=== PATIENT | male | born 1950 | race Caucasian/White ===

== ENCOUNTER → 2019-04-16 | Outpatient (CLI) | payer MEDICARE, SELFPAY ==
[2019-04-16 09:09] VITALS: BMI 26.4
[2019-04-16 12:24] LABS: Absolute Lymphocyte Count 2.69 X10^3/uL (0.83-4.51); Absolute Neutrophil Count 5.7 X10^3/uL (2.0-7.7); Basophil# 0.14 X10^3/uL; Basophil% 1.4 % (0-1); Eosinophil# 0.36 X10^3/uL; Eosinophils% 3.5 % (0-5); Hemoglobin 17.9 g/dL (13.0-16.5); Lymphocyte # 2.69 X10^3/ul (4.0); Lymphocyte % 26.3 % (19-41); Mean Corp Hgb Conc 34.4 g/dL (32-36); Mean Corpuscular Hgb 33.3 pg (27.0-32.0); Mean Corpuscular Volume 96.8 fL (80-94); Mean Platelet Vol. 11.1 fl (6.2-12.0); Monocyte# 1.25 X10^3/uL; Monocyte% 12.2 % (0-10); NRBC Flagged by Analyzer 0 % (0-5); Neutrophil # 5.73 X10^3/uL (2.7-7.7); Neutrophil % 56.1 % (47-70); Platelet Count 309 K/mm3 (150-450); RBC Distribution Width CV 14.2 % (11.6-14.6); RBC Distribution Width SD 50.7 fl (35.1-43.9); Red Blood Count 5.37 M/mm3 (4.6-6.2); White Blood Count 10.2 K/mm3 (4.4-11.0)
[2019-04-16 12:53] LABS: ALB/GLOB Ratio 0.8 RATIO (0.9-2.4); AST(SGOT) 36 U/L (15-37); Alanine Aminotransfer ALT/SGPT 51 U/L (16-61); Albumin, Serum 3.6 g/dL (3.2-5.0); Alkaline Phosphatase 71 U/L (45-117); Anion Gap 6 (5-15); BUN 7 mg/dL (7-18); BUN/Creat Ratio 7.2 RATIO (10-20); Calcium,Total 8.9 mg/dL (8.5-10.1); Chloride 103 mmol/L (98-107); Cholesterol 259 mg/dL (200); Creatinine, Serum 0.97 mg/dL (0.70-1.30); EST Glomerular Filtration Rate 81 mL/min (>60); Est Glom Filt Rate - Afr Amer 98 mL/min (>60); Globulin 4.5 g/dL (2.2-4.2); Glucose 141 mg/dL (74-106); High Density Lipoprotein 59 mg/dL; Potassium 4.2 mmol/L (3.5-5.1); Protein, Total 8.1 g/dL (6.4-8.2); Sodium Level 137 mmol/L (136-145); Triglycerides 77 mg/dL; Very Low Density Lipoprotein 15 mg/dL (5-40)
== END | disposition home or self-care (01) ==
PROVIDERS: PCP Internal Medicine; Visit Provider Internal Medicine
DX: I10 Essential (primary) hypertension (principal)
CPT/HCPCS: 36415; 80053; 80061; 85025

== ENCOUNTER → 2019-04-17 | Outpatient (CLI) | payer MEDICARE, SELFPAY ==
[2019-04-16 09:09] VITALS: BMI 26.4
--- NOTE | 2019-04-17 09:18 | EKG12_ITS ---
Test Reason : ROUTINE Blood Pressure : / mmHG Vent. Rate : 099 BPM Atrial Rate : 099 BPM P-R Int : 150 ms QRS Dur : 090 ms QT Int : 364 ms P-R-T Axes : 072 080 059 degrees QTc Int : 467 ms Normal sinus rhythm Possible Left atrial enlargement Borderline ECG Confirmed by DIANE DUNLAP, ELVIRA ([id number]), newspaper copy editor ZENOBIA ZENDEJAS ([id number]) on 04/18/2019 12:03:02 PM Referred By: Zully Montoya Confirmed By:ELVIRA CONTRERAS MD
== END | disposition home or self-care (01) ==
LOC: PSN 09:16
PROVIDERS: Family Provider Internal Medicine; PCP Internal Medicine; Referring Provider Internal Medicine; Visit Provider Internal Medicine
DX: I10 Essential (primary) hypertension (principal)
CPT/HCPCS: 93005

== ENCOUNTER → 2019-08-06 09:34 | Outpatient (CLI) | payer MEDICARE, SELFPAY ==
[2019-08-06 09:14] VITALS: BMI 27.6
--- NOTE | 2019-08-06 10:20 | RAD_ITS ---
HISTORY: INCREASING PAIN AND JOINT SWELLING, NKI.PT UNAWARE OF ANY INJURY INVOLVING METAL TO EXPLAIN WHY THERE IS A METALIC FB ADDITIONAL HISTORY: None provided. TECHNIQUE: Left hand 2 views Number of images including paperwork: 2 COMPARISON: None FINDINGS: BONES: No acute fracture. JOINTS: No subluxation. Moderate to severe degenerative changes of the radiocarpal, triscaphe he is in first carpometacarpal joints. Mild to moderate degenerative changes of the small joints of the hand. No definite erosive changes. SOFT TISSUES: Small rounded metallic foreign body with slightly irregular margins noted in the soft tissues lateral to the distal radial diaphysis. Small linear density projects over the soft tissues adjacent to the thumb metacarpal bone, possibly small foreign body or object outside the patient. Soft tissue swelling about the wrist. RAD/Hand 2 Views IMPRESSION: 1. Degenerative changes without acute osseous abnormality. 2. Small metallic foreign body in the soft tissues along the radial aspect of the distal forearm/proximal wrist. Question of additional small foreign body in the soft tissues adjacent to the left thumb metacarpal bone. 3. Soft tissue swelling. at 2230 Reported and signed by: Mercy Thomas MD Electronically Signed: Mercy Thomas MD at 22:30 EST Tel , Service support ,
[2019-08-06 13:03] LABS: ALB/GLOB Ratio 0.8 RATIO (0.9-2.4); AST(SGOT) 20 U/L (15-37); Alanine Aminotransfer ALT/SGPT 31 U/L (16-61); Albumin, Serum 3.6 g/dL (3.2-5.0); Alkaline Phosphatase 81 U/L (45-117); Anion Gap 4 (5-15); BUN 11 mg/dL (7-18); BUN/Creat Ratio 10.8 RATIO (10-20); Calcium,Total 9.2 mg/dL (8.5-10.1); Chloride 102 mmol/L (98-107); Creatinine, Serum 1.02 mg/dL (0.70-1.30); EST Glomerular Filtration Rate 77 mL/min (>60); Est Glom Filt Rate - Afr Amer 93 mL/min (>60); Globulin 4.3 g/dL (2.2-4.2); Glucose 141 mg/dL (74-106); Potassium 4.2 mmol/L (3.5-5.1); Protein, Total 7.9 g/dL (6.4-8.2); Sodium Level 135 mmol/L (136-145)
== END ==
PROVIDERS: PCP Internal Medicine; Referring Provider Internal Medicine; Visit Provider Internal Medicine
DX: E78.5 Hyperlipidemia, unspecified (principal); I10 Essential (primary) hypertension; M19.90 Unspecified osteoarthritis, unspecified site; R22.32 Localized swelling, mass and lump, left upper limb
CPT/HCPCS: 36415; 73120; 80053; 86140; 86431

== ENCOUNTER → 2019-08-28 | Outpatient (CLI) | payer MEDICARE, SELFPAY ==
[2019-08-06 09:41] VITALS: BMI 26.4
[2019-08-28 10:33] VITALS: BMI 26.7
--- NOTE | 2019-08-28 11:01 | CT_ITS ---
STUDY: LOW DOSE CT LUNG CANCER SCREENING REASON FOR EXAM: Male, 68 years old. Care smoking history. RADIATION DOSAGE (If Supplied By Facility): CTDIvol = ( 3.02 ) mGy, DLP = ( 114.38 ) mGycm TECHNIQUE: No contrast was administered. Low dose technique was utilized (average mAS-38 and kVp 120). 1.25 mm axial source images with a slice interval of 1.25-mm were reconstructed in lung windows. 2.5 mm axial source images with a slice interval of 2.5-mm were reconstructed in lung windows. 5.0 mm axial source images with a slice interval of 5.0-mm were reconstructed in soft tissue windows. Nodule measured using lung windows on PACS and/or independent workstation with automated measurement of minimum and maximum diameter. Nodule measurement reported as average diameter rounded to the nearest whole number. Growth is defined as an increase ins size of greater than 1.5 mm. COMPARISON: None. NODULES: Total lung nodules (excluding granulomas): 0 Emphysema: There are emphysematous changes of the lungs without mass or infiltrate. Endobronchial lesion: None Aorta: Atherosclerotic changes without aneurysm. Coronary arteries: Coronary artery calcifications. Heart: Normal in size Pulmonary artery: Normal Mediastinal nodes: There is nonspecific mediastinal lymphadenopathy. Other chest and abdominal findings: There are degenerative changes of the thoracic spine. CT/Low Dose CT Lung Screening IMPRESSION: Lung-RADS category 1 - Continue annual screening with LDCT in 12 months. IMPORTANT NOTES FOR USE: ACR Lung-RADS Version 1.0 Assessment Categories Release Date: November 12, 2013 Category: Coded 0-4 bases on nodule(s) with highest degree of suspicion. Negative screen is defined as categories 1 and 2; a positive screen is defined as categories 3 and 4. Category 3 and 4A nodules that are unchanged on interval CT should be coded as category 2, and individuals returned to screening in 12 months. Category 4X: Category 3 or 4 nodules with additional imaging findings that increase the suspicion of lung cancer, such as spiculation, GGN that doubles in size in 1 year, enlarged lymph notes, etc. Category Modifiers: S (significant finding unrelated to lung cancer) and C (prior history of treated lung cancer) may be added to the 0-4 Lung-RADS Electronically Signed: Yomi Valencia DO at 21:54 EST Tel [phone], Service support ,
== END | disposition home or self-care (01) ==
PROVIDERS: PCP Internal Medicine; Referring Provider Nurse Practitioner Family; Visit Provider Nurse Practitioner Family
DX: F17.209 Nicotine dependence, unspecified, with unspecified nicotine-induced disorders (principal); Z12.2 Encounter for screening for malignant neoplasm of respiratory organs
CPT/HCPCS: G0297

== ENCOUNTER 2019-09-29 09:08 | Inpatient (IN) | payer MEDICARE, SELFPAY ==
[2019-08-28 10:33] VITALS: BMI 26.7
[2019-09-29] VITALS (8 sets, daily range): BP systolic 144–173; BP diastolic 76–91; PULSE 97–104; RESP 18–20; TEMP 36.6–37.7; O2SAT 90–94; BMI 26.8; BMI 26.2; BMI 26.9
--- NOTE | 2019-09-29 09:24 | EKG12_ITS ---
Test Reason : Blood Pressure : / mmHG Vent. Rate : 097 BPM Atrial Rate : 097 BPM P-R Int : 176 ms QRS Dur : 092 ms QT Int : 392 ms P-R-T Axes : 061 061 056 degrees QTc Int : 497 ms Normal sinus rhythm Nonspecific ST abnormality Prolonged QT Abnormal ECG Confirmed by VALENTE MARTIN ([id number]), industrial editor RUDI HEARD ([id number]) on 10/04/2019 9:19:13 AM Referred By: JACK Confirmed By:VALENTE MARTIN
--- NOTE | 2019-09-29 09:24 | CT_ITS ---
STUDY: CT ABDOMEN AND PELVIS WITHOUT CONTRAST REASON FOR EXAM: Male, 68 years old. ABD PAIN AND SOB SINCE 4 AM, HTN, SPLENECTOMY RADIATION DOSAGE (If Supplied By Facility): CTDIvol = ( 6.96 ) mGy, DLP = ( 485.13 ) mGycm TECHNIQUE: Transaxial images were obtained from the dome of the diaphragm to the symphysis pubis without oral contrast, and without intravenous contrast. Sagittal and coronal images were reconstructed. Individualized dose optimization techniques were used for this CT. COMPARISON: None. FINDINGS: Right lower lung basilar atelectatic changes present. The visualized portions of the heart are within normal limits. There is decreased attenuation of the liver consistent with steatosis. Normal gallbladder and extrahepatic biliary system. Spleen has been surgically removed. Mild prominence of the pancreatic tail is noted and may be secondary to postsurgical changes of splenectomy. Normal bilateral adrenal glands. Bilateral vascular calcifications in the renal pelvis are present. Normal visualized stomach. Within the region of the distal duodenum near the fourth portion is apparent wall thickening and surrounding inflammatory stranding and fluid layering concerning for distal duodenitis as seen on axial series 2 image 72 and coronal series 601 image 60. Normal colon. The appendix is visualized and appears normal. There is diffuse atherosclerotic calcification of the abdominal aorta, without a demonstrated aneurysm. Normal inferior vena cava. Scattered fluid layering within the mid abdomen mesentery and extending along the left paracolic gutter is noted. Normal urinary bladder. There is a small umbilical hernia containing fat. Left inguinal indirect hernia containing small bowel is noted without evidence of obstruction. There are diffuse degenerative changes of the visualized lumbar spine. CT/Abdomen/Pelvis without Cont IMPRESSION: 1. Findings consistent with distal duodenum inflammation within the fourth portion concerning for duodenitis in the appropriate clinical setting. Inflammation does not appear to originate from the pancreas. Mesenteric fluid and stranding within the mid abdomen left paracolic gutter noted with no evidence of focal fluid collection or abscess. Further characterization may be obtained with oral and IV contrast as clinically warranted. 2. Mild prominent appearance of the distal tail of the pancreas may be secondary to alteration due to splenectomy, this may also be further evaluated with contrast CT study. 3. Left inguinal bowel-containing hernia as above. Electronically Signed: Niall Solitario DO at 10:40 EDT , Service support ,
--- NOTE | 2019-09-29 09:27 | ED.DCSUM_ITS ---
History of Present Illness Chief Complaint: Abd Pain Informant: Patient Onset: Today Maximum Severity: Mild Narrative: The patient complains of diffuse abdominal discomfort that began at 4 AM this morning, he went to bed feeling fine, his history of prior abdominal surgery for splenectomy years ago related to removal of a mass, he has not been ill in any way he has been passing stool urinary habits normal, no fever no cough, no exposures to covid19, no history of bowel obstruction or other conditions The patient lipase is almost 10,000, white count 18,000, CT shows inflammation distal duodenum with some fluid in the left paracolic gutter liver and gallbladder are unremarkable the rest of the abdominal ct exam unremarkable and hemodynamically stable given all the above will continue IV fluids of asked the hospital see him for the management admission Admit stable Impression acute pancreatitis Past Medical History - Allergies and Home Meds Allergies/Adverse Reactions: Allergies No Known Allergies Allergy (Verified 09/29/19 09:09) Primary Care Physician: Zully Montoya MD [Primary Care Provider] - Past Medical History: - Smoking Status: Current every day smoker Review of Systems ROS: - Clues as above General: Denies: Chills, Fever, Sweats Eyes: Denies: Visual changes - bilaterally, Diplopia ENT: Denies: Rhinorrhea, Sore throat Cardiovascular: Denies: Chest pain, Palpitations Respiratory: Denies: Dyspnea, Cough, Dyspnea on exertion Gastrointestinal: Reports: Abdominal pain. Denies: Nausea, Vomiting, Diarrhea, Melena, Hematochezia Genitourinary: Denies: Dysuria, Hematuria, Frequency Musculoskeletal: Denies: Back pain, Extremity Pain Skin: Denies: Rash, Wounds Neurological: Denies: Headache, Weakness, Numbness Physical Exam Vital Signs/Narrative: Vital Signs Temp Pulse Resp BP Pulse Ox 09/29/19 09:09 98.0 F 104 H 20 H 156/76 H 90 General: Well nourished, Well developed, No Acute Distress Head: Normocephalic, Atraumatic Eyes: Perrl, EOMI ENT: Moist mucous membranes, No rhinorrhea Neck: Supple, Nontender Cardiovascular: Regular rate, Regular rhythm, No murmurs Respiratory: No distress, CTA bilaterally, Chest nontender Abdomen: Soft, Normal bowel sounds, - - Slight distention to his abdominal area, he appears to have a stable umbilical hernia 6 o'clock position that is not tender he complains of vague diffuse pain he takes his hand and draws it diffusely across his abdomen a very large north fork there is no rebound guarding organomegaly rather diffuse pain there is no obvious bladder distention for sure. Negative for: Nondistended Back: Nontender, Normal Inspection Extremities: Nontender, No edema Skin: Normal color, No rash Neurological: Alert, Oriented x3, Cranial nerves II-XII grossly intact, Normal Strength, Normal Sensation Psychological: Normal affect, Normal Mood Diagnostic/Tx/Re-eval - Medical Decision Making Differentials extensive ED screening evaluation CT fluids labs ED Disposition - Plan for ED Patient: Diagnosis: Acute pancreatitis Referrals: Zully Montoya MD [Primary Care Provider] -
[2019-09-29 09:56] LABS: Absolute Lymphocyte Count 1.18 X10^3/uL (0.83-4.51); Absolute Neutrophil Count 15.5 X10^3/uL (2.0-7.7); Basophil# 0.07 X10^3/uL; Basophil% 0.4 % (0-1); Hematocrit 46.3 % (40-54); Lymphocyte # 1.18 X10^3/ul (4.0); Lymphocyte % 6.5 % (19-41); Mean Corp Hgb Conc 34.6 g/dL (32-36); Mean Corpuscular Hgb 32.9 pg (27.0-32.0); Mean Corpuscular Volume 95.1 fL (80-94); Mean Platelet Vol. 10.4 fl (6.2-12.0); Monocyte# 1.23 X10^3/uL; Monocyte% 6.8 % (0-10); NRBC Flagged by Analyzer 0 % (0-5); Neutrophil # 15.53 X10^3/uL (2.7-7.7); Neutrophil % 85.4 % (47-70); Platelet Count 276 K/mm3 (150-450); RBC Distribution Width CV 13.6 % (11.6-14.6); RBC Distribution Width SD 47.7 fl (35.1-43.9); Red Blood Count 4.87 M/mm3 (4.6-6.2); White Blood Count 18.2 K/mm3 (4.4-11.0)
[2019-09-29] MEDS: 0.9% Normal Saline 1,000 ML 125 ML IV (10:01)
[2019-09-29] MEDS: morphine 8 MG/ML Syringe IV (10:01)
[2019-09-29] MEDS: Ondansetron 4 MG/2 ML Vial IV (10:01)
[2019-09-29 10:04] LABS: AST(SGOT) 22 U/L (15-37); Alanine Aminotransfer ALT/SGPT 38 U/L (16-61); Albumin, Serum 3.9 g/dL (3.2-5.0); Alkaline Phosphatase 63 U/L (45-117); Anion Gap 9 (5-15); BUN 18 mg/dL (7-18); Calcium,Total 8.7 mg/dL (8.5-10.1); Chloride 105 mmol/L (98-107); EST Glomerular Filtration Rate 79 mL/min (>60); Est Glom Filt Rate - Afr Amer 95 mL/min (>60); Globulin 3.8 g/dL (2.2-4.2); Glucose 217 mg/dL (74-106); Lipase 9343 U/L (73-393); Potassium 3.6 mmol/L (3.5-5.1); Protein, Total 7.7 g/dL (6.4-8.2); Sodium Level 140 mmol/L (136-145)
[2019-09-29 10:05] LABS: Bacteria 0 SEEN /hpf (None Seen); Mucous, Urine 0 SEEN /hpf (<or=2+); White Blood Cells 0 SEEN /hpf (0-5)
[2019-09-29 10:32] LABS: Color, Urine Yellow (Yellow); Glucose, Dipstick 250 mg/dl (Normal); Ketone-Dipstick 15 mg/dl (Negative); Leukocyte Esterase-Dipstick Negative /ul (Negative); Nitrite-Dipstick Negative (Negative); Occult Blood-Urine Negative /ul (Negative); Protein-Dipstick 15 mg/dl (Negative); Urine Bilirubin Dipstick Negative (Negative); Urine Clarity Clear (Clear); Urine Urobilinogen Normal (Normal)
[2019-09-29 10:44] LABS: Red Blood Cells-Urine 0-5 SEEN /hpf (0-5); Squamous Epithelial Cells - UA 0-5 SEEN /hpf (0-5)
--- NOTE | 2019-09-29 10:59 | NURSING ---
DR GABBY ACEVEDO
--- NOTE | 2019-09-29 11:07 | NURSING ---
MED SURG OBS GABBY ACUTE PANCREATITIS
--- NOTE | 2019-09-29 12:30 | HP.PCM_ITS ---
Problem List (1) Acute alcoholic pancreatitis Status: Acute (2) Carpal tunnel syndrome of right wrist Status: Chronic (3) Hyperlipidemia Status: Chronic (4) Right wrist pain Status: Chronic (5) Hypertension Status: Chronic History of Present Illness Date of Admission: 09/29/19 Chief Complaint: Abdominal pain The patient is a 68 year old M with history of chronic alcohol use about 6 bottle of beer every day for long time came to ER with diffuse abdominal pain that started at 4:00 on the day of admission. Patient denies nausea, vomiting, change in bowel habit, GI bleed. 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 Denies lower related symptoms including burning micturition. Denies chronic GI or liver gallbladder disease. Denies fever or chills, URI symptoms/flulike symptoms or exposure to suspected patients of COVID 19. [] In ED, CT scan of abdomen was done which showed inflammation of D4, duodenitis along with fluid in left paracolic gutter, mesenteric stranding and edema. ED vitals shows heart rate 100/min, blood pressure high 173/91. Lab work shows leukocytosis with left shift 85% neutrophils. LFT within normal limit. Lipase 9343. UA negative Past Medical History Past Medical History (Chronic Problems): Chronic Problems (Last Reviewed 08/28/19 @ 10:29 by Lucrecia Rivas) Carpal tunnel syndrome of right wrist (Chronic) Hyperlipidemia (Chronic) Right wrist pain (Chronic) Hypertension (Chronic) Medical History: Medical History (Last Reviewed 08/28/19 @ 10:29 by Lucrecia Rivas) Arthritis M19.90 Hyperlipemia E78.5 Left inguinal hernia K40.90 Hypertension I10 Allergies No Known Allergies Allergy (Verified 09/29/19 09:09) Home Medications: Ambulatory Orders Medication Instructions Recorded blood pressure monitor See Rx Instructions .ROUTE 04/16/19 .MEDSUPPLY #1 ea Wrist Splint #2 ea 05/01/19 hydroxychloroquine 200 mg tablet 200 mg PO DAILY #30 tab 08/06/19 Amlodipine Besylate 10 mg PO DAILY 09/29/19 Losartan Potassium [Cozaar] 50 mg PO DAILY 09/29/19 Prednisone 20 mg PO DAILY 09/29/19 Rosuvastatin Calcium 10 mg PO DAILY 09/29/19 Surgical History: Surgical History (Last Reviewed 08/28/19 @ 10:29 by Lucrecia Rivas) History of intraocular lens implant Z96.1 History of splenectomy Z90.81 Smoking Status: Current every day smoker - *Family History Paternal History Items: No pertinent history Review of Systems Constitutional: Denies: Chills, Fever, Weight Change HEENT: Denies: Head Aches, Sinus Congestion, Sinus Drainage Cardiovascular: Denies: Chest Pain, Palpitations Respiratory: Reports: Cough - Chronic occasional cough No new cough or worsening of cough or fever.. Denies: Shortness of breath at rest, Sputum production Gastrointestinal: Reports: Abdominal Pain. Denies: Constipation, Diarrhea, Dyspepsia, Hematemesis, Hematochezia, Nausea, Vomiting Genitourinary: Denies: Dysuria Musculoskeletal: Denies: Joint Pain, Joint Tenderness Skin: Denies: Rash, Wounds Neurological: Denies: Numbness, Tingling, Focal weakness Psychiatric: Denies: Anxiety, Depression, Homicidal Ideations, Suicidal Ideations Hematologic/ Lymphatic: Denies: Easy Bruising, Easy Bleeding VTE Information - Inpt Only VTE Present on Admission: No VTE Mechan Device Prophylaxis: None VTE Pharm Prophylaxis ordered?: Yes Patient Problems: Active and Suspected Problems (Last Reviewed 08/28/19 @ 10:29 by Lucrecia Rivas) Acute alcoholic pancreatitis (Acute) - Physical Exam Vitals/I&O's: Vital Signs Temp Pulse Resp BP Pulse Ox 98 F 100 18 173/91 H 92 09/29/19 11:27 09/29/19 11:27 09/29/19 11:27 09/29/19 11:27 09/29/19 11:27 Oxygen Flow Rate (L/min) 2 Oxygen Delivery Method Nasal Cannula Weight: 172 lb 6.424 oz Body Mass Index (BMI) 26.2 General: Alert, Oriented x3, Cooperative HEENT: Atraumatic, PERRLA, EOMI, Normocephalic Neck: Supple, No JVD, Negative Carotid Bruits Lungs: Clear to auscultation, No rhonchi, No wheeze, No rales, Diminished Cardiovascular: Regular Rhythm, Normal S1, Normal S2, No murmurs, Tachycardic Abdomen: Bowel Sounds Present, Soft, Non-Distended, Hypoactive Bowel Sounds, Tender - Tenderness present over left side of mid abdomen. No guarding or rigidity. No palpable mass. Upper midline abdominal incision scar present Extremities: No edema, Capillary Refill Less than 3 Seconds Skin: No rashes, No breakdown Musculoskeletal: No Tenderness to Palpation of Joints or Extremities, Arthritic Changes Neurological: Cranial nerves II-XII grossly intact, Deep Tendon Reflexes 2+/4 and Symmetrical, Neuro grossly intact, Motor Exam 5/5 strength throughout Psych/Mental Status: Normal Affect, Appropriate Laboratory Results 09/29/19 09:30: WBC 18.2 H, RBC 4.87, Hgb 16.0, Hct 46.3, MCV 95.1 H, MCH 32.9 H , MCHC 34.6, RDW Std Deviation 47.7 H, RDW Coeff of [place] 13.6, Plt Count 276, MPV 10.4, Immature Gran % (Auto) 0.900, Neut % (Auto) 85.4 H, Lymph % (Auto) 6.5 L, [place] % (Auto) 6.8, Eos % (Auto) 0.0, Baso % (Auto) 0.4, Absolute Neuts (auto) 15.5 H, Absolute Lymphs (auto) 1.18, Nucleated RBC % 0 09/29/19 09:30: Sodium 140, Potassium 3.6, Chloride 105, Carbon Dioxide 26.0, Anion Gap 9, BUN 18, Creatinine 1.00, Estim Creat Clear Calc 66.50, Est GFR (MDRD) Af Amer 95, Est GFR (MDRD) Non-Af 79, BUN/Creatinine Ratio 18.0, Glucose 217 H, Calcium 8.7, Total Bilirubin 0.60, AST 22, ALT 38, Alkaline Phosphatase 63, Total Protein 7.7, Albumin 3.9, Globulin 3.8, Albumin/Globulin Ratio 1.0, Lipase 9343 H 09/29/19 09:55: Urine Color Yellow, Urine Clarity Clear, Urine pH 6.0, Ur Specific [place] 1.020, Urine Protein 15 H, Urine Glucose (UA) 250 H, Urine Ketones 15 H, Urine Occult Blood Negative, Urine Nitrite Negative, Urine Bilirubin Negative, Urine Urobilinogen Normal, Ur Leukocyte Esterase Negative, Urine RBC 0-5 SEEN, Urine WBC 0 SEEN, Ur Squamous Epith Cells 0-5 SEEN, Urine Bacteria 0 SEEN, Urine Mucus 0 SEEN Current Medications Sodium Chloride () 1,000 mls @ 125 mls/hr IV .Q8H HAN Last Admin: 09/29/19 10:01 Dose: 125 mls/hr Documented by: Assessment/Plan All Active Problems (Last Reviewed 08/28/19 @ 10:29 by Lcurecia Rivas) Acute alcoholic pancreatitis (Acute) The patient is a 68 year old M with history of chronic alcohol use about 6 bottle of beer every day for long time came to ER with diffuse abdominal pain that started at 4:00 on the day of admission. In ED, CT scan of abdomen was done which showed inflammation of D4, duodenitis along with fluid in left paracolic gutter, mesenteric stranding and edema. ED vitals shows heart rate 100/min, blood pressure high 173/91. Lab work shows leukocytosis with left shift 85% neutrophils. LFT within normal limit. Lipase 9343. UA negative. CT abdomen reported normal GB with extrahepatic biliary system. 1. Acute alcoholic pancreatitis: Patient is being admitted floor. IV fluid Ringer lactate 150 mL/h. Surgery has been consulted for features of mesenteric stranding and edema probably secondary to pancreatic edema. Monitor intake and output, keep n.p.o., follow-up electrolytes, kidney function CBC. 2. Chronic alcohol use with fatty liver: CT abdomen shows steatosis. Liver tests are within normal limit, albumin 3.9. Platelet count 276. PT/INR ordered. 3. Chronic smoker: 4. Hypertension: Blood pressure is uncontrolled, 173/91. Patient on amlodipine, losartan at home. Start IV hydralazine and enalapril while patient is n.p.o. Resume p.o. medication once oral is allowed 5. Dyslipidemia: Hold rosuvastatin while patient is n.p.o. 6. 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 Patient is on hydroxychloroquine and prednisone 20 mg daily probably started by PCP about 2 months ago, reason unclear. Will hold it. 7. DVT prophylaxis: Lovenox 40 mg subcu daily Living will/advanced directive/CODE STATUS: Patient does not have living will or advanced directive of health. When asked directly about CODE STATUS, he chooses DNR CC arrest Patient does not want artificial life support including intubation, artificial tube feed, ventilator and/chest compression,'s CVC, vasopressor or DC shock if needed. Patient is DNR CC Arrest. Total time spent in [id number] encounter in di scussion of advanced directive 16 minutes. Inpatient E&M: 38240 Init Hosp L3 Procedures: 61218 Advncd Care Plan 30 Min
[2019-09-29] MEDS: Lactated Ringers 1,000 ML 150 ML IV ×2 (13:28→21:59)
[2019-09-29] MEDS: Enoxaparin 40 MG/0.4 ML Syringe SC (13:54)
[2019-09-29 14:00] LABS: Prothrombin Time (Protime)PT. 13.4 SECONDS (11.7-14.9)
[2019-09-29 14:02] LABS: Magnesium 1.7 mg/dL (1.6-2.6)
[2019-09-29] MEDS: 0.9% Saline Lock 10 ML Syringe IV (14:03)
[2019-09-29] MEDS: Morphine 2 MG/ML Syringe IV ×2 (14:03→20:33)
--- NOTE | 2019-09-29 15:45 | CON.PCM_ITS ---
Problem List (1) Acute alcoholic pancreatitis Status: Acute Reason for Consult Date of Consultation: 09/29/19 History of Present Illness: The patient is a 68 year old M with history of chronic alcohol use about 6 bottle of beer every day for long time came to ER with diffuse abdominal pain that started at 4:00 on the day of admission. Patient denies nausea, vomiting, change in bowel habit, GI bleed. 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 Denies lower related symptoms including burning micturition. Denies chronic GI or liver gallbladder disease. Denies fever or chills, URI symptoms/flulike symptoms or exposure to suspected patients of COVID 19. [] In ED, CT scan of abdomen was done which showed inflammation of D4, duodenitis along with fluid in left paracolic gutter, mesenteric stranding and edema. ED vitals shows heart rate 100/min, blood pressure high 173/91. Lab work shows leukocytosis with left shift 85% neutrophils. LFT within normal limit. Lipase 9343. UA negative Patient underwent a CAT scan of his abdomen and pelvis which showed: IMPRESSION: 1. Findings consistent with distal duodenum inflammation within the fourth portion concerning for duodenitis in the appropriate clinical setting. Inflammation does not appear to originate from the pancreas. Mesenteric fluid and stranding within the mid abdomen left paracolic gutter noted with no evidence of focal fluid collection or abscess. Further characterization may be obtained with oral and IV contrast as clinically warranted. 2. Mild prominent appearance of the distal tail of the pancreas may be secondary to alteration due to splenectomy, this may also be further evaluated with contrast CT study. 3. Left inguinal bowel-containing hernia as above. Patient states that since being in the hospital with IV hydration and minimal n arcotics his pain level has decreased. 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 Mike Barragan MD) Arthritis M19.90 Hyperlipemia E78.5 Left inguinal hernia K40.90 Hypertension I10 Allergies No Known Allergies Allergy (Verified 09/29/19 09:09) Home Medications: Ambulatory Orders Medication Instructions Recorded blood pressure monitor See Rx Instructions .ROUTE 04/16/19 .MEDSUPPLY #1 ea Wrist Splint #2 ea 05/01/19 hydroxychloroquine 200 mg tablet 200 mg PO DAILY #30 tab 08/06/19 Amlodipine Besylate 10 mg PO DAILY 09/29/19 Losartan Potassium [Cozaar] 50 mg PO DAILY 09/29/19 Prednisone 20 mg PO DAILY 09/29/19 Rosuvastatin Calcium 10 mg PO DAILY 09/29/19 Surgical History: Surgical History (Last Reviewed 09/29/19 @ 15:[address] Mike Barragan MD) History of intraocular lens implant Z96.1 History of splenectomy Z90.81 Smoking Status: Current every day smoker Tobacco Use: Cigarettes - *Family History Paternal History Items: No pertinent history Review of Systems Constitutional: Reports: Anorexia Cardiovascular: Denies: Chest Pain, Chest Pressure, Chest Tightness, Palpitations Respiratory: Denies: Cough, Hemoptysis, Shortness of breath at rest, Shortness of breath upon exertion, Wheezing Gastrointestinal: Reports: Abdominal Pain Patient Problems: Active and Suspected Problems (Last Reviewed 08/28/19 @ 10:29 by Lucrecia Rivas) Acute alcoholic pancreatitis (Acute) - Physical Exam Vitals/I&O's: Vital Signs Temp Pulse Resp BP Pulse Ox 98.2 F 97 18 144/88 H 92 09/29/19 13:07 09/29/19 13:07 09/29/19 13:07 09/29/19 13:07 09/29/19 13:40 Oxygen Flow Rate (L/min) 2 Oxygen Delivery Method Nasal Cannula Weight: 172 lb 6.424 oz Body Mass Index (BMI) 26.2 Intake and Output for Last 24 Hours 09/27/19 09/28/19 09/29/19 23:59 23:59 23:59 Intake Total 595.42 / 595.42 Balance 595.42 / 595.42 General: Alert, Oriented x3 Lungs: Clear to auscultation Cardiovascular: Regular rate, Regular Rhythm, No murmurs Abdomen: Bowel Sounds Present, Soft, Non Tender, Non-Distended Extremities: No clubbing, No cyanosis, No edema Laboratory Results 09/29/19 09:30: WBC 18.2 H, RBC 4.87, Hgb 16.0, Hct 46.3, MCV 95.1 H, MCH 32.9 H , MCHC 34.6, RDW Std Deviation 47.7 H, RDW Coeff of [place] 13.6, Plt Count 276, MPV 10.4, Immature Gran % (Auto) 0.900, Neut % (Auto) 85.4 H, Lymph % (Auto) 6.5 L, [place] % (Auto) 6.8, Eos % (Auto) 0.0, Baso % (Auto) 0.4, Absolute Neuts (auto) 15.5 H, Absolute Lymphs (auto) 1.18, Nucleated RBC % 0 09/29/19 09:30: Sodium 140, Potassium 3.6, Chloride 105, Carbon Dioxide 26.0, Anion Gap 9, BUN 18, Creatinine 1.00, Estim Creat Clear Calc 66.50, Est GFR (MDRD) Af Amer 95, Est GFR (MDRD) Non-Af 79, BUN/Creatinine Ratio 18.0, Glucose 217 H, Calcium 8.7, Total Bilirubin 0.60, AST 22, ALT 38, Alkaline Phosphatase 63, Total Protein 7.7, Albumin 3.9, Globulin 3.8, Albumin/Globulin Ratio 1.0, Lipase 9343 H 09/29/19 09:55: Urine Color Yellow, Urine Clarity Clear, Urine pH 6.0, Ur Specific [place] 1.020, Urine Protein 15 H, Urine Glucose (UA) 250 H, Urine Ketones 15 H, Urine Occult Blood Negative, Urine Nitrite Negative, Urine Bilirubin Negative, Urine Urobilinogen Normal, Ur Leukocyte Esterase Negative, Urine RBC 0-5 SEEN, Urine WBC 0 SEEN, Ur Squamous Epith Cells 0-5 SEEN, Urine Bacteria 0 SEEN, Urine Mucus 0 SEEN 09/29/19 13:28: Magnesium 1.7 09/29/19 13:28: PT 13.4, INR 1.0 Current Medications Acetaminophen (Tylenol) 650 mg PO Q6H PRN PRN PRN Reason: Pain Score 1-10/Temp > 100.7 F Enalaprilat (Vasotec) 1.25 mg IV Q6H PRN PRN Reason: sbp>180 Enoxaparin Sodium (Lovenox) 40 mg SC DAILY [facility] Last Admin: 09/29/19 13:54 Dose: 40 mg Documented by: Glucagon () 1 mg IM .X1 PRN PRN Reason: Hypoglycemia Hydralazine HCl (Apresoline Iv) 10 mg IV Q4H PRN PRN PRN Reason: SBP>160 Pantoprazole Sodium 40 mg/ (Sodium Chloride) 110 mls @ 330 mls/hr IV Q24 [facility] Lactated Ringer's () 1,000 mls @ 150 mls/hr IV .Q6H40M [facility] Last Admin: 09/29/19 13:28 Dose: 150 mls/hr Documented by: Dextrose (Dextrose 10%-Water) 250 mls @ 999 mls/hr IV .Q16M PRN; Protocol PRN Reason: HYPOGLYCEMIA Morphine Sulfate () 2 mg IV Q3H PRN PRN PRN Reason: Pain Score 6-10/10 Last Admin: 09/29/19 14:03 Dose: 2 mg Documented by: Nitroglycerin (Nitrostat) 0.4 mg SUBLINGUAL Q5M PRN PRN Reason: CARDIAC/CHEST PAIN Ondansetron HCl (Zofran) 4 mg IV Q8H PRN PRN PRN Reason: NAUSEA/VOMITING Oxycodone HCl (Oxyir) 5 mg PO Q4H PRN PRN PRN Reason: Pain Score 4-5/10 Prochlorperazine Edisylate (Compazine Iv) 5 mg IV Q4H PRN PRN PRN Reason: Breakthrough nausea/vomiting Senna/Docusate Sodium (Senokot-S, Elza-Colace) 2 tablet PO BID PRN PRN PRN Reason: Constipation Sodium Chloride () 10 - 40 ml IV UD PRN PRN Reason: SALINE FLUSH Last Admin: 09/29/19 14:03 Dose: 10 ml Documented by: Assessment/Plan All Active Problems (Last Reviewed 08/28/19 @ 10:29 by Lucrecia Rivas) Acute alcoholic pancreatitis (Acute) At this point I think it is whitt for us just to observe this patient. His abdomen is benign I do not think we need to obtain an repeat CAT scan with both IV and oral contrast yet. Hopefully his symptoms will continue to improve and once we have reviewed his labs in the morning we might be able to start him on some clear liquids.
[2019-09-29 18:15] LABS: Absolute Neutrophil Count 13.8 X10^3/uL (2.0-7.7); Basophil# 0.03 X10^3/uL; Basophil% 0.2 % (0-1); Hematocrit 45.6 % (40-54); Hemoglobin 15.7 g/dL (13.0-16.5); Lymphocyte % 7.5 % (19-41); Mean Corp Hgb Conc 34.4 g/dL (32-36); Mean Corpuscular Hgb 32.8 pg (27.0-32.0); Mean Corpuscular Volume 95.4 fL (80-94); Monocyte# 0.82 X10^3/uL; Monocyte% 5.2 % (0-10); NRBC Flagged by Analyzer 0 % (0-5); Neutrophil # 13.77 X10^3/uL (2.7-7.7); Neutrophil % 86.6 % (47-70); Platelet Count 253 K/mm3 (150-450); RBC Distribution Width CV 13.4 % (11.6-14.6); RBC Distribution Width SD 47.7 fl (35.1-43.9); Red Blood Count 4.78 M/mm3 (4.6-6.2); White Blood Count 15.9 K/mm3 (4.4-11.0)
[2019-09-29 19:04] LABS: AST(SGOT) 24 U/L (15-37); Alanine Aminotransfer ALT/SGPT 35 U/L (16-61); Albumin, Serum 3.5 g/dL (3.2-5.0); Alkaline Phosphatase 57 U/L (45-117); Anion Gap 6 (5-15); BUN 11 mg/dL (7-18); BUN/Creat Ratio 13.1 RATIO (10-20); Calcium,Total 7.7 mg/dL (8.5-10.1); Chloride 103 mmol/L (98-107); Creatinine, Serum 0.84 mg/dL (0.70-1.30); EST Glomerular Filtration Rate 96 mL/min (>60); Est Glom Filt Rate - Afr Amer 116 mL/min (>60); Estimated Creatinine Clearance 79.17 ml/min; Globulin 3.4 g/dL (2.2-4.2); Glucose 126 mg/dL (74-106); Potassium 3.8 mmol/L (3.5-5.1); Protein, Total 6.9 g/dL (6.4-8.2); Sodium Level 139 mmol/L (136-145)
[2019-09-30] VITALS (7 sets, daily range): BP systolic 144–157; BP diastolic 79–96; PULSE 96–116; RESP 16–20; TEMP 37.1–37.3; O2SAT 92–96
[2019-09-30] MEDS: Lactated Ringers 1,000 ML 150 ML IV ×4 (04:35→23:50)
[2019-09-30 06:18] LABS: Absolute Lymphocyte Count 1.55 X10^3/uL (0.83-4.51); Basophil# 0.05 X10^3/uL; Basophil% 0.3 % (0-1); Eosinophil# 0.06 X10^3/uL; Eosinophils% 0.4 % (0-5); Hematocrit 46.6 % (40-54); Hemoglobin 16.2 g/dL (13.0-16.5); Lymphocyte # 1.55 X10^3/ul (4.0); Lymphocyte % 9.2 % (19-41); Mean Corp Hgb Conc 34.8 g/dL (32-36); Mean Corpuscular Volume 94.9 fL (80-94); Mean Platelet Vol. 10.2 fl (6.2-12.0); Monocyte# 1.07 X10^3/uL; Monocyte% 6.4 % (0-10); NRBC Flagged by Analyzer 0 % (0-5); Neutrophil # 13.99 X10^3/uL (2.7-7.7); Neutrophil % 83.1 % (47-70); Platelet Count 247 K/mm3 (150-450); RBC Distribution Width CV 13.9 % (11.6-14.6); RBC Distribution Width SD 48.4 fl (35.1-43.9); Red Blood Count 4.91 M/mm3 (4.6-6.2); White Blood Count 16.8 K/mm3 (4.4-11.0)
[2019-09-30 06:52] LABS: ALB/GLOB Ratio 0.9 RATIO (0.9-2.4); AST(SGOT) 27 U/L (15-37); Alanine Aminotransfer ALT/SGPT 31 U/L (16-61); Albumin, Serum 3.1 g/dL (3.2-5.0); Alkaline Phosphatase 54 U/L (45-117); Anion Gap 6 (5-15); BUN 9 mg/dL (7-18); Bilirubin, Direct 0.22 mg/dL (0.00-0.30); Calcium,Total 7.7 mg/dL (8.5-10.1); Chloride 102 mmol/L (98-107); Creatinine, Serum 0.69 mg/dL (0.70-1.30); EST Glomerular Filtration Rate 120 mL/min (>60); Est Glom Filt Rate - Afr Amer 145 mL/min (>60); Globulin 3.4 g/dL (2.2-4.2); Glucose 125 mg/dL (74-106); Potassium 3.5 mmol/L (3.5-5.1); Protein, Total 6.5 g/dL (6.4-8.2); Sodium Level 135 mmol/L (136-145); Thyroid Stim Hormone (TSH) 2.06 uIU/mL (0.358-3.74)
[2019-09-30] MEDS: Potassium Chloride 10mEq/100mL 10 MEQ/100 ML IV.SOLN. 100 MEQ IV BOLUS ×2 (08:21→09:21)
[2019-09-30] MEDS: Enoxaparin 40 MG/0.4 ML Syringe SC (08:24)
--- NOTE | 2019-09-30 09:49 | PN.SURG_ITS ---
Patient Problems: Active and Suspected Problems (Last Reviewed 09/29/19 @ 15:[address] Mike Barragan MD) Acute alcoholic pancreatitis (Acute) Subjective: Patient states that he is feeling significantly better than last night. Much less abdominal pain and discomfort. No nausea or vomiting Objective: Abdomen is soft no rebound guarding or peritoneal signs are identified - Physical Exam Vitals/I&O's: Vital Signs Temp Pulse Resp BP Pulse Ox 98.7 F 96 16 156/92 H 93 09/30/19 07:54 09/30/19 07:54 09/30/19 07:54 09/30/19 07:54 09/30/19 08:12 Oxygen Flow Rate (L/min) 2 Oxygen Delivery Method Room Air Weight: 172 lb 6.424 oz Body Mass Index (BMI) 26.2 Intake and Output for Last 24 Hours 09/28/19 09/29/19 09/30/19 23:59 23:59 23:59 Intake Total 1595.42 / 1595.42 1090 / 1090 Output Total 1000 / 1000 Balance 1595.42 / 1595.42 90 / 90 Microbiology Past 72 Hours 09/29/19 13:45 Mucosa - Nose Respiratory Panel (PCR) - Final Laboratory Results 09/29/19 09:30: WBC 18.2 H, RBC 4.87, Hgb 16.0, Hct 46.3, MCV 95.1 H, MCH 32.9 H , MCHC 34.6, RDW Std Deviation 47.7 H, RDW Coeff of [place] 13.6, Plt Count 276, MPV 10.4, Immature Gran % (Auto) 0.900, Neut % (Auto) 85.4 H, Lymph % (Auto) 6.5 L, [place] % (Auto) 6.8, Eos % (Auto) 0.0, Baso % (Auto) 0.4, Absolute Neuts (auto) 15.5 H, Absolute Lymphs (auto) 1.18, Nucleated RBC % 0 09/29/19 09:30: Sodium 140, Potassium 3.6, Chloride 105, Carbon Dioxide 26.0, Anion Gap 9, BUN 18, Creatinine 1.00, Estim Creat Clear Calc 66.50, Est GFR (MDRD) Af Amer 95, Est GFR (MDRD) Non-Af 79, BUN/Creatinine Ratio 18.0, Glucose 217 H, Calcium 8.7, Total Bilirubin 0.60, AST 22, ALT 38, Alkaline Phosphatase 63, Total Protein 7.7, Albumin 3.9, Globulin 3.8, Albumin/Globulin Ratio 1.0, Lipase 9343 H 09/29/19 09:55: Urine Color Yellow, Urine Clarity Clear, Urine pH 6.0, Ur Specific [place] 1.020, Urine Protein 15 H, Urine Glucose (UA) 250 H, Urine Ketones 15 H, Urine Occult Blood Negative, Urine Nitrite Negative, Urine Bilirubin Negative, Urine Urobilinogen Normal, Ur Leukocyte Esterase Negative, Urine RBC 0-5 SEEN, Urine WBC 0 SEEN, Ur Squamous Epith Cells 0-5 SEEN, Urine Bacteria 0 SEEN, Urine Mucus 0 SEEN 09/29/19 13:28: Magnesium 1.7 09/29/19 13:28: PT 13.4, INR 1.0 09/29/19 18:06: WBC 15.9 H, RBC 4.78, Hgb 15.7, Hct 45.6, MCV 95.4 H, MCH 32.8 H , MCHC 34.4, RDW Std Deviation 47.7 H, RDW Coeff of [place] 13.4, Plt Count 253, MPV 10.0, Immature Gran % (Auto) 0.500, Neut % (Auto) 86.6 H, Lymph % (Auto) 7.5 L, [place] % (Auto) 5.2, Eos % (Auto) 0.0, Baso % (Auto) 0.2, Absolute Neuts (auto) 13.8 H, Absolute Lymphs (auto) 1.20, Nucleated RBC % 0 09/29/19 18:06: Sodium 139, Potassium 3.8, Chloride 103, Carbon Dioxide 30.0, Anion Gap 6, BUN 11, Creatinine 0.84, Estim Creat Clear Calc 79.17, Est GFR (MDRD) Af Amer 116, Est GFR (MDRD) Non-Af 96, BUN/Creatinine Ratio 13.1, Glucose 126 H, Calcium 7.7 L, Total Bilirubin 0.60, AST 24, ALT 35, Alkaline Phosphatase 57, Total Protein 6.9, Albumin 3.5, Globulin 3.4, Albumin/Globulin Ratio 1.0 09/30/19 06:04: WBC 16.8 H, RBC 4.91, Hgb 16.2, Hct 46.6, MCV 94.9 H, MCH 33.0 H , MCHC 34.8, RDW Std Deviation 48.4 H, RDW Coeff of [place] 13.9, Plt Count 247, MPV 10.2, Immature Gran % (Auto) 0.600, Neut % (Auto) 83.1 H, Lymph % (Auto) 9.2 L, [place] % (Auto) 6.4, Eos % (Auto) 0.4, Baso % (Auto) 0.3, Absolute Neuts (auto) 14.0 H, Absolute Lymphs (auto) 1.55, Nucleated RBC % 0 09/30/19 06:04: Sodium 135 L, Potassium 3.5, Chloride 102, Carbon Dioxide 27.0, Anion Gap 6, BUN 9, Creatinine 0.69 L, Estim Creat Clear Calc 66.50, Est GFR (MDRD) Af Amer 145, Est GFR (MDRD) Non-Af 120, BUN/Creatinine Ratio 13.0, Glucose 125 H, Calcium 7.7 L, Total Bilirubin 0.90, Direct Bilirubin 0.22, AST 27, ALT 31, Alkaline Phosphatase 54, Total Protein 6.5, Albumin 3.1 L, Globulin 3.4, Albumin/Globulin Ratio 0.9, TSH 2.06 Current Medications Acetaminophen (Tylenol) 650 mg PO Q6H PRN PRN PRN Reason: Pain Score 1-10/Temp > 100.7 F Enalaprilat (Vasotec) 1.25 mg IV Q6H PRN PRN Reason: sbp>180 Enoxaparin Sodium (Lovenox) 40 mg SC DAILY [facility] Last Admin: 09/30/19 08:24 Dose: 40 mg Documented by: Glucagon () 1 mg IM .X1 PRN PRN Reason: Hypoglycemia Hydralazine HCl (Apresoline Iv) 10 mg IV Q4H PRN PRN PRN Reason: SBP>160 Pantoprazole Sodium 40 mg/ (Sodium Chloride) 110 mls @ 330 mls/hr IV Q24 [facility] Lactated Ringer's () 1,000 mls @ 150 mls/hr IV .Q6H40M [facility] Last Admin: 09/30/19 04:35 Dose: 150 mls/hr Documented by: Dextrose (Dextrose 10%-Water) 250 mls @ 999 mls/hr IV .Q16M PRN; Protocol PRN Reason: HYPOGLYCEMIA Potassium Chloride () 10 meq in 100 mls @ 100 mls/hr IV BOLUS Q1H [facility] Stop: 09/30/19 09:59 Last Admin: 09/30/19 09:21 Dose: 100 mls/hr Documented by: Morphine Sulfate () 2 mg IV Q3H PRN PRN PRN Reason: Pain Score 6-10/10 Last Admin: 09/29/19 20:33 Dose: 2 mg Documented by: Nitroglycerin (Nitrostat) 0.4 mg SUBLINGUAL Q5M PRN PRN Reason: CARDIAC/CHEST PAIN Ondansetron HCl (Zofran) 4 mg IV Q8H PRN PRN PRN Reason: NAUSEA/VOMITING Oxycodone HCl (Oxyir) 5 mg PO Q4H PRN PRN PRN Reason: Pain Score 4-5/10 Prochlorperazine Edisylate (Compazine Iv) 5 mg IV Q4H PRN PRN PRN Reason: Breakthrough nausea/vomiting Senna/Docusate Sodium (Senokot-S, Elza-Colace) 2 tablet PO BID PRN PRN PRN Reason: Constipation Sodium Chloride () 10 - 40 ml IV UD PRN PRN Reason: SALINE FLUSH Last Admin: 09/29/19 14:03 Dose: 10 ml Documented by: Medical Necessity - Tobacco Use Smoking Status: Current every day smoker Tobacco Use: Cigarettes Assessment/Plan All Active Problems (Last Reviewed 09/29/19 @ 15:[address] Mike Barragan MD) Acute alcoholic pancreatitis (Acute) Believe it is okay to start clear liquids today.
--- NOTE | 2019-09-30 12:11 | PCM.PN.HOSP ---
Patient Problems: Active and Suspected Problems (Last Reviewed 09/29/19 @ 15:[address] Mike Barragan MD) Acute alcoholic pancreatitis (Acute) Reason for Visit: Acute alcoholic pancreatitis Subjective: Abdominal pain has much improved about 2-3/10 in intensity intermittently. Patient is feeling hungry and wants to try clear liquid. No chest pain or shortness of breath. Objective: General: Alert, Oriented x3, Cooperative HEENT: Atraumatic, PERRLA, EOMI, Normocephalic Neck: Supple, No JVD, Negative Carotid Bruits Lungs: Clear to auscultation, No rhonchi, No wheeze, No rales, Diminished Cardiovascular: Regular Rhythm, Normal S1, Normal S2, No murmurs, Tachycardic Abdomen: Bowel Sounds Present, Soft, Non-Distended, Hypoactive Bowel Sounds, no tenderness or rebound tenderness. No guarding or rigidity. No palpable mass. Upper midline abdominal incision scar present Extremities: No edema, Capillary Refill Less than 3 Seconds Skin: No rashes, No breakdown Musculoskeletal: No Tenderness to Palpation of Joints or Extremities, Arthritic Changes Neurological: Cranial nerves II-XII grossly intact, Deep Tendon Reflexes 2+/4 and Symmetrical, Neuro grossly intact, Motor Exam 5/5 strength throughout Psych/Mental Status: Normal Affect, Appropriate Vitals/I&O's: Vital Signs Temp Pulse Resp BP Pulse Ox 98.8 F 99 16 150/95 H 93 09/30/19 11:31 09/30/19 11:31 09/30/19 11:31 09/30/19 11:31 09/30/19 11:31 Oxygen Flow Rate (L/min) 2 Oxygen Delivery Method Room Air Weight: 172 lb 6.424 oz Body Mass Index (BMI) 26.2 Intake and Output for Last 24 Hours 09/28/19 09/29/19 09/30/19 23:59 23:59 23:59 Intake Total 1595.42 / 1595.42 2410.0 / 2410.0 Output Total 1800 / 1800 Balance 1595.42 / 1595.42 610.0 / 610.0 Microbiology Past 72 Hours 09/29/19 13:45 Mucosa - Nose Respiratory Panel (PCR) - Final Laboratory Results 09/29/19 13:28: Magnesium 1.7 09/29/19 13:28: PT 13.4, INR 1.0 09/29/19 18:06: WBC 15.9 H, RBC 4.78, Hgb 15.7, Hct 45.6, MCV 95.4 H, MCH 32.8 H, MCHC 34.4, RDW Std Deviation 47.7 H, RDW Coeff of [place] 13.4, Plt Count 253, MPV 10.0, Immature Gran % (Auto) 0.500, Neut % (Auto) 86.6 H, Lymph % (Auto) 7.5 L, [place] % (Auto) 5.2, Eos % (Auto) 0.0, Baso % (Auto) 0.2, Absolute Neuts (auto) 13.8 H, Absolute Lymphs (auto) 1.20, Nucleated RBC % 0 09/29/19 18:06: Sodium 139, Potassium 3.8, Chloride 103, Carbon Dioxide 30.0, Anion Gap 6, BUN 11, Creatinine 0.84, Estim Creat Clear Calc 79.17, Est GFR (MDRD) Af Amer 116, Est GFR (MDRD) Non-Af 96, BUN/Creatinine Ratio 13.1, Glucose 126 H, Calcium 7.7 L, Total Bilirubin 0.60, AST 24, ALT 35, Alkaline Phosphatase 57, Total Protein 6.9, Albumin 3.5, Globulin 3.4, Albumin/Globulin Ratio 1.0 09/30/19 06:04: WBC 16.8 H, RBC 4.91, Hgb 16.2, Hct 46.6, MCV 94.9 H, MCH 33.0 H, MCHC 34.8, RDW Std Deviation 48.4 H, RDW Coeff of [place] 13.9, Plt Count 247, MPV 10.2, Immature Gran % (Auto) 0.600, Neut % (Auto) 83.1 H, Lymph % (Auto) 9.2 L, [place] % (Auto) 6.4, Eos % (Auto) 0.4, Baso % (Auto) 0.3, Absolute Neuts (auto) 14.0 H, Absolute Lymphs (auto) 1.55, Nucleated RBC % 0 09/30/19 06:04: Sodium 135 L, Potassium 3.5, Chloride 102, Carbon Dioxide 27.0, Anion Gap 6, BUN 9, Creatinine 0.69 L, Estim Creat Clear Calc 66.50, Est GFR (MDRD) Af Amer 145, Est GFR (MDRD) Non-Af 120, BUN/Creatinine Ratio 13.0, Glucose 125 H, Calcium 7.7 L, Total Bilirubin 0.90, Direct Bilirubin 0.22, AST 27, ALT 31, Alkaline Phosphatase 54, Total Protein 6.5, Albumin 3.1 L, Globulin 3.4, Albumin/Globulin Ratio 0.9, TSH 2.06 Current Medications Acetaminophen (Tylenol) 650 mg PO Q6H PRN PRN PRN Reason: Pain Score 1-10/Temp > 100.7 F Enalaprilat (Vasotec) 1.25 mg IV Q6H PRN PRN Reason: sbp>180 Enoxaparin Sodium (Lovenox) 40 mg SC DAILY [facility] Last Admin: 09/30/19 08:24 Dose: 40 mg Documented by: Glucagon () 1 mg IM .X1 PRN PRN Reason: Hypoglycemia Hydralazine HCl (Apresoline Iv) 10 mg IV Q4H PRN PRN PRN Reason: SBP>160 Pantoprazole Sodium 40 mg/ (Sodium Chloride) 110 mls @ 330 mls/hr IV Q24 [facility] Last Infusion: 09/30/19 11:09 Dose: Infused Documented by: Lactated Ringer's () 1,000 mls @ 150 mls/hr IV .Q6H40M [facility] Last Infusion: 09/30/19 11:09 Dose: 150 mls/hr Documented by: Dextrose (Dextrose 10%-Water) 250 mls @ 999 mls/hr IV .Q16M PRN; Protocol PRN Reason: HYPOGLYCEMIA Morphine Sulfate () 2 mg IV Q3H PRN PRN PRN Reason: Pain Score 6-10/10 Last Admin: 09/29/19 20:33 Dose: 2 mg Documented by: Nitroglycerin (Nitrostat) 0.4 mg SUBLINGUAL Q5M PRN PRN Reason: CARDIAC/CHEST PAIN Ondansetron HCl (Zofran) 4 mg IV Q8H PRN PRN PRN Reason: NAUSEA/VOMITING Oxycodone HCl (Oxyir) 5 mg PO Q4H PRN PRN PRN Reason: Pain Score 4-5/10 Prochlorperazine Edisylate (Compazine Iv) 5 mg IV Q4H PRN PRN PRN Reason: Breakthrough nausea/vomiting Senna/Docusate Sodium (Senokot-S, Elza-Colace) 2 tablet PO BID PRN PRN PRN Reason: Constipation Sodium Chloride () 10 - 40 ml IV UD PRN PRN Reason: SALINE FLUSH Last Admin: 09/29/19 14:03 Dose: 10 ml Documented by: STROKE Vital Signs/Narrative: Vital Signs Temp Pulse Resp BP Pulse Ox 09/30/19 11:31 98.8 F 99 16 150/95 H 93 09/30/19 08:12 93 Medical Necessity - Tobacco Use Smoking Status: Current every day smoker Tobacco Use: Cigarettes Assessment/Plan All Active Problems (Last Reviewed 09/29/19 @ 15:[address] Mike Barragan MD) Acute alcoholic pancreatitis (Acute) The patient is a 68 year old M with history of chronic alcohol use about 6 bottle of beer every day for long time came to ER with diffuse abdominal pain that started at 4:00 on the day of admission. In ED, CT scan of abdomen was done which showed inflammation of D4, duodenitis along with fluid in left paracolic gutter, mesenteric stranding and edema. ED vitals shows heart rate 100/min, blood pressure high 173/91. Lab work shows leukocytosis with left shift 85% neutrophils. LFT within normal limit. Lipase 9343. UA negative. CT abdomen reported normal GB with extrahepatic biliary system. 1. Acute alcoholic pancreatitis: Patient is being admitted floor. IV fluid Ringer lactate 150 mL/h. Surgery has been consulted for features of mesenteric stranding and edema probably secondary to pancreatic edema. 09/29: Abdominal pain is much improved. Started on clear liquid diet. Continue IV fluid Ringer lactate. Calcium 7.7. K3.5. Mild hypokalemia, potassium being replaced. Keep K about 4.0. 2. Chronic alcohol use with fatty liver: CT abdomen shows steatosis. Liver tests are within normal limit, albumin 3.9. Platelet count 276. PT/INR within normal limit. 3. Chronic smoker: Advised cessation and quitting. 4. Hypertension: Blood pressure is uncontrolled, 173/91. Patient on amlodipine, losartan at home. Start IV hydralazine and enalapril while patient is n.p.o. Resume p.o. medication once oral is allowed 5. Dyslipidemia: Hold rosuvastatin while patient is n.p.o. Fasting profile tomorrow a.m. 6. 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 Patient is on hydroxychloroquine and prednisone 20 mg daily probably started by PCP about 2 months ago, reason unclear. Will hold it. 7. DVT prophylaxis: Lovenox 40 mg subcu daily Living will/advanced directive/CODE STATUS: Patient does not have living will or advanced directive of health. When asked directly about CODE STATUS, he chooses DNR CC arrest Patient does not want artificial life support including intubation, artificial tube feed, ventilator and/chest compression,'s CVC, vasopressor or DC shock if needed. Patient is DNR CC Arrest. Total time spent in [id number] encounter in discussion of advanced directive 16 minutes. Inpatient E&M: [id number] Subs Hosp L2
[2019-09-30] MEDS: Morphine 2 MG/ML Syringe IV (14:00)
[2019-09-30] MEDS: Ondansetron 4 MG/2 ML Vial IV ×2 (14:01→22:52)
--- NOTE | 2019-09-30 21:55 | RAD_ITS ---
STUDY: X-RAY CHEST REASON FOR EXAM: Male, 68 years old. patient complains of dyspnea TECHNIQUE: Single AP portable view of the chest. COMPARISON: None. FINDINGS: The lungs are clear and expanded. Elevated right hemidiaphragm. Normal size heart. Normal mediastinum and gerald. Normal visualized pulmonary arteries. Normal visualized aortic arch and descending thoracic aorta. Normal visualized thoracic spine. Normal visualized ribs, clavicles, and shoulders. There is no demonstrated abnormality of the visualized soft tissue structures of the upper abdomen. RAD/Chest 1 View (Portable) IMPRESSION: No active disease. Elevated right hemidiaphragm. Electronically Signed: Raphael Sarah MD at 22:05 EDT Tel , Service support ,
[2019-09-30] MEDS: Acetaminophen 325 MG Tablet 650 MG PO (22:52)
[2019-09-30] MEDS: Atorvastatin Calcium 20 MG Tablet PO (22:52)
[2019-09-30] MEDS: 0.9% Saline Lock 10 ML Syringe IV (22:52)
[2019-10-01] VITALS (11 sets, daily range): BP systolic 122–149; BP diastolic 60–81; PULSE 85–108; RESP 15–20; TEMP 37.1–37.7; O2SAT 89–96
[2019-10-01 01:02] LABS: Lactic Acid 0.9 mmol/L (0.4-1.9)
[2019-10-01 06:02] LABS: Absolute Lymphocyte Count 1.75 X10^3/uL (0.83-4.51); Absolute Neutrophil Count 16.1 X10^3/uL (2.0-7.7); Basophil# 0.08 X10^3/uL; Basophil% 0.4 % (0-1); Eosinophil# 0.13 X10^3/uL; Eosinophils% 0.7 % (0-5); Hematocrit 43.9 % (40-54); Hemoglobin 14.9 g/dL (13.0-16.5); Lymphocyte # 1.75 X10^3/ul (4.0); Lymphocyte % 8.9 % (19-41); Mean Corp Hgb Conc 33.9 g/dL (32-36); Mean Corpuscular Hgb 32.7 pg (27.0-32.0); Mean Corpuscular Volume 96.3 fL (80-94); Mean Platelet Vol. 10.1 fl (6.2-12.0); Monocyte# 1.56 X10^3/uL; Monocyte% 7.9 % (0-10); NRBC Flagged by Analyzer 0 % (0-5); Neutrophil # 16.09 X10^3/uL (2.7-7.7); Neutrophil % 81.3 % (47-70); POSITIVE DIFFERENTIAL YES; Platelet Count 197 K/mm3 (150-450); RBC Distribution Width CV 13.6 % (11.6-14.6); RBC Distribution Width SD 48.5 fl (35.1-43.9); Red Blood Count 4.56 M/mm3 (4.6-6.2); White Blood Count 19.8 K/mm3 (4.4-11.0)
[2019-10-01 06:07] LABS: Differential Indicated SCAN CRITERIA MET
[2019-10-01] MEDS: Lactated Ringers 1,000 ML 150 ML IV (06:29)
[2019-10-01 06:39] LABS: ALB/GLOB Ratio 0.8 RATIO (0.9-2.4); AST(SGOT) 23 U/L (15-37); Alanine Aminotransfer ALT/SGPT 23 U/L (16-61); Albumin, Serum 2.6 g/dL (3.2-5.0); Alkaline Phosphatase 49 U/L (45-117); Anion Gap 6 (5-15); BUN 6 mg/dL (7-18); BUN/Creat Ratio 9.4 RATIO (10-20); Calcium,Total 7.6 mg/dL (8.5-10.1); Chloride 101 mmol/L (98-107); Cholesterol 109 mg/dL (200); Creatinine, Serum 0.64 mg/dL (0.70-1.30); EST Glomerular Filtration Rate 131 mL/min (>60); Est Glom Filt Rate - Afr Amer 159 mL/min (>60); Globulin 3.4 g/dL (2.2-4.2); Glucose 119 mg/dL (74-106); High Density Lipoprotein 49 mg/dL; Potassium 3.5 mmol/L (3.5-5.1); Sodium Level 134 mmol/L (136-145); Triglycerides 70 mg/dL; Very Low Density Lipoprotein 14 mg/dL (5-40)
[2019-10-01] MEDS: Ipratropium/Albuterol Sulfate 3 ML AMPUL.NEB INHALATION ×4 (07:16→19:54)
[2019-10-01 08:28] LABS: Lipase 380 U/L (73-393)
--- NOTE | 2019-10-01 08:50 | PN_ITS ---
Patient Problems: Active and Suspected Problems (Last Reviewed 09/29/19 @ 15:[address] Mike Barragan MD) Acute alcoholic pancreatitis (Acute) Subjective: Chief complaint: Follow-up after admission for acute alcoholic pancreatitis. Patient seen and examined. No acute events overnight. Abdominal pain improved, denied nausea or vomiting. Denied chest pain or shortness of breath. Maximum temperature overnight is 99.6 Fahrenheit, requiring up to 3 L of oxygen. Blood pressure is stable. - Physical Exam Vitals/I&O's: Vital Signs Temp Pulse Resp BP Pulse Ox 99.6 F H 93 18 149/80 H 96 10/01/19 05:14 10/01/19 05:14 10/01/19 05:14 10/01/19 05:14 10/01/19 05:14 Oxygen Flow Rate (L/min) 3 Oxygen Delivery Method Nasal Cannula Weight: 172 lb 6.424 oz Body Mass Index (BMI) 26.2 Intake and Output for Last 24 Hours 09/29/19 09/30/19 10/01/19 23:59 23:59 23:59 Intake Total 1595.42 / 1595.42 4762.5 / 4762.5 1219.5 / 1219.5 Output Total 1800 / 1800 825 / 825 Balance 1595.42 / 1595.42 2962.5 / 2962.5 394.5 / 394.5 General: Alert, Oriented x3, Cooperative, No apparent distress HEENT: Atraumatic, PERRLA, EOMI, Normocephalic Oral: Moist Mucosa, No Gingival or Mucosal Lesions/ Ulcerations Neck: Supple, No JVD, Negative Carotid Bruits, Trachea Midline, Thyroid Normal Size and Texture Lungs: Clear to auscultation, Normal air movement, No wheeze, No rales, Diminished, Rhonchi Cardiovascular: Regular rate, Regular Rhythm, Normal S1, Normal S2, PMI Normal, Tachycardic Abdomen: Bowel Sounds Present, Soft, Non Tender, No Hepato-splenomegaly, Distended Extremities: No clubbing, No cyanosis, No edema Skin: No rashes, No breakdown Lymphatic: No Cervical, Supraclavicular, or Inguinal Adenopathy Neurological: Cranial nerves II-XII grossly intact, Motor Exam 5/5 strength throughout Psych/Mental Status: Normal Affect, Appropriate, Alert and oriented to time, place, person, mood and affect Microbiology Past 72 Hours 09/29/19 09:55 Urine, Clean Catch Urine Culture - Preliminary Mixed Gram Positive Organisms 09/29/19 13:45 Mucosa - Nose Respiratory Panel (PCR) - Final Laboratory Results 10/01/19 00:27: Lactic Acid 0.9 10/01/19 05:44: Sodium 134 L, Potassium 3.5, Chloride 101, Carbon Dioxide 27.0, Anion Gap 6, BUN 6 L, Creatinine 0.64 L, Estim Creat Clear Calc 66.50, Est GFR (MDRD) Af Amer 159, Est GFR (MDRD) Non-Af 131, BUN/Creatinine Ratio 9.4 L, Glucose 119 H, Calcium 7.6 L, Total Bilirubin 1.10 H, AST 23, ALT 23, Alkaline Phosphatase 49, Total Protein 6.0 L, Albumin 2.6 L, Globulin 3.4, Albumin/Globulin Ratio 0.8 L, Triglycerides 70, Cholesterol 109, LDL Cholesterol 46, VLDL Cholesterol 14, HDL Cholesterol 49 10/01/19 05:44: WBC 19.8 H, RBC 4.56 L, Hgb 14.9, Hct 43.9, MCV 96.3 H, MCH 32.7 H, MCHC 33.9, RDW Std Deviation 48.5 H, RDW Coeff of [place]a 13.6, Plt Count 197, MPV 10.1, Immature Gran % (Auto) 0.800, Neut % (Auto) 81.3 H, Lymph % (Auto) 8.9 L, [place] % (Auto) 7.9, Eos % (Auto) 0.7, Baso % (Auto) 0.4, Absolute Neuts (auto) 16.1 H, Absolute Lymphs (auto) 1.75, Nucleated RBC % 0 10/01/19 05:44: Lipase 380 Current Medications Acetaminophen (Tylenol) 650 mg PO Q6H PRN PRN PRN Reason: Pain Score 1-10/Temp > 100.7 F Last Admin: 09/30/19 22:52 Dose: 650 mg Documented by: Albuterol Sulfate (Ventolin Aerosols) 2.5 mg INHALATION Q2H PRN PRN PRN Reason: dyspnea, wheezing Albuterol/Ipratropium (Duoneb) 3 ml INHALATION Q4HWA.RT [facility] Last Admin: 10/01/19 07:16 Dose: 3 ml Documented by: Atorvastatin Calcium (Lipitor) 20 mg PO QHS [facility] Last Admin: 09/30/19 22:52 Dose: 20 mg Documented by: Enalaprilat (Vasotec) 1.25 mg IV Q6H PRN PRN Reason: sbp>180 Enoxaparin Sodium (Lovenox) 40 mg SC DAILY [facility] Last Admin: 09/30/19 08:24 Dose: 40 mg Documented by: Glucagon () 1 mg IM .X1 PRN PRN Reason: Hypoglycemia Hydralazine HCl (Apresoline Iv) 10 mg IV Q4H PRN PRN PRN Reason: SBP>160 Pantoprazole Sodium 40 mg/ (Sodium Chloride) 110 mls @ 330 mls/hr IV Q24 [facility] Last Infusion: 09/30/19 11:09 Dose: Infused Documented by: Morphine Sulfate () 2 mg IV Q3H PRN PRN PRN Reason: Pain Score 6-10/10 Last Admin: 09/30/19 14:00 Dose: 2 mg Documented by: Nitroglycerin (Nitrostat) 0.4 mg SUBLINGUAL Q5M PRN PRN Reason: CARDIAC/CHEST PAIN Ondansetron HCl (Zofran) 4 mg IV Q8H PRN PRN PRN Reason: NAUSEA/VOMITING Last Admin: 09/30/19 22:52 Dose: 4 mg Documented by: Oxycodone HCl (Oxyir) 5 mg PO Q4H PRN PRN PRN Reason: Pain Score 4-5/10 Prochlorperazine Edisylate (Compazine Iv) 5 mg IV Q4H PRN PRN PRN Reason: Breakthrough nausea/vomiting Senna/Docusate Sodium (Senokot-S, Elza-Colace) 2 tablet PO BID PRN PRN PRN Reason: Constipation Sodium Chloride () 10 - 40 ml IV UD PRN PRN Reason: SALINE FLUSH Last Admin: 09/30/19 22:52 Dose: 10 ml Documented by: Medical Necessity - Tobacco Use Smoking Status: Current every day smoker Tobacco Use: Cigarettes Assessment/Plan All Active Problems (Last Reviewed 09/29/19 @ 15:[address] Mike Barragan MD) Acute alcoholic pancreatitis (Acute) This is a 68 years old male patient presented to the emergency room because of abdominal pain and was found to have acute alcoholic pancreatitis. #1 acute alcoholic pancreatitis: He is on clear liquids, IV fluids, IV pain medications and IV antiemetics. Symptoms improved. Lipase is back to normal. LFT was unremarkable. CT scan abdomen and pelvis without contrast revealed distal duodenal inflammation, mild prominent appearance of the distal tail of the pancreas. Routine blood work was remarkable for leukocytosis, otherwise normal. Abdomen examination is benign today. He is afebrile, requiring oxygen up to 3 L. Plan: Change IV fluids to normal saline at 200 cc/h, continue clear liquids, advance to full liquid diet tonight if patient does okay, repeat CBC tomorrow morning, possible DC home tomorrow. #2 probable acute duodenitis: This is a finding seen on the CT scan abdomen and pelvis. Patient denied any more abdominal pain. General surgery on the case. He is on IV Protonix, will change it to twice daily. #3 hypertension: Blood pressure stable, resume Norvasc and IV hydralazine PRN. #4 hyperlipidemia: Continue statins. #5 bilateral hand arthritis/osteoarthritis: Patient was on prednisone which was held at this time. Patient denied any joint pain, plan to resume hydroxychloroquine. #6 DVT prophylaxis: Subcu Lovenox. This note was generated with [employer] dictation software. It may contain incorrect words, spelling, and punctuation that were not noted in checking the note before signing. Inpatient E&M: 96258 Subs Hosp L2
[2019-10-01] MEDS: Enoxaparin 40 MG/0.4 ML Syringe SC (09:36)
--- NOTE | 2019-10-01 10:09 | PCM.PN.SRG ---
Patient Problems: Active and Suspected Problems (Last Reviewed 09/29/19 @ 15:[address] Mike Barragan MD) Acute alcoholic pancreatitis (Acute) Subjective: Patient evaluated resting comfortably in bed. He denies nausea, vomiting. He is tolerating clear liquid diet. He denies abdominal pain. - Physical Exam Vitals/I&O's: Vital Signs Temp Pulse Resp BP Pulse Ox 99.6 F H 85 20 H 149/80 H 93 10/01/19 05:14 10/01/19 07:16 10/01/19 07:16 10/01/19 05:14 10/01/19 07:16 Oxygen Flow Rate (L/min) 3 Oxygen Delivery Method Nasal Cannula Weight: 172 lb 6.424 oz Body Mass Index (BMI) 26.2 Intake and Output for Last 24 Hours 09/29/19 09/30/19 10/01/19 23:59 23:59 23:59 Intake Total 1595.42 / 1595.42 4762.5 / 4762.5 1777.0 / 1777.0 Output Total 1800 / 1800 825 / 825 Balance 1595.42 / 1595.42 2962.5 / 2962.5 952.0 / 952.0 General: Alert, Oriented x3, Cooperative Abdomen: Bowel Sounds Present, Soft, Non Tender Microbiology Past 72 Hours 09/29/19 09:55 Urine, Clean Catch Urine Culture - Preliminary Mixed Gram Positive Organisms 09/29/19 13:45 Mucosa - Nose Respiratory Panel (PCR) - Final Laboratory Results 10/01/19 00:27: Lactic Acid 0.9 10/01/19 05:44: Sodium 134 L, Potassium 3.5, Chloride 101, Carbon Dioxide 27.0, Anion Gap 6, BUN 6 L, Creatinine 0.64 L, Estim Creat Clear Calc 66.50, Est GFR (MDRD) Af Amer 159, Est GFR (MDRD) Non-Af 131, BUN/Creatinine Ratio 9.4 L, Glucose 119 H, Calcium 7.6 L, Total Bilirubin 1.10 H, AST 23, ALT 23, Alkaline Phosphatase 49, Total Protein 6.0 L, Albumin 2.6 L, Globulin 3.4, Albumin/Globulin Ratio 0.8 L, Triglycerides 70, Cholesterol 109, LDL Cholesterol 46, VLDL Cholesterol 14, HDL Cholesterol 49 10/01/19 05:44: WBC 19.8 H, RBC 4.56 L, Hgb 14.9, Hct 43.9, MCV 96.3 H, MCH 32.7 H, MCHC 33.9, RDW Std Deviation 48.5 H, RDW Coeff of Leonarda 13.6, Plt Count 197, MPV 10.1, Immature Gran % (Auto) 0.800, Neut % (Auto) 81.3 H, Lymph % (Auto) 8.9 L, [place] % (Auto) 7.9, Eos % (Auto) 0.7, Baso % (Auto) 0.4, Absolute Neuts (auto) 16.1 H, Absolute Lymphs (auto) 1.75, Nucleated RBC % 0, Differential Comment COMMENT, Diff Path Review November10/01/19 05:44: Lipase 380 Current Medications Acetaminophen (Tylenol) 650 mg PO Q6H PRN PRN PRN Reason: Pain Score 1-10/Temp > 100.7 F Last Admin: 09/30/19 22:52 Dose: 650 mg Documented by: Albuterol Sulfate (Ventolin Aerosols) 2.5 mg INHALATION Q2H PRN PRN PRN Reason: dyspnea, wheezing Albuterol/Ipratropium (Duoneb) 3 ml INHALATION Q4HWA.RT [facility] Last Admin: 10/01/19 07:16 Dose: 3 ml Documented by: Amlodipine Besylate (Norvasc) 10 mg PO DAILY [facility] Atorvastatin Calcium (Lipitor) 20 mg PO QHS [facility] Last Admin: 09/30/19 22:52 Dose: 20 mg Documented by: Enalaprilat (Vasotec) 1.25 mg IV Q6H PRN PRN Reason: sbp>180 Enoxaparin Sodium (Lovenox) 40 mg SC DAILY [facility] Last Admin: 10/01/19 09:36 Dose: 40 mg Documented by: Glucagon () 1 mg IM .X1 PRN PRN Reason: Hypoglycemia Hydralazine HCl (Apresoline Iv) 10 mg IV Q4H PRN PRN PRN Reason: SBP>160 Hydroxychloroquine Sulfate (Plaquenil) 200 mg PO DAILY [facility] Pantoprazole Sodium 40 mg/ (Sodium Chloride) 110 mls @ 330 mls/hr IV Q24 [facility] Last Infusion: 10/01/19 09:48 Dose: Infused Documented by: Sodium Chloride () 1,000 mls @ 100 mls/hr IV .Q10H [facility] Morphine Sulfate () 2 mg IV Q3H PRN PRN PRN Reason: Pain Score 6-10/10 Last Admin: 09/30/19 14:00 Dose: 2 mg Documented by: Nitroglycerin (Nitrostat) 0.4 mg SUBLINGUAL Q5M PRN PRN Reason: CARDIAC/CHEST PAIN Ondansetron HCl (Zofran) 4 mg IV Q8H PRN PRN PRN Reason: NAUSEA/VOMITING Last Admin: 09/30/19 22:52 Dose: 4 mg Documented by: Oxycodone HCl (Oxyir) 5 mg PO Q4H PRN PRN PRN Reason: Pain Score 4-5/10 Prochlorperazine Edisylate (Compazine Iv) 5 mg IV Q4H PRN PRN PRN Reason: Breakthrough nausea/vomiting Senna/Docusate Sodium (Senokot-S, Elza-Colace) 2 tablet PO BID PRN PRN PRN Reason: Constipation Sodium Chloride () 10 - 40 ml IV UD PRN PRN Reason: SALINE FLUSH Last Admin: 09/30/19 22:52 Dose: 10 ml Documented by: Medical Necessity - Tobacco Use Smoking Status: Current every day smoker Tobacco Use: Cigarettes Assessment/Plan All Active Problems (Last Reviewed 09/29/19 @ 15:[address] Mike Barragan MD) Acute alcoholic pancreatitis (Acute) I am following this patient in conjunction with Dr. Barragan Resolving acute appendicitis Advance to full liquids Possible discharge tomorrow Inpatient E&M: 91932 [facility] Hosp L1
[2019-10-01] MEDS: amLODIPine 10 MG Tablet PO (11:03)
[2019-10-01] MEDS: 0.9% Normal Saline 1,000 ML 100 ML IV ×2 (11:03→21:10)
--- NOTE | 2019-10-01 11:09 | CASEMGMT ---
Social Work Assessment Referral Date: 10/01/2019 Date of Assessment: 10/01/2019 Reason for consult: Alcoholic Pancreatis Informant: Personal Status: SW met with pt regarding pt's diagnosis of alcoholic pancreatis. Pt states that he lives alone in a one story home with three steps to enter and railings next to the steps. Pt states that he was previously independent with ADLs, states he still drives. Pt states that his PCP is Dr. Montoya and pharmacy is [facility]. Pt states no DME. Mental Health Hx: Pt denied Substance Abuse Hx: Pt denied any substance abuse hx. SW informed pt that he is [facility] for alcoholic pancreatis. Pt states he used to drink but will be stopping once he leaves [facility]. Pt states that at home he was drinking six beers a day daily. Pt denied wanting any resources for ETOH use at this time. Pt states that he will be returning home at discharge and denied any needs at this time. 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
[2019-10-01 15:41] LABS: Pathologist Review Reviewed
[2019-10-01] MEDS: Hydroxychloroquine 200 MG Tablet PO (15:45)
[2019-10-01] MEDS: Atorvastatin Calcium 20 MG Tablet PO (21:11)
[2019-10-01] MEDS: Acetaminophen 325 MG Tablet 650 MG PO (23:09)
[2019-10-02 03:25] VITALS: BP 125/81; PULSE 87; RESP 18; TEMP 36.9; O2SAT 93
[2019-10-02 07:29] VITALS: PULSE 100; RESP 18; O2SAT 94
[2019-10-02] MEDS: Ipratropium/Albuterol Sulfate 3 ML AMPUL.NEB INHALATION (07:29)
[2019-10-02 07:42] LABS: Absolute Lymphocyte Count 1.21 X10^3/uL (0.83-4.51); Absolute Neutrophil Count 13.5 X10^3/uL (2.0-7.7); Basophil# 0.05 X10^3/uL; Basophil% 0.3 % (0-1); Eosinophil# 0.16 X10^3/uL; Hematocrit 41.9 % (40-54); Hemoglobin 14.3 g/dL (13.0-16.5); Lymphocyte # 1.21 X10^3/ul (4.0); Lymphocyte % 7.3 % (19-41); Mean Corp Hgb Conc 34.1 g/dL (32-36); Mean Corpuscular Hgb 32.9 pg (27.0-32.0); Mean Corpuscular Volume 96.3 fL (80-94); Mean Platelet Vol. 10.3 fl (6.2-12.0); Monocyte# 1.52 X10^3/uL; Monocyte% 9.2 % (0-10); NRBC Flagged by Analyzer 0 % (0-5); Neutrophil # 13.48 X10^3/uL (2.7-7.7); Neutrophil % 81.5 % (47-70); POSITIVE DIFFERENTIAL YES; Platelet Count 208 K/mm3 (150-450); RBC Distribution Width CV 13.4 % (11.6-14.6); RBC Distribution Width SD 48.1 fl (35.1-43.9); Red Blood Count 4.35 M/mm3 (4.6-6.2); White Blood Count 16.5 K/mm3 (4.4-11.0)
[2019-10-02 07:43] LABS: Differential Indicated SCAN CRITERIA MET
--- NOTE | 2019-10-02 09:10 | RAD_ITS ---
STUDY: X-RAY CHEST REASON FOR EXAM: Male, 68 years old. Acute alcoholic pancreatitis, hypoxia TECHNIQUE: PA and lateral views of the chest. COMPARISON: Comparison is made with prior study September 30, 2019. FINDINGS: There is evidence of bibasilar atelectasis/infiltrates worse on the left lung base with blunting of both costophrenic angles. Normal size heart. Normal mediastinum and gerald. Normal visualized pulmonary arteries. Normal visualized aortic arch and descending thoracic aorta. Normal visualized thoracic spine. Normal visualized ribs, clavicles, and shoulders. There is no demonstrated abnormality of the visualized soft tissue structures of the upper abdomen. RAD/Chest PA and Lateral IMPRESSION: Increased markings at the lung base with areas of confluence worse at the left lung base. There is blunting of both costophrenic angles. There has been progression as compared to prior study. Electronically Signed: Edy Pride, at 15:11 EDT , Service support ,
[2019-10-02] MEDS: Enoxaparin 40 MG/0.4 ML Syringe SC (09:39)
[2019-10-02] MEDS: amLODIPine 10 MG Tablet PO (09:39)
[2019-10-02] MEDS: Hydroxychloroquine 200 MG Tablet PO (09:39)
[2019-10-02 09:44] VITALS: BP 129/73; PULSE 99; RESP 18; TEMP 36.9; O2SAT 92
[2019-10-02 09:46] LABS: Pathologist Review Reviewed
[2019-10-02] MEDS: 0.9% Saline Lock 10 ML Syringe IV (10:00)
--- NOTE | 2019-10-02 10:37 | DCINST_ITS ---
- Discharge Diagnoses Current Active Problems: Current Active and Chronic Problems (Last Reviewed 09/29/19 @ 15:[address] Mike Barragan MD) Acute alcoholic pancreatitis (Acute) You will use the following diet at home:: Cardiac, Other - Light diet, advance as tolerated. Discharge Activity: Return to Normal Activity Weight Bearing Status: Weight bearing as tolerated Call your doctor if you observe: Fever of 101 or Higher, Shortness of breath, Dizziness, Fainting spells, Chest pain, Increased palpitations (irregular heartbeat), Uncontrolled pain Instructions: Understanding Pancreatitis, Acute Pancreatitis, Understanding Alcoholism, Addiction: Your Treatment Options, Recovering from Addiction Allergies/Adverse Reactions: Allergies No Known Allergies Allergy (Verified 09/29/19 09:09) Medications to take at Discharge blood pressure monitor See Rx Instructions .ROUTE .MEDSUPPLY #1 ea 04/16/19 Wrist Splint #2 ea 05/01/19 hydroxychloroquine 200 mg tablet 200 mg PO DAILY #30 tab 08/06/19 Amlodipine Besylate 10 mg PO DAILY 09/29/19 Losartan Potassium [Cozaar] 50 mg PO DAILY 09/29/19 Rosuvastatin Calcium 10 mg PO DAILY 09/29/19 Pantoprazole Sodium [Protonix] 40 mg PO DAILY #30 tab 10/02/19 The following prescriptions were given: Pantoprazole Sodium [Protonix] 40 mg PO DAILY #30 tab Transmission Status: Pending to [facility] Primary Care Physician: Zully Montoya MD [Primary Care Provider] - Please follow up with your Primary Care Physician in: 1 week. Test Results: Test results from this visit will be discussed in further detail at your follow- up appointment, if applicable.
--- NOTE | 2019-10-02 11:09 | PCM.PN.SRG ---
Patient Problems: Active and Suspected Problems (Last Reviewed 09/29/19 @ 15:[address] Mike Barragan MD) Acute alcoholic pancreatitis (Acute) Subjective: Patient evaluated resting comfortably in bed. He denies nausea, vomiting, fever, and abdominal pain. He continues to pass gas and have bowel movements. - Physical Exam Vitals/I&O's: Vital Signs Temp Pulse Resp BP Pulse Ox 98.4 F 99 18 129/73 H 92 10/02/19 09:44 10/02/19 09:44 10/02/19 09:44 10/02/19 09:44 10/02/19 09:44 Oxygen Flow Rate (L/min) 4 Oxygen Delivery Method Room Air Weight: 172 lb 6.424 oz Body Mass Index (BMI) 26.2 Intake and Output for Last 24 Hours 09/30/19 10/01/19 10/02/19 23:59 23:59 23:59 Intake Total 4762.5 / 4762.5 3080.33 / 3280.33 1426.67 / 1426.67 Output Total 1800 / 1800 3125 / 3750 1575 / 1575 Balance 2962.5 / 2962.5 -44.67 / -469.67 -148.33 / -148.33 General: Alert, Oriented x3, Cooperative Abdomen: Bowel Sounds Present, Soft, Non Tender Microbiology Past 72 Hours 09/29/19 09:55 Urine, Clean Catch Urine Culture - Final Mixed Gram Positive Organisms 09/29/19 13:45 Mucosa - Nose Respiratory Panel (PCR) - Final Laboratory Results 10/01/19 05:44: Diff Path Review Reviewed 10/02/19 07:23: WBC 16.5 H, RBC 4.35 L, Hgb 14.3, Hct 41.9, MCV 96.3 H, MCH 32.9 H, MCHC 34.1, RDW Std Deviation 48.1 H, RDW Coeff of Leonarda 13.4, Plt Count 208, MPV 10.3, Immature Gran % (Auto) 0.700, Neut % (Auto) 81.5 H, Lymph % (Auto) 7.3 L, [place] % (Auto) 9.2, Eos % (Auto) 1.0, Baso % (Auto) 0.3, Absolute Neuts (auto) 13.5 H, Absolute Lymphs (auto) 1.21, Nucleated RBC % 0, Differential Comment COMMENT, Diff Path Review Reviewed Current Medications Acetaminophen (Tylenol) 650 mg PO Q6H PRN PRN PRN Reason: Pain Score 1-10/Temp > 100.7 F Last Admin: 10/01/19 23:09 Dose: 650 mg Documented by: Albuterol Sulfate (Ventolin Aerosols) 2.5 mg INHALATION Q2H PRN PRN PRN Reason: dyspnea, wheezing Albuterol/Ipratropium (Duoneb) 3 ml INHALATION Q4HWA.RT [facility] Last Admin: 10/02/19 07:29 Dose: 3 ml Documented by: Amlodipine Besylate (Norvasc) 10 mg PO DAILY [facility] Last Admin: 10/02/19 09:39 Dose: 10 mg Documented by: Atorvastatin Calcium (Lipitor) 20 mg PO QHS [facility] Last Admin: 10/01/19 21:11 Dose: 20 mg Documented by: Enalaprilat (Vasotec) 1.25 mg IV Q6H PRN PRN Reason: sbp>180 Enoxaparin Sodium (Lovenox) 40 mg SC DAILY [facility] Last Admin: 10/02/19 09:39 Dose: 40 mg Documented by: Glucagon () 1 mg IM .X1 PRN PRN Reason: Hypoglycemia Hydralazine HCl (Apresoline Iv) 10 mg IV Q4H PRN PRN PRN Reason: SBP>160 Hydroxychloroquine Sulfate (Plaquenil) 200 mg PO DAILY [facility] Last Admin: 10/02/19 09:39 Dose: 200 mg Documented by: Pantoprazole Sodium 40 mg/ (Sodium Chloride) 110 mls @ 330 mls/hr IV Q12 [facility] Last Infusion: 10/02/19 10:13 Dose: Infused Documented by: Morphine Sulfate () 2 mg IV Q3H PRN PRN PRN Reason: Pain Score 6-10/10 Last Admin: 09/30/19 14:00 Dose: 2 mg Documented by: Nitroglycerin (Nitrostat) 0.4 mg SUBLINGUAL Q5M PRN PRN Reason: CARDIAC/CHEST PAIN Ondansetron HCl (Zofran) 4 mg IV Q8H PRN PRN PRN Reason: NAUSEA/VOMITING Last Admin: 09/30/19 22:52 Dose: 4 mg Documented by: Oxycodone HCl (Oxyir) 5 mg PO Q4H PRN PRN PRN Reason: Pain Score 4-5/10 Prochlorperazine Edisylate (Compazine Iv) 5 mg IV Q4H PRN PRN PRN Reason: Breakthrough nausea/vomiting Senna/Docusate Sodium (Senokot-S, Elza-Colace) 2 tablet PO BID PRN PRN PRN Reason: Constipation Sodium Chloride () 10 - 40 ml IV UD PRN PRN Reason: SALINE FLUSH Last Admin: 10/02/19 10:00 Dose: 10 ml Documented by: Medical Necessity - Tobacco Use Smoking Status: Current every day smoker Tobacco Use: Cigarettes Assessment/Plan All Active Problems (Last Reviewed 09/29/19 @ 15:[address] Mike Barragan MD) Acute alcoholic pancreatitis (Acute) I am following this patient in conjunction with Dr. Barragan Resolved duodenitis Continue PPI daily Tolerating diet. May advance to regular Ready for discharge Follow-up with our office as needed Inpatient E&M: 07699 Subs Hosp L1
--- NOTE | 2019-10-02 12:43 | PCM.DC.SUM ---
Discharge Date and Diagnosis Date of Admission: 09/29/19 Date of Discharge: 10/02/19 - Primary Discharge Diagnosis #1 acute alcoholic pancreatitis. #2 probable acute duodenitis. - Secondary Discharge Diagnosis Chronic Problems (Last Reviewed 09/29/19 @ 15:[address] Mike Barragan MD) Carpal tunnel syndrome of right wrist (Chronic) Hyperlipidemia (Chronic) Right wrist pain (Chronic) Hypertension (Chronic) Hospital Course and Treatment Imaging Results: 10/02/19 09:10 CXR [Chest PA and Lateral] [RAD] Urgent Clinical Impression(s) from Imaging Studies Abdomen/Pelvis CT 09/29/19 09:24 IMPRESSION: 1. Findings consistent with distal duodenum inflammation within the fourth portion concerning for duodenitis in the appropriate clinical setting. Inflammation does not appear to originate from the pancreas. Mesenteric fluid and stranding within the mid abdomen left paracolic gutter noted with no evidence of focal fluid collection or abscess. Further characterization may be obtained with oral and IV contrast as clinically warranted. 2. Mild prominent appearance of the distal tail of the pancreas may be secondary to alteration due to splenectomy, this may also be further evaluated with contrast CT study. 3. Left inguinal bowel-containing hernia as above. Electronically Signed: Niall Solitario DO at 10:40 EDT , Service support , Chest X-Ray 09/30/19 21:55 IMPRESSION: No active disease. Elevated right hemidiaphragm. Electronically Signed: Raphael Sarah MD at 22:05 EDT Tel , Service support , Dr. Barragan, general surgery. Procedures: None Summary of Care Provided: Patient seen and examined on the day of discharge and appeared to be stable to be discharged home. He denied any more abdominal pain, denied nausea or vomiting and he has been tolerating full liquid diet. He denied shortness of breath although he is requiring up to 4 L of oxygen. He was taken off oxygen and his pulse ox remained at 93% on room air. His vital signs were stable upon discharge. The patient is a 68 year old M presented to the emergency room because of abdominal pain and he was found to have acute alcoholic pancreatitis. Patient is a heavy drinker and he admitted drinking alcohol every day. CT scan abdomen and pelvis without contrast revealed distal duodenal inflammation mildly prominent appearance of the distal tail of the pancreas. On admission, routine blood work revealed significant leukocytosis, otherwise normal. LFT was unremarkable. Lipase was 9343 on admission. Patient was treated with IV fluids, kept on n.p.o. for 2 days, treated with IV pain medications as well as IV antiemetics. With bowel rest and n.p.o., lipase came down to 380 which is normal. LFT remained normal. Patient was treated with IV Protonix as well for the probable duodenitis. He was started slowly on clear liquids which was advanced to full liquid diet and patient did very well. On the day of discharge, patient was taken off oxygen and his pulse ox remained at 93% on room air. Patient is a chronic smoker and probably he does have COPD which was never diagnosed before. Patient discharged home in a stable medical condition, counseled regarding his drinking behavior and recommended to quit drinking alcohol, discharged on full liquid diet and recommended to advance diet as tolerated, discharged on Protonix 40 mg p.o. daily, continued on Norvasc, hydroxychloroquine, losartan and rosuvastatin which are his previous home medications without any changes, recommended follow-up with PCP in 1 week. - Physical Exam Vitals/I&O's: Vital Signs Temp Pulse Resp BP Pulse Ox 98.4 F 99 18 129/73 H 92 10/02/19 09:44 10/02/19 09:44 10/02/19 09:44 10/02/19 09:44 10/02/19 09:44 Oxygen Flow Rate (L/min) 4 Oxygen Delivery Method Room Air Weight: 172 lb 6.424 oz Body Mass Index (BMI) 26.2 Intake and Output for Last 24 Hours 09/30/19 10/01/19 10/02/19 23:59 23:59 23:59 Intake Total 4762.5 / 4762.5 3080.33 / 3280.33 1426.67 / 1426.67 Output Total 1800 / 1800 3125 / 3750 1575 / 1575 Balance 2962.5 / 2962.5 -44.67 / -469.67 -148.33 / -148.33 General: Alert, Oriented x3, Cooperative, No apparent distress HEENT: Atraumatic, PERRLA, EOMI, Normocephalic Oral: Moist Mucosa, No Gingival or Mucosal Lesions/ Ulcerations Neck: Supple, No JVD, Negative Carotid Bruits, Trachea Midline, Thyroid Normal Size and Texture Lungs: Clear to auscultation, Normal air movement, No rhonchi, No wheeze, No rales, Diminished Cardiovascular: Regular rate, Regular Rhythm, Normal S1, Normal S2, PMI Normal Abdomen: Bowel Sounds Present, Soft, Non Tender, Non-Distended, No Hepato-splenomegaly Extremities: No clubbing, No cyanosis, No edema Skin: No rashes, No breakdown Lymphatic: No Cervical, Supraclavicular, or Inguinal Adenopathy Neurological: Cranial nerves II-XII grossly intact, Neuro grossly intact Psych/Mental Status: Normal Affect, Appropriate Microbiology Past 72 Hours 09/29/19 09:55 Urine, Clean Catch Urine Culture - Final Mixed Gram Positive Organisms 09/29/19 13:45 Mucosa - Nose Respiratory Panel (PCR) - Final Laboratory Results 10/01/19 05:44: Diff Path Review Reviewed 10/02/19 07:23: WBC 16.5 H, RBC 4.35 L, Hgb 14.3, Hct 41.9, MCV 96.3 H, MCH 32.9 H, MCHC 34.1, RDW Std Deviation 48.1 H, RDW Coeff of Leonarda 13.4, Plt Count 208, MPV 10.3, Immature Gran % (Auto) 0.700, Neut % (Auto) 81.5 H, Lymph % (Auto) 7.3 L, [place] % (Auto) 9.2, Eos % (Auto) 1.0, Baso % (Auto) 0.3, Absolute Neuts (auto) 13.5 H, Absolute Lymphs (auto) 1.21, Nucleated RBC % 0, Differential Comment COMMENT, Diff Path Review Reviewed Discharge Activity: Return to Normal Activity Weight Bearing Status: Weight bearing as tolerated Call your doctor if you observe: Fever of 101 or Higher, Shortness of breath, Dizziness, Fainting spells, Chest pain, Increased palpitations (irregular heartbeat), Uncontrolled pain Home Medications: Medications to take at Discharge blood pressure monitor See Rx Instructions .ROUTE .MEDSUPPLY #1 ea 04/16/19 Wrist Splint #2 ea 05/01/19 hydroxychloroquine 200 mg tablet 200 mg PO DAILY #30 tab 08/06/19 Amlodipine Besylate 10 mg PO DAILY 09/29/19 Losartan Potassium [Cozaar] 50 mg PO DAILY 09/29/19 Rosuvastatin Calcium 10 mg PO DAILY 09/29/19 Pantoprazole Sodium [Protonix] 40 mg PO DAILY #30 tab 10/02/19 Following Prescrptions Were Given to Patient: Pantoprazole Sodium [Protonix] 40 mg PO DAILY #30 tab Transmission Status: Received by [facility] Primary Care Physician: Zully Montoya MD [Primary Care Provider] - Please follow up with your Primary Care Physician in: 1 week. Patient Instructions: Understanding Pancreatitis, Understanding Alcoholism, Addiction: Your Treatment Options, Recovering from Addiction, Acute Pancreatitis Disposition: Home Minutes spent on discharge:: 33 Patient Condition:: Stable Medical Necessity - Tobacco Use Smoking Status: Current every day smoker Tobacco Use: Cigarettes Meaningful Use Info Meaningful Use Diagnoses (Choose all that apply): None applicable Inpatient E&M: 18430 [facility]
== END 2019-10-02 12:03 | disposition home or self-care (01) | DRG 439 ==
LOC: ED 11:08 → MS3 12:56
PROVIDERS: Family Medicine; Admitting Provider Internal Medicine; Emergency Provider Emergency Medicine; PCP Internal Medicine; Visit Provider Hospitalist
DX: K85.20 Alcohol induced acute pancreatitis without necrosis or infection (principal); F10.988 Alcohol use, unspecified with other alcohol-induced disorder; F17.210 Nicotine dependence, cigarettes, uncomplicated; Z90.81 Acquired absence of spleen; I10 Essential (primary) hypertension; E78.5 Hyperlipidemia, unspecified; M19.042 Primary osteoarthritis, left hand; M19.041 Primary osteoarthritis, right hand; Z66 Do not resuscitate; K29.80 Duodenitis without bleeding; G56.01 Carpal tunnel syndrome, right upper limb
CPT/HCPCS: 36415; 71045; 71046; 74176; 80053; 80061; 80076; 81001; 83605; 83690; 83735; 84443; 85025; 85610; 87086; 87088; 87633; 93005; 94640; 99251; 99284; 99406; J7030; J7120; A4216; G0463; J2405

== ENCOUNTER → 2020-01-07 11:05 | Outpatient (CLI) | payer MEDICARE, SELFPAY ==
[2020-01-07 10:34] VITALS: BMI 26.2
[2020-01-07 12:24] LABS: Absolute Lymphocyte Count 3.01 X10^3/uL (0.83-4.51); Absolute Neutrophil Count 6.1 X10^3/uL (2.0-7.7); Basophil# 0.09 X10^3/uL; Basophil% 0.9 % (0-1); Eosinophil# 0.14 X10^3/uL; Eosinophils% 1.4 % (0-5); Hematocrit 46.5 % (40-54); Lymphocyte # 3.01 X10^3/ul (4.0); Lymphocyte % 29.3 % (19-41); Mean Corp Hgb Conc 34.4 g/dL (32-36); Mean Corpuscular Hgb 31.3 pg (27.0-32.0); Mean Platelet Vol. 12.3 fl (6.2-12.0); Monocyte% 8.8 % (0-10); NRBC Flagged by Analyzer 0 % (0-5); Neutrophil # 6.08 X10^3/uL (2.7-7.7); Neutrophil % 59.1 % (47-70); Platelet Count 270 K/mm3 (150-450); RBC Distribution Width CV 13.1 % (11.6-14.6); RBC Distribution Width SD 43.4 fl (35.1-43.9); Red Blood Count 5.11 M/mm3 (4.6-6.2); White Blood Count 10.3 K/mm3 (4.4-11.0)
[2020-01-07 12:25] LABS: Erythrocyte Sedimentation Rate 14 mm/hr (0-20)
[2020-01-07 13:01] LABS: ALB/GLOB Ratio 1.1 RATIO (0.9-2.4); AST(SGOT) 15 U/L (15-37); Alanine Aminotransfer ALT/SGPT 30 U/L (16-61); Albumin, Serum 3.7 g/dL (3.2-5.0); Alkaline Phosphatase 65 U/L (45-117); Anion Gap 9 (5-15); BUN 19 mg/dL (7-18); BUN/Creat Ratio 19.1 RATIO (10-20); Calcium,Total 9.4 mg/dL (8.5-10.1); Chloride 101 mmol/L (98-107); EST Glomerular Filtration Rate 79 mL/min (>60); Est Glom Filt Rate - Afr Amer 95 mL/min (>60); Globulin 3.5 g/dL (2.2-4.2); Glucose 315 mg/dL (74-106); Potassium 3.2 mmol/L (3.5-5.1); Protein, Total 7.2 g/dL (6.4-8.2); Sodium Level 137 mmol/L (136-145)
[2020-01-07 15:32] LABS: Ferritin 571 ng/mL (26-388); Iron 79 ug/dL (65-175); Iron Binding Capacity,Total 313 ug/dL (250-450)
[2020-01-07 15:36] LABS: Hemoglobin A1c 11.3 % (3.8-5.6)
[2020-01-09 06:18] LABS: Transferrin 250 mg/dL (177-329)
== END ==
PROVIDERS: PCP Internal Medicine; Referring Provider Internal Medicine; Visit Provider Internal Medicine
DX: M06.9 Rheumatoid arthritis, unspecified (principal); R73.9 Hyperglycemia, unspecified; R73.09 Other abnormal glucose
CPT/HCPCS: 36415; 80053; 82728; 83036; 83540; 83550; 84466; 85025; 85652; 86431

== ENCOUNTER → 2020-01-30 | Outpatient (CLI) | payer MEDICARE, SELFPAY ==
[2020-01-30 16:13] VITALS: BMI 26.2
[2020-01-30 17:50] LABS: Anion Gap 5 (5-15); BUN 9 mg/dL (7-18); BUN/Creat Ratio 8.2 RATIO (10-20); Calcium,Total 9.1 mg/dL (8.5-10.1); Chloride 104 mmol/L (98-107); EST Glomerular Filtration Rate 70 mL/min (>60); Est Glom Filt Rate - Afr Amer 85 mL/min (>60); Glucose 124 mg/dL (74-106); Potassium 3.9 mmol/L (3.5-5.1); Sodium Level 138 mmol/L (136-145)
== END | disposition home or self-care (01) ==
LOC: BIMLAB 16:21
PROVIDERS: PCP Internal Medicine; Referring Provider Internal Medicine; Visit Provider Internal Medicine
DX: E87.6 Hypokalemia (principal); E11.9 Type 2 diabetes mellitus without complications
CPT/HCPCS: 36415; 80048

== ENCOUNTER → 2020-04-22 | Outpatient (CLI) | payer MEDICARE, SELFPAY ==
[2020-04-22 09:39] VITALS: BMI 26.2
[2020-04-22 12:23] LABS: Absolute Lymphocyte Count 2.63 X10^3/uL (0.83-4.51); Absolute Neutrophil Count 5.2 X10^3/uL (2.0-7.7); Basophil# 0.15 X10^3/uL; Basophil% 1.5 % (0-1); Eosinophil# 1.03 X10^3/uL; Hematocrit 45.7 % (40-54); Hemoglobin 15.3 g/dL (13.0-16.5); Lymphocyte # 2.63 X10^3/ul (4.0); Lymphocyte % 25.7 % (19-41); Mean Corp Hgb Conc 33.5 g/dL (32-36); Mean Corpuscular Hgb 31.7 pg (27.0-32.0); Mean Corpuscular Volume 94.8 fL (80-94); Mean Platelet Vol. 10.9 fl (6.2-12.0); Monocyte% 11.7 % (0-10); NRBC Flagged by Analyzer 0 % (0-5); Neutrophil % 50.7 % (47-70); Platelet Count 408 K/mm3 (150-450); RBC Distribution Width CV 14.1 % (11.6-14.6); Red Blood Count 4.82 M/mm3 (4.6-6.2); White Blood Count 10.3 K/mm3 (4.4-11.0)
[2020-04-22 12:42] LABS: ALB/GLOB Ratio 0.9 RATIO (0.9-2.4); AST(SGOT) 22 U/L (15-37); Alanine Aminotransfer ALT/SGPT 28 U/L (16-61); Albumin, Serum 3.6 g/dL (3.2-5.0); Alkaline Phosphatase 59 U/L (45-117); Anion Gap 2 (5-15); BUN 17 mg/dL (7-18); BUN/Creat Ratio 17.7 RATIO (10-20); Calcium,Total 9.2 mg/dL (8.5-10.1); Chloride 105 mmol/L (98-107); Creatinine, Serum 0.96 mg/dL (0.70-1.30); EST Glomerular Filtration Rate 82 mL/min (>60); Est Glom Filt Rate - Afr Amer 99 mL/min (>60); Globulin 3.8 g/dL (2.2-4.2); Glucose 100 mg/dL (74-106); Potassium 4.6 mmol/L (3.5-5.1); Protein, Total 7.4 g/dL (6.4-8.2); Sodium Level 135 mmol/L (136-145)
[2020-04-22 15:29] LABS: Microalbumin:Creatinine Ratio 13.1 mg/g CRE (<30 mg/g CRE)
== END | disposition home or self-care (01) ==
LOC: BIMLAB 10:00
PROVIDERS: PCP Internal Medicine; Referring Provider Internal Medicine; Visit Provider Internal Medicine
DX: E11.9 Type 2 diabetes mellitus without complications (principal); M06.9 Rheumatoid arthritis, unspecified
CPT/HCPCS: 36415; 80053; 82043; 82570; 85025; 86431

== ENCOUNTER → 2020-07-22 10:14 | Outpatient (CLI) | payer MEDICARE, SELFPAY ==
[2020-07-22 09:50] VITALS: BMI 24.9
[2020-07-22 12:19] LABS: Absolute Lymphocyte Count 2.28 X10^3/uL (0.83-4.51); Absolute Neutrophil Count 4.7 X10^3/uL (2.0-7.7); Basophil# 0.17 X10^3/uL; Basophil% 1.8 % (0-1); Eosinophil# 1.04 X10^3/uL; Eosinophils% 11.1 % (0-5); Hematocrit 48.8 % (40-54); Hemoglobin 16.1 g/dL (13.0-16.5); Lymphocyte # 2.28 X10^3/ul (4.0); Lymphocyte % 24.3 % (19-41); Mean Corpuscular Hgb 31.2 pg (27.0-32.0); Mean Corpuscular Volume 94.6 fL (80-94); Mean Platelet Vol. 10.9 fl (6.2-12.0); Monocyte# 1.14 X10^3/uL; Monocyte% 12.2 % (0-10); NRBC Flagged by Analyzer 0 % (0-5); Neutrophil # 4.73 X10^3/uL (2.7-7.7); Neutrophil % 50.4 % (47-70); Platelet Count 388 K/mm3 (150-450); RBC Distribution Width SD 48.5 fl (35.1-43.9); Red Blood Count 5.16 M/mm3 (4.6-6.2); White Blood Count 9.4 K/mm3 (4.4-11.0)
[2020-07-22 12:32] LABS: ALB/GLOB Ratio 0.9 RATIO (0.9-2.4); AST(SGOT) 20 U/L (15-37); Alanine Aminotransfer ALT/SGPT 30 U/L (16-61); Albumin, Serum 3.6 g/dL (3.2-5.0); Alkaline Phosphatase 71 U/L (45-117); Anion Gap 4 (5-15); BUN 17 mg/dL (7-18); BUN/Creat Ratio 15.5 RATIO (10-20); Calcium,Total 9.2 mg/dL (8.5-10.1); Chloride 106 mmol/L (98-107); EST Glomerular Filtration Rate 70 mL/min (>60); Est Glom Filt Rate - Afr Amer 85 mL/min (>60); Globulin 3.9 g/dL (2.2-4.2); Glucose 117 mg/dL (74-106); Potassium 4.3 mmol/L (3.5-5.1); Protein, Total 7.5 g/dL (6.4-8.2); Sodium Level 138 mmol/L (136-145)
== END ==
PROVIDERS: PCP Internal Medicine; Referring Provider Internal Medicine; Visit Provider Internal Medicine
DX: M06.9 Rheumatoid arthritis, unspecified (principal)
CPT/HCPCS: 36415; 80053; 85025

== ENCOUNTER 2020-11-23 11:10 | Inpatient (IN) | payer MEDICARE, SELFPAY ==
[2020-11-23] VITALS (7 sets, daily range): BP systolic 120–152; BP diastolic 64–79; PULSE 70–88; RESP 16–18; TEMP 36.3–37.1; O2SAT 93–98; BMI 25.4; BMI 24.6
--- NOTE | 2020-11-23 11:26 | RAD_ITS ---
STUDY: X-RAY - LEFT FOOT CLINICAL: Male, 70 years old. Infection TECHNIQUE: 3 view(s) of the foot. COMPARISON: None. FINDINGS: Normal talus, calcaneus, and tarsal bones. Normal visualized subtalar, talonavicular, calcaneocuboid, tarsal and tarsometatarsal articulations. Normal metatarsi. Normal metatarsophalangeal joint of the great toe. Normal tibial and fibular sesamoid bones. Normal interphalangeal joint of the great toe. Lucency/cyst in proximal phalanx of the great toe. Normal second through fifth metatarsophalangeal joints. Normal interphalangeal joints and phalanges of the lesser toes. Soft tissue swelling on the dorsal aspect of the foot. RAD/Foot min 3 Views IMPRESSION: Soft tissue swelling. No demonstrated destructive bony process. Electronically Signed: Venkata Purvis MD at 13:01 EDT Tel , Service support ,
--- NOTE | 2020-11-23 11:30 | EDS_ITS ---
HPI History of Present Illness Chief Complaint: Cellulitis Informant: patient Onset/Context/Timing Onset: Weeks (Several) Context: Gradual Onset Timing: Continuous Quality: Aching Location: Left foot Current Severity: Moderate Maximum Severity: Moderate Worsened by: Walking Relieved by: Leaving alone Associated Symptoms Associated Symptoms: Seeping, red, swollen. No systemic symptoms. Narrative Narrative: Patient states he has had itchy red skin for a month or less, both arms and legs. Within the last couple weeks he has had pain and swelling and seeping from his left foot. He is diabetic, not on insulin. States he smokes and does not check the bottom of his feet, he denies any known injury. He has had no fevers or chills or systemic symptoms or generalized weakness. [facility] Medical History Arthritis Diabetes Hyperlipemia Hypertension Left inguinal hernia Home Medications blood pressure monitor #1 ea 04/16/19 [Rx Last Taken Unknown] Wrist Splint #2 ea 05/01/19 [Rx Last Taken Unknown] blood-glucose meter #1 ea 01/08/20 [Rx Last Taken Unknown] lancets 28 gauge #200 ea 01/08/20 [Rx Last Taken Unknown] hydroxychloroquine 200 mg tablet 200 mg PO BID #180 tab 01/30/20 [Rx Last Taken Unknown] blood sugar diagnostic #100 ea 02/14/20 [Rx Last Taken Unknown] potassium chloride 10 mEq tablet,extended release 10 meq PO DAILY #90 tab 08/04/20 [Rx Last Taken Unknown] metformin 1,000 mg tablet 500 mg PO BID #180 tablet 10/21/20 [Rx Last Taken Unknown] losartan 50 mg tablet 50 mg PO DAILY #90 tablet 11/03/20 [Rx Last Taken Unknown] rosuvastatin 10 mg tablet 10 mg PO DAILY #90 tab 11/12/20 [Rx Last Taken Unknown] amlodipine 10 mg PO DAILY 11/23/20 [History Last Taken Unknown] Allergy/AdvReac Type Severity Reaction Status Date / Time No Known Allergies Allergy Verified 11/23/20 11:11 Surgical History History of intraocular lens implant History of splenectomy Social History Smoking Status: Current every day smoker tobacco type: cigarettes Tobacco: How many years used: 52 Electronic Cigarette Use: not used second hand exposure: Yes (dad smoked) quit status: has quit before counseling given: provider counseling alcohol intake: current alcohol intake frequency: 3 or more drinks per day Alcohol type: beer substance use type: does not use ROS ROS ED Constitutional Constitutional ED: Denies chills or fever(s) Eyes Eyes: Denies change in vision or diplopia ENT ENT ED: Denies rhinorrhea or sore throat Cardiovascular Cardiovascular: Denies chest pain or palpitations Respiratory/Chest Respiratory/Chest: Denies cough or dyspnea Gastrointestinal Gastrointestinal: Denies abdominal pain, diarrhea, nausea or vomiting Genitourinary Genitourinary ED: Denies dysuria or hematuria Musculoskeletal Musculoskeletal: Reports as per HPI and extremity pain; Denies back pain or neck pain Integumentary Reports as per HPI, rash and wounds Neurologic Neurologic: Denies headache(s), paresthesias or weakness Psychiatric Psychiatric: Denies anxiety or suicidal thoughts EXAM Physical Exam Const Vital Signs: 11/23/20 11:11 11/23/20 12:54 11/23/20 13:51 Temperature 97.3 F L 98 F 98 F Temperature Source Temporal Oral Oral Pulse Rate 88 76 75 Respiratory Rate 17 16 16 Blood Pressure 152/79 H 138/72 H 142/71 H Blood Pressure Mean 103 94 94 Pulse Ox 94 94 98 Oxygen Delivery Method Room Air Room Air Room Air Positive well nourished and well developed General Appearance ED: well developed and NAD HEENT Reports moist mucous membranes normocephalic and atraumatic Eyes PERRL and EOMs intact bilaterally Neck full ROM and supple Resp normal respiratory effort and clear to auscultation bilaterally Cardio regular rate, regular rhythm and no murmurs Rate: Negative for tachycardic GI non-tender and non-distended Auscultation: normoactive bowel sounds Palpation: soft Back/Spine no CVA tenderness General Back: other FROM Extremity Extremity Narrative: Tenderness in left foot, where there is a superficially ulcerated wound and in the webspace between toes 1-2 where there is a wound seeping a slight amount of purulent material that does not increase with palpation. He is not very tender compared with the appearance of the wounds. General Extremety ED: Yes edema and tenderness; Negative for pulses abnormal General Extremity: edema; Negative for pulses abnormal Neuro oriented x3, CN's II-XII intact bilaterally and no sensory deficits noted Sensorium / Orientation: awake and alert Motor Exam: strength 5/5 throughout Skin Skin Narrative: Patient has nontender erythematous rash with scabbing on the extensor surfaces of both forearms and his distal shins and the dorsum of his feet. There is superficial ulceration at the medial aspect and dorsum of the proximal left foot and ankle. There is tender erythema throughout the left foot which is swollen asymmetrically compared with the contralateral side. There is a seeping wound in the first webspace. There is a chronic-appearing crack in the skin at the plantar aspect of his forefoot near this webspace, it is not seeping or bleeding and does not appear to be obviously infected. There are other chronic-appearing cracks at the arch of his foot and hindfoot, the calcaneus is nontender. There is no focal bony tenderness. There is no lymphangitis, but the erythema does extend up the left lower leg distally. MDM MDM MDM Narrative Medical decision making narrative: Patient has no radiographic evidence of osteomyelitis at this time, however he has a leukocytosis and elevated ESR and CRP. He is clinically and hemodynamically stable. I think this looks like a potentially serious diabetic foot infection that the patient has had no attention to, he continues to smoke, and does not have a doctor to follow-up with closely or medications for his diabetes which is likely poorly controlled although his blood sugar is only 137 at this time. For these reasons, I recommend admission. He was empirically treated initially with Unasyn, Flagyl, and vancomycin, to provide broad-spectrum coverage including MRSA. I sent a culture from the seeping in between his first and second toes. After prepping it with chlorhexidine, it became evident that there is very little to culture, there is no break in the skin from which there is anything to express. There is nothing else to culture, he states the other area that is seeping is the superficial ulceration higher up where there is no purulent material. Lab Data Attestation: I reviewed the patient's lab results. Labs: Laboratory Results - last 24 hr 11/23/20 11/23/20 11/23/20 11:40 11:40 11:40 WBC 12.1 H RBC 5.06 Hgb 16.6 H Hct 47.3 MCV 93.5 MCH 32.8 H MCHC 35.1 RDW Std Deviation 49.1 H RDW Coeff of Leonarda 14.3 Plt Count 436 MPV 10.3 Immature Gran % (Auto) 0.400 Neut % (Auto) 52.3 Lymph % (Auto) 21.8 [place] % (Auto) 12.5 H Eos % (Auto) 11.6 H Baso % (Auto) 1.4 H Absolute Neuts (auto) 6.3 Absolute Lymphs (auto) 2.65 Nucleated RBC % 0 Differential Comment SCANNED Diff Path Review November foll ESR 22 H Sodium 138 Potassium 3.8 Chloride 105 Carbon Dioxide 26.0 Anion Gap 7 BUN 10 Creatinine 0.89 Estim Creat Clear Calc 72.58 Est GFR (MDRD) Af Amer 108 Est GFR (MDRD) Non-Af 89 BUN/Creatinine Ratio 11.2 Glucose 137 H Lactic Acid 1.7 Calcium 9.0 Total Bilirubin 0.70 AST 15 ALT 23 Alkaline Phosphatase 90 C-React Prot Ext Range 10.30 H Total Protein 8.3 H Albumin 3.8 Globulin 4.5 H Albumin/Globulin Ratio 0.8 L Radiography Diagnostic Testing: Radiology Impression Foot X-Ray 11/23/20 11:26 IMPRESSION: Soft tissue swelling. No demonstrated destructive bony process. Electronically Signed: Venkata Purvis MD at 13:01 EDT Tel , Service support , Discharge Plan Dx/Rx/DC Orders Clinical Impression: Diabetic infection of left foot Disposition Disposition: Acute Care Hospital [facility]
[2020-11-23 11:58] LABS: Absolute Lymphocyte Count 2.65 X10^3/uL (0.83-4.51); Absolute Neutrophil Count 6.3 X10^3/uL (2.0-7.7); Basophil# 0.17 X10^3/uL; Basophil% 1.4 % (0-1); Eosinophil# 1.41 X10^3/uL; Eosinophils% 11.6 % (0-5); Erythrocyte Sedimentation Rate 22 mm/hr (0-20); Hematocrit 47.3 % (40-54); Hemoglobin 16.6 g/dL (13.0-16.5); Lymphocyte # 2.65 X10^3/ul (0.83-4.51); Lymphocyte % 21.8 % (19-41); Mean Corp Hgb Conc 35.1 g/dL (32-36); Mean Corpuscular Hgb 32.8 pg (27.0-32.0); Mean Corpuscular Volume 93.5 fL (80-94); Mean Platelet Vol. 10.3 fl (6.2-12.0); Monocyte# 1.52 X10^3/uL; Monocyte% 12.5 % (0-10); NRBC Flagged by Analyzer 0 % (0-5); Neutrophil # 6.33 X10^3/uL (2.7-7.7); Neutrophil % 52.3 % (47-70); POSITIVE DIFFERENTIAL YES; Platelet Count 436 K/mm3 (150-450); RBC Distribution Width CV 14.3 % (11.6-14.6); RBC Distribution Width SD 49.1 fl (35.1-43.9); Red Blood Count 5.06 M/mm3 (4.6-6.2); White Blood Count 12.1 K/mm3 (4.4-11.0)
[2020-11-23 11:59] LABS: Differential Indicated SCAN CRITERIA MET
[2020-11-23 12:08] LABS: ALB/GLOB Ratio 0.8 RATIO (0.9-2.4); AST(SGOT) 15 U/L (15-37); Alanine Aminotransfer ALT/SGPT 23 U/L (16-61); Albumin, Serum 3.8 g/dL (3.2-5.0); Alkaline Phosphatase 90 U/L (45-117); Anion Gap 7 (5-15); BUN 10 mg/dL (7-18); BUN/Creat Ratio 11.2 RATIO (10-20); Chloride 105 mmol/L (98-107); Creatinine, Serum 0.89 mg/dL (0.70-1.30); EST Glomerular Filtration Rate 89 mL/min (>60); Est Glom Filt Rate - Afr Amer 108 mL/min (>60); Estimated Creatinine Clearance 72.58 ml/min; Globulin 4.5 g/dL (2.2-4.2); Glucose 137 mg/dL (74-106); Potassium 3.8 mmol/L (3.5-5.1); Protein, Total 8.3 g/dL (6.4-8.2); Sodium Level 138 mmol/L (136-145)
[2020-11-23 12:15] LABS: Differential Comment SCANNED
[2020-11-23 12:19] LABS: Lactic Acid 1.7 mmol/L (0.4-1.9)
[2020-11-23] MEDS: metroNIDAZOLE 500 MG/100 ML BAG 100 MG IV (12:46)
--- NOTE | 2020-11-23 14:27 | EKG12_ITS ---
Test Reason : Blood Pressure : / mmHG Vent. Rate : 079 BPM Atrial Rate : 079 BPM P-R Int : 142 ms QRS Dur : 096 ms QT Int : 412 ms P-R-T Axes : 063 069 055 degrees QTc Int : 472 ms Normal sinus rhythm Normal ECG Confirmed by SWAPNIL DUNLAP, KACI ([id number]), newspaper or periodical editor PATTIE CHAIDEZ ([id number]) on 11/24/2020 1:10:51 PM Referred By: ROBERT Confirmed By:KACI KRAFT MD
--- NOTE | 2020-11-23 14:28 | HP.PCM.HOS_ITS ---
HPI - General General Date of Admission: 11/23/20 HPI Narrative SHEA TEIXEIRA, is a 70 M who presents bilateral lower extremity and upper extremity, worsening rash and weeping ulcer over left foot for last couple weeks. The rash looks itchy, reddish and dry. Patient has history of diabetes and he states his glucoses were less than 200 and yesterday was 88 mg/dL. Denies fever chills, nausea vomiting or other systemic symptoms. He was last admitted in September 2019 for acute alcoholic pancreatitis and duodenitis. Patient has history of smoking cigarettes about a pack per day for last 52 years and also chronic alcohol use. Denies peripheral arterial disease, claudication pain, stroke or coronary artery disease. [facility] Medical History Arthritis Diabetes Hyperlipemia Hypertension Left inguinal hernia Home Medications blood pressure monitor #1 ea 04/16/19 [Rx Last Taken Unknown] Wrist Splint #2 ea 05/01/19 [Rx Last Taken Unknown] blood-glucose meter #1 ea 01/08/20 [Rx Last Taken Unknown] lancets 28 gauge #200 ea 01/08/20 [Rx Last Taken Unknown] hydroxychloroquine 200 mg tablet 200 mg PO BID #180 tab 01/30/20 [Rx Last Taken Unknown] blood sugar diagnostic #100 ea 02/14/20 [Rx Last Taken Unknown] potassium chloride 10 mEq tablet,extended release 10 meq PO DAILY #90 tab 08/04/20 [Rx Last Taken Unknown] metformin 1,000 mg tablet 500 mg PO BID #180 tablet 10/21/20 [Rx Last Taken Unknown] losartan 50 mg tablet 50 mg PO DAILY #90 tablet 11/03/20 [Rx Last Taken Unknown] rosuvastatin 10 mg tablet 10 mg PO DAILY #90 tab 11/12/20 [Rx Last Taken Unknown] amlodipine 10 mg PO DAILY 11/23/20 [History Last Taken Unknown] Allergy/AdvReac Type Severity Reaction Status Date / Time No Known Allergies Allergy Verified 11/23/20 11:11 Surgical History History of intraocular lens implant History of splenectomy Social History Smoking Status: Current every day smoker tobacco type: cigarettes Tobacco: How many years used: 52 Electronic Cigarette Use: not used second hand exposure: Yes (dad smoked) quit status: has quit before counseling given: provider counseling alcohol intake: current alcohol intake frequency: 3 or more drinks per day Alcohol type: beer substance use type: does not use ROS ROS Narrative Constitutional: Does not report fatigue and weakness HEENT: Reports systems reviewed and no addt'l complaints, except as documented Respiratory/Chest: Denies shortness of breath with exertion or chest pain on exertion or at rest Gastrointestinal: Denies coffee ground emesis, hematemesis or vomiting Genitourinary: Denies burning urination or neurologic type symptoms Musculoskeletal: Reports joint pain and limited range of motion in the hand due to arthritis. Neurologic: Denies seizure-like activity Endocrinology: Reports systems reviewed and no addt'l complaints, except as documented. Has diabetes mellitus. Hematologic/Lymphatic: Reports systems reviewed and no addt'l complaints, except as documented Rest 12 ROS are negative except as mentioned in HPI Vital Signs Vital Signs Vital Signs: 11/23/20 11:11 11/23/20 12:54 11/23/20 13:51 Temperature 97.3 F L 98 F 98 F Temperature Source Temporal Oral Oral Pulse Rate 88 76 75 Respiratory Rate 17 16 16 Blood Pressure 152/79 H 138/72 H 142/71 H Blood Pressure Mean 103 94 94 Pulse Ox 94 94 98 Oxygen Delivery Method Room Air Room Air Room Air 11/23/20 14:15 Temperature 98 F Temperature Source Oral Pulse Rate 75 Respiratory Rate 16 Blood Pressure 142/71 H Blood Pressure Mean 94 Pulse Ox 98 Oxygen Delivery Method Room Air Physical Exam Narrative General: Alert, Oriented x3, Cooperative HEENT: Atraumatic, PERRLA, EOMI, Normocephalic Oral: No Gingival or Mucosal Lesions/ Ulcerations Neck: Supple, No JVD, Negative Carotid Bruits Lungs: Air entry diminished in bilateral lung bases. No crepitation/rhonchi Cardiovascular: Regular rate, Regular Rhythm, Normal S1, Normal S2, No murmurs Abdomen: Bowel Sounds Present, Soft, Non Tender, Non-Distended, old healed upper abdominal scar : No renal angle tenderness. No suprapubic tenderness. Extremities: Open weeping superficial ulcer of left leg. Capillary Refill Less than 3 Seconds Skin: Dry, itchy, erythematous rash present in both lower legs and upper extremities. Weeping ulcer, superficial at first web space between great toe and second of left foot. Musculoskeletal: No Tenderness to Palpation of Joints or Extremities Neurological: No gross decrease in sensation or paresthesia of lower legs. Cranial nerves II-XII grossly intact, Deep Tendon Reflexes 2+/4 and Symmetrical, Neuro grossly intact Psych/Mental Status: Normal Affect, Appropriate. Lab / Micro Data Result Diagrams: 11/23/20 11:40 11/23/20 11:40 Labs: Laboratory Results - last 24 hr 11/23/20 11/23/20 11/23/20 11:40 11:40 11:40 WBC 12.1 H RBC 5.06 Hgb 16.6 H Hct 47.3 MCV 93.5 MCH 32.8 H MCHC 35.1 RDW Std Deviation 49.1 H RDW Coeff of Leonarda 14.3 Plt Count 436 MPV 10.3 Immature Gran % (Auto) 0.400 Neut % (Auto) 52.3 Lymph % (Auto) 21.8 [place] % (Auto) 12.5 H Eos % (Auto) 11.6 H Baso % (Auto) 1.4 H Absolute Neuts (auto) 6.3 Absolute Lymphs (auto) 2.65 Nucleated RBC % 0 Differential Comment SCANNED Diff Path Review November ESR 22 H Sodium 138 Potassium 3.8 Chloride 105 Carbon Dioxide 26.0 Anion Gap 7 BUN 10 Creatinine 0.89 Estim Creat Clear Calc 72.58 Est GFR (MDRD) Af Amer 108 Est GFR (MDRD) Non-Af 89 BUN/Creatinine Ratio 11.2 Glucose 137 H Lactic Acid 1.7 Calcium 9.0 Total Bilirubin 0.70 AST 15 ALT 23 Alkaline Phosphatase 90 C-React Prot Ext Range 10.30 H Total Protein 8.3 H Albumin 3.8 Globulin 4.5 H Albumin/Globulin Ratio 0.8 L Radiology Impression Foot X-Ray 11/23/20 11:26 IMPRESSION: Soft tissue swelling. No demonstrated destructive bony process. Electronically Signed: Venkata Purvis MD at 13:01 EDT Tel , Service support , Assessment & Plan Assessment/Plan (1) Hypertension: (2) Hyperlipidemia: (3) Type 2 diabetes mellitus: (4) Diabetic infection of left foot: PLAN: 1. Left diabetic foot ulcer at first toe webspace and surrounding cellulitis and rash both upper and lower extremities: Patient is being admitted to [facility] floor. Rash seems possible atopic/allergic contact dermatitis as it is more on the external distribution. Blood cultures x2 ordered. Started on broad-spectrum antibiotic IV vancomycin and Unasyn. ID and podiatry consult for further comanagement. Emollient moisturizer like calmoseptine initially and if no improvement then will try antifungal cream. Mild leukocytosis, with controlled glucose. CRP elevated. PCP note reviewed and says dermatitis ongoing for few weeks in October 2020 2. Diabetes mellitus type 2: Glucose is 117 in July 2020 and today 137. A1c 5.9 in October 2020. Accu-Chek insulin coverage Humalog sliding scale. Continue Metformin 500 mg p.o. twice daily 2. Chronic alcohol use with fatty liver: Patient was last admitted in September 2019 for acute alcoholic pancreatitis. At that time, CT abdomen shows steatosis. Transaminases are normal limit. A/G ratio 0.8. 3. Chronic smoker: Advised cessation and quitting. 4. Hypertension: Blood pressure is 142/71. Patient on amlodipine, losartan at home. 5. Dyslipidemia: Fasting for tomorrow a.m. 6. 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 7. DVT prophylaxis: Lovenox 40 mg subcu daily Living will/advanced directive/end of life care: Patient does not have living will or advanced directive. After discussion of benefits/risks procedures involved with full code, DNR CC arrest and DNR CC, the patient opted for DNR-CC Arrest with no intubation Patient does not want artificial life support including intubation, tube feed, ventilator and/chest compression, central venous catheter, vasopressor and DC shock if needed Total time spent in sode-or-uena encounter in discussion of advanced directive 16 minutes. Visit Charges Inpatient E&M: 29595 Init Hosp L3 Procedures Hospitalists Procedures: 99450 Advncd Care Plan 30 Min
[2020-11-23 14:32] LABS: Phosphorus 2.5 mg/dL (2.5-4.9)
--- NOTE | 2020-11-23 16:16 | PHA.PHARE_ITS ---
Consult Pharmacy has been consulted to manage selected antiobiotic: Vancomycin Type of Consult: New start Suspected Infection: Skin/Soft tissue Prior Doses of Antibiotics Received/Current Regimen: 1250MG X1 IN ER STARTING AT 13:44 TODAY Labs: Sodium 138 mmol/L (136-145) 11/23/20 11:40 Potassium 3.8 mmol/L (3.5-5.1) 11/23/20 11:40 Chloride 105 mmol/L (98-107) 11/23/20 11:40 Carbon Dioxide 26.0 mmol/L (21.0-32.0) 11/23/20 11:40 Anion Gap 7 (5-15) 11/23/20 11:40 BUN 10 mg/dL (7-18) 11/23/20 11:40 Creatinine 0.89 mg/dL (0.70-1.30) 11/23/20 11:40 Est GFR (MDRD) Af Amer 108 mL/min (>60) 11/23/20 11:40 Est GFR (MDRD) Non-Af 89 mL/min (>60) 11/23/20 11:40 BUN/Creatinine Ratio 11.2 RATIO (10-20) 11/23/20 11:40 Glucose 137 mg/dL (74-106) H 11/23/20 11:40 Weight used for dosin.7 kg Estimated Creatinine Clearance: 73ML/MIN Goal Trough: 15-20 mcg/mL Pharmacy Plan for Drug Dosing: Noting that the patient received the first dose in ER, will continue with 1000mg IV q12h per [facility] dosing protocol. Will check a trough level before the 4th total dose. Pharmacy Service will continue to monitor and adjust dosing as required. Follow-Up Labs: Trough Vancomycin Labs to be done on [date and time ordered]: 11/25/20 01:30
[2020-11-23] MEDS: Menthol/Lanolin/Calamine/Znox 113 GM Tube 1 APPLIC TOPICAL ×2 (17:18→20:51)
[2020-11-23] MEDS: Hydroxychloroquine 200 MG Tablet PO (17:20)
[2020-11-23] MEDS: Enoxaparin 40 MG/0.4 ML Syringe SC (17:20)
[2020-11-23] MEDS: metFORMIN HCl 500 MG Tablet PO (17:22)
--- NOTE | 2020-11-23 17:47 | PCM.CONS.GEN ---
Assessment & Plan Assessment/Plan (1) Cellulitis of left ankle: (2) Diabetic infection of left foot: (3) Type 2 diabetes mellitus: QUALIFIERS: Diabetes mellitus intermediate insulin use: without intermediate use Diabetes mellitus complication status: with skin complications Diabetes mellitus complication detail: with dermatitis Qualified Code(s): E11.620 - Type 2 diabetes mellitus with diabetic dermatitis (4) Chronic ulcer of ankle, left, limited to breakdown of skin: PLAN: Patient seen and examined with son present Patient noted to have itchy rash with drainage noted to bilateral lower extremities with left being worse than right. Vital signs are stable. White blood cell count of 12.1, ESR of 22, CRP of 10.3. Last hemoglobin A1c on 10/31/2020 was 5.9 Left foot x-rays were reviewed showing no emphysema, fractures, osteomyelitic changes Bacterial and fungal cultures were obtained of the left foot. Follow results. Given amount of serous drainage noted I recommend keeping a well-padded dry sterile dressing over left foot with use of silver alginate to wound bed. Right foot excoriations do not appear to be seeping at this time. If this changes will need to start dressing on the right lower extremity as well. Keeping the area covered with a dressing also discourage patient from further itching of the area. Continue antibiotics. Noted infectious disease consult Podiatry will continue to follow. Thank you for the consult. Please contact if any questions or concerns. Huyen Ortiz DPM [facility] [phone] This note was generated with [employer]ueSpot dictation software. It may contain incorrect words, spelling, and punctuation that were not noted in checking the note before signing. HPI Consult Data Date of Consult: 11/23/20 HPI Narrative Reason for Consultation: Bilateral foot rash and wounds HPI Narrative: SHEA TEIXEIRA, is a 70 M with a significant medical history of type 2 diabetes, rheumatoid arthritis, alcoholic pancreatitis, and tobacco abuse who presents for worsening bilateral lower extremity and upper extremity rashes. Patient relates that he has been having this itchy rash especially to his left ankle for several months now. Patient relates he has tried all the vkqk-rgy-wiupvly options that he could think of including ibuprofen, Epson salt soaks, hydrocortisone cream, anything in the direction that said antiitch. He relates that there is not gotten any better. He relates that he has not seen anyone for this until he came to the emergency room today. Patient relates serous drainage from the site. Patient also relates that the swelling in his ankles started at the same time the itchiness had. 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 Patient relates that he has not spilled any caustic chemicals on himself and changes his work clothes regularly. He denies any other activities where he might have been exposed to plants such as poison lucrecia or poison oak. Patient denies any nausea fever vomiting chills chest pain shortness of breath. Patient denies any injury or trauma. Patient is a xog-orryhvl-uilcvetpc diabetic. Patient is a smoker. [facility] Medical History Arthritis Diabetes Diabetes Hyperlipemia Hypertension Hypertension Left inguinal hernia Rheumatoid arthritis Smoker Smoker Home Medications blood pressure monitor #1 ea 04/16/19 [Rx Last Taken Unknown] Wrist Splint #2 ea 05/01/19 [Rx Last Taken Unknown] blood-glucose meter #1 ea 01/08/20 [Rx Last Taken Unknown] lancets 28 gauge #200 ea 01/08/20 [Rx Last Taken Unknown] hydroxychloroquine 200 mg tablet 200 mg PO BID #180 tab 01/30/20 [Rx Last Taken Unknown] blood sugar diagnostic #100 ea 02/14/20 [Rx Last Taken Unknown] potassium chloride 10 mEq tablet,extended release 10 meq PO DAILY #90 tab 08/04/20 [Rx Last Taken Unknown] metformin 1,000 mg tablet 500 mg PO BID #180 tablet 10/21/20 [Rx Last Taken Unknown] losartan 50 mg tablet 50 mg PO DAILY #90 tablet 11/03/20 [Rx Last Taken Unknown] rosuvastatin 10 mg tablet 10 mg PO DAILY #90 tab 11/12/20 [Rx Last Taken Unknown] amlodipine 10 mg PO DAILY 11/23/20 [History Last Taken Unknown] Allergy/AdvReac Type Severity Reaction Status Date / Time No Known Allergies Allergy Verified 11/23/20 11:11 Surgical History History of intraocular lens implant History of splenectomy Social History Smoking Status: Current every day smoker tobacco type: cigarettes Tobacco: How many years used: 52 Electronic Cigarette Use: not used second hand exposure: Yes (dad smoked) quit status: has quit before counseling given: provider counseling alcohol intake: current alcohol intake frequency: 3 or more drinks per day Alcohol type: beer substance use type: does not use ROS Constitutional Constitutional: Denies chills or fever(s) Eyes Eyes: Denies change in vision or diplopia ENT HEENT: Denies rhinorrhea or sore throat Cardiovascular Cardiovascular: Denies chest pain or palpitations Respiratory/Chest Respiratory/Chest: Denies cough or dyspnea Gastrointestinal Gastrointestinal: Denies abdominal pain, diarrhea, nausea or vomiting Genitourinary Genitourinary: Denies dysuria or hematuria Musculoskeletal Musculoskeletal: Reports as per HPI and extremity pain; Denies back pain or neck pain Integumentary Integumentary: Reports as per HPI, rash and wounds Neurologic Neurologic: Reports numbness, paresthesias RLE and LLE and tingling; Denies headache(s) or weakness Psychiatric Psychiatric: Denies anxiety or suicidal thoughts Physical Exam Const alert and oriented x3 Resp normal respiratory effort Cardio Peripheral Pulses: posterior tibial pulses present and dorsalis pedis pulses present Extremity General Extremity: calf tenderness and edema bilateral (Left worse than right lower extremity); Negative for clubbing or cyanosis Skin General Skin Exam: crusts Rashes: rashes noted Wounds: wounds noted Wound Narrative: Anterior lateral aspect of left ankle and leg is the worst foot other sites noted at right medial and posterior ankle. Large area of excoriated skin with serous drainage noted, surrounding erythema and edema, no areas probed deep, all wounds are superficial, crusty appearance, discolored skin noted Similar changes are also noted to a lesser extent to the upper extremities Hair: other Decreased hair growth noted Neuro Sensory Exam: extremities light-touch: normal Motor Exam: strength 5/5 throughout Psych affect normal Appearance: appropriate Lab / Micro Data Result Diagrams: 11/23/20 11:40 11/23/20 11:40 Labs: Laboratory Results - last 24 hr 11/23/20 11/23/20 11/23/20 11:40 11:40 11:40 WBC 12.1 H RBC 5.06 Hgb 16.6 H Hct 47.3 MCV 93.5 MCH 32.8 H MCHC 35.1 RDW Std Deviation 49.1 H RDW Coeff of Leonarda 14.3 Plt Count 436 MPV 10.3 Immature Gran % (Auto) 0.400 Neut % (Auto) 52.3 Lymph % (Auto) 21.8 [place] % (Auto) 12.5 H Eos % (Auto) 11.6 H Baso % (Auto) 1.4 H Absolute Neuts (auto) 6.3 Absolute Lymphs (auto) 2.65 Nucleated RBC % 0 Differential Comment SCANNED Diff Path Review May foll ESR 22 H Sodium 138 Potassium 3.8 Chloride 105 Carbon Dioxide 26.0 Anion Gap 7 BUN 10 Creatinine 0.89 Estim Creat Clear Calc 72.58 Est GFR (MDRD) Af Amer 108 Est GFR (MDRD) Non-Af 89 BUN/Creatinine Ratio 11.2 Glucose 137 H Lactic Acid 1.7 Calcium 9.0 Phosphorus Total Bilirubin 0.70 AST 15 ALT 23 Alkaline Phosphatase 90 C-React Prot Ext Range 10.30 H Total Protein 8.3 H Albumin 3.8 Globulin 4.5 H Albumin/Globulin Ratio 0.8 L 11/23/20 11:40 WBC RBC Hgb Hct MCV MCH MCHC RDW Std Deviation RDW Coeff of Leonarda Plt Count MPV Immature Gran % (Auto) Neut % (Auto) Lymph % (Auto) [place] % (Auto) Eos % (Auto) Baso % (Auto) Absolute Neuts (auto) Absolute Lymphs (auto) Nucleated RBC % Differential Comment Diff Path Review ESR Sodium Potassium Chloride Carbon Dioxide Anion Gap BUN Creatinine Estim Creat Clear Calc Est GFR (MDRD) Af Amer Est GFR (MDRD) Non-Af BUN/Creatinine Ratio Glucose Lactic Acid Calcium Phosphorus 2.5 Total Bilirubin AST ALT Alkaline Phosphatase C-React Prot Ext Range Total Protein Albumin Globulin Albumin/Globulin Ratio Radiology Impression Foot X-Ray 11/23/20 11:26 IMPRESSION: Soft tissue swelling. No demonstrated destructive bony process. Electronically Signed: Venkata Purvis MD at 13:01 EDT Tel , Service support ,
[2020-11-23] MEDS: Atorvastatin Calcium 20 MG Tablet PO (20:51)
[2020-11-24 00:22] LABS: Hemoglobin A1c 5.6 % (3.8-5.6)
[2020-11-24] MEDS: DiphenhydrAMINE 25 MG Capsule PO (00:25)
[2020-11-24 00:31] LABS: Bedside Glucose 102 mg/dL (70-110)
[2020-11-24] MEDS: Vancomycin IV 1,000 MG/200 ML BAG 200 MG IV ×2 (02:19→13:20)
[2020-11-24 02:20] VITALS: BP 122/56; PULSE 79; RESP 18; TEMP 37; O2SAT 92
[2020-11-24] MEDS: Menthol/Lanolin/Calamine/Znox 113 GM Tube 1 APPLIC TOPICAL (05:35)
[2020-11-24 06:35] LABS: Bedside Glucose 136 mg/dL (70-110)
[2020-11-24] MEDS: metFORMIN HCl 500 MG Tablet PO (08:05)
[2020-11-24] MEDS: Hydroxychloroquine 200 MG Tablet PO (08:05)
[2020-11-24 10:55] VITALS: BP 135/77; PULSE 79; RESP 18; TEMP 37.1; O2SAT 94
[2020-11-24] MEDS: Losartan Potassium 50 MG Tablet PO (11:20)
[2020-11-24] MEDS: Potassium Chloride Oral Tablet 10 MEQ PO (11:20)
[2020-11-24] MEDS: amLODIPine 10 MG Tablet PO (11:20)
[2020-11-24] MEDS: Enoxaparin 40 MG/0.4 ML Syringe SC (11:27)
--- NOTE | 2020-11-24 11:50 | CASEMGMT ---
RN JEN Face to Face with patient for initial transition planning/care coordination assessment. RN CM introduced self and role at [facility]. Patient lying in bed, alert and oriented. Patient willing to participate in assessment and is able to answer all questions appropriately. Care providers, pharmacy, and demographics verified. Patient wishes to discharge home, denies need for home health at this time. Patient states he has no further needs or concerns at this time. CM to follow for discharge planning needs that may arise. PCP: Lindsay Specialists: none Preferred Pharmacy: [facility] Insurance: [employer] Prescription Benefit: yes Living Will/HPOA: none LNOK: son, ex Living Arrangements: Patient lives alone in a basement apartment with 10 steps and railing to enter the home. Patient states he is independent at home. Transportation: self/son DME/HHC: Patient denies DME or previous HHC. Paitent states son can help with dressing changes. Disposition Plan: Patient to discharge home with family support and follow-up plans in place. Roxane FLORES, RN, CM
[2020-11-24 12:01] LABS: Bedside Glucose 89 mg/dL (70-110)
--- NOTE | 2020-11-24 13:07 | NURSING ---
wound photo: left lower leg
--- NOTE | 2020-11-24 13:08 | NURSING ---
wound photo: left foot
--- NOTE | 2020-11-24 13:08 | NURSING ---
wound photo: right medial foot
--- NOTE | 2020-11-24 14:23 | PCM.PROGNOTE ---
Subjective Subjective: Patient was seen this morning for ulceration left foot and right foot with cellulitis and rash. Patient does not relate to any fever, chills, nausea or vomiting. He is asking when he can go home. Objective Data Objective Data Vital Signs: Vital Signs Temp Pulse Resp BP Pulse Ox 98.8 F 79 18 135/77 H 94 11/24/20 10:55 11/24/20 10:55 11/24/20 10:55 11/24/20 10:55 11/24/20 10:55 Oxygen Delivery Method Room Air Weight: 73.7 kg Body Mass Index (BMI) 24.6 Intake & Output: Intake and Output for Last 24 Hours 11/22/20 11/23/20 11/24/20 23:59 23:59 23:59 Intake Total 1049 / 1049 836 / 836 Balance 1049 / 1049 836 / 836 Lab / Micro Data Result Diagrams: 11/23/20 11:40 11/23/20 11:40 Labs: Laboratory Results - last 24 hr 11/23/20 11/23/20 11/24/20 11:40 11:40 00:24 Hemoglobin A1c 5.6 Phosphorus 2.5 POC Glucose 102 11/24/20 11/24/20 06:32 11:17 Hemoglobin A1c Phosphorus POC Glucose 136 H 89 Micro: Microbiology 11/23/20 11:45 Wound - Aerobic Swab Gram Stain - Final 11/23/20 11:45 Wound - Aerobic Swab Wound Culture - Preliminary Staphylococcus aureus Gram positive organism Physical Exam Const alert, oriented x3 and no apparent distress General Appearance: cooperative and comfortable Extremity Extremity Narrative: There is diffuse dermatitis to lower extremity left worse than right. There is open lesion to he medial right hindfoot, and also the dorsal left ankle and 1st ID space left foot down to superficial subcutaneous tissue, cellulitis significantly improved, skin very dry and scaly, no necrosis, no fluctuance, no crepitus, no visible abscess, no maloder present bilateral. No evidence of ischemia to the foot or ankle bilateral. CFT < 2 seconds to all toes bilateral. Pedal pulses intact to foot bilateral. Assessment & Plan Assessment/Plan (1) Cellulitis of left ankle: PLAN: Reviewed diagnostic data. There appears to be significant improvement to foot/ankle/leg bilateral. Recommended continued local wound care to the left ankle, left foot and right hindfoot wounds. Adaptic to left anterior wound, Aquacel Ag to right hindfoot wound and left 1st interdigital foot wound - cover with gauze, kerlix and deena dressing - change daily. Cleanse with normal saline solution with each dressing change. Also for the dermatitis - apply hydrocortisone 2.5% cream and clotrimazole 1% cream daily to sites of foot/ankle and leg rash each each dressing change. Cultures have been obtained and pending, fungal culture pending. Patient is on IV antibiotics at this time, ID/Dr. Castano has been consulted. Once home going antibiotics determined patient would be ok to go home from podiatry standpoint as long as dressings will be able to be changed daily at home, and patient to follow up with Dr. Ortiz or Dr. Whittaker at [facility] within 1 week, sooner if needed. This was discussed with patient, and also discussed with Dr. Coronado. 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
--- NOTE | 2020-11-24 14:32 | PCM.DC ---
Discharge Instructions Activity Keep extremity elevated above heart level: Left Leg and Right Leg Dressing / Incision Call your doctor if your incision/area has: Continuous Slow Oozing, Sudden Increased Bleeding, Increased Pain/ Swelling, Increased Redness and Foul Smelling Discharge Call your doctor if you observe: Fever of 101 or Higher, Shortness of breath, Chest pain, Calf discomfort and Uncontrolled pain Additional Dressing/Incision Instructions:: Wound care: Left and right foot/ankle/leg: wounds are located at left ankle, left foot and right foot. Apply adaptic to front of left ankle wound, apply Aquacel Ag to right foot wound and left 1st interdigital (in between 1st and 2nd toes) foot wound, apply betadine (providone iodine) solution in between right 3rd and 4th toes - cover with gauze, kerlix/gauze roll and deena dressing - change daily. Cleanse with normal saline solution with each dressing change. Also for the dermatitis/rash to both foot/ankle/leg - apply both hydrocortisone 2.5% cream and clotrimazole 1% cream daily to sites of foot/ankle and leg rash with each dressing change. Follow Up Care Please Follow Up With: Huyen Ortiz DPM When: Follow up with Dr. Ortiz or Dr. Whittaker within 1 week at the [facility]. Call to make appointment: [phone]; or you may also call [facility] in [place] if any questions on foot/ankle/leg wound care: [phone] Test Results: Test results from this visit will be discussed in further detail at your follow-up appointment, if applicable. Discharge Plan Admission Admit Date/Time: 11/24/20 10:47 Primary Reason for Your Visit: Bilateral leg ulcers, cellulitis Attending Provider: Jessica Coronado Primary Care Provider: Zully Montoya Consulting Providers: Huyen Ortiz ; David Castano Instructions Patient Instructions: Diabetes: Shopping for and Preparing Meals Discharge Orders/Prescriptions Prescriptions: New hydrocortisone 2.5 % Cream 1 applic topical DAILY 14 Days Qty: 454 RF: 0 cephalexin 500 mg capsule 500 mg PO Q8H Qty: 20 RF: 0 doxycycline hyclate 100 mg capsule 100 mg PO BID Qty: 14 RF: 0 povidone-iodine [Betadine Swabsticks] 10 % swab 1 applic topical DAILY Qty: 14 RF: 0 clotrimazole 1 % Cream 1 applic topical DAILY Qty: 0 RF: 0 Continued (DME) blood pressure monitor Kit See Rx Instructions .ROUTE .MEDSUPPLY Qty: 1 RF: 0 (DME) Wrist Splint Qty: 2 RF: 2 hydroxychloroquine [Plaquenil] 200 mg tablet 200 mg PO BID Qty: 180 RF: 2 metformin 1,000 mg tablet 500 mg PO BID Qty: 180 RF: 3 amlodipine 10 mg tablet 10 mg PO DAILY RF: 0 (DME) blood-glucose meter [FreeStyle Lite Meter] Kit See Rx Instructions .ROUTE .MEDSUPPLY Qty: 1 RF: 0 (DME) lancets [FreeStyle Lancets] 28 gauge misc See Rx Instructions .ROUTE .MEDSUPPLY Qty: 200 RF: 3 (DME) FreeStyle Lite Strips Strip See Rx Instructions .ROUTE .MEDSUPPLY Qty: 100 RF: 3 potassium chloride 10 mEq tablet extended release 10 meq PO DAILY Qty: 90 RF: 1 losartan 50 mg tablet 50 mg PO DAILY Qty: 90 RF: 3 rosuvastatin 10 mg tablet 10 mg PO DAILY Qty: 90 RF: 3 Referrals / Follow Up: Zully Montoya MD [Primary Care Provider] - Huyen Ortiz DPM [STAFF PHYSICIAN] - In 1 Week (In the wound center in 1 week) Disposition Disposition (needs filled in before D/C Order can be placed): Home, self care
--- NOTE | 2020-11-24 14:36 | VDLE_ITS ---
Reason For Study: Swelling RIGHT LEFT GSV is normal. GSV is normal. CFV is compressible, spontaneous, phasic, CFV is compressible, spontaneous, phasic, competent and demonstrates normal competent, and demonstrates normal augmentation. augmentation. FV is compressible, spontaneous, phasic, FV is compressible, spontaneous, phasic, competent and demonstrates normal competent and demonstrates normal augmentation. augmentation. POP V is compressible, spontaneous, phasic, POP V is compressible, spontaneous, phasic, competent and demonstrates normal competent and demonstrates normal augmentation. augmentation. T/P Trunk is compressible. T/P Trunk is compressible. PTV is compressible. PTV is compressible. RT PerV is compressible. LT PerV is compressible. Procedure This is a venous duplex using B-mode, color flow and spectral Doppler. Exam performed in department. A preliminary report was called and/or faxed to [facility]. VL/Venous Duplex US - Janak Extrem Interpretation Summary No evidence for acute deep venous thrombosis bilateral lower extremities with p atent and compressible bilateral great saphenous veins. Ordering Physician: Thor Thapa Referring Physician: Zully Montoya Performed By: Roxane Trejo RVT
--- NOTE | 2020-11-24 15:00 | CON.PCM.ID_ITS ---
Assessment & Plan Assessment/Plan (1) Dermatitis of foot: (2) Cellulitis of left ankle: PLAN: Concern for allergic reaction. He is to stop the new detergent. D/c home on 1 week po keflex and doxy. He should followup with PCP and possible derm referral if he does not improve. Will follow as needed, thank you HPI Consult Data Date of Consult: 11/24/20 HPI Narrative HPI Narrative: SHEA TEIXEIRA, is a 70 M who presented with about 3 weeks of BLE and BUE itching, rash, breakdown. Thinks he started new detergent around that time. Has been scratching a lot. Developed increased pain, redness, clear drainage from L foot. No fever, no n/v/d. Has not gotten covid shot. Tried OTC creams without help. Admitted here, seen by podiatry, started on vanc/unasyn. Much better now. Full ROS performed and neg except as noted above. PFSH Medical History Arthritis Dermatitis of foot Diabetes Diabetes Hyperlipemia Hypertension Hypertension Left inguinal hernia Rheumatoid arthritis Smoker Smoker Home Medications blood pressure monitor #1 ea 04/16/19 [Rx Last Taken Unknown] Wrist Splint #2 ea 05/01/19 [Rx Last Taken Unknown] blood-glucose meter #1 ea 01/08/20 [Rx Last Taken Unknown] lancets 28 gauge #200 ea 01/08/20 [Rx Last Taken Unknown] hydroxychloroquine 200 mg tablet 200 mg PO BID #180 tab 01/30/20 [Rx Last Taken Unknown] blood sugar diagnostic #100 ea 02/14/20 [Rx Last Taken Unknown] potassium chloride 10 mEq tablet,extended release 10 meq PO DAILY #90 tab 08/04/20 [Rx Last Taken Unknown] metformin 1,000 mg tablet 500 mg PO BID #180 tablet 10/21/20 [Rx Last Taken Unknown] losartan 50 mg tablet 50 mg PO DAILY #90 tablet 11/03/20 [Rx Last Taken Unknown] rosuvastatin 10 mg tablet 10 mg PO DAILY #90 tab 11/12/20 [Rx Last Taken Unknown] amlodipine 10 mg PO DAILY 11/23/20 [History Last Taken Unknown] cephalexin 500 mg PO Q8H #20 cap 11/24/20 [Rx Last Taken Unknown] clotrimazole 1 applic TOPICAL DAILY 14 Days #90 g 11/24/20 [Rx Last Taken Unknown] doxycycline hyclate 100 mg PO BID #14 cap 11/24/20 [Rx Last Taken Unknown] hydrocortisone 1 applic TOPICAL DAILY 14 Days #454 g 11/24/20 [Rx Last Taken Unknown] Allergy/AdvReac Type Severity Reaction Status Date / Time No Known Allergies Allergy Verified 11/23/20 11:11 Surgical History History of intraocular lens implant History of splenectomy Social History Smoking Status: Current every day smoker tobacco type: cigarettes Tobacco: How many years used: 52 Electronic Cigarette Use: not used second hand exposure: Yes (dad smoked) quit status: has quit before counseling given: provider counseling alcohol intake: current alcohol intake frequency: 3 or more drinks per day Al cohol type: beer substance use type: does not use Physical Exam Const alert, oriented x3 and no apparent distress General Appearance: cooperative Exam Limitations: no limitations HEENT normocephalic and head/scalp atraumatic Eyes PERRL and EOMs intact bilaterally Neck supple Lymph Lymphatic: no lymphadenopathy noted Resp clear to auscultation bilaterally Cardio regular rate and regular rhythm GI normal to inspection, nondistended, normoactive bowel sounds Extremity no clubbing, cyanosis or edema Skin Skin Narrative: diffuse scaling, pruritic, redness on forearms and lower legs. Reviewed photos Neuro CN's II-XII intact bilaterally Lab / Micro Data Result Diagrams: 11/23/20 11:40 11/23/20 11:40 Labs: Laboratory Results - last 24 hr 11/23/20 11/24/20 11/24/20 11:40 00:24 06:32 Hemoglobin A1c 5.6 POC Glucose 102 136 H 11/24/20 11:17 Hemoglobin A1c POC Glucose 89 Micro: Microbiology 11/23/20 11:45 Gram Stain - Final Wound - Aerobic Swab Wound Culture - Preliminary Staphylococcus aureus Gram positive organism
[2020-11-24 15:55] VITALS: BP 125/73; PULSE 81; RESP 16; TEMP 36.9; O2SAT 96
--- NOTE | 2020-11-24 16:06 | PCM.DC.SUM ---
Providers Date of Admission: 11/24/20 Primary Care Physician: Dr. Zully Montoya MD Consultations 11/23/20 16:02 Consult: Infectious Disease Routine Consulting Provider: David Castano Reason for Consult: DIABETIC ULCER EMERGENT Consult: No Notified: Yes Date Notified:: 11/24/20 Time Notified: 07:23 Method of Notification: via answering service Consult: Podiatry Routine Consulting Provider: Huyen Ortiz Reason for Consult: Left diabetic foot ulcer and cellulitis EMERGENT Consult: No Notified: Yes Date Notified:: 11/23/20 Time Notified: 16:06 Method of Notification: spoke on phone 11/23/20 18:56 Consult: Onc/Wound/wildlife photographer Routine Comment: Reason for Consult:: left foot wound Reason For Visit: DIABETIC FOOT ULCER Diagnosis Discharge Diagnosis (1) Dermatitis of foot: Status: Acute Code(s): L30.9 - Dermatitis, unspecified (2) Cellulitis of left ankle: Status: Acute Code(s): L03.116 - Cellulitis of left lower limb Medications at Discharge Home Medications blood pressure monitor #1 ea 04/16/19 Wrist Splint #2 ea 05/01/19 blood-glucose meter #1 ea 01/08/20 lancets 28 gauge #200 ea 01/08/20 hydroxychloroquine 200 mg tablet 200 mg PO BID #180 tab 01/30/20 blood sugar diagnostic #100 ea 02/14/20 potassium chloride 10 mEq tablet,extended release 10 meq PO DAILY #90 tab 08/04/20 metformin 1,000 mg tablet 500 mg PO BID #180 tablet 10/21/20 losartan 50 mg tablet 50 mg PO DAILY #90 tablet 11/03/20 rosuvastatin 10 mg tablet 10 mg PO DAILY #90 tab 11/12/20 amlodipine 10 mg PO DAILY 11/23/20 cephalexin 500 mg PO Q8H #20 cap 11/24/20 clotrimazole 1 applic TOPICAL DAILY #0 g 11/24/20 doxycycline hyclate 100 mg PO BID #14 cap 11/24/20 hydrocortisone 1 applic TOPICAL DAILY 14 Days #454 g 11/24/20 povidone-iodine [Betadine Swabsticks] 1 applic TOPICAL DAILY #14 ea 11/24/20 ABG / Lab / Microbiology Data Result Diagrams: 11/23/20 11:40 11/23/20 11:40 Laboratory: Laboratory Results - last 24 hr 11/23/20 11/24/20 11/24/20 11:40 00:24 06:32 Hemoglobin A1c 5.6 POC Glucose 102 136 H 11/24/20 11:17 Hemoglobin A1c POC Glucose 89 Microbiology: Microbiology 11/23/20 11:45 Gram Stain - Final Wound - Aerobic Swab Wound Culture - Preliminary Staphylococcus aureus Gram positive organism Microbiology 11/23/20 11:45 Wound - Aerobic Swab Gram Stain - Final 11/23/20 11:45 Wound - Aerobic Swab Wound Culture - Preliminary Staphylococcus aureus Gram positive organism D/C Instructions Discharge Diet: Low fat / Low cholesterol, 2000 mg Sodium Diet and Carb Control Diet Discharge Activity: Return to Normal Activity Keep extremity elevated above heart level: Left Leg and Right Leg Call your doctor if your incision/area has: Continuous Slow Oozing, Sudden Increased Bleeding, Increased Pain/ Swelling, Increased Redness and Foul Smelling Discharge Call your doctor if you observe: Fever of 101 or Higher, Shortness of breath, Chest pain, Calf discomfort and Uncontrolled pain Additional Dressing/Incision Instructions: Wound care: Left ankle, left foot, right foot, and right 3rd interdigital space (in between 3rd and 4th toes) wounds. Apply adaptic to left ankle wound, apply Aquacel Ag to right foot wound and left 1st interdigital (in between 1st and 2nd toes) foot wound, apply betadine (providone iodine) solution in between right 3rd and 4th toes - cover with gauze, kerlix/gauze roll and deena dressing - change daily. Cleanse with normal saline solution with each dressing change. Also for the dermatitis/rash to the foot/ankle/leg - apply hydrocortisone 2.5% cream and clotrimazole 1% cream daily to sites of foot/ankle and leg rash with each dressing change. Please Follow Up With: Huyen Ortiz DPM When: Follow up with Dr. Ortiz or Dr. Whittaker within 1 week at the [facility]. Call to make appointment: [phone]; or you may also call [facility] in [place] if any questions on foot/ankle/leg wound care: [phone] Discharge Plan Admission Admit Date/Time: 11/24/20 10:47 Primary Reason for Your Visit: Bilateral leg ulcers, cellulitis Attending Provider: Jessica Coronado Primary Care Provider: Zully Montoya Consulting Providers: Huyen Ortiz ; David Castano Instructions Patient Instructions: Diabetes: Shopping for and Preparing Meals Discharge Orders/Prescriptions Prescriptions: New hydrocortisone 2.5 % Cream 1 applic topical DAILY 14 Days Qty: 454 RF: 0 cephalexin 500 mg capsule 500 mg PO Q8H Qty: 20 RF: 0 doxycycline hyclate 100 mg capsule 100 mg PO BID Qty: 14 RF: 0 povidone-iodine [Betadine Swabsticks] 10 % swab 1 applic topical DAILY Qty: 14 RF: 0 clotrimazole 1 % Cream 1 applic topical DAILY Qty: 0 RF: 0 Continued (DME) blood pressure monitor Kit See Rx Instructions .ROUTE .MEDSUPPLY Qty: 1 RF: 0 (DME) Wrist Splint Qty: 2 RF: 2 hydroxychloroquine [Plaquenil] 200 mg tablet 200 mg PO BID Qty: 180 RF: 2 metformin 1,000 mg tablet 500 mg PO BID Qty: 180 RF: 3 amlodipine 10 mg tablet 10 mg PO DAILY RF: 0 (DME) blood-glucose meter [FreeStyle Lite Meter] Kit See Rx Instructions .ROUTE .MEDSUPPLY Qty: 1 RF: 0 (DME) lancets [FreeStyle Lancets] 28 gauge misc See Rx Instructions .ROUTE .MEDSUPPLY Qty: 200 RF: 3 (DME) FreeStyle Lite Strips Strip See Rx Instructions .ROUTE .MEDSUPPLY Qty: 100 RF: 3 potassium chloride 10 mEq tablet extended release 10 meq PO DAILY Qty: 90 RF: 1 losartan 50 mg tablet 50 mg PO DAILY Qty: 90 RF: 3 rosuvastatin 10 mg tablet 10 mg PO DAILY Qty: 90 RF: 3 Referrals / Follow Up: Zully Montoya MD [Primary Care Provider] - Huyen Ortiz DPM [STAFF PHYSICIAN] - In 1 Week (In the wound center in 1 week) Disposition Disposition (needs filled in before D/C Order can be placed): Home, self care
--- NOTE | 2020-11-24 16:50 | PHA.DC.MC ---
Pharmacy Service has performed discharge medication reconciliation and counseling for this patient. 1. CEPHALEXIN 500MG PO Q8H 2. DOXYCYCLINE 100MG PO BID 3. CLOTRIMAZOLE 1% CREAM APPLY TO RASH ON BOTH FEET DAILY WITH DRESSING CHANGE 4. HYDROCORTISONE 2.5% CREAM APPLY TO RASH ON BOTH FEET DAILY WITH DRESSING CHANGE 5. BETADINE SWABSTICK APPLY BETWEEN 3RD AND 4TH TOE DAILY The patient's discharge medication list was reviewed for discrepancies and discrepancies were resolved. Home Medications blood pressure monitor #1 ea 04/16/19 Wrist Splint #2 ea 05/01/19 blood-glucose meter #1 ea 01/08/20 lancets 28 gauge #200 ea 01/08/20 hydroxychloroquine 200 mg tablet 200 mg PO BID #180 tab 01/30/20 blood sugar diagnostic #100 ea 02/14/20 potassium chloride 10 mEq tablet,extended release 10 meq PO DAILY #90 tab 08/04/20 metformin 1,000 mg tablet 500 mg PO BID #180 tablet 10/21/20 losartan 50 mg tablet 50 mg PO DAILY #90 tablet 11/03/20 rosuvastatin 10 mg tablet 10 mg PO DAILY #90 tab 11/12/20 amlodipine 10 mg PO DAILY 11/23/20 cephalexin 500 mg PO Q8H #20 cap 11/24/20 clotrimazole 1 applic TOPICAL DAILY #0 g 11/24/20 doxycycline hyclate 100 mg PO BID #14 cap 11/24/20 hydrocortisone 1 applic TOPICAL DAILY 14 Days #454 g 11/24/20 povidone-iodine [Betadine Swabsticks] 1 applic TOPICAL DAILY #14 ea 11/24/20 The patient was counseled on the following discharge medications and changes in medications for homegoing were reviewed. The Reason for Use, instructions for use, and potential side effects were reviewed for all new medications. The patient's questions regarding all of their medications were answered. The patient was able to verbally demonstrate an understanding of their discharge medications.
[2020-11-25 14:10] LABS: Pathologist Review Reviewed
--- NOTE | 2020-11-25 16:31 | DS.PCM_ITS ---
Providers Date of Admission: 11/24/20 Date of Discharge: 11/24/20 Primary Care Physician: Dr. Zully Montoya MD Consultations 11/23/20 16:02 Consult: Infectious Disease Routine Consulting Provider: David Castano Reason for Consult: DIABETIC ULCER EMERGENT Consult: No Notified: Yes Date Notified:: 11/24/20 Time Notified: 07:23 Method of Notification: via answering service Consult: Podiatry Routine Consulting Provider: Huyen Ortiz Reason for Consult: Left diabetic foot ulcer and cellulitis EMERGENT Consult: No Notified: Yes Date Notified:: 11/23/20 Time Notified: 16:06 Method of Notification: spoke on phone 11/23/20 18:56 Consult: Onc/Wound/machine assistant Routine Comment: Reason for Consult:: left foot wound Reason For Visit: DIABETIC FOOT ULCER Diagnosis Discharge Diagnosis (1) Dermatitis of foot: Status: Acute Code(s): L30.9 - Dermatitis, unspecified (2) Cellulitis of left ankle: Status: Acute Code(s): L03.116 - Cellulitis of left lower limb (3) Chronic ulcer of ankle, left, limited to breakdown of skin: Status: Acute Code(s): L97.321 - Non-pressure chronic ulcer of left ankle limited to breakdown of skin (4) Type 2 diabetes mellitus: Status: Chronic Code(s): E11.9 - Type 2 diabetes mellitus without complications Qualifiers: Diabetes mellitus watermaster insulin use: without retirement use Diabetes mellitus complication status: with skin complications Diabetes mellitus c omplication detail: with dermatitis Qualified Code(s): E11.620 - Type 2 diabetes mellitus with diabetic dermatitis (5) Diabetic infection of left foot: Status: Acute Code(s): E11.628 - Type 2 diabetes mellitus with other skin complications; L08.9 - Local infection of the skin and subcutaneous tissue, unspecified Medications at Discharge Home Medications blood pressure monitor #1 ea 04/16/19 Wrist Splint #2 ea 05/01/19 blood-glucose meter #1 ea 01/08/20 lancets 28 gauge #200 ea 01/08/20 hydroxychloroquine 200 mg tablet 200 mg PO BID #180 tab 01/30/20 blood sugar diagnostic #100 ea 02/14/20 potassium chloride 10 mEq tablet,extended release 10 meq PO DAILY #90 tab 08/04/20 metformin 1,000 mg tablet 500 mg PO BID #180 tablet 10/21/20 losartan 50 mg tablet 50 mg PO DAILY #90 tablet 11/03/20 rosuvastatin 10 mg tablet 10 mg PO DAILY #90 tab 11/12/20 amlodipine 10 mg PO DAILY 11/23/20 cephalexin 500 mg PO Q8H #20 cap 11/24/20 clotrimazole 1 applic TOPICAL DAILY #0 g 11/24/20 doxycycline hyclate 100 mg PO BID #14 cap 11/24/20 hydrocortisone 1 applic TOPICAL DAILY 14 Days #454 g 11/24/20 povidone-iodine [Betadine Swabsticks] 1 applic TOPICAL DAILY #14 ea 11/24/20 Hospital Course Operations None Procedures None Summary of Care Provided Minutes Spent on Discharge: 45 Hospital Course: 70-year-old male with past medical history of type II DM, hypertension who comes in a bilateral lower extremity and upper extremity worsening rash, and weeping ulcer of her left foot over the last couple of weeks. Rash is itchy, looks reddish and dry. He admits to starting a new detergent by the time of the start of the rash. He denied any fever or nausea or vomiting or diarrhea. He was admitted for worsening cellulitis/dermatitis. Podiatry was consulted. Patient was managed on IV vancomycin and Unasyn. His wound cultures grew MRSA and alphahemolytic organism as well as gram-negative christiano. Infectious disease was consulted. He was discharged on 1 week of Keflex and doxycycline and to follow-up with his PCP and also for possible dermatology referral if he does not improve. Patient had bilateral Doppler ultrasound of the extremities done on the day of discharge that was negative for acute DVT. ABG / Lab / Microbiology Data Result Diagrams: 11/23/20 11:40 11/23/20 11:40 Laboratory: Laboratory Results - last 24 hr 11/23/20 11:40 Diff Path Review Reviewed Microbiology: Microbiology 11/23/20 11:45 Gram Stain - Final Wound - Aerobic Swab Wound Culture - Preliminary Meth. resistant Staph. aureus Alpha hemolytic organism Gram negative christiano 11/23/20 11:45 Blood Culture - Preliminary Blood Culture (Wb) - Left Forearm No growth in 48 hours. 11/23/20 11:40 Blood Culture - Preliminary Blood Culture (Wb) - Anticubital Right No growth in 48 hours. Microbiology 11/23/20 11:45 Wound - Aerobic Swab Gram Stain - Final 11/23/20 11:45 Wound - Aerobic Swab Wound Culture - Preliminary Meth. resistant Staph. aureus Alpha hemolytic organism Gram negative christiano 11/23/20 11:45 Blood Culture (Wb) - Left Forearm Blood Culture - Preliminary No growth in 48 hours. 11/23/20 11:40 Blood Culture (Wb) - Anticubital Right Blood Culture - Preliminary No growth in 48 hours. Radiography Diagnostic Testing: Radiology Impression Venous Doppler Study 11/24/20 14:36 Interpretation Summary No evidence for acute deep venous thrombosis bilateral lower extremities with patent and compressible bilateral great saphenous veins. Ordering Physician: Thor Thapa Referring Physician: Zully Montoya Performed By: Roxane Trejo RVT D/C Instructions Discharge Diet: Low fat / Low cholesterol, 2000 mg Sodium Diet and Carb Control Diet Discharge Activity: Return to Normal Activity Keep extremity elevated above heart level: Left Leg and Right Leg Call your doctor if your incision/area has: Continuous Slow Oozing, Sudden In creased Bleeding, Increased Pain/ Swelling, Increased Redness and Foul Smelling Discharge Call your doctor if you observe: Fever of 101 or Higher, Shortness of breath, Chest pain, Calf discomfort and Uncontrolled pain Additional Dressing/Incision Instructions: Wound care: Left and right foot/ankle/leg: wounds are located at left ankle, left foot and right foot. Apply adaptic to front of left ankle wound, apply Aquacel Ag to right foot wound and left 1st interdigital (in between 1st and 2nd toes) foot wound, apply betadine (providone iodine) solution in between right 3rd and 4th toes - cover with gauze, kerlix/gauze roll and deena dressing - change daily. Cleanse with normal saline solution with each dressing change. Also for the dermatitis/rash to both foot/ankle/leg - apply both hydrocortisone 2.5% cream and clotrimazole 1% cream daily to sites of foot/ankle and leg rash with each dressing change. Please Follow Up With: Huyen Ortiz DPM When: Follow up with Dr. Ortiz or Dr. Whittaker within 1 week at the [facility]. Call to make appointment: [phone]; or you may also call [facility] [place] if any questions on foot/ankle/leg wound care: [phone] Meaningful Use Info Meaningful Use Diagnoses (Choose all that apply): None applicable Discharge Plan Admission Admit Date/Time: 11/24/20 10:47 Primary Reason for Your Visit: Bilateral leg ulcers, cellulitis Attending Provider: Jessica Coronado Primary Care Provider: Zully Montoya Consulting Providers: Huyen Ortiz ; David Castano Instructions Patient Instructions: Diabetes: Shopping for and Preparing Meals Discharge Orders/Prescriptions Prescriptions: New hydrocortisone 2.5 % Cream 1 applic topical DAILY 14 Days Qty: 454 RF: 0 cephalexin 500 mg capsule 500 mg PO Q8H Qty: 20 RF: 0 doxycycline hyclate 100 mg capsule 100 mg PO BID Qty: 14 RF: 0 povidone-iodine [Betadine Swabsticks] 10 % swab 1 applic topical DAILY Qty: 14 RF: 0 clotrimazole 1 % Cream 1 applic topical DAILY Qty: 0 RF: 0 Continued (DME) blood pressure monitor Kit See Rx Instructions .ROUTE .MEDSUPPLY Qty: 1 RF: 0 (DME) Wrist Splint Qty: 2 RF: 2 hydroxychloroquine [Plaquenil] 200 mg tablet 200 mg PO BID Qty: 180 RF: 2 metformin 1,000 mg tablet 500 mg PO BID Qty: 180 RF: 3 amlodipine 10 mg tablet 10 mg PO DAILY RF: 0 (DME) blood-glucose meter [FreeStyle Lite Meter] Kit See Rx Instructions .ROUTE .MEDSUPPLY Qty: 1 RF: 0 (DME) lancets [FreeStyle Lancets] 28 gauge misc See Rx Instructions .ROUTE .MEDSUPPLY Qty: 200 RF: 3 (DME) FreeStyle Lite Strips Strip See Rx Instructions .ROUTE .MEDSUPPLY Qty: 100 RF: 3 potassium chloride 10 mEq tablet extended release 10 meq PO DAILY Qty: 90 RF: 1 losartan 50 mg tablet 50 mg PO DAILY Qty: 90 RF: 3 rosuvastatin 10 mg tablet 10 mg PO DAILY Qty: 90 RF: 3 Referrals / Follow Up: Zully Montoya MD [Primary Care Provider] - Huyen Ortiz DPM [STAFF PHYSICIAN] - In 1 Week (In the wound center in 1 week) Disposition Disposition (needs filled in before D/C Order can be placed): Home, self care Visit Charges Inpatient E&M: 30423 Disch Hosp
== END 2020-11-24 17:30 | disposition home or self-care (01) | DRG 638 ==
LOC: ED 14:10 → MS3 11-24 04:55
PROVIDERS: Admitting Provider Internal Medicine; Emergency Provider Emergency Medicine; PCP Internal Medicine; Visit Provider Internal Medicine
DX: E11.622 Type 2 diabetes mellitus with other skin ulcer (principal); L03.116 Cellulitis of left lower limb; L97.321 Non-pressure chronic ulcer of left ankle limited to breakdown of skin; E11.620 Type 2 diabetes mellitus with diabetic dermatitis; Z79.84 Long term (current) use of oral hypoglycemic drugs; F17.210 Nicotine dependence, cigarettes, uncomplicated; K70.0 Alcoholic fatty liver; I10 Essential (primary) hypertension; E78.5 Hyperlipidemia, unspecified; Z66 Do not resuscitate; L20.9 Atopic dermatitis, unspecified; B95.62 Methicillin resistant Staphylococcus aureus infection as the cause of diseases classified elsewhere; B96.89 Other specified bacterial agents as the cause of diseases classified elsewhere
CPT/HCPCS: 36415; 73630; 80053; 82962; 83036; 83605; 84100; 85025; 85652; 86140; 87040; 87070; 87077; 87101; 87186; 87205; 93005; 93970; 99284; J7050; A4216; J0295

== ENCOUNTER 2020-12-09 09:00 | Outpatient (RCR) | payer MEDICARE, SELFPAY ==
[2020-11-23 15:42] VITALS: BMI 24.6
[2020-12-02 09:08] VITALS: BP 127/66; PULSE 94; RESP 16; TEMP 36.6; BMI 25.8
--- NOTE | 2020-12-02 09:29 | HP.PCM_ITS ---
History of Present Illness Date of Service: 12/02/20 Chief Complaint: Left lower extremity wounds infection scabs to right foot History of Wound: SHEA TEIXEIRA, is a 70 M with a significant medical history of type 2 diabetes, rheumatoid arthritis, alcoholic pancreatitis, and tobacco abuse who presents for worsening bilateral lower extremity and upper extremity rashes. Patient relates that he has been having this itchy rash especially to his left ankle for several months now. Patient relates he has tried all the djrh-ozu-hnslcdm options that he could think of including ibuprofen, Epson salt soaks, hydrocortisone cream, anything in the direction that said antiitch. He relates that there is not gotten any better. He relates that he has not seen anyone for this until he came to the emergency room today. Patient relates serous drainage from the site. Patient also relates that the swelling in his ankles started at the same time the itchiness had. 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 Patient relates that he has not spilled any caustic chemicals on himself and changes his work clothes regularly. He denies any other activities where he might have been exposed to plants such as poison lucrecia or poison oak. Patient denies any nausea fever vomiting chills chest pain shortness of breath. Patient denies any injury or trauma. Patient is a qyl-ehpmesv-psbcjleiw diabetic. Patient is a smoker. He was admitted to the hospital 11/23/2020 for worsening lower extremity wounds and infections. Patient was seen by podiatry at that time as well as infectious disease. Infectious disease was concerned that he was having allergic reaction to his detergent was encouraged to change that. Patient had cultures obtained at that time on 11/23/2020 demonstrating MRSA, actinobacter baumannii, coag negative staph. Fungal cultures obtained are still pending. Patient was discharged on infectious disease recommendations of doxycycline and Keflex for 1 week. Patient instructed to follow-up with the wound care center for continued care. Patient was to continue Adaptic, Aquacel silver, hydrocortisone 2.5% cream, Clotrimazole 1% cream to ankle and first interspace wounds and Betadine to interspace 3 on the left foot PFSH Medical History Arthritis Dermatitis of foot Diabetes Diabetes Hyperlipemia Hypertension Hypertension Left inguinal hernia Rheumatoid arthritis Smoker Smoker Home Medications blood pressure monitor #1 ea 04/16/19 [Rx Last Taken Unknown] Wrist Splint #2 ea 05/01/19 [Rx Last Taken Unknown] blood-glucose meter #1 ea 01/08/20 [Rx Last Taken Unknown] lancets 28 gauge #200 ea 01/08/20 [Rx Last Taken Unknown] hydroxychloroquine 200 mg tablet 200 mg PO BID #180 tab 01/30/20 [Rx Last Taken Unknown] blood sugar diagnostic #100 ea 02/14/20 [Rx Last Taken Unknown] potassium chloride 10 mEq tablet,extended release 10 meq PO DAILY #90 tab 08/04/20 [Rx Last Taken Unknown] metformin 1,000 mg tablet 500 mg PO BID #180 tablet 10/21/20 [Rx Last Taken Unknown] losartan 50 mg tablet 50 mg PO DAILY #90 tablet 11/03/20 [Rx Last Taken Unknown] rosuvastatin 10 mg tablet 10 mg PO DAILY #90 tab 11/12/20 [Rx Last Taken Unknown] amlodipine 10 mg PO DAILY 11/23/20 [History Last Taken Unknown] cephalexin 500 mg PO Q8H #20 cap 11/24/20 [Rx Last Taken Unknown] clotrimazole 1 applic TOPICAL DAILY #0 g 11/24/20 [Rx Last Taken Unknown] hydrocortisone 1 applic TOPICAL DAILY 14 Days #454 g 11/24/20 [Rx Last Taken Unknown] povidone-iodine [Betadine Swabsticks] 1 applic TOPICAL DAILY #14 ea 11/24/20 [Rx Last Taken Unknown] Allergy/AdvReac Type Severity Reaction Status Date / Time No Known Allergies Allergy Verified 12/02/20 09:21 Surgical History History of intraocular lens implant History of splenectomy Social History Smoking Status: Current every day smoker tobacco type: cigarettes Tobacco: How many years used: 52 Electronic Cigarette Use: not used second hand exposure: Yes (dad smoked) quit status: has quit before counseling given: provider counseling alcohol intake: current alcohol intake frequency: 3 or more drinks per day Alcohol type: beer substance use type: does not use ROS Constitutional Constitutional: Denies chills or fever(s) Cardiovascular Cardiovascular: Denies chest pain Respiratory/Chest Respiratory/Chest: Denies cough Gastrointestinal Gastrointestinal: Denies nausea or vomiting Musculoskeletal Musculoskeletal: Denies numbness or tingling Integumentary Integumentary: Reports rash and wounds Neurologic Neurologic: Denies weakness Psychiatric Psychiatric: Reports none Vital Signs Vital Signs Vital Signs: 12/02/20 09:08 Temperature 98 F Temperature Source Temporal Pulse Rate 94 Respiratory Rate 16 Blood Pressure 127/66 H Blood Pressure Mean 86 Blood Pressure Source Monitor Blood Pressure Position Sitting Blood Pressure Location Left Arm Oxygen Delivery Method Room Air Physical Exam Const alert and no apparent distress General Appearance: cooperative and comfortable HEENT Head and Scalp: atraumatic Lymph Lymphatic: no lymphedema noted Resp normal respiratory effort Effort and Inspection: able to speak in complete sentences Extremity normal capillary refill and no calf tenderness General Extremity: edema bilateral lower extremity Details: mild, no tenderness to palpation of joints or extremities and other findings Other Details: Capillary refill time less than 3 seconds noted to digits ; Negative for clubbing or cyanosis Peripheral Pulses: Yes posterior tibial pulses present bilateral 2+ and dorsalis pedis pulses present bilateral 2+ Skin General Skin Exam: atrophy and dry skin; Negative for ecchymosis, erythema, eschar, pallor or dermatitis Rashes: rashes noted Wounds: wounds noted Wound Narrative: ulcers noted to left foot: medial foot, first interspace, anterior canales. right foot: medial foot No malodor, erythema, purulence, probing to bone, streaking, fluctuation, crepitus, or other signs of infection. Skin is atrophic and hairless. Granular base. Scant amounts of serous drainage noted. Significant decrease in rash appearance since last seen in hospital. Surrounding erythema noted this seems to be more chronic in nature versus infectious. Cellulitis has resolved. Mild surrounding edema as well. Dermatitis is also much improved. Neuro Gait (Neuro): normal gait Sensory Exam: extremities light-touch: normal Motor Exam: strength 5/5 throughout Psych Appearance: appropriate Attitude: calm Debridement Note Debridement Note Post-Debridement Measurements and Additional Note: Post-Debridement Measurements/Treatment - Nurse 1 - General Ulcer Assessment Start: 12/02/20 09:07 Freq: Status: Active Protocol: SOLEDAD Activity Type Activity Date Activity User E-Sign Co-Sign Detail Recorded Client Recorded Date Recorded By Document 12/02/20 09:08 [facility] [id number] 12/02/20 09:20 [facility] 12/02/20 09:08 - Today's Visit Information Type of service Initial Visit Arrival Mode Ambulatory Transfer Assistance None Patient Identification Verified (Name & Yes ) Patient Requires Transmission-Based No Precautions Finger Stick Blood Sugar(mg/dl) (if 170 indicated): Blood Sugar Stated by Patient Height and Weight Height 5 ft 8 in Weight 77.111 kg Weight in Pounds 170.0 lbs Body Mass Index (BMI) 25.8 BMI Classification Overweight BSA - Jose Daniel 1.91 Vital Signs Temperature (97.8 F-99.1 F) 98 F Temperature Source Temporal Pulse Rate (60-100) 94 Pulse Location Monitor Respiratory Rate (12-18) 16 Respiratory rate source Observation Oxygen Delivery Method Room Air Blood Pressure (90/60-120/80) 127/66 H Blood Pressure Mean 86 Source Monitor Position Sitting Blood Pressure Location Left Arm History Since Last Visit- (Skip if this is Patient's initial visit) Left Footwear Regular Shoe Right Footwear Regular Shoe Pain Scale: 0-10 Numeric Is Patient Pain Free? Yes Communication Assessment Preferred language Khmer Investment Sales Assistant Required No Right Hearing Abillity Normal Left Hearing Abillity Normal Visual Assistive Devices Glasses Teaching Assessment Preferences Verbal,Written, Audio/Visual, Demonstration Barriers to Learning None Readiness To Learn Excellent Willingness to Engage in Self Management High Activies Readiness to Engage in Self Management High Activities Anxiety Level Calm Cooperation Cooperative Perception Coherent Interest in Health Problem Asks Questions Education Importance Acknowledges Need Does Patient Smoke tobacco or other No substances Smoking Status Current every day smoker Is Patient Diabetic Yes Functional Assessment Recent Decline in Ability to Perform Denies Any Declines Culture/Moravian/Facilitator Cultural/Moravian Needs that may affect No Treatment Plan Teaching: Wound Center *Welcome to the Wound Center -Person Taught Patient -Teaching Method Discussion -Response to teaching Verbalize understanding Welcome to the Wound Care Center English FLYNN - Nurse 1 - General Ulcer Measurement Start: 12/02/20 09:07 Freq: Status: Active Protocol: Activity Type Activity Date Activity User E-Sign Co-Sign Detail Recorded Client Recorded Date Recorded By Document 12/02/20 09:08 [facility] [id number] 12/02/20 09:20 [facility] 12/02/20 09:08 Wound Center Nurse 1 #3- R MED FOOT CLUSTER -Combined with other wound No -Current Size (cm) - Length 5 -Current Size (cm) - Width 0.7 -Current Size (cm) - Depth 0.1 -Total Square Cm 3.5 -Date of Last Picture (Recall this 12/02/20 field) -Photo Taken Yes -Epithelialization None Present -Tunneling No -Undermining/Tunneling No -Circular Undermining No -Exudate Amt None Present -Wound Margin Distinct, Outline Attached -Granulation Amt Small (1-33%) -Granulation Quality [place] -Slough/Fibrin Yes -Necrosis Amt Large (67-100%) -Necrotic Tissue Type Adherent Slough -Texture (Elza-wound Skin Appearance) Assessed, Scarring -Moisture (Elza-wound Skin Appearance) Assessed,Dry/ Scaly -Color (Elza-wound Skin Appearance) Assessed -Temperature (Elza-wound Skin No Abnormality Appearance) (Pt Warm) -Tenderness on Palpation (Elza-wound No Skin Appearance) -Ulcer Cleansing SOAPY WATER -Foul Odor after Cleansing No -Anesthetic Used 5% Lidocaine Gel #2- L MED FOOT CLUSTER -Combined with other wound No -Current Size (cm) - Length 2 -Current Size (cm) - Width 0.2 -Current Size (cm) - Depth 0.1 -Total Square Cm 0.4 -Date of Last Picture (Recall this 12/02/20 field) -Photo Taken Yes -Epithelialization None Present -Tunneling No -Undermining/Tunneling No -Circular Undermining No -Exudate Amt None Present -Wound Margin Distinct, Outline Attached -Granulation Amt Small (1-33%) -Granulation Quality [place] -Slough/Fibrin Yes -Necrosis Amt Large (67-100%) -Necrotic Tissue Type Adherent Slough -Texture (Elza-wound Skin Appearance) Assessed, Scarring -Moisture (Elza-wound Skin Appearance) Assessed,Dry/ Scaly -Color (Elza-wound Skin Appearance) Assessed -Temperature (Elza-wound Skin No Abnormality Appearance) (Pt Warm) -Tenderness on Palpation (Elza-wound No Skin Appearance) -Ulcer Cleansing SOAPY WATER -Foul Odor after Cleansing No -Anesthetic Used 5% Lidocaine Gel #1- L LOWER CANALES CLUSTER -Combined with other wound No -Current Size (cm) - Length 5.7 -Current Size (cm) - Width 2.5 -Current Size (cm) - Depth 0.1 -Total Square Cm 14.25 -Date of Last Picture (Recall this 12/02/20 field) -Photo Taken Yes -Epithelialization None Present -Tunneling No -Undermining/Tunneling No -Circular Undermining No -Exudate Amt None Present -Wound Margin Distinct, Outline Attached -Granulation Amt Small (1-33%) -Granulation Quality [place] -Slough/Fibrin Yes -Necrosis Amt Large (67-100%) -Necrotic Tissue Type Adherent Slough -Texture (Elza-wound Skin Appearance) Assessed, Scarring -Moisture (Elza-wound Skin Appearance) Assessed,Dry/ Scaly -Color (Elza-wound Skin Appearance) Assessed -Temperature (Elza-wound Skin No Abnormality Appearance) (Pt Warm) -Tenderness on Palpation (Elza-wound No Skin Appearance) -Ulcer Cleansing SOAPY WATER -Foul Odor after Cleansing No -Anesthetic Used 5% Lidocaine Gel Lower Limb Edema Present Yes Right Calf (cm) 36.5 Right Ankle (cm) 23.8 Left Calf (cm) 38.6 Left Ankle (cm) 25 Wound debrided: Medial foot, first interspace, anterior lower leg Laterality: Left Wound Grade/Stage: Sage 1 Type of Debridement: Excisional debridement Anesthesia Used: 4% Lidocaine Solution Depth: in the subcutaneous layer Percentage of wound debrided: 100 Instrument Used: 3mm curette Tissue Removed: includes fibrous, devitalized, biofilm, callus and slough tissue Severity: Fat Layer Exposed Amount of bleeding with debridement: Mild Bleeding Controlled with: Pressure Patient tolerated procedure: Patient tolerated procedure well Additional Wound Wound debrided: Medial foot Laterality: Right Wound Grade/Stage: Sage 1 Type of Debridement: Excisional debridement Anesthesia Used: 4% Lidocaine Solution Depth: in the subcutaneous layer Percentage of wound debrided: 100 Instrument Used: 3mm curette Tissue Removed: Includes fibrous, devitalized, biofilm, callus and slough tissue Severity: Fat Layer Exposed Amount of bleeding with debridement: Mild Bleeding Controlled with: Pressure Patient tolerated procedure: Patient tolerated procedure well Assessment & Plan Assessment/Plan (1) Dermatitis of foot: (2) Chronic ulcer of ankle, left, limited to breakdown of skin: (3) Cellulitis of left ankle: (4) Type 2 diabetes mellitus: QUALIFIERS: Diabetes mellitus residential insulin use: without intermediate frame tender use Diabetes mellitus complication status: with skin complications Diabetes mellitus complication detail: with dermatitis Qualified Code(s): E11.620 - Type 2 diabetes mellitus with diabetic dermatitis (5) Non-pressure chronic ulcer of other part of left foot with fat layer exposed: (6) Non-pressure chronic ulcer of other part of right foot with fat layer exposed: PLAN: Patient seen and examined Patient is a follow-up from the hospital for dermatitis and cellulitis to left lower extremity 11/23/2020. Patient was seen by infectious disease and was thought to have reaction to his detergent. He was also seen by podiatry while in the hospital. Cultures were obtained at that time demonstrating MRSA, actinobacter baumannii, coag negative staph. Fungal cultures were taken but are still pending. Patient was discharged on oral antibiotics per infectious disease of 1 week of oral Keflex and doxycycline. Patient is to continue hydrocortisone 2.5% cream, clotrimazole 1% cream, [place], dry sterile dressing to bilateral lower extremities daily. Patient is to wash feet And legs daily. Discussed importance of smoking cessation, blood sugar control, weight management, offloading, proper nutrition, and hygeine to optimize healing potential. After verbal consent was obtained sharp excisional debridement was carried out of all ulcerations Discussed that does not appear infected at this time and he does not need to continue any antibiotics. Patient states that he has finished his antibiotics that was given to him at discharge from the hospital. Discussed all concerning signs and symptoms watch for out for and if seen patient is contact the office or go to the emergency room All questions were answered Patient to follow-up in 1 week This note was generated with [employer] dictation software. It may contain incorrect words, spelling, and punctuation that were not noted in checking the note before signing.
[2020-12-09 09:27] VITALS: BP 152/79; PULSE 85; RESP 18; TEMP 36.4; BMI 25.8
--- NOTE | 2020-12-09 12:30 | PCM.WC.PN ---
History of Present Illness Date of Service: 12/09/20 Chief Complaint: Left lower extremity wounds infection scabs to right foot History of Wound: SHEA TEIXEIRA, is a 70 M with a significant medical history of type 2 diabetes, rheumatoid arthritis, alcoholic pancreatitis, and tobacco abuse who presents for worsening bilateral lower extremity and upper extremity rashes. Patient relates that he has been having this itchy rash especially to his left ankle for several months now. Patient relates he has tried all the [id number] options that he could think of including ibuprofen, Epson salt soaks, hydrocortisone cream, anything in the direction that said antiitch. He relates that there is not gotten any better. He relates that he has not seen anyone for this until he came to the emergency room today. Patient relates serous drainage from the site. Patient also relates that the swelling in his ankles started at the same time the itchiness had. 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 Patient relates that he has not spilled any caustic chemicals on himself and changes his work clothes regularly. He denies any other activities where he might have been exposed to plants such as poison lucrecia or poison oak. Patient denies any nausea fever vomiting chills chest pain shortness of breath. Patient denies any injury or trauma. Patient is a bbp-xvszypn-kxtqvicap diabetic. Patient is a smoker. He was admitted to the hospital 11/23/2020 for worsening lower extremity wounds and infections. Patient was seen by podiatry at that time as well as infectious disease. Infectious disease was concerned that he was having allergic reaction to his detergent was encouraged to change that. Patient had cultures obtained at that time on 11/23/2020 demonstrating MRSA, actinobacter baumannii, coag negative staph. Fungal cultures obtained are still pending. Patient was discharged on infectious disease recommendations of doxycycline and Keflex for 1 week. Patient instructed to follow-up with the wound care center for continued care. Patient was to continue Adaptic, Aquacel silver, hydrocortisone 2.5% cream, Clotrimazole 1% cream to ankle and first interspace wounds and Betadine to interspace 3 on the left foot Progress of Wound: Wounds are noted to be improved. Subjective Subjective Patient seen and examined resting comfortably. Patient denies any new pedal complaints. Patient denies any nausea, fever, chills, chest pain, shortness of breath, cough, streaking, purulence, vomiting. Objective Data Objective Data Vital Signs: Vital Signs Temp Pulse Resp BP 97.6 F L 85 18 152/79 H 12/09/20 09:27 12/09/20 09:27 12/09/20 09:27 12/09/20 09:27 Oxygen Delivery Method Room Air Weight: 77.111 kg Body Mass Index (BMI) 25.8 Physical Exam Const alert and no apparent distress General Appearance: cooperative and comfortable Lymph Lymphatic: no lymphedema noted Resp normal respiratory effort Effort and Inspection: able to speak in complete sentences Extremity normal capillary refill and no calf tenderness General Extremity: edema bilateral lower extremity Details: mild, no tenderness to palpation of joints or extremities and other findings Other Details: Capillary refill time less than 3 seconds noted to digits ; Negative for clubbing or cyanosis Peripheral Pulses: Yes posterior tibial pulses present bilateral 2+ and dorsalis pedis pulses present bilateral 2+ Skin General Skin Exam: atrophy and dry skin; Negative for ecchymosis, erythema, eschar, pallor or dermatitis Rashes: rashes noted Wounds: wounds noted Wound Narrative: ulcers noted to left foot: first interspace, anterior ankle. Bilateral foot: medial foot-healed No malodor, erythema, purulence, probing to bone, streaking, fluctuation, crepitus, or other signs of infection. Skin is atrophic and hairless. Granular base. Scant amounts of serous drainage noted. Significant decrease in rash appearance. Surrounding erythema noted this seems to be more chronic in nature versus infectious. Cellulitis has resolved. Mild surrounding edema as well. Dermatitis is also much improved. Neuro Gait (Neuro): normal gait Sensory Exam: extremities light-touch: normal Motor Exam: strength 5/5 throughout Psych Appearance: appropriate Attitude: calm Debridement Note Debridement Note Post-Debridement Measurements and Additional Note: Post-Debridement Measurements/Treatment WC - Nurse 1 - General Ulcer Assessment Start: 12/02/20 09:07 Freq: Status: Active Protocol: [facility] Activity Type Activity Date Activity User E-Sign Co-Sign Detail Recorded Client Recorded Date Recorded By Document 12/02/20 09:08 BM [id number] 12/02/20 09:20 BMF Document 12/09/20 09:27 DL [id number] 12/09/20 09:38 DL 12/02/20 12/09/20 09:08 09:27 - Today's Visit Information Type of service Initial Visit Follow-up Visit (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/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 LOADER ) Arrival Mode Ambulatory Ambulatory Transfer Assistance None None Patient Identification Verified (Name & Yes ) Patient Requires Transmission-Based No No Precautions Finger Stick Blood Sugar(mg/dl) (if 170 122 indicated): Blood Sugar Stated by Stated by Patient Patient Height and Weight Height 5 ft 8 in Weight 77.111 kg Weight in Pounds 170.0 lbs Body Mass Index (BMI) 25.8 25.8 BMI Classification Overweight Overweight BSA - Jose Daniel 1.91 Vital Signs Temperature (97.8 F-99.1 F) 98 F 97.6 F L Temperature Source Temporal Temporal Pulse Rate (60-100) 94 85 Pulse Location Monitor Monitor Respiratory Rate (12-18) 16 18 Respiratory rate source Observation Observation Oxygen Delivery Method Room Air Blood Pressure (90/60-120/80) 127/66 H 152/79 H Blood Pressure Mean (mm Hg) 86 103 Source Monitor Monitor Position Sitting Blood Pressure Location Left Arm Have you changed medications since your No last visit? Any new allergies or adverse reactions No Signs or symptoms of abuse and/or No neglect since last visit Have you been in the hospital since your Yes last visit? Has dressing in place as prescribed Yes Has compression in place as prescribed N/A Has offloadiing in place as prescribed Yes Experienced any changes in pain level or No management History Since Last Visit- (Skip if this is Patient's initial visit) Left Footwear Regular Shoe Right Footwear Regular Shoe Pain Scale: 0-10 Numeric Is Patient Pain Free? 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 Required No Right Hearing Abillity Normal Left Hearing Abillity Normal Visual Assistive Devices Glasses Teaching Assessment Preferences Verbal,Written, Audio/Visual, Demonstration Barriers to Learning None Readiness To Learn Excellent Willingness to Engage in Self Management High Activies Readiness to Engage in Self Management High Activities Anxiety Level Calm Cooperation Cooperative Perception Coherent Interest in Health Problem Asks Questions Education Importance Acknowledges Need Does Patient Smoke tobacco or other No substances Smoking Status Current every day smoker Is Patient Diabetic Yes Functional Assessment Recent Decline in Ability to Perform Denies Any Declines 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 Cultural/Faith Needs that may affect No Treatment Plan Teaching: Wound Center *Welcome to the Wound Center -Person Taught Patient -Teaching Method Discussion -Response to teaching Verbalize understanding Welcome to the Wound Care Center English FLYNN - Nurse 1 - General Ulcer Measurement Start: 12/02/20 09:07 Freq: Status: Active Protocol: Activity Type Activity Date Activity User E-Sign Co-Sign Detail Recorded Client Recorded Date Recorded By Document 12/02/20 09:08 BMF [id number] 12/02/20 09:20 BMF Document 12/02/20 09:24 BMF [id number] 12/02/20 09:30 BMF Document 12/09/20 09:27 DL [id number] 12/09/20 09:38 DL 12/02/20 12/02/20 12/09/20 09:08 09:24 09:27 Wound Center Nurse 1 #4- L GR TOE WEB SPACE CLUSTER -Combined with other wound No -Current Size (cm) - Length 1.4 0.4 -Current Size (cm) - Width 2.1 0.3 -Current Size (cm) - Depth 0.1 0.1 -Total Square Cm 2.94 0.12 -Date of Last Picture (Recall this 12/02/20 field) -Photo Taken Yes No -Epithelialization None Present -Tunneling No -Undermining/Tunneling No -Circular Undermining No -Exudate Amt None Present None Present -Wound Margin Distinct, Distinct, Outline Outline Attached Attached -Granulation Amt Small (1-33%) Small (1-33%) -Granulation Quality [place] Pale -Slough/Fibrin Yes -Necrosis Amt Large (67-100%) Small (1-33%) -Necrotic Tissue Type Adherent Slough Adherent Slough -Structure Exposed N/A -Texture (Elza-wound Skin Appearance) Assessed, Scarring Scarring -Moisture (Elza-wound Skin Appearance) Assessed,Dry/ Dry/Scaly Scaly -Color (Elza-wound Skin Appearance) Assessed Rubor -Temperature (Elza-wound Skin No Abnormality Hot Appearance) (Pt Warm) -Tenderness on Palpation (Elza-wound No No Skin Appearance) -Ulcer Cleansing Rinsed/ Rinsed/ Irrigated with Irrigated with Saline Saline -Foul Odor after Cleansing No -Anesthetic Used 5% Lidocaine 4% Lidocaine Gel Solution, Cetacaine #3- R MED FOOT CLUSTER -Combined with other wound No -Current Size (cm) - Length 5 4 -Current Size (cm) - Width 0.7 3 -Current Size (cm) - Depth 0.1 0.1 -Total Square Cm 3.5 12 -Date of Last Picture (Recall this 12/02/20 field) -Photo Taken Yes No -Epithelialization None Present -Tunneling No -Undermining/Tunneling No -Circular Undermining No -Exudate Amt None Present None Present -Wound Margin Distinct, Thickened Outline Attached -Granulation Amt Small (1-33%) None Present (0 %) -Granulation Quality [place] -Slough/Fibrin Yes -Necrosis Amt Large (67-100%) Large (67-100%) -Necrotic Tissue Type Adherent Slough Adherent Slough -Structure Exposed N/A -Texture (Elza-wound Skin Appearance) Assessed, Localized Edema Scarring ,Scarring -Moisture (Elza-wound Skin Appearance) Assessed,Dry/ Dry/Scaly Scaly -Color (Elza-wound Skin Appearance) Assessed Erythema,Rubor -Temperature (Elza-wound Skin No Abnormality Hot Appearance) (Pt Warm) -Tenderness on Palpation (Elza-wound No No Skin Appearance) -Ulcer Cleansing SOAPY WATER Rinsed/ Irrigated with Saline -Foul Odor after Cleansing No No -Anesthetic Used 5% Lidocaine 4% Lidocaine Gel Solution #2- L MED FOOT CLUSTER -Combined with other wound No -Current Size (cm) - Length 2 0.1 -Current Size (cm) - Width 0.2 0.1 -Current Size (cm) - Depth 0.1 0.1 -Total Square Cm 0.4 0.01 -Date of Last Picture (Recall this 12/02/20 field) -Photo Taken Yes No -Epithelialization None Present -Tunneling No -Undermining/Tunneling No -Circular Undermining No -Exudate Amt None Present None Present -Wound Margin Distinct, Flat & Intact Outline Attached -Granulation Amt Small (1-33%) Small (1-33%) -Granulation Quality [place] -Slough/Fibrin Yes -Necrosis Amt Large (67-100%) Small (1-33%) -Necrotic Tissue Type Adherent Slough Adherent Slough -Structure Exposed N/A -Texture (Elza-wound Skin Appearance) Assessed, Localized Edema Scarring ,Scarring -Moisture (Elza-wound Skin Appearance) Assessed,Dry/ Scaly -Color (Elza-wound Skin Appearance) Assessed Hemosiderin Staining,Rubor -Temperature (Elza-wound Skin No Abnormality Hot Appearance) (Pt Warm) -Tenderness on Palpation (Elza-wound No No Skin Appearance) -Ulcer Cleansing SOAPY WATER Rinsed/ Irrigated with Saline -Foul Odor after Cleansing No No -Anesthetic Used 5% Lidocaine 4% Lidocaine Gel Solution #1- L LOWER MCCARTHY CLUSTER -Combined with other wound No -Current Size (cm) - Length 5.7 0.1 -Current Size (cm) - Width 2.5 0.1 -Current Size (cm) - Depth 0.1 0.1 -Total Square Cm 14.25 0.01 -Date of Last Picture (Recall this 12/02/20 field) -Photo Taken Yes No -Epithelialization None Present -Tunneling No -Undermining/Tunneling No -Circular Undermining No -Exudate Amt None Present None Present -Wound Margin Distinct, Flat & Intact Outline Attached -Granulation Amt Small (1-33%) Small (1-33%) -Granulation Quality [place] -Slough/Fibrin Yes -Necrosis Amt Large (67-100%) Small (1-33%) -Necrotic Tissue Type Adherent Slough Adherent Slough -Structure Exposed N/A -Texture (Elza-wound Skin Appearance) Assessed, Scarring Scarring -Moisture (Elza-wound Skin Appearance) Assessed,Dry/ Dry/Scaly Scaly -Color (Elza-wound Skin Appearance) Assessed No Abnormality -Temperature (Elza-wound Skin No Abnormality Hot Appearance) (Pt Warm) -Tenderness on Palpation (Elza-wound No Skin Appearance) -Ulcer Cleansing SOAPY WATER Rinsed/ Irrigated with Saline -Foul Odor after Cleansing No No -Anesthetic Used 5% Lidocaine 4% Lidocaine Gel Solution Lower Limb Edema Present Yes Right Calf (cm) 36.5 Right Ankle (cm) 23.8 Left Calf (cm) 38.6 Left Ankle (cm) 25 - Nurse 2 - General Ulcer CM Notes Start: 12/02/20 09:07 Freq: Status: Active Protocol: Activity Type Activity Date Activity User E-Sign Co-Sign Detail Recorded Client Recorded Date Recorded By Document 12/02/20 09:37 GARO [id number] 12/02/20 09:51 JF Document 12/09/20 09:58 JF [id number] 12/09/20 10:06 JF 12/02/20 12/09/20 09:37 09:58 Wound Center Nurse 2 #4- L GR TOE WEB SPACE CLUSTER -Time 09:44 10:06 -Correct Patient Yes Yes -Correct Side, Site, Position Yes Yes -Correct Procedure Yes Yes -Procedure Performed Yes Yes -Type of Procedure Debridement Debridement -Clinical Debridement Subcutaneous Subcutaneous -Tissue Removed Subcutaneous Subcutaneous -Post Debridement (cm) - Length 0.6 0.4 -Post Debridement (cm) - Width 0.2 0.2 -Post Debridement (cm) - Depth 0.1 0.1 -Total Square (Post) (cm) 0.12 0.08 -Area of Debridement (cm) - Length 0.6 0.4 -Area of Debridement (cm) - Width 0.2 0.2 -Total Square (Area) (cm) 0.12 0.08 -Tunneling No No -Undermining/Tunneling No No -Circular Undermining No No -Wound/Ulcer Outcome Not Healed Not Healed -Ulcer Cleansing Rinsed/ Rinsed/ Irrigated with Irrigated with Saline Saline -Foul Odor after Cleansing No No -Bioengineered Tissue No No -Bleeding Controlled with Pressure Pressure -Offloading No No -Treatment Response Procedure Procedure Tolerated Well Tolerated Well -Debridement - Subq, 1st 20sq cm Yes Yes #3- R MED FOOT CLUSTER -Time 09:47 -Correct Patient Yes No -Correct Side, Site, Position Yes No -Correct Procedure Yes No -Procedure Performed Yes No -Type of Procedure Debridement -Clinical Debridement Subcutaneous -Tissue Removed Subcutaneous -Post Debridement (cm) - Length 0.9 0 -Post Debridement (cm) - Width 0.9 0 -Post Debridement (cm) - Depth 0.1 0 -Total Square (Post) (cm) 0.81 0 -Area of Debridement (cm) - Length 0.9 0 -Area of Debridement (cm) - Width 0.9 0 -Total Square (Area) (cm) 0.81 0 -Tunneling No -Undermining/Tunneling No -Circular Undermining No -Wound/Ulcer Outcome Healed- Healed- Surgical Epithelialized Closure -Foul Odor after Cleansing No -Bioengineered Tissue No -Bleeding Controlled with NA -Offloading No -Treatment Response Procedure Tolerated Well -Debridement - Subq, 1st 20sq cm No #2- L MED FOOT CLUSTER -Time 09:48 -Correct Patient Yes No -Correct Side, Site, Position Yes No -Correct Procedure Yes No -Procedure Performed Yes No -Type of Procedure Debridement -Clinical Debridement Subcutaneous -Tissue Removed Subcutaneous -Post Debridement (cm) - Length 0.8 0 -Post Debridement (cm) - Width 0.8 0 -Post Debridement (cm) - Depth 0.1 0 -Total Square (Post) (cm) 0.64 0 -Area of Debridement (cm) - Length 0.8 0 -Area of Debridement (cm) - Width 0.8 0 -Total Square (Area) (cm) 0.64 0 -Tunneling No -Undermining/Tunneling No -Circular Undermining No -Wound/Ulcer Outcome Not Healed Healed- Epithelialized -Ulcer Cleansing Rinsed/ Irrigated with Saline -Foul Odor after Cleansing No -Bioengineered Tissue No -Bleeding Controlled with Pressure -Offloading No -Treatment Response Procedure Tolerated Well -Debridement - Subq, 1st 20sq cm No #1- L LOWER MCCARTHY CLUSTER -Time 09:49 10:04 -Correct Patient Yes Yes -Correct Side, Site, Position Yes Yes -Correct Procedure Yes Yes -Procedure Performed Yes Yes -Type of Procedure Debridement Debridement -Clinical Debridement Subcutaneous Subcutaneous -Tissue Removed Subcutaneous -Post Debridement (cm) - Length 0.7 0.4 -Post Debridement (cm) - Width 0.9 0.3 -Post Debridement (cm) - Depth 0.1 0.1 -Total Square (Post) (cm) 0.63 0.12 -Area of Debridement (cm) - Length 0.7 0.4 -Area of Debridement (cm) - Width 0.9 0.3 -Total Square (Area) (cm) 0.63 0.12 -Tunneling No No -Undermining/Tunneling No No -Circular Undermining No No -Wound/Ulcer Outcome Not Healed Not Healed -Ulcer Cleansing Rinsed/ Rinsed/ Irrigated with Irrigated with Saline Saline -Foul Odor after Cleansing No No -Bioengineered Tissue No No -Bleeding Controlled with Pressure Pressure -Offloading No No -Treatment Response Procedure Procedure Tolerated Well Tolerated Well -Debridement - Subq, 1st 20sq cm No No Pain Scale: 0-10 Numeric Is Patient Pain Free? Yes Yes - Nurse 3 - General Ulcer D/C NN Start: 12/02/20 09:07 Freq: Status: Active Protocol: Activity Type Activity Date Activity User E-Sign Co-Sign Detail Recorded Client Recorded Date Recorded By Document 12/02/20 10:05 [facility] [id number] 12/02/20 10:06 [facility] Document 12/09/20 10:13 DL [id number] 12/09/20 10:25 DL 12/02/20 12/09/20 10:05 10:13 Wound Care Nurse 3 #4- L GR TOE WEB SPACE CLUSTER -Ulcer Cleansing Rinsed/ Rinsed/ Irrigated with Irrigated with Saline Saline -Foul Odor after Cleansing No No -Primary Dressing Applied Promogran Promogran Rosetta Matter Rosetta Matter -Primary Dressing Covered/Secured with Dry Gauze & Dry Gauze & Roll Gauze, Roll Gauze, Secured with Secured with Tape Tape -Promogran Rosetta Matter 1 1 #3- R MED FOOT CLUSTER -Ulcer Cleansing Rinsed/ Irrigated with Saline -Foul Odor after Cleansing No -Primary Dressing Applied Promogran Rosetta Matter -Primary Dressing Covered/Secured with Dry Gauze & Roll Gauze, Secured with Tape -Promogran Rosetta Matter 0 #2- L MED FOOT CLUSTER -Ulcer Cleansing Rinsed/ Irrigated with Saline -Foul Odor after Cleansing No -Primary Dressing Applied Promogran Ros[place] Matter -Primary Dressing Covered/Secured with Dry Gauze & Roll Gauze, Secured with Tape -Promogran Rosetta Matter 0 #1- L LOWER MCCARTHY CLUSTER -Ulcer Cleansing Rinsed/ Rinsed/ Irrigated with Irrigated with Saline Saline -Foul Odor after Cleansing No No -Primary Dressing Applied Promogran Rosetta Matter -Other Dressing Rosetta -Primary Dressing Covered/Secured with Dry Gauze & Dry Gauze & Roll Gauze, Roll Gauze, Secured with Secured with Tape Tape -Promogran Rosetta Matter 0 Right -Size of Tubigrip Used Size D Left -Tubular Bandage Single Layer -Size of Tubigrip Used Size D -Size D ($) 1 Treatment Response Procedure Procedure Tolerated Well Tolerated Well Pain Scale: 0-10 Numeric Is Patient Pain Free? Yes Yes WC - Visit Discharge Discharge Condition Stable Stable Ambulatory Status Ambulatory Ambulatory Transportation Private Auto Private Auto Wound debrided: First interspace and anterior ankle Laterality: Left Wound Grade/Stage: Sage 1 Type of Debridement: Excisional debridement Anesthesia Used: 4% Lidocaine Solution Depth: in the subcutaneous layer Percentage of wound debrided: 100 Instrument Used: 3mm curette Tissue Removed: includes fibrous, devitalized, biofilm, callus and slough tissue Severity: Fat Layer Exposed Amount of bleeding with debridement: Mild Bleeding Controlled with: Pressure Patient tolerated procedure: Patient tolerated procedure well Additional Wound Tissue Removed: Includes fibrous, devitalized, biofilm, callus and slough tissue Assessment/Plan Assessment/Plan (1) Dermatitis of foot: CODE(S): L30.9 - Dermatitis, unspecified (2) Chronic ulcer of ankle, left, limited to breakdown of skin: CODE(S): L97.321 - Non-pressure chronic ulcer of left ankle limited to breakdown of skin (3) Cellulitis of left ankle: CODE(S): L03.116 - Cellulitis of left lower limb (4) Type 2 diabetes mellitus: CODE(S): E11.9 - Type 2 diabetes mellitus without complications QUALIFIERS: Diabetes mellitus complication detail: with dermatitis Diabetes mellitus complication status: with skin complications Diabetes mellitus intermediate designer insulin use: without intermediate designer use Qualified Code(s): E11.620 - Type 2 diabetes mellitus with diabetic dermatitis (5) Non-pressure chronic ulcer of other part of left foot with fat layer exposed: CODE(S): L97.522 - Non-pressure chronic ulcer of other part of left foot with fat layer exposed (6) Non-pressure chronic ulcer of 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 Patient was seen by infectious disease and was thought to have reaction to his detergent. He was also seen by podiatry while in the hospital. Cultures were obtained at that time demonstrating MRSA, actinobacter baumannii, coag negative staph. Fungal cultures were taken but are still pending. Patient was discharged on oral antibiotics per infectious disease of 1 week of oral Keflex and doxycycline. Patient is to continue hydrocortisone 2.5% cream, clotrimazole 1% cream, Rosetta, dry sterile dressing to bilateral lower extremities daily. Patient is to wash feet And legs daily. Discussed importance of smoking cessation, blood sugar control, weight management, offloading, proper nutrition, and hygeine to optimize healing potential. After verbal consent was obtained sharp excisional debridement was carried out of all ulcerations Start Tubigrip for edema control All questions were answered Patient to follow-up in 1 week This note was generated with [employer] software. It may contain incorrect words, spelling, and punctuation that were not noted in checking the note before signing.
== END 2020-12-15 23:59 ==
LOC: WC 09:00
PROVIDERS: PCP Internal Medicine; Visit Provider Podiatrist Foot & Ankle Surgery
DX: E11.621 Type 2 diabetes mellitus with foot ulcer (principal); L97.321 Non-pressure chronic ulcer of left ankle limited to breakdown of skin; L03.116 Cellulitis of left lower limb; L30.9 Dermatitis, unspecified; E11.620 Type 2 diabetes mellitus with diabetic dermatitis; L97.522 Non-pressure chronic ulcer of other part of left foot with fat layer exposed; L97.512 Non-pressure chronic ulcer of other part of right foot with fat layer exposed; E78.5 Hyperlipidemia, unspecified; I10 Essential (primary) hypertension; M06.9 Rheumatoid arthritis, unspecified; F17.210 Nicotine dependence, cigarettes, uncomplicated; Z79.4 Long term (current) use of insulin
CPT/HCPCS: 11042; 99213; G0463

== ENCOUNTER 2020-12-16 09:33 | Outpatient (RCR) | payer MEDICARE, SELFPAY ==
[2020-12-16 00:43] VITALS: BP 152/79; PULSE 85; RESP 18; TEMP 36.4
[2020-12-16 10:05] VITALS: BP 137/66; PULSE 94; RESP 18; TEMP 36.6; BMI 25.8
--- NOTE | 2020-12-16 12:36 | PCM.WC.PN ---
History of Present Illness Date of Service: 12/16/20 Chief Complaint: Left lower extremity wounds infection scabs to right foot History of Wound: SHEA TEIXEIRA, is a 70 M with a significant medical history of type 2 diabetes, rheumatoid arthritis, alcoholic pancreatitis, and tobacco abuse who presents for worsening bilateral lower extremity and upper extremity rashes. Patient relates that he has been having this itchy rash especially to his left ankle for several months now. Patient relates he has tried all the [id number] options that he could think of including ibuprofen, Epson salt soaks, hydrocortisone cream, anything in the direction that said antiitch. He relates that there is not gotten any better. He relates that he has not seen anyone for this until he came to the emergency room today. Patient relates serous drainage from the site. Patient also relates that the swelling in his ankles started at the same time the itchiness had. 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 Patient relates that he has not spilled any caustic chemicals on himself and changes his work clothes regularly. He denies any other activities where he might have been exposed to plants such as poison lucrecia or poison oak. Patient denies any nausea fever vomiting chills chest pain shortness of breath. Patient denies any injury or trauma. Patient is a [id number] diabetic. Patient is a smoker. He was admitted to the hospital 11/23/2020 for worsening lower extremity wounds and infections. Patient was seen by podiatry at that time as well as infectious disease. Infectious disease was concerned that he was having allergic reaction to his detergent was encouraged to change that. Patient had cultures obtained at that time on 11/23/2020 demonstrating MRSA, actinobacter baumannii, coag negative staph. Fungal cultures obtained are still pending. Patient was discharged on infectious disease recommendations of doxycycline and Keflex for 1 week. Patient instructed to follow-up with the wound care center for continued care. Patient was to continue Adaptic, Aquacel silver, hydrocortisone 2.5% cream, Clotrimazole 1% cream to ankle and first interspace wounds and Betadine to interspace 3 on the left foot Progress of Wound: Wounds noted to have healed Subjective Subjective Patient seen and examined resting comfortably. Patient denies any new pedal complaints. Patient denies any nausea, fever, chills, chest pain, shortness of breath, cough, streaking, purulence, vomiting. Patient relates some itchiness remaining. Objective Data Objective Data Vital Signs: Vital Signs Temp Pulse Resp BP 97.9 F 94 18 137/66 H 12/16/20 10:05 12/16/20 10:05 12/16/20 10:05 12/16/20 10:05 Oxygen Delivery Method Room Air Weight: 77.111 kg Body Mass Index (BMI) 25.8 Physical Exam Narrative Const alert and no apparent distress General Appearance: cooperative and comfortable Lymph Lymphatic: no lymphedema noted Resp normal respiratory effort Effort and Inspection: able to speak in complete sentences Extremity no calf tenderness, negative ke and mendez sign no lower extremity edema General Extremity: no tenderness to palpation of joints or extremities; Negative for clubbing or cyanosis or ecchymosis or erythema Vasc Peripheral Pulses: posterior tibial pulses present but diminished and dorsalis pedis pulses present but diminished, normal capillary refill, no acute ischemic skin changes noted, normal temperature Skin General Skin Exam: dry skin, decreased hair growth noted; Negative for ecchymosis, eschar, pallor, some dry flaky skin remains. There is no open wounds at this time. No signs of infection noted. No erythema, drainage. Neuro Gait (Neuro): heel to toe Sensory Exam: extremities light-touch: Intact MSK Motor Exam: strength 5/5 throughout, ROM to foot and ankle joints within normal limits Psych Appearance: appropriate Attitude: calm Assessment/Plan Assessment/Plan (1) Dermatitis of foot: CODE(S): L30.9 - Dermatitis, unspecified (2) Non-pressure chronic ulcer of other part of right foot with fat layer exposed: CODE(S): L97.512 - Non-pressure chronic ulcer of other part of right foot with fat layer exposed (3) Non-pressure chronic ulcer of other part of left foot with fat layer exposed: CODE(S): L97.522 - Non-pressure chronic ulcer of other part of left foot with fat layer exposed (4) Diabetic infection of left foot: CODE(S): E11.628 - Type 2 diabetes mellitus with other skin complications; L08.9 - Local infection of the skin and subcutaneous tissue, unspecified (5) Type 2 diabetes mellitus: CODE(S): E11.9 - Type 2 diabetes mellitus without complications QUALIFIERS: Diabetes mellitus complication detail: with dermatitis Diabetes mellitus complication status: with skin complications Diabetes mellitus care home insulin use: without press tender long goods use Qualified Code(s): E11.620 - Type 2 diabetes mellitus with diabetic dermatitis (6) Rheumatoid arthritis: CODE(S): M06.9 - Rheumatoid arthritis, unspecified PLAN: Patient seen and examined Patient is a follow-up from the hospital for dermatitis and cellulitis to left lower extremity 11/23/2020. Patient was seen by infectious disease and was thought to have reaction to his detergent. He was also seen by podiatry while in the hospital. Cultures were obtained at that time demonstrating MRSA, actinobacter baumannii, coag negative staph. Fungal cultures were taken but are still pending. Patient was discharged on oral antibiotics per infectious disease of 1 week of oral Keflex and doxycycline. He has since finished this. Patient is to continue hydrocortisone 2.5% cream, clotrimazole 1% cream. Patient is to wash feet And legs daily. Discussed cleaning out shoes with antifungal spray in order to prevent reinfection. Discussed continuing antifungal cream after rash and itchiness has resolved in order to make sure all fungal spores have been killed. All questions were answered Patient seen and examined. Ulceration site is noted to have healed. Reviewed with the patient concerning signs and symptoms to watch out for in the future. Reviewed proper foot care and shoe gear with the patient. Educated patient on proper foot care, and the importance of daily foot checks. All questions were answered. Patient to follow up immediately with any problems, questions and/or concerns. Patient to follow-up PRN This note was generated with [employer] software. It may contain incorrect words, spelling, and punctuation that were not noted in checking the note before signing.
== END 2020-12-16 10:59 | disposition home or self-care (01) ==
LOC: WC 09:33
PROVIDERS: PCP Internal Medicine; Visit Provider Podiatrist Foot & Ankle Surgery
DX: E11.620 Type 2 diabetes mellitus with diabetic dermatitis (principal); L30.9 Dermatitis, unspecified; L03.116 Cellulitis of left lower limb; A49.02 Methicillin resistant Staphylococcus aureus infection, unspecified site; E11.621 Type 2 diabetes mellitus with foot ulcer; L97.512 Non-pressure chronic ulcer of other part of right foot with fat layer exposed; L97.522 Non-pressure chronic ulcer of other part of left foot with fat layer exposed; E11.628 Type 2 diabetes mellitus with other skin complications; L08.9 Local infection of the skin and subcutaneous tissue, unspecified; M06.9 Rheumatoid arthritis, unspecified; Z79.4 Long term (current) use of insulin
CPT/HCPCS: 99213; G0463

== ENCOUNTER → 2021-04-21 10:17 | Outpatient (CLI) | payer MEDICARE, SELFPAY ==
[2021-04-21 12:10] LABS: Absolute Lymphocyte Count 1.98 X10^3/uL (0.83-4.51); Absolute Neutrophil Count 5.8 X10^3/uL (2.0-7.7); Basophil# 0.19 X10^3/uL; Basophil% 1.8 % (0-1); Eosinophil# 1.37 X10^3/uL; Eosinophils% 12.8 % (0-5); Hemoglobin 16.9 g/dL (13.0-16.5); Lymphocyte # 1.98 X10^3/ul (0.83-4.51); Lymphocyte % 18.6 % (19-41); Mean Corp Hgb Conc 35.2 g/dL (32-36); Mean Corpuscular Hgb 33.4 pg (27.0-32.0); Mean Corpuscular Volume 94.9 fL (80-94); Mean Platelet Vol. 10.7 fl (6.2-12.0); Monocyte# 1.25 X10^3/uL; Monocyte% 11.7 % (0-10); NRBC Flagged by Analyzer 0 % (0-5); Neutrophil # 5.83 X10^3/uL (2.7-7.7); Neutrophil % 54.6 % (47-70); Platelet Count 330 K/mm3 (150-450); RBC Distribution Width CV 14.3 % (11.6-14.6); RBC Distribution Width SD 49.5 fl (35.1-43.9); Red Blood Count 5.06 M/mm3 (4.6-6.2); White Blood Count 10.7 K/mm3 (4.4-11.0)
[2021-04-21 12:24] LABS: ALB/GLOB Ratio 0.8 RATIO (0.9-2.4); AST(SGOT) 22 U/L (15-37); Alanine Aminotransfer ALT/SGPT 29 U/L (16-61); Albumin, Serum 3.7 g/dL (3.2-5.0); Alkaline Phosphatase 73 U/L (45-117); Anion Gap 8 (5-15); BUN 15 mg/dL (7-18); BUN/Creat Ratio 15.2 RATIO (10-20); Calcium,Total 9.2 mg/dL (8.5-10.1); Chloride 101 mmol/L (98-107); Creatinine, Serum 0.99 mg/dL (0.70-1.30); EST Glomerular Filtration Rate 79 mL/min (>60); Est Glom Filt Rate - Afr Amer 96 mL/min (>60); Globulin 4.6 g/dL (2.2-4.2); Glucose 125 mg/dL (74-106); Potassium 4.6 mmol/L (3.5-5.1); Protein, Total 8.3 g/dL (6.4-8.2); Sodium Level 135 mmol/L (136-145)
== END ==
PROVIDERS: PCP Internal Medicine; Referring Provider Internal Medicine; Visit Provider Internal Medicine
DX: I10 Essential (primary) hypertension (principal); M06.9 Rheumatoid arthritis, unspecified
CPT/HCPCS: 36415; 80053; 85025

== ENCOUNTER 2021-10-26 10:10 | Outpatient (CLI) | payer MEDICARE, SELFPAY ==
[2021-10-26 12:20] LABS: Absolute Lymphocyte Count 2.16 X10^3/uL (0.83-4.51); Absolute Neutrophil Count 9.1 X10^3/uL (2.0-7.7); Basophil% 0.8 % (0-1); Eosinophil# 0.15 X10^3/uL; Eosinophils% 1.2 % (0-5); Hematocrit 48.3 % (40-54); Hemoglobin 16.6 g/dL (13.0-16.5); Lymphocyte # 2.16 X10^3/ul (0.83-4.51); Lymphocyte % 16.7 % (19-41); Mean Corp Hgb Conc 34.4 g/dL (32-36); Mean Corpuscular Hgb 32.7 pg (27.0-32.0); Mean Corpuscular Volume 95.3 fL (80-94); Mean Platelet Vol. 11.7 fl (6.2-12.0); Monocyte# 1.34 X10^3/uL; Monocyte% 10.4 % (0-10); NRBC Flagged by Analyzer 0 % (0-5); Neutrophil # 9.05 X10^3/uL (2.7-7.7); Neutrophil % 70.1 % (47-70); Platelet Count 296 K/mm3 (150-450); RBC Distribution Width CV 13.9 % (11.6-14.6); RBC Distribution Width SD 48.7 fl (35.1-43.9); Red Blood Count 5.07 M/mm3 (4.6-6.2); White Blood Count 12.9 K/mm3 (4.4-11.0)
[2021-10-26 12:34] LABS: AST(SGOT) 14 U/L (15-37); Alanine Aminotransfer ALT/SGPT 36 U/L (16-61); Albumin, Serum 3.9 g/dL (3.2-5.0); Alkaline Phosphatase 71 U/L (45-117); Anion Gap 5 (5-15); BUN 16 mg/dL (7-18); Chloride 103 mmol/L (98-107); Cholesterol 150 mg/dL (200); EST Glomerular Filtration Rate 78 mL/min (>60); Est Glom Filt Rate - Afr Amer 94 mL/min (>60); Glucose 141 mg/dL (74-106); High Density Lipoprotein 61 mg/dL; Potassium 4.3 mmol/L (3.5-5.1); Protein, Total 7.9 g/dL (6.4-8.2); Sodium Level 134 mmol/L (136-145); Triglycerides 62 mg/dL; Very Low Density Lipoprotein 12 mg/dL (5-40)
== END 2021-10-26 23:59 | disposition home or self-care (01) ==
LOC: BIMLAB 10:11
PROVIDERS: PCP Internal Medicine; Visit Provider Internal Medicine
DX: I10 Essential (primary) hypertension (principal); E11.620 Type 2 diabetes mellitus with diabetic dermatitis
CPT/HCPCS: 36415; 80053; 80061; 83036; 85025

== ENCOUNTER 2022-01-19 10:00 | Emergency (ER) | payer MEDICARE, SELFPAY ==
[2022-01-19 10:01] VITALS: BP 160/81; PULSE 95; RESP 16; TEMP 36.4; O2SAT 97; BMI 25.9
--- NOTE | 2022-01-19 10:35 | VDLE_ITS ---
Reason For Study: pain RIGHT GSV is normal. CFV is compressible, spontaneous, phasic, competent and demonstrates normal augmentation. FV is compressible, spontaneous, phasic, competent and demonstrates normal augmentation. POP V is compressible, spontaneous, phasic, competent and demonstrates normal augmentation. T/P Trunk is compressible. PTV is compressible. RT PerV is compressible. Procedure This is a venous duplex using B-mode, color flow and spectral Doppler. Exam performed portable in ED. The exam was abbreviated due to the COVID 19 protocol. The exam was diagnostic. A preliminary report was called and/or faxed to Dr. Garcia. VL/Venous Duplex US, Unilateral Interpretation Summary There is no evidence of right lower extremity deep vein thrombosis. Right great saphenous vein appears patent and compressible segmentally. Abbreviated COVID-19 protocol util ized Ordering Physician: Yasmin Garcia Performed By: Isaiah Roa RVT
--- NOTE | 2022-01-19 10:35 | RAD_ITS ---
STUDY: X-RAY - RIGHT TIBIA AND FIBULA REASON FOR EXAM: Male, 71 years old. 2 week history of leg pain. TECHNIQUE: 2 view(s) of the tibia and fibula were obtained. COMPARISON: None. FINDINGS: Normal visualized tibia. Normal visualized fibula. The soft tissue structures are unremarkable. RAD/Tibia & Fibula 2 Views IMPRESSION: Normal x-ray examination of the tibia and fibula. Electronically Signed: Edy Pride MD at 11:07 EDT ,
--- NOTE | 2022-01-19 10:35 | RAD_ITS ---
STUDY: X-RAY - RIGHT FOOT CLINICAL: Male, 71 years old. 2 week history of pain. TECHNIQUE: 3 view(s) of the foot. COMPARISON: None. FINDINGS: There is a plantar calcaneal spur. Normal visualized subtalar, talonavicular, calcaneocuboid, tarsal and tarsometatarsal articulations. Normal metatarsi. There is degenerative arthrosis of the metatarsophalangeal joint of the hallux . Normal tibial and fibular sesamoid bones. Normal interphalangeal joint of the great toe. Normal phalanges of the great toe. Normal second through fifth metatarsophalangeal joints. Normal interphalangeal joints and phalanges of the lesser toes. The soft tissue structures are unremarkable. RAD/Foot min 3 Views IMPRESSION: Plantar spur. Mild degree of degenerative changes at the first metatarsal phalangeal joint. Electronically Signed: Edy Pride MD at 11:06 EDT ,
--- NOTE | 2022-01-19 10:36 | EDS_ITS ---
HPI History of Present Illness Chief Complaint: Lower Extremity Injury Detail of Chief Complaint: Right leg pain Informant: patient Onset/Context/Timing Onset: Weeks (2 to 3 weeks) Context: Gradual Onset Timing: Waxes and wanes Quality of Pain: Aching and Throbbing Location: Right lower leg Current Severity: Moderate Maximum Severity: Moderate Worsened by: Weightbearing Narrative Narrative: Patient presents to the emergency department for right leg pain that is been ongoing for the past couple of weeks. He denies any known injury. He denies any swelling in his leg. He states he kept hoping it would go away but when it did not resolve by the holiday he decided to come in for evaluation. He has not seen his primary care physician for this. He denies back pain. PFSH PFS Medical History Arthritis Dermatitis of foot Diabetes Hyperlipemia Hypertension Left inguinal hernia Rheumatoid arthritis Smoker Home Medications blood pressure monitor #1 ea 04/16/19 [Rx Last Taken Unknown] Wrist Splint #2 ea 05/01/19 [Rx Last Taken Unknown] blood-glucose meter (FreeStyle Lite Meter) #1 ea 01/08/20 [Rx Last Taken Unknown] lancets 28 gauge (FreeStyle Lancets) #200 ea 01/08/20 [Rx Last Taken Unknown] potassium chloride 10 mEq tablet,extended release 10 meq PO DAILY #90 tabs 08/04/20 [Rx Last Taken Unknown] rosuvastatin 10 mg tablet 10 mg PO DAILY CHOLESTEROL #90 tabs 11/12/20 [Rx Last Taken Unknown] povidone-iodine 10 % topical swab (Betadine Swabsticks) 1 applic topical DAILY apply topically in between right 3rd and 4th toes #14 ea 11/24/20 [Rx Last Taken Unknown] amlodipine 10 mg tablet 10 mg PO DAILY heart #90 tabs 01/20/21 [Rx Last Taken Unknown] clotrimazole 1 % topical cream 1 applic topical DAILY #45 grams 01/20/21 [Rx Last Taken Unknown] hydrocortisone 2.5 % topical cream 1 applic topical DAILY PRN rash 3 months #30 grams 04/21/21 [Rx Last Taken Unknown] blood sugar diagnostic (FreeStyle Lite Strips) #100 ea 04/22/21 [Rx Last Taken Unknown] hydroxychloroquine 200 mg tablet (Plaquenil) 200 mg PO BID #180 tabs 04/22/21 [Rx Last Taken Unknown] prednisone 10 mg tablet 10 mg PO DAILY PRN arthritis #30 tabs 04/22/21 [Rx Last Taken Unknown] losartan 50 mg tablet 50 mg PO DAILY BP #90 tabs 07/21/21 [Rx Last Taken Unknown] metformin 500 mg tablet 500 mg PO BID #180 tabs 10/26/21 [Rx Last Taken Unknown] hydrocodone-acetaminophen 5-325mg 5mg-325mg 1 tab PO Q6H PRN pain 3 days #10 tabs 01/19/22 [Rx Last Taken Unknown] Allergy/AdvReac Type Severity Reaction Status Date / Time No Known Allergies Allergy Verified 01/19/22 10:01 Surgical History History of intraocular lens implant History of splenectomy Social History Smoking Status: Current every day smoker tobacco type: cigarettes Tobacco: How many years used: 52 Electronic Cigarette Use: not used second hand exposure: Yes (dad smoked) quit status: has quit before counseling given: provider counseling alcohol intake: current alcohol intake frequency: 3 or more drinks per day Alcohol type: beer substance use type: does not use ROS ROS ED Constitutional Constitutional ED: Denies chills or fever(s) Eyes Eyes: Denies change in vision or discharge from eye(s) ENT ENT ED: Denies discharge from eye(s), rhinorrhea or sore throat Cardiovascular Cardiovascular: Denies chest pain or palpitations Respiratory/Chest Respiratory/Chest: Denies cough or dyspnea Gastrointestinal Gastrointestinal: Denies abdominal pain, diarrhea, nausea or vomiting Genitourinary Genitourinary ED: Denies difficulty urinating or dysuria Musculoskeletal Musculoskeletal: Reports extremity pain; Denies back pain Integumentary Denies Abrasions or rash Neurologic Neurologic: Denies headache(s) or weakness Allergic/Immunologic Allergic/Immunologic ED: Denies lip swelling or urticaria EXAM Physical Exam Const Vital Signs: 01/19/22 10:01 Temperature 97.5 F L Temperature Source Temporal Pulse Rate 95 Respiratory Rate 16 Blood Pressure 160/81 H Blood Pressure Mean 107 Pulse Ox 97 Oxygen Delivery Method Room Air Positive well nourished and well developed General Appearance ED: well developed HEENT Reports normocephalic and head/scalp atraumatic Eyes PERRL and EOMs intact bilaterally Neck supple Chest Wall inspection of chest normal and palpation of chest normal Resp normal respiratory effort and clear to auscultation bilaterally Cardio regular rate and regular rhythm GI normal to inspection, nondistended, normoactive bowel sounds Palpation: soft Back/Spine no CVA tenderness Thoracic Spine / Upper Back: Negative for thoracic spinal tenderness Lumbar Spine / Lower Back: Negative for lumbar spinal tenderness Extremity normal to inspection Extremity Narrative: Minimal tenderness over the right canales. No overlying skin changes. No edema. Strong distal pulses. Neuro oriented x3 and no sensory deficits noted Sensorium / Orientation: alert Motor Exam: strength 5/5 throughout Psych mental status grossly normal Skin no rashes or lesions noted MDM MDM MDM Narrative Medical decision making narrative: Venous ultrasound of the right lower extremity obtained. X-ray of the tib-fib and right foot ordered. Radiography Diagnostic Testing: Clinical Impression(s) from Imaging Studies Foot X-Ray 01/19/22 10:35 IMPRESSION: Plantar spur. Mild degree of degenerative changes at the first metatarsal phalangeal joint. Electronically Signed: Edy Pride MD at 11:06 EDT , Tibia/Fibula X-Ray 01/19/22 10:35 IMPRESSION: Normal x-ray examination of the tibia and fibula. Electronically Signed: Edy Pride MD at 11:07 EDT , Venous Doppler Study 01/19/22 10:35 Interpretation Summary There is no evidence of right lower extremity deep vein thrombosis. Right great saphenous vein appears patent and compressible segmentally. Abbreviated COVID-19 protocol utilized ____ Ordering Physician: Yasmin Garcia Performed By: Isaiah Roa RVT Treatment and Re-Evaluation Narrative: Right tib-fib x-ray per my interpretation reveals no acute findings. Right foot x-ray does reveal a small heel spur. Radiology interpretation is reviewed. Patient has no reproducible tenderness with palpation over his calcaneus. Venous ultrasound of the right leg is negative. I do wonder if the patient is having some diabetic neuropathy and nerve pain causing his symptoms. In light of the fact that he is diabetic I will avoid steroids and anti-inflammatories. He will be given a short course of Whitney. I encouraged him to follow with his primary care physician for further evaluation including possible nerve conduction testing. Discharge Plan Triage Chief Complaint: Lower Extremity Injury ED Provider: Yasmin Garcia Dx/Rx/DC Orders Clinical Impression: Acute leg pain Instructions: ED Pain, Acute, Uncertain Cause Prescriptions: New hydrocodone-acetaminophen 5-325 mg tablet 1 tab PO Q6H PRN (Reason: pain) 3 Days Qty: 10 0RF No Action (DME) blood pressure monitor Kit See Rx Instructions .ROUTE .MEDSUPPLY Qty: 1 0RF Rx Instructions: Check blood pressure daily for hypertension I10 (DME) Wrist Splint Qty: 2 2RF Rx Instructions: As directed clotrimazole 1 % cream 1 applic topical DAILY Qty: 45 2RF Protocol: *Topical Application Instructions APPLICATION INSTRUCTIONS: apply topically to foot and leg rash daily Rx Instructions: apply topically to right and left foot/ankle/leg rash daily amlodipine 10 mg tablet 10 mg PO DAILY Qty: 90 3RF hydrocortisone 2.5 % cream 1 applic topical DAILY PRN (Reason: rash) 90 Days Qty: 30 2RF Protocol: *Topical Application Instructions APPLICATION INSTRUCTIONS: apply topically to foot and leg rash daily Rx Instructions: Apply to bilateral leg as needed. losartan 50 mg tablet 50 mg PO DAILY Qty: 90 3RF metformin 500 mg tablet 500 mg PO BID Qty: 180 1RF povidone-iodine [Betadine Swabsticks] 10 % swab 1 applic topical DAILY Qty: 14 0RF (DME) blood-glucose meter [FreeStyle Lite Meter] Kit See Rx Instructions .ROUTE .MEDSUPPLY Qty: 1 0RF Rx Instructions: As directed, check blood glucose daily for type 2 DM (DME) lancets [FreeStyle Lancets] 28 gauge misc See Rx Instructions .ROUTE .MEDSUPPLY Qty: 200 3RF Rx Instructions: check blood glucose daily for type 2 DM potassium chloride 10 mEq tablet extended release 10 meq PO DAILY Qty: 90 1RF rosuvastatin 10 mg tablet 10 mg PO DAILY Qty: 90 3RF (DME) FreeStyle Lite Strips Strip See Rx Instructions .ROUTE .MEDSUPPLY Qty: 100 3RF Rx Instructions: check blood glucose twice daily for type 2 DM hydroxychloroquine [Plaquenil] 200 mg tablet 200 mg PO BID Qty: 180 2RF prednisone 10 mg tablet 10 mg PO DAILY PRN (Reason: arthritis) Qty: 30 3RF Primary Care Provider: Zully Montoya Referrals: Zully Montoya MD [Primary Care Provider] - 1 Week Disposition Disposition: Home, Self Care Discharge Date/Time: 01/19/22 13:09
== END 2022-01-19 13:09 | disposition home or self-care (01) ==
PROVIDERS: Emergency Provider Emergency Medicine; PCP Internal Medicine; Visit Provider Emergency Medicine
DX: M79.604 Pain in right leg (principal); F17.210 Nicotine dependence, cigarettes, uncomplicated
CPT/HCPCS: 73590; 73630; 93971; 99282; A4216

== ENCOUNTER → 2022-03-02 | Outpatient (CLI) | payer MEDICARE, SELFPAY ==
[2022-03-02 12:41] LABS: Absolute Lymphocyte Count 1.48 X10^3/uL (0.83-4.51); Absolute Neutrophil Count 9.8 X10^3/uL (2.0-7.7); Basophil# 0.19 X10^3/uL; Basophil% 1.4 % (0-1); Eosinophil# 0.68 X10^3/uL; Eosinophils% 5.1 % (0-5); Hematocrit 46.9 % (40-54); Hemoglobin 16.5 g/dL (13.0-16.5); Lymphocyte # 1.48 X10^3/ul (0.83-4.51); Mean Corp Hgb Conc 35.2 g/dL (32-36); Mean Corpuscular Hgb 32.9 pg (27.0-32.0); Mean Corpuscular Volume 93.6 fL (80-94); Mean Platelet Vol. 10.6 fl (6.2-12.0); Monocyte# 1.17 X10^3/uL; Monocyte% 8.7 % (0-10); NRBC Flagged by Analyzer 0 % (0-5); Neutrophil # 9.84 X10^3/uL (2.7-7.7); Neutrophil % 73.1 % (47-70); Platelet Count 434 K/mm3 (150-450); RBC Distribution Width CV 13.5 % (11.6-14.6); RBC Distribution Width SD 45.5 fl (35.1-43.9); Red Blood Count 5.01 M/mm3 (4.6-6.2); White Blood Count 13.5 K/mm3 (4.4-11.0)
[2022-03-02 12:57] LABS: AST(SGOT) 18 U/L (15-37); Alanine Aminotransfer ALT/SGPT 33 U/L (16-61); Albumin, Serum 3.9 g/dL (3.2-5.0); Alkaline Phosphatase 74 U/L (45-117); Anion Gap 8 (5-15); BUN 12 mg/dL (7-18); BUN/Creat Ratio 12.9 RATIO (10-20); Calcium,Total 9.7 mg/dL (8.5-10.1); Chloride 102 mmol/L (98-107); Creatinine, Serum 0.93 mg/dL (0.70-1.30); EST Glomerular Filtration Rate 85 mL/min (>60); Est Glom Filt Rate - Afr Amer 102 mL/min (>60); Globulin 3.9 g/dL (2.2-4.2); Glucose 137 mg/dL (74-106); Potassium 4.3 mmol/L (3.5-5.1); Protein, Total 7.8 g/dL (6.4-8.2); Sodium Level 133 mmol/L (136-145)
== END | disposition home or self-care (01) ==
LOC: BIMLAB 10:26
PROVIDERS: PCP Internal Medicine; Referring Provider Internal Medicine; Visit Provider Internal Medicine
DX: M05.9 Rheumatoid arthritis with rheumatoid factor, unspecified (principal)
CPT/HCPCS: 36415; 80053; 85025

== ENCOUNTER → 2022-03-11 | Outpatient (CLI) | payer MEDICARE, SELFPAY ==
--- NOTE | 2022-03-11 10:48 | MRI_ITS ---
STUDY: MRI RIGHT ANKLE WITHOUT CONTRAST REASON FOR EXAM: Right ankle pain for 4 months. TECHNIQUE: Standardized fat and water weighted pulse sequences were obtained in all 3 orthogonal planes. COMPARISON: None. FINDINGS: There is mild edema in the medial and lateral subcutis adipose space of the distal lower leg. There is a very small volume of fluid in the submalleolar posterior tibialis tendon sheath (inversion recovery sagittal image 19). The posterior tibialis tendon is morphologically normal. There is a type II accessory navicular. There is a very small volume of fluid in the flexor digitorum longus tendon sheath proximal to the sustentaculum keith (T2 axial images 17, 18). There is a small volume of fluid in the flexor hallucis longus tendon sheath proximal and distal to the sustentaculum keith (inversion recovery sagittal images 13, 14). The flexor digitorum longus and flexor hallucis longus tendons are morphologically normal. There is tendinosis of the perimandibular peroneus longus tendon (T2 axial images 14-19) without discrete tendon tear. Normal peroneus brevis tendon. Normal tibialis anterior tendon. Normal extensor hallucis longus tendon. Normal extensor digitorum longus tendons. Normal Achilles tendon and teno-osseous insertion. Normal plantar fascia. Normal plantar calcaneal tubercles. Normal intrinsic muscles of the rearfoot. Normal distal tibiofibular syndesmotic ligamentous complex. Normal lateral ligamentous complex. Normal subtalar ligaments and sinus tarsi. Normal deltoid ligamentous complexes. Normal plantar calcaneonavicular (spring) ligament. Normal tibiotalar articulation. Normal talar dome. Normal subtalar articulations. Normal talonavicular articulation. Normal calcaneocuboid articulation. Normal navicular-cuneiform articulations. MRI/Lower Ext Joint Only (Routine) IMPRESSION: Peroneus longus tendinosis. Mild flexor hallucis longus tenosynovitis. Very mild posterior tibialis and flexor digitorum longus tenosynovitis. Electronically Signed: Papi Novoa MD at 13:06 EDT ,
--- NOTE | 2022-03-11 10:48 | RAD_ITS ---
STUDY: X-RAY - ORBITS REASON FOR EXAM: Male, 71 years old. ENTHESOPATHY OF RIGHT FT AND ANKLE TECHNIQUE: 2 VALERA view(s) of the orbits were obtained. COMPARISON: None. FINDINGS: Normal bilateral orbits without a metallic orbital foreign body. Normal visualized facial bones. Normal paranasal sinuses. The soft tissue structures are unremarkable. RAD/Orbits for Foreign Body IMPRESSION: No demonstrated metallic orbital foreign body. The patient is cleared for an MRI examination. Electronically Signed: Saroj Young MD at 11:14 EDT ,
== END | disposition home or self-care (01) ==
LOC: MRI 10:47
PROVIDERS: PCP Internal Medicine; Referring Provider Podiatrist; Visit Provider Podiatrist
DX: M77.51 Other enthesopathy of right foot and ankle (principal)
CPT/HCPCS: 70030; 73721

== ENCOUNTER → 2022-06-07 | Outpatient (CLI) | payer MEDICARE, SELFPAY ==
--- NOTE | 2022-06-07 15:28 | PFTCOMP_ITS ---
COMPLETE PULMONARY FUNCTION TEST INTERPRETATION Brief HPI: Patient is a 71-year-old male, currently under the care of Dr. Montoya, who presents to [facility] for complete pulmonary function tests secondary to diagnosis of COPD. Respiratory therapist reports good effort and reproducible results. Interpretation: Forced expiration spirometry shows a severe large airways obstructive ventilatory defect with an FEV1 of 44% predicted. There is a significant bronchodilator response in FVC by strict ATS criteria. Spirograms are of good quality and plateau slowly, indicating slowly emptying areas of the lungs. The respiratory flow volume loop shows decreased expiratory flow rates at all lung volumes consistent with airway obstruction. Lung volumes by body plethysmography show a decreased total lung capacity at 4.6 L, 77% predicted. All other lung volumes are reduced symmetrically. Diffusion capacity by carbon monoxide is normal at 71% predicted. The airway resistance is elevated. No previous pulmonary function tests were available for review. Impression: Partially reversible severe mixed ventilatory defect with relatively preserved diffusion capacity
== END | disposition home or self-care (01) ==
LOC: PSN 09:31
PROVIDERS: PCP Internal Medicine; Referring Provider Internal Medicine; Visit Provider Internal Medicine
DX: J44.9 Chronic obstructive pulmonary disease, unspecified (principal)
CPT/HCPCS: 94060; 94726; 94729

== ENCOUNTER → 2022-09-17 | Outpatient (CLI) | payer MEDICARE, SELFPAY ==
[2022-09-17 12:13] LABS: Absolute Lymphocyte Count 1.69 X10^3/uL (0.83-4.51); Absolute Neutrophil Count 6.3 X10^3/uL (2.0-7.7); Basophil# 0.19 X10^3/uL; Basophil% 1.7 % (0-1); Eosinophil# 1.34 X10^3/uL; Eosinophils% 12.3 % (0-5); Hematocrit 48.3 % (40-54); Hemoglobin 16.2 g/dL (13.0-16.5); Lymphocyte # 1.69 X10^3/ul (0.83-4.51); Lymphocyte % 15.5 % (19-41); Mean Corp Hgb Conc 33.5 g/dL (32-36); Mean Corpuscular Hgb 32.2 pg (27.0-32.0); Mean Platelet Vol. 11.3 fl (6.2-12.0); Monocyte# 1.33 X10^3/uL; Monocyte% 12.2 % (0-10); NRBC Flagged by Analyzer 0 % (0-5); Neutrophil % 57.7 % (47-70); Platelet Count 407 K/mm3 (150-450); RBC Distribution Width CV 13.9 % (11.6-14.6); RBC Distribution Width SD 49.1 fl (35.1-43.9); Red Blood Count 5.03 M/mm3 (4.6-6.2); White Blood Count 10.9 K/mm3 (4.4-11.0)
[2022-09-17 13:05] LABS: ALB/GLOB Ratio 0.9 RATIO (0.9-2.4); AST(SGOT) 15 U/L (15-37); Alanine Aminotransfer ALT/SGPT 24 U/L (16-61); Albumin, Serum 3.7 g/dL (3.2-5.0); Alkaline Phosphatase 72 U/L (45-117); Anion Gap 9 (5-15); BUN 9 mg/dL (7-18); BUN/Creat Ratio 9.3 RATIO (10-20); Calcium,Total 9.2 mg/dL (8.5-10.1); Chloride 104 mmol/L (98-107); Cholesterol 198 mg/dL (200); Creatinine, Serum 0.97 mg/dL (0.70-1.30); EST Glomerular Filtration Rate 80 mL/min (>60); Est Glom Filt Rate - Afr Amer 97 mL/min (>60); Globulin 4.1 g/dL (2.2-4.2); Glucose 128 mg/dL (74-106); High Density Lipoprotein 44 mg/dL; Potassium 4.1 mmol/L (3.5-5.1); Protein, Total 7.8 g/dL (6.4-8.2); Sodium Level 136 mmol/L (136-145); Triglycerides 97 mg/dL; Very Low Density Lipoprotein 19 mg/dL (5-40)
== END | disposition home or self-care (01) ==
LOC: BIMLAB 10:21
PROVIDERS: PCP Internal Medicine; Referring Provider Internal Medicine; Visit Provider Internal Medicine
DX: M05.9 Rheumatoid arthritis with rheumatoid factor, unspecified (principal); E11.620 Type 2 diabetes mellitus with diabetic dermatitis
CPT/HCPCS: 36415; 80053; 80061; 85025

== ENCOUNTER → 2022-11-12 | Outpatient (CLI) | payer MEDICARE, SELFPAY ==
--- NOTE | 2022-11-12 10:10 | RAD_ITS ---
EXAM: XR LEFT SHOULDER COMPLETE, 2 OR MORE VIEWS CLINICAL INDICATION: Left Shoulder Pain TECHNIQUE: Two or more views of the left shoulder. COMPARISON: No relevant prior studies available. FINDINGS: BONES/JOINTS: There is narrowing of the acromioclavicular joint. No acute fracture. No subluxation. Normal alignment. No sclerotic or destructive changes observed. SOFT TISSUES: Unremarkable. No soft tissue swelling or gas. No radiopaque foreign body. RAD/Shoulder min 2 Views IMPRESSION: 1. No acute osseous abnormalities. 2. Degenerative changes with severe narrowing of the acromioclavicular joint. Electronically Signed: Uzair Suarez MD at 23:30 EDT ,
== END | disposition home or self-care (01) ==
LOC: RAD 10:09
PROVIDERS: PCP Internal Medicine; Referring Provider Internal Medicine; Visit Provider Internal Medicine
DX: M25.512 Pain in left shoulder (principal)
CPT/HCPCS: 73030

== ENCOUNTER → 2023-03-22 | Outpatient (CLI) | payer MEDICARE, SELFPAY ==
[2023-03-22 10:31] LABS: Absolute Lymphocyte Count 2.68 X10^3/uL (0.83-4.51); Absolute Neutrophil Count 5.8 X10^3/uL (2.0-7.7); Basophil# 0.21 X10^3/uL; Basophil% 1.7 % (0-1); Eosinophil# 1.73 X10^3/uL; Eosinophils% 14.4 % (0-5); Hematocrit 47.2 % (40-54); Hemoglobin 16.3 g/dL (13.0-16.5); Lymphocyte # 2.68 X10^3/ul (0.83-4.51); Lymphocyte % 22.3 % (19-41); Mean Corp Hgb Conc 34.5 g/dL (32-36); Mean Corpuscular Hgb 32.9 pg (27.0-32.0); Mean Corpuscular Volume 95.2 fL (80-94); Monocyte# 1.54 X10^3/uL; Monocyte% 12.8 % (0-10); NRBC Flagged by Analyzer 0 % (0-5); Neutrophil % 48.4 % (47-70); POSITIVE DIFFERENTIAL YES; Platelet Count 360 K/mm3 (150-450); RBC Distribution Width CV 16.5 % (11.6-14.6); RBC Distribution Width SD 57.1 fl (35.1-43.9); Red Blood Count 4.96 M/mm3 (4.6-6.2)
[2023-03-22 10:34] LABS: Differential Indicated SCAN CRITERIA MET
[2023-03-22 11:09] LABS: AST(SGOT) 27 U/L (15-37); Alanine Aminotransfer ALT/SGPT 30 U/L (16-61); Albumin, Serum 3.9 g/dL (3.2-5.0); Alkaline Phosphatase 63 U/L (45-117); Anion Gap 6 (5-15); BUN 12 mg/dL (7-18); BUN/Creat Ratio 14.8 RATIO (10-20); Calcium,Total 9.1 mg/dL (8.5-10.1); Chloride 105 mmol/L (98-107); Creatinine, Serum 0.81 mg/dL (0.70-1.30); EST Glomerular Filtration Rate 99 mL/min (>60); Est Glom Filt Rate - Afr Amer 120 mL/min (>60); Globulin 3.8 g/dL (2.2-4.2); Glucose 142 mg/dL (74-106); Potassium 4.1 mmol/L (3.5-5.1); Protein, Total 7.7 g/dL (6.4-8.2); Sodium Level 136 mmol/L (136-145)
[2023-03-24 09:51] LABS: Pathologist Review Reviewed
== END | disposition home or self-care (01) ==
LOC: MTLAB 09:12
PROVIDERS: PCP Internal Medicine; Referring Provider Internal Medicine Rheumatology; Visit Provider Internal Medicine Rheumatology
DX: M06.09 Rheumatoid arthritis without rheumatoid factor, multiple sites (principal); I10 Essential (primary) hypertension; Z79.899 Other long term (current) drug therapy
CPT/HCPCS: 36415; 80053; 85025

== ENCOUNTER → 2023-05-13 | Outpatient (CLI) | payer MEDICARE, SELFPAY ==
[2023-05-13 15:31] LABS: Absolute Lymphocyte Count 1.65 X10^3/uL (0.83-4.51); Absolute Neutrophil Count 6.3 X10^3/uL (2.0-7.7); Basophil# 0.18 X10^3/uL; Basophil% 1.7 % (0-1); Eosinophil# 0.97 X10^3/uL; Eosinophils% 9.4 % (0-5); Hemoglobin 15.9 g/dL (13.0-16.5); Lymphocyte # 1.65 X10^3/ul (0.83-4.51); Mean Corp Hgb Conc 34.6 g/dL (32-36); Mean Corpuscular Hgb 34.3 pg (27.0-32.0); Mean Corpuscular Volume 99.1 fL (80-94); Mean Platelet Vol. 11.4 fl (6.2-12.0); Monocyte# 1.16 X10^3/uL; Monocyte% 11.3 % (0-10); NRBC Flagged by Analyzer 0.2 % (0-5); Neutrophil # 6.29 X10^3/uL (2.7-7.7); Neutrophil % 61.1 % (47-70); Platelet Count 304 K/mm3 (150-450); RBC Distribution Width CV 14.5 % (11.6-14.6); RBC Distribution Width SD 52.3 fl (35.1-43.9); Red Blood Count 4.64 M/mm3 (4.6-6.2); White Blood Count 10.3 K/mm3 (4.4-11.0)
[2023-05-13 15:54] LABS: AST(SGOT) 32 U/L (15-37); Alanine Aminotransfer ALT/SGPT 41 U/L (16-61); Alkaline Phosphatase 62 U/L (45-117); Anion Gap 6 (5-15); BUN 14 mg/dL (7-18); BUN/Creat Ratio 13.7 RATIO (10-20); Chloride 104 mmol/L (98-107); Creatinine, Serum 1.02 mg/dL (0.70-1.30); EST Glomerular Filtration Rate 76 mL/min (>60); Est Glom Filt Rate - Afr Amer 92 mL/min (>60); Globulin 3.9 g/dL (2.2-4.2); Glucose 147 mg/dL (74-106); Potassium 4.2 mmol/L (3.5-5.1); Protein, Total 7.9 g/dL (6.4-8.2); Sodium Level 132 mmol/L (136-145)
== END | disposition home or self-care (01) ==
LOC: MTLAB 11:29
PROVIDERS: PCP Internal Medicine; Referring Provider Internal Medicine Rheumatology; Visit Provider Internal Medicine Rheumatology
DX: M06.09 Rheumatoid arthritis without rheumatoid factor, multiple sites (principal); I10 Essential (primary) hypertension; Z79.899 Other long term (current) drug therapy
CPT/HCPCS: 36415; 80053; 85025

== ENCOUNTER → 2023-08-10 | Outpatient (CLI) | payer MEDICARE, SELFPAY ==
--- OUTSIDE RECORDS SUMMARY | 2023-08-10 10:40 | XMS RPT_ITS | CCD ---
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 Name Role Phone HEIDY CORREA Referring Unavailable HEIDY CORREA Referring Unavailable Unavailable Primary Care Provider Unavailabl e Medications Completed/Discontinued Medications Medication Drug Class(es) Dates Sig (Normalized) Sig (Original) amLODIPine 10 mg oral tablet (1 source) Dihydropyridine Calcium Channel Mariya Start: 08-07-2021 take 1 tablet by mouth once daily amLODIPine (NORVASC) 10 mg tablet TAKE 1 TABLET (10mg) BY MOUTH DAILY for heart 0 08/07/2021 Active Problems Active Problems Problem Classification Problem Date Documented Da te Episodic/Chronic Disorders of lipid metabolism (1 source) Mixed hyperlipidemia; Translations: [Mixed hyperlipidemia] Onset: 09-27-2017 09-27-2017 Chronic Essential hypertension (1 source) Essential hypertension; Translations: [Essential (primary) hypertension] Onset: 09-27-2017 09-27-2017 Chronic Other aftercare (1 source) Other prison (current) drug therapy; Translations: [Drug therapy] Onset: 01-03-2023 Episodic Rheumatoid arthritis and related disease (1 source) Rheumatoid arthritis without rheumatoid factor, multiple sites; Translations: [Rheumatoid arthritis of multiple sites without rheumatoid factor (HCC)] Onset: 01-03-2023 Chronic Past or Other Problems Problem Classification Problem Date Documented Da te Episodic/Chronic Residual codes; unclassified (1 source) Tobacco user; Translations: [Tobacco use] Onset: 09-27-2017 09-27-2017 Episodic Results Test Name Value Interpretation Reference Range Facil ity Encounters Encounter Date Encounter Type Care Provider Facility Start: 01-03-2023 End: 01-04-2023 ambulatory HEIDY CORREA Facility:[facility] Start: 01-03-2023 End: 01-03-2023 Subsequent hospital visit by physician [facility] Work Phone: Radiology Procedures Date Procedure Procedure Detail Performing Clinician Start: 01-03-2023 Radex hand minimum 3 views [facility] Provider Start: 08-30-2017 Lipid 1996 panel - S pipo or Plasma [facility] Work Phone: Plan of Treatment Date Care Activity Detail Author Start: 01-03-2026 Diabetes Screening Diabetes Screenin g [facility] Start: 03-18-2023 Influenza vaccination Influenza Vacc ine (#1) [facility] Start: 08-30-2022 Lipid 1996 panel - S pipo or Plasma Lipid Screening [facility] Start: 07-18-2022 Advance Directive Discussion Advance Directive Discussion [facility] Start: 07-18-2022 Depression Assessment Depression Ass essment [facility] Start: 2008 RSV Vaccine (1 - 1-d ose 60+ series) RSV Vaccine (1 - 1-dose 60+ series) [facility] Start: 1998 Shingrix Vaccine (1 of 2) Shingrix V accine (1 of 2) [facility] Start: 1993 Cologuard (FIT-DNA) Cologuard (FIT-D NA) [facility] Start: 1993 Colonoscopy Colonoscopy [facility] Start: 1993 Colorectal Cancer Screening Colorectal Cancer Screening [facility] Start: [address] Colonography [facility] Start: 1993 Fecal Occult Blood Fecal Occult Bloo d [facility] Start: 1993 Sigmoidoscopy Sigmoidoscopy [facility] Start: 10-10-1967 Urine microalbumin profile DTa P,Tdap,Td Vaccine (1 - Tdap) [facility] Start: 1966 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 Disease Visit Annual PCP Team Chronic Disease Visit [facility] Start: 1966 BP Controlled (<130/80) BP Controlle d (<130/80) [facility] Start: 1954 Pneumococcal Vaccine : 65+ (1 - PCV) Pneumococcal Vaccine: 65+ (1 - PCV) [facility] Start: 04-11-1949 Covid-19 Vaccine (#1) Covid-19 Vacci ne (#1) [facility] Start: 1948 Abdominal Aortic Ane urysm Screening Abdominal Aortic Aneurysm Screening [facility] Immunizations Immunization Date Immunization Notes Care Provider Rickey stearns 08-30-2017 influenza virus vacc ine, unspecified formulation [facility] Work Phone: [facility] Payers Date Payer Category Payer Medicare [id number] 2015 Medicare [employer] MEDICARE [employer] MED[employer]ARE PPO [id number] 2015-Present [id number] [place] [address] PPO [id number] Social History Date Type Detail Facility Start: 12-12-2019 Tobacco smoking stat us [facility] Smokes tobacco daily [facility] Work Phone: History of tobacco use Cigarette Smoker [facility] Work Phone: Start: 12-12-2019 End: 06-25-2020 Cigarettes smoked current (pack per day) - Reported 0.5 [facility] Start: 12-12-2019 Tobacco use and exposure Smokeless tobacco non-user [facility] Work Phone: Start: 09-07-2021 Alcohol intake Current drinke r of alcohol (finding) [facility] Start: 06-25-2020 End: 09-07-2021 Tobacco use panel [facility] National Score (1-10 0), lower number is lower risk Not on file [facility] Start: 09-27-2017 Alcohol Comment drinks 6-8 bee rs weekly [facility] Start: 1950 Sex Assigned At Not on file [facility] Progress note 01-03-2023 Note Date & Type Note Facility 01-03-2023 Note HNO ID: [id number] Author: Dee Goldsmith, RT(R) Service: ? Author Type: Technologist Type: Progress Notes Filed: 01/03/2023 11:08 AM Note Text: Radiology Service Progress Note PATIENT NAME: Shea Teixeira DATE OF SERVICE: January 03, 2023 TIME: 11:08 AM PATIENT IDENTITY VERIFICATION COMPLETED USING TWO (2) IDENTIFIERS: Name and Date of confirmed by patient verbally. FALL SCREENING: Has the patient had 2 falls in the last year or 1 fall with injury or currently using an Ambulatory Assistive Device (Walker, Cane, Wheelchair, Crutches, etc.)? No PATIENT GENDER DATA: Male PATIENT RELEVANT IMPLANT DATA REVIEWED: Not Applicable RADIOLOGY DEPARTMENT: General X-ray: Exam(s) Completed: Upper Extremity X-Ray(s): Hand, bilateral PERIPHERAL IV DATA: Not applicable SIGNED BY: RT Madelin(R) January 03, 2023 11:08 AM [facility] History of Present illness Narrative 01-03-2023 Dee Goldsmith RT(R) - 01/03/2023 10:30 AM EDT Note Date & Type Note Facility 01-03-2023 History of Presen t illness Narrative Radiology Service Progress Note PATIENT NAME: Shea Teixeira DATE OF SERVICE: January 03, 2023 TIME: 11:08 AM PATIENT IDENTITY VERIFICATION COMPLETED USING TWO (2) IDENTIFIERS: Name and Date of confirmed by patient verbally. FALL SCREENING: Has the patient had 2 falls in the last year or 1 fall with injury or currently using an Ambulatory Assistive Device (Walker, Cane, Wheelchair, Crutches, etc.)? No PATIENT GENDER DATA: Male PATIENT RELEVANT IMPLANT DATA REVIEWED: Not Applicable RADIOLOGY DEPARTMENT: General X-ray: Exam(s) Completed: Upper Extremity X-Ray(s): Hand, bilateral PERIPHERAL IV DATA: Not applicable SIGNED BY: RT Madelin(R) January 03, 2023 11:08 AM documented in this encounter [facility] Summary Purpose Family History No Family History Records Found Advance Directives No Advanced Directives Records Found Additional Source Comments (unrecognized sect ion and content) No Status Records Found INFORMATION SOURCE (unrecogn ized section and content) Source Comments (unrecognize d section and content) In the event this informatio n is protected by the Federal Confidentiality of Alcohol and Drug Abuse Patient Records regulations: The Federal rules restrict any use of the information to criminally investigate or prosecute any alcohol or drug abuse patient.[facility] FOR RECORDS PERTAINING TO PATIENTS WHO ARE OR HAVE BEEN ENROLLED IN A CHEMICAL DEPENDENCY/SUBSTANCEABUSE PROGRAM, SOME INFORMATION MAY BE OMITTED. This clinical summary was aggregated from multiple sources. Caution should be exercised in using it in the provision of clinical care. This summary normalizes information from multiple sources, and as a consequence, information in this document may materially change the coding, format and clinical context of patient data. In addition, data may be omitted in some cases. CLINICAL DECISIONS SHOULD BE BASED ON THE PRIMARY CLINICAL RECORDS. [facility] [employer] provides no warranty or guarantee of the accuracy or completeness of information in this document.
[2023-08-10 12:22] LABS: Absolute Lymphocyte Count 1.66 X10^3/uL (0.83-4.51); Basophil# 0.15 X10^3/uL; Basophil% 1.5 % (0-1); Eosinophil# 1.22 X10^3/uL; Eosinophils% 12.5 % (0-5); Hematocrit 44.4 % (40-54); Hemoglobin 15.4 g/dL (13.0-16.5); Lymphocyte # 1.66 X10^3/ul (0.83-4.51); Mean Corp Hgb Conc 34.7 g/dL (32-36); Mean Corpuscular Hgb 34.1 pg (27.0-32.0); Mean Corpuscular Volume 98.4 fL (80-94); Mean Platelet Vol. 10.8 fl (6.2-12.0); Monocyte# 0.71 X10^3/uL; Monocyte% 7.3 % (0-10); NRBC Flagged by Analyzer 0.2 % (0-5); Neutrophil # 5.95 X10^3/uL (2.7-7.7); Neutrophil % 61.2 % (47-70); Platelet Count 315 K/mm3 (150-450); RBC Distribution Width CV 13.8 % (11.6-14.6); RBC Distribution Width SD 49.2 fl (35.1-43.9); Red Blood Count 4.51 M/mm3 (4.6-6.2); White Blood Count 9.7 K/mm3 (4.4-11.0)
[2023-08-10 13:30] LABS: AST(SGOT) 31 U/L (15-37); Alanine Aminotransfer ALT/SGPT 63 U/L (16-61); Albumin, Serum 3.7 g/dL (3.2-5.0); Alkaline Phosphatase 71 U/L (45-117); Anion Gap 6 (5-15); BUN 21 mg/dL (7-18); BUN/Creat Ratio 18.6 RATIO (10-20); Chloride 103 mmol/L (98-107); Cholesterol 150 mg/dL (200); Creatinine, Serum 1.13 mg/dL (0.70-1.30); EST Glomerular Filtration Rate 67 mL/min (>60); Est Glom Filt Rate - Afr Amer 81 mL/min (>60); Globulin 3.7 g/dL (2.2-4.2); Glucose 213 mg/dL (74-106); High Density Lipoprotein 58 mg/dL; Protein, Total 7.4 g/dL (6.4-8.2); Sodium Level 130 mmol/L (136-145); Triglycerides 61 mg/dL; Very Low Density Lipoprotein 12 mg/dL (5-40)
== END | disposition home or self-care (01) ==
PROVIDERS: PCP Internal Medicine; Referring Provider Internal Medicine Rheumatology; Visit Provider Internal Medicine Rheumatology
DX: M06.09 Rheumatoid arthritis without rheumatoid factor, multiple sites (principal); Z79.899 Other long term (current) drug therapy
CPT/HCPCS: 36415; 80053; 80061; 85025

== ENCOUNTER → 2023-10-07 | Outpatient (CLI) | payer MEDICARE, SELFPAY ==
[2023-10-07 11:50] LABS: Absolute Lymphocyte Count 2.15 X10^3/uL (0.83-4.51); Basophil# 0.22 X10^3/uL; Eosinophil# 1.51 X10^3/uL; Eosinophils% 13.4 % (0-5); Hematocrit 45.5 % (40-54); Hemoglobin 15.3 g/dL (13.0-16.5); Lymphocyte # 2.15 X10^3/ul (0.83-4.51); Lymphocyte % 19.1 % (19-41); Mean Corp Hgb Conc 33.6 g/dL (32-36); Mean Corpuscular Hgb 33.1 pg (27.0-32.0); Mean Corpuscular Volume 98.5 fL (80-94); Monocyte# 1.26 X10^3/uL; Monocyte% 11.2 % (0-10); NRBC Flagged by Analyzer 0.2 % (0-5); Neutrophil # 6.04 X10^3/uL (2.7-7.7); Neutrophil % 53.8 % (47-70); Platelet Count 395 K/mm3 (150-450); RBC Distribution Width CV 14.2 % (11.6-14.6); RBC Distribution Width SD 51.1 fl (35.1-43.9); Red Blood Count 4.62 M/mm3 (4.6-6.2); White Blood Count 11.2 K/mm3 (4.4-11.0)
[2023-10-07 12:18] LABS: ALB/GLOB Ratio 0.9 RATIO (0.9-2.4); AST(SGOT) 19 U/L (15-37); Alanine Aminotransfer ALT/SGPT 34 U/L (16-61); Albumin, Serum 3.6 g/dL (3.2-5.0); Alkaline Phosphatase 67 U/L (45-117); Anion Gap 9 (5-15); BUN 14 mg/dL (7-18); BUN/Creat Ratio 13.3 RATIO (10-20); Calcium,Total 9.1 mg/dL (8.5-10.1); Chloride 104 mmol/L (98-107); Creatinine, Serum 1.05 mg/dL (0.70-1.30); EST Glomerular Filtration Rate 73 mL/min (>60); Est Glom Filt Rate - Afr Amer 89 mL/min (>60); Globulin 3.8 g/dL (2.2-4.2); Glucose 155 mg/dL (74-106); Potassium 4.1 mmol/L (3.5-5.1); Protein, Total 7.4 g/dL (6.4-8.2); Sodium Level 137 mmol/L (136-145)
== END | disposition home or self-care (01) ==
LOC: MTLAB 10:32
PROVIDERS: PCP Internal Medicine; Referring Provider Internal Medicine Rheumatology; Visit Provider Internal Medicine Rheumatology
DX: M06.09 Rheumatoid arthritis without rheumatoid factor, multiple sites (principal); Z79.899 Other long term (current) drug therapy
CPT/HCPCS: 36415; 80053; 85025

== ENCOUNTER → 2024-01-03 | Outpatient (CLI) | payer MEDICARE, SELFPAY ==
[2024-01-03 12:38] LABS: Absolute Lymphocyte Count 2.02 X10^3/uL (0.83-4.51); Absolute Neutrophil Count 6.2 X10^3/uL (2.0-7.7); Basophil# 0.19 X10^3/uL; Basophil% 1.7 % (0-1); Eosinophil# 1.29 X10^3/uL; Eosinophils% 11.6 % (0-5); Hematocrit 45.7 % (40-54); Hemoglobin 15.8 g/dL (13.0-16.5); Lymphocyte # 2.02 X10^3/ul (0.83-4.51); Lymphocyte % 18.2 % (19-41); Mean Corp Hgb Conc 34.6 g/dL (32-36); Mean Corpuscular Hgb 33.5 pg (27.0-32.0); Mean Platelet Vol. 10.5 fl (6.2-12.0); Monocyte# 1.37 X10^3/uL; Monocyte% 12.4 % (0-10); NRBC Flagged by Analyzer 0 % (0-5); Neutrophil # 6.17 X10^3/uL (2.7-7.7); Neutrophil % 55.6 % (47-70); Platelet Count 398 K/mm3 (150-450); RBC Distribution Width CV 14.7 % (11.6-14.6); RBC Distribution Width SD 51.8 fl (35.1-43.9); Red Blood Count 4.71 M/mm3 (4.6-6.2); White Blood Count 11.1 K/mm3 (4.4-11.0)
[2024-01-03 12:50] LABS: AST(SGOT) 22 U/L (15-37); Alanine Aminotransfer ALT/SGPT 30 U/L (16-61); Albumin, Serum 3.8 g/dL (3.2-5.0); Alkaline Phosphatase 69 U/L (45-117); Anion Gap 8 (5-15); BUN 13 mg/dL (7-18); BUN/Creat Ratio 13.3 RATIO (10-20); Calcium,Total 9.1 mg/dL (8.5-10.1); Chloride 105 mmol/L (98-107); Creatinine, Serum 0.98 mg/dL (0.70-1.30); EST Glomerular Filtration Rate 79 mL/min (>60); Est Glom Filt Rate - Afr Amer 96 mL/min (>60); Globulin 3.8 g/dL (2.2-4.2); Glucose 154 mg/dL (74-106); Potassium 4.3 mmol/L (3.5-5.1); Protein, Total 7.6 g/dL (6.4-8.2); Sodium Level 134 mmol/L (136-145)
== END | disposition home or self-care (01) ==
LOC: MTLAB 09:45
PROVIDERS: PCP Internal Medicine; Referring Provider Internal Medicine Rheumatology; Visit Provider Internal Medicine Rheumatology
DX: M06.09 Rheumatoid arthritis without rheumatoid factor, multiple sites (principal); Z79.899 Other long term (current) drug therapy
CPT/HCPCS: 36415; 80053; 85025

== ENCOUNTER → 2024-04-02 | Outpatient (CLI) | payer MEDICARE, SELFPAY ==
[2024-04-02 12:35] LABS: Absolute Lymphocyte Count 1.87 X10^3/uL (0.83-4.51); Absolute Neutrophil Count 6.2 X10^3/uL (2.0-7.7); Basophil# 0.17 X10^3/uL; Basophil% 1.6 % (0-1); Eosinophil# 1.02 X10^3/uL; Eosinophils% 9.5 % (0-5); Hematocrit 46.5 % (40-54); Hemoglobin 16.1 g/dL (13.0-16.5); Lymphocyte # 1.87 X10^3/ul (0.83-4.51); Lymphocyte % 17.5 % (19-41); Mean Corp Hgb Conc 34.6 g/dL (32-36); Mean Corpuscular Hgb 33.4 pg (27.0-32.0); Mean Corpuscular Volume 96.5 fL (80-94); Mean Platelet Vol. 10.6 fl (6.2-12.0); Monocyte# 1.36 X10^3/uL; Monocyte% 12.7 % (0-10); NRBC Flagged by Analyzer 0 % (0-5); Neutrophil # 6.23 X10^3/uL (2.7-7.7); Neutrophil % 58.3 % (47-70); Platelet Count 340 K/mm3 (150-450); RBC Distribution Width CV 13.2 % (11.6-14.6); RBC Distribution Width SD 46.8 fl (35.1-43.9); Red Blood Count 4.82 M/mm3 (4.6-6.2); White Blood Count 10.7 K/mm3 (4.4-11.0)
[2024-04-02 13:54] LABS: ALB/GLOB Ratio 0.9 RATIO (0.9-2.4); AST(SGOT) 17 U/L (15-37); Alanine Aminotransfer ALT/SGPT 35 U/L (16-61); Albumin, Serum 3.7 g/dL (3.2-5.0); Alkaline Phosphatase 69 U/L (45-117); Anion Gap 9 (5-15); BUN 12 mg/dL (7-18); BUN/Creat Ratio 12.7 RATIO (10-20); Calcium,Total 9.2 mg/dL (8.5-10.1); Chloride 100 mmol/L (98-107); Creatinine, Serum 0.95 mg/dL (0.70-1.30); EST Glomerular Filtration Rate 82 mL/min (>60); Est Glom Filt Rate - Afr Amer 100 mL/min (>60); Globulin 3.9 g/dL (2.2-4.2); Glucose 147 mg/dL (74-106); Protein, Total 7.6 g/dL (6.4-8.2); Sodium Level 132 mmol/L (136-145)
== END | disposition home or self-care (01) ==
PROVIDERS: PCP Internal Medicine; Referring Provider Internal Medicine Rheumatology; Visit Provider Internal Medicine Rheumatology
DX: M06.09 Rheumatoid arthritis without rheumatoid factor, multiple sites (principal); Z79.899 Other long term (current) drug therapy
CPT/HCPCS: 36415; 80053; 85025

== ENCOUNTER → 2024-06-26 | Outpatient (CLI) | payer MEDICARE, SELFPAY ==
[2024-06-26 12:17] LABS: Absolute Lymphocyte Count 1.51 X10^3/uL (0.83-4.51); Absolute Neutrophil Count 6.6 X10^3/uL (2.0-7.7); Basophil# 0.18 X10^3/uL; Basophil% 1.7 % (0-1); Eosinophil# 0.73 X10^3/uL; Hematocrit 44.2 % (40-54); Hemoglobin 15.3 g/dL (13.0-16.5); Lymphocyte # 1.51 X10^3/ul (0.83-4.51); Lymphocyte % 14.5 % (19-41); Mean Corp Hgb Conc 34.6 g/dL (32-36); Mean Corpuscular Hgb 33.3 pg (27.0-32.0); Mean Corpuscular Volume 96.1 fL (80-94); Mean Platelet Vol. 10.1 fl (6.2-12.0); Monocyte# 1.35 X10^3/uL; Monocyte% 12.9 % (0-10); NRBC Flagged by Analyzer 0 % (0-5); Neutrophil # 6.62 X10^3/uL (2.7-7.7); Neutrophil % 63.5 % (47-70); Platelet Count 359 K/mm3 (150-450); RBC Distribution Width SD 48.8 fl (35.1-43.9); White Blood Count 10.4 K/mm3 (4.4-11.0)
[2024-06-26 12:47] LABS: ALB/GLOB Ratio 1.1 RATIO (0.9-2.4); AST(SGOT) 13 U/L (15-37); Alanine Aminotransfer ALT/SGPT 25 U/L (16-61); Albumin, Serum 3.7 g/dL (3.2-5.0); Alkaline Phosphatase 69 U/L (45-117); Anion Gap 8 (5-15); BUN 8 mg/dL (7-18); Calcium,Total 9.1 mg/dL (8.5-10.1); Chloride 103 mmol/L (98-107); Creatinine, Serum 0.89 mg/dL (0.70-1.30); EST Glomerular Filtration Rate 88 mL/min (>60); Est Glom Filt Rate - Afr Amer 107 mL/min (>60); Globulin 3.4 g/dL (2.2-4.2); Glucose 141 mg/dL (74-106); Potassium 3.8 mmol/L (3.5-5.1); Protein, Total 7.1 g/dL (6.4-8.2); Sodium Level 133 mmol/L (136-145)
== END | disposition home or self-care (01) ==
PROVIDERS: PCP Internal Medicine; Referring Provider Internal Medicine Rheumatology; Visit Provider Internal Medicine Rheumatology
DX: M06.09 Rheumatoid arthritis without rheumatoid factor, multiple sites (principal); Z79.899 Other long term (current) drug therapy
CPT/HCPCS: 36415; 80053; 85025

== ENCOUNTER → 2024-09-19 | Outpatient (CLI) | payer MEDICARE, SELFPAY ==
[2024-09-19 12:33] LABS: Absolute Lymphocyte Count 1.89 X10^3/uL (0.83-4.51); Absolute Neutrophil Count 4.6 X10^3/uL (2.0-7.7); Basophil# 0.15 X10^3/uL; Basophil% 1.8 % (0-1); Eosinophil# 0.92 X10^3/uL; Eosinophils% 10.8 % (0-5); Hematocrit 46.7 % (40-54); Hemoglobin 16.4 g/dL (13.0-16.5); Lymphocyte # 1.89 X10^3/ul (0.83-4.51); Lymphocyte % 22.1 % (19-41); Mean Corp Hgb Conc 35.1 g/dL (32-36); Mean Corpuscular Hgb 34.2 pg (27.0-32.0); Mean Corpuscular Volume 97.5 fL (80-94); Mean Platelet Vol. 11.2 fl (6.2-12.0); Monocyte# 0.92 X10^3/uL; Monocyte% 10.8 % (0-10); NRBC Flagged by Analyzer 0.2 % (0-5); Neutrophil # 4.62 X10^3/uL (2.7-7.7); Neutrophil % 53.9 % (47-70); Platelet Count 329 K/mm3 (150-450); RBC Distribution Width CV 14.1 % (11.6-14.6); RBC Distribution Width SD 50.3 fl (35.1-43.9); Red Blood Count 4.79 M/mm3 (4.6-6.2); White Blood Count 8.6 K/mm3 (4.4-11.0)
[2024-09-19 13:03] LABS: ALB/GLOB Ratio 1.3 RATIO (0.9-2.4); AST(SGOT) 24 U/L (<=37); Alanine Aminotransfer ALT/SGPT 27 U/L (<=46); Albumin, Serum 4.3 g/dL (3.4-4.8); Alkaline Phosphatase 71 U/L (40-129); Anion Gap 16 (5-15); BUN 15 mg/dL (4-19); BUN/Creat Ratio 14.4 RATIO (10-20); Calcium,Total 9.6 mg/dL (7.6-11.0); Carbon Dioxide 19.8 mmol/L (21.0-32.0); Chloride 99 mmol/L (98-108); Creatinine, Serum 1.03 mg/dL (0.70-1.20); EST Glomerular Filtration Rate 76 (>60); Globulin 3.2 g/dL (2.2-4.2); Glucose 137 mg/dL (70-99); Potassium 4.3 mmol/L (3.3-5.1); Protein, Total 7.5 g/dL (5.9-8.4); Sodium Level 135 mmol/L (133-145); Total Bilirubin 0.49 mg/dL (0.00-1.30)
== END | disposition home or self-care (01) ==
LOC: MTLAB 10:02
PROVIDERS: PCP Internal Medicine; Referring Provider Internal Medicine Rheumatology; Visit Provider Internal Medicine Rheumatology
DX: M06.00 Rheumatoid arthritis without rheumatoid factor, unspecified site (principal); Z79.899 Other long term (current) drug therapy
CPT/HCPCS: 36415; 80053; 85025

== ENCOUNTER → 2024-11-14 | Outpatient (CLI) | payer MEDICARE, SELFPAY ==
--- NOTE | 2024-11-14 09:55 | CDU_ITS ---
Reason For Study Reason For Study: Partial Retinal Artery Occlusion Rt. Velocities/BP Lt. Velocities/BP Prox CCA 76.9/11.8 cm/sec. Prox CCA 85.5/13.0 cm/sec. Mid CCA 75.6/11.8 cm/sec. Mid CCA 69.4/14.5 cm/sec. Dist CCA 75.6/16.7 cm/sec. Dist CCA 68.6/11.9 cm/sec. Prox ICA 108.8/13.0 cm/sec. Prox ICA 53.7/11.0 cm/sec. Mid ICA 95.3/16.7 cm/sec. Mid ICA 56.0/15.5 cm/sec. Dist ICA 102.7/17.9 cm/sec. Dist ICA 86.7/20.4 cm/sec. Rt. ICA/CCA = 1.4. Lt. ICA/CCA = 1.2. Prox ECA 56.0/7.3 cm/sec. Prox ECA 202.4/31.0 cm/sec. Rt. Vert. 38.8/8.1 cm/sec. Lt. Vert. 42.5/9.3 cm/sec. Right Extracranial There is homogeneous, smooth atherosclerotic plaque noted in the right common carotid artery. There is heterogeneous, irregular atherosclerotic plaque noted in the right internal carotid artery. There is heterogeneous, irregular atherosclerotic plaque noted in the right external carotid artery. Antegrade flow is noted in the right vertebral artery. Left Extracranial There is heterogeneous, irregular atherosclerotic plaque noted in the left common carotid artery. There is heterogeneous, irregular atherosclerotic plaque noted in the left internal carotid artery. There is heterogeneous, irregular atherosclerotic plaque noted in the left external carotid artery. Antegrade flow is noted in the left vertebral artery. Procedure Carotid Duplex 19897. This is a Carotid Duplex examination using B-mode, color flow and specral Doppler. The exam was diagnostic. Exam performed in department. VL/Carotid Duplex Ultrasound Interpretation Summary Mild (<50%) stenosis right extracranial internal carotid. Mild (<50%) stenosis left extracranial internal carotid. Patent and antegrade vertebrals bilaterally. Ordering Physician: Kevin Long Referring Physician: Zully Montoya Performed By: Alex Stewart RVT
== END | disposition home or self-care (01) ==
LOC: CVS 09:54
PROVIDERS: PCP Internal Medicine; Referring Provider Ophthalmology; Visit Provider Ophthalmology
DX: H34.211 Partial retinal artery occlusion, right eye (principal)
CPT/HCPCS: 93880

== ENCOUNTER → 2024-12-20 | Outpatient (CLI) | payer MEDICARE, SELFPAY ==
--- OUTSIDE RECORDS SUMMARY | 2024-12-20 10:44 | XMS RPT_ITS | CCD ---
Author Organization [facility] Care Team Providers Care Supervisor Yard Name Role Phone Dr. Zully Montoya Primary Care Provider [phone] Dr. Zully Montoya Attending Provider [phone] Dr. Zully Montoya Referring Provider [phone] Dr. Shea Mata Attending Provider Dr. Zully Montoya Primary Care Provider [phone]) Dr. Yasmin Garcia Referring Provider [phone] Dr. Zully Montoya Attending Provider [phone] Dr. Zully Montoya Referring Provider [phone] Dr. Zully Montoya Primary Care Provider [phone]) Lindsay, Dr. Andrea Attending Provider [phone] Dr. Zully Montoya Referring Provider [phone] Dr. Zully Montoya Other Provider [phone] Dr. Dao Park Attending Provider Dr. Zully Montoya Primary Care Provider [phone] Dr. Zully Montoya Attending Provider [phone] Dr. Zully Montoya Referring Provider [phone] HEIDY MA Referring Unavailable HEIDY MA Referring Unavailable Dr. Zully Montoya Primary Care Provider [phone]) Dr. Zully Montoya Attending Provider [phone] Oleghe, Dr. Andrea Referring Provider [phone] Unavailable Primary Care Provider Unavailabl e Lindsay, Dr. Andrea Primary Care Provider [phone]) Lindsay, Dr. Andrea Attending Provider [phone] Lindsay, Dr. Andrea Referring Provider [phone] iLndsay, Dr. Andrea Primary Care Provider [phone] Lindsay, Dr. Andrea Attending Provider [phone] Lindsay, Dr. Andrea Referring Provider [phone] Lindsay DUNLAP, Dr. Andrea Primary Care Provider Anil DUNLAP, Dr. Mccabe Attending Provider nAil DUNLAP, Dr. Mccabe Referring Provider Lindsay DUNLAP, Dr. Andrea Attending Provider [phone] Lindsay DUNLAP, Dr. Andrea Referring Provider [phone] Lindsay DUNLAP, Dr. Andrea Primary Care Provider Anil DUNLAP, Dr. Mccabe Attending Provider Anil DUNLAP, Dr. Mccabe Referring Provider Mercedes DUNLAP, Dr. Brown Attending Provider Mercedes DUNLAP, Dr. Brown Referring Provider Antonio DUNLAP, Dr. Faria Attending Provider Oleghe, Efewongbe Primary Care Unavailable Anil Heidy Referring Unavailable Heidy Ma Attending Unavailable Kevin Long Attending Unavailable Kevin Long Referring Unavailable Oleghe, Efewongbe Primary Care Unavailable Oleghe, Efewongbe Primary Care Unavailable Asadlanki, Heidy Attending Unavailable AjitkiHeidy Referring Unavailable Oleghe, Efewongbe Attending Unavailable Oleghe, Efewongbe Primary Care Unavailable Oleghe, Efewongbe Referring Unavailable Oleghe, Efewongbe Attending Unavailable Oleghe, Efewongbe Referring Unavailable Oleghe, Efewongbe Primary Care Unavailable Oleghe, Efewongbe Primary Care Unavailable Heidy Ma Attending Unavailable Asadlanki, Heidy Referring Unavailable Oleghe, Efewongbe Primary Care Unavailable Heidy Ma Attending Unavailable Anil, Heidy Referring Unavailable Oleghe, Efewongbe Attending Unavailable Oleghe, Efewongbe Referring Unavailable Oleghe, Efewongbe Primary Care Unavailable Kevin Long Referring Unavailable Oleghe, Efewongbe Primary Care Unavailable Bienvneido Alvarez Attending Unavailable Oleghe, Efewongbe Attending Unavailable Oleghe, Efewongbe Referring Unavailable Oleghe, Efewongbe Primary Care Unavailable Medications Current Medications Medication Drug Class(es) Dates Sig (Normalized) Sig (Original) [id number] 200 actuat albuterol 0.09 mg/actuat metered dose inhaler (9 sources) beta2-Adrenergic Agonist Start: 06-02-2022 End: 10-01-2024 Albuterol Sulfate 90 mcg/actuation HFA aerosol inhaler Active 2 NMA INHALATION EVERY 6 HOURS as needed for shortness of breath or wheezing 8.October 01, 2024 4:22pm Start: 06-02-2022 take 1 puff(s) by in halation every six hours Albuterol Sulfate Active 2 PUFF INHALATION EVERY 6 HOURS 8.June 02, 2022 1:00am amLODIPine 10 mg oral tablet (20 sources) Dihydropyridine Calcium Channel Mariya Start: 05-01-2019 End: 2024 take 1 tablet by mouth once daily Amlodipine 10 mg tablet Active 10 mg PO DAILY 2024 1:54pm Start: 04-16-2019 End: 05-01-2019 take 1 tablet by mouth once daily Amlodipine 5 mg tablet Discontinued 5 mg PO DAILY April 16, 2019 12:00am May 01, 2019 9:23am Comment on above: TAKE 1 TABLET (10mg) BY MOUTH DAILY for heart Blood Pressure Monitor (7 sources) Start: 04-16-2019 Blood Pressure Monitor Active 0 .ROUTE .MEDSUPPLY April 15, 2019 11:00pm Check blood pressure daily for hypertension I10 Start: 04-16-2019 Blood Pressure Monitor Active 0 .ROUTE .MEDSUPPLY 1 April 16, 2019 12:00am Check blood pressure daily for hypertension I10 Blood Pressure Monitor kit (2 sources) Start: 04-16-2019 Blood Pressure Monitor kit Active 0 .ROUTE .MEDSUPPLY 1 April 16, 2019 12:00am Check blood pressure daily for hypertension I10 Blood-Glucose Meter (Freesty le Lite Meter) kit (9 sources) Start: 01-08-2020 Blood-Glucose Meter (Freestyle Lite Meter) kit Active 0 .ROUTE .MEDSUPPLY 1 January 07, 2020 11:00pm As directed, check blood glucose daily for type 2 DM Start: 01-08-2020 Blood-Glucose Meter (Freestyle Lite Meter) kit Active 0 .ROUTE .MEDSUPPLY 1 January 08, 2020 12:00am As directed, check blood glucose daily for type 2 DM Budesonide-Formoterol (20 sources) Corticosteroid, beta2-Adrenergic Agonist Start: 10-01-2024 Budesonide-Formoterol (Symbicort) 160-4.5 mcg/actuation HFA aerosol inhaler Active 2 NMA INHALATION Q12H 10.2 October 01, 2024 4:22pm Start: 05-03-2024 End: 10-01-2024 Budesonide-Formoterol (Symbi emy) 160-4.5 mcg/actuation HFA aerosol inhaler Discontinued 2 NMA INHALATION Q12H 10.2 May 03, 2024 5:09pm October 01, 2024 4:22pm Start: 11-30-2023 End: 05-03-2024 Budesonide-Formoterol (Symbi emy) 160-4.5 mcg/actuation HFA aerosol inhaler Discontinued 2 NMA INHALATION Q12H 10.2 November 30, 2023 10:23am May 03, 2024 5:09pm Start: 09-17-2022 End: 11-09-2022 Budesonide-Formoterol (Symbi emy) 160-4.5 mcg/actuation HFA aerosol inhaler Discontinued 2 NMA INHALATION Q12H 10.2 September 17, 2022 11:03am November 09, 2022 3:12pm Start: 09-17-2022 End: 11-09-2022 take 1 puff(s) by inhalation every twelve hours Budesonide-Formoterol (Symbicort) 160-4.5 mcg/actuation HFA aerosol inhaler Discontinued 2 PUFF INHALATION Q12H 10.2 September 17, 2022 10:03am November 09, 2022 2:12pm Start: 09-17-2022 End: 11-09-2022 take 1 puff(s) by inhalation every twelve hours Budesonide-Formoterol (Symbicort) 160-4.5 mcg/actuation HFA aerosol inhaler Discontinued 2 PUFF INHALATION Q12H 10.2 September 17, 2022 11:03am November 09, 2022 3:12pm Start: 09-17-2022 take 1 puff(s) by in halation every twelve hours Budesonide-Formoterol (Symbicort) 160-4.5 mcg/actuation HFA aerosol inhaler Active 2 PUFF INHALATION Q12H 10.2 September 17, 2022 10:03am Start: 06-07-2022 End: 09-17-2022 Budesonide-Formoterol (Symbi emy) 160-4.5 mcg/actuation HFA aerosol inhaler Discontinued 2 NMA INHALATION Q12H 10.2 June 07, 2022 1:00am September 17, 2022 11:03am Start: 06-07-2022 End: 09-17-2022 take 1 puff(s) by inhalation every twelve hours Budesonide-Formoterol (Symbicort) 160-4.5 mcg/actuation HFA aerosol inhaler Discontinued 2 PUFF INHALATION Q12H 10.2 June 07, 2022 1:00am September 17, 2022 11:03am Start: 06-07-2022 End: 09-17-2022 take 1 puff(s) by inhalation every twelve hours Budesonide-Formoterol (Symbicort) 160-4.5 mcg/actuation HFA aerosol inhaler Discontinued 2 PUFF INHALATION Q12H 10.2 June 07, 2022 12:00am September 17, 2022 10:03am losartan potassium 100 mg oral tablet (20 sources) Angiotensin 2 Receptor Mariya Start: 09-17-2022 End: 10-19-2023 take 1 tablet by mouth once daily Losartan 100 mg tablet Active 100 mg PO DAILY October 19, 2023 5:10pm Start: 07-21-2021 End: 07-21-2021 take 1 tablet by mouth once daily Losartan 100 mg tablet Discontinued 100 mg PO DAILY 90 July 21, 2021 11:43am July 21, 2021 11:45am Start: 06-04-2019 End: 09-17-2022 take 1 tablet by mouth once daily Losartan 50 mg tablet Discontinued 50 mg PO DAILY 90 November 03, 2020 12:46pm July 21, 2021 11:43am Start: 12-06-2017 take 2 tablets by mo uth once daily losartan (COZAAR) 25 mg tablet Take 2 tablets by mouth once daily. 30 tablet 0 12/06/2017 Active Comment on above: Take 2 tablets by mo ut once daily. metFORMIN hydrochloride 500 mg oral tablet (20 sources) Biguanide Start: 10-26-2021 End: 10-12-2024 take 1 tablet by mouth twice daily Metformin 500 mg tablet Active 500 mg PO TWICE A DAY 180 October 12, 2024 8:40am Start: 10-21-2020 End: 07-21-2021 Metformin 1,000 mg tablet Discontinued 500 mg PO TWICE A DAY 180 December 30, 2020 11:42am July 21, 2021 11:27am Start: 10-21-2020 End: 07-21-2021 take 500 mg by mouth twice daily Metformin Discontinued 500 MG PO TWICE A DAY 180 December 30, 2020 11:42am July 21, 2021 11:27am Start: 01-30-2020 End: 10-21-2020 take 1 tablet by mouth twice daily Metformin 1,000 mg tablet Discontinued 1000 mg PO TWICE A DAY 180 January 30, 2020 4:14pm October 21, 2020 10:12am Start: 01-08-2020 End: 01-30-2020 take 1 tablet by mouth twice daily Metformin 850 mg tablet Discontinued 850 mg PO TWICE A DAY 60 January 08, 2020 12:00am January 30, 2020 4:14pm methotrexate 2.5 mg oral tablet (5 sources) Folate Analog Metabolic Inhibitor Start: 04-11-2023 Methotrexate Sodium 2.5 mg tablet Active mg PO April 11, 2023 12:00am Start: 04-11-2023 Methotrexate S odium Active MG PO April 11, 2023 12:00am predniSONE 10 mg oral tablet (20 sources) Start: 03-02-2022 Prednisone 10 mg tablet Active 10 mg PO DAILY as needed for Joint Pain March 02, 2022 12:00am Take 20mg x 3 days for flares. Not to exceed 60 mg monthly. Start: 03-02-2022 take 20 mg by mouth once daily, then take 60 mg by mouth every month Prednisone Active 10 MG PO DAILY March 02, 2022 12:00am Take 20mg x 3 days for flares. Not to exceed 60 mg monthly. Start: 04-22-2021 End: 01-22-2022 take 1 tablet by mouth once daily as needed for arthritis Prednisone 10 mg tablet Discontinued 10 mg PO DAILY as needed for arthritis April 22, 2021 4:30pm January 22, 2022 10:30am Start: 07-22-2020 End: 10-21-2020 take 2 tablets by mouth once daily as needed for arthritis, then take 5 tablets by mouth every month as needed for arthritis Prednisone 10 mg tablet Discontinued 10 mg PO DAILY as needed for Arthritis Flare July 22, 2020 1:00am October 21, 2020 9:39am Take 20 mg daily x 3 days for acute Arthritis flare. Do not exceed 5 total days monthly. Start: 07-22-2020 End: 10-21-2020 Prednisone Discontinued 10 M G PO DAILY July 22, 2020 1:00am October 21, 2020 9:39am Take 20 mg daily x 3 days for acute Arthritis flare. Do not exceed 5 total days monthly. Start: 12-12-2019 End: 07-22-2020 take 1 tablet by mouth once daily Prednisone 10 mg tablet Discontinued 10 mg PO DAILY December 12, 2019 12:00am July 22, 2020 10:49am Start: 08-07-2019 End: 10-02-2019 take 1 tablet by mouth once daily Prednisone 20 MG tablet Discontinued 20 mg PO DAILY September 29, 2019 12:35pm October 02, 2019 10:36am Completed/Discontinued Medications Medication Drug Class(es) Dates Sig (Normalized) Sig (Original) acetaminophen 325 mg / HYDROcodone bitartrate 5 mg oral tablet (9 sources) Opioid Agonist Start: 01-19-2022 End: 01-22-2022 Hydrocodone-Acetami nophen 5-325 mg tablet Discontinued 1 {tbl} PO EVERY 6 HOURS as needed for pain 10 3 January 19, 2022 Becky 8th, 2022 10:29am Start: 01-19-2022 End: 01-22-2022 take 1 tablet by mouth every six hours Hydrocodone-Acetaminophen Discontinued 1 TABLET PO EVERY 6 HOURS 10 January 19, 2022 January 22, 2022 10:29am cephalexin 500 mg oral capsule (9 sources) Cephalosporin Antibacterial Start: 11-24-2020 End: 04-21-2021 take 1 capsule by mouth every eight hours Cephalexin 500 mg capsule Discontinued 500 mg PO Q8H November 24, 2020 12:00am April 21, 2021 9:55am clotrimazole 10 mg/ml topical cream (18 sources) Azole Antifungal Start: 11-24-2020 End: 01-22-2022 Clotrimazole 1 % cream Discontinued 1 NMA TOPICAL DAILY 45 January 20, 2021 9:19am January 22, 2022 10:29am apply topically to right and left foot/ankle/leg rash daily Please contact the information source for Protocol details. COMPOUNDED PRESCRIPTION (1 source) Start: 08-30-2017 COMPOUNDED PRESCRIPTION Blood pressure cuff take blood pressure three times a week first thing in the morning record and bring to next visit 1 Device 0 08/30/2017 Active Comment on above: Blood pressure cuff take blood pressure three times a week first thing in the morning record and bring to next visit diclofenac sodium 0.01 mg/mg topical gel (9 sources) Nonsteroidal Anti-inflammatory Drug Start: 04-16-2019 End: 04-16-2019 apply 4 g topically once Diclofenac Sodium (Voltaren) 1 % gel Discontinued 4 g TOPICAL ONCE April 16, 2019 12:00am April 16, 2019 9:26am Start: 04-16-2019 End: 04-16-2019 apply 4 g topically once Diclofenac Sodium (Voltaren) 1 % gel Discontinued 4 GM TOPICAL ONCE April 16, 2019 12:00am April 16, 2019 9:26am Fluticasone Propion-Salmeterol (10 sources) Corticosteroid, beta2-Adrenergic Agonist Start: 07-27-2023 End: 11-30-2023 Fluticasone Propion-Salmeterol (Advair Diskus) 250-50 mcg/dose blister with device Discontinued 1 NMA INHALATION Q12H 60 July 27, 2023 10:48am November 30, 2023 10:23am Start: 07-27-2023 Fluticasone Pr opion-Salmeterol (Advair Diskus) 250-50 mcg/dose blister with device Active 1 INH INHALATION Q12H 60 July 27, 2023 10:48am Start: 07-27-2023 Fluticasone Pr opion-Salmeterol (Advair Diskus) 250-50 mcg/dose blister with device Active 1 INH INHALATION Q12H 60 July 27, 2023 9:48am Start: 11-09-2022 End: 07-27-2023 Fluticasone Propion-Salmeter ol (Advair Diskus) 250-50 mcg/dose blister with device Discontinued 1 NMA INHALATION Q12H 60 November 09, 2022 12:00am July 27, 2023 10:48am Start: 11-09-2022 End: 07-27-2023 Fluticasone Propion-Salmeter ol (Advair Diskus) 250-50 mcg/dose blister with device Discontinued 1 INH INHALATION Q12H November 09, 2022 12:00am July 27, 2023 10:48am hydrocortisone 25 mg/ml topical cream (20 sources) Corticosteroid Start: 11-24-2020 End: 01-22-2022 Hydrocortisone 2.5 % cream Discontinued 1 NMA TOPICAL DAILY as needed for rash April 21, 2021 10:10am January 22, 2022 10:29am Apply to bilateral leg as needed. Please contact the information source for Protocol details. hydroxychloroquine sulfate 200 mg oral tablet (20 sources) Antimalarial, Antirheumatic Agent Start: 01-30-2020 End: 04-20-2022 take 1 tablet by mouth twice daily Hydroxychloroquine (Plaquenil) 200 mg tablet Discontinued 200 mg PO TWICE A DAY April 22, 2021 4:30pm March 02, 2022 10:21am Start: 08-06-2019 End: 01-30-2020 take 1 tablet by mouth once daily Hydroxychloroquine (Plaquenil) 200 mg tablet Discontinued 200 mg PO DAILY November 05, 2019 10:01am January 30, 2020 4:14pm meloxicam 15 mg oral tablet (9 sources) Nonsteroidal Anti-inflammatory Drug Start: 12-06-2017 End: 03-02-2022 Meloxicam 15 mg tablet Discontinued 15 mg PO DAILY 60 January 22, 2022 12:00am March 02, 2022 10:21am Take daily for 1 week then just as needed. Comment on above: Take 1 tablet by avelino th once daily. With food. methylPREDNISolone 4 mg oral tablet (18 sources) Corticosteroid Start: 06-04-2019 End: 08-07-2019 take 1 tablet by mouth once Methylprednisolone (Medrol (Bayron)) 4 mg tablets,dose pack Discontinued 0 PO per package directions August 06, 2019 10:27am August 07, 2019 9:25am PO PER PKG DIR 24 hr nicotine 0.875 mg/hr transdermal system (8 sources) Cholinergic Nicotinic Agonist Start: 03-02-2022 End: 12-22-2022 apply 1 dose transdermal route every twenty-four hours Nicotine 21 mg/24 hr patch 24 hour Discontinued 1 NMA TD Q24H March 02, 2022 12:00am December 22, 2022 10:28am Start: 03-02-2022 End: 12-22-2022 apply 1 dose transdermal route every twenty-four hours Nicotine Discontinued 1 PATCH TD Q24H March 02, 2022 12:00am December 22, 2022 10:28am potassium chloride 10 meq extended release oral tablet (20 sources) Start: 01-30-2020 End: 12-22-2022 take 1 tablet by mouth once daily Potassium Chloride 10 mEq tablet extended release Discontinued 10 meq PO DAILY August 04, 2020 2:06pm December 22, 2022 10:28am Start: 01-08-2020 End: 01-30-2020 take 1 tablet by mouth once daily Potassium Chloride 20 mEq tablet extended release Discontinued 20 meq PO DAILY January 08, 2020 12:00am January 30, 2020 10:34pm povidone-iodine 100 mg/ml medicated pad (9 sources) Antiseptic Start: 11-24-2020 End: 01-22-2022 Povidone-Iodine (Betadine Swabsticks) 10 % swab Discontinued 1 NMA TOPICAL DAILY November 24, 2020 12:00am January 22, 2022 10:30am pravastatin sodium 40 mg oral tablet (1 source) HMG-CoA Reductase Inhibitor Start: 09-01-2017 take 1 tablet by mouth once daily at bedtime pravastatin (PRAVACHOL) 40 mg tablet Take 1 tablet by mouth daily at bedtime. 90 tablet 3 09/01/2017 Active Comment on above: Take 1 tablet by avelino th daily at bedtime. rosuvastatin calcium 10 mg oral tablet (20 sources) HMG-CoA Reductase Inhibitor Start: 05-01-2019 End: 2024 take 1 tablet by mouth once daily Rosuvastatin 10 mg tablet Discontinued 10 mg PO DAILY 90 June 01, 2023 4:51pm July 30, 2024 11:21am Wrist Splint (9 sources) Start: 05-01-2019 End: 01-22-2022 Wrist Splint Discontinued April 30, 2019 11:00pm January 22, 2022 9:28am As directed Start: 05-01-2019 End: 01-22-2022 Wrist Splint Discontinued May 01, 2019 12:00am January 22, 2022 10:28am As directed Start: 05-01-2019 Wrist Splint A ctive May 01, 2019 12:00am As directed Problems Active Problems Problem Classification Problem Date Documented Date Episodic/Chronic Allergic reactions (9 sources) Inflammatory dermatosis; Translations: [Dermatitis, unspecified] 11-24-2020 Episodic Chronic obstructive pulmonary disease and bronchiectasis (12 sources) Chronic obstructive lung disease; Translations: [Chronic obstructive pulmonary disease, unspecified] 06-02-2022 Chronic Chronic ulcer of skin (20 sources) Chronic ulcer of foot; Translations: [Non-pressure chronic ulcer of other part of left foot with fat layer exposed] 12-16-2020 Chronic Diabetes mellitus with complications (10 sources) Diabetes mellitus; Translations: [Type 2 diabetes mellitus with other skin complications] Onset: 11-26-2024 11-23-2020 Chronic Diabetes mellitus without complication (20 sources) Type 2 diabetes mellitus; Translations: [Type 2 diabetes mellitus without complications] Onset: 07-30-2024 Chronic Disorders of lipid metabolism (14 sources) Hyperlipidemia; Translations: [Hyperlipidemia, unspecified] Onset: 09-27-2017 09-29-2019 Chronic Essential hypertension (20 sources) Hypertensive disorder; Translations: [Essential (primary) hypertension] Onset: 09-27-2017 Chronic Immunizations and screening for infectious disease (6 sources) Needs influenza immunization; Translations: [Encounter for immunization] 04-11-2023 Episodic Comment on above: Declined Osteoarthritis (5 sources) Degenerative joint disease of shoulder region; Translations: [Primary osteoarthritis, unspecified shoulder] 12-31-2022 Chronic Other aftercare (1 source) 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; Translations: [Drug therapy] Onset: 01-03-2023 Episodic Other connective tissue disease (9 sources) Pain in lower limb; Translations: [Pain in leg, unspecified] 01-27-2022 Episodic Other connective tissue disease (2 sources) Tendinitis of shoulder region; Translations: [Other enthesopathies, not elsewhere classified] 09-17-2022 Episodic Other connective tissue disease (2 sources) Other enthesopathies, not elsewhere classified; Translations: [Disorders of bursae and tendons in shoulder region, unspecified] 09-17-2022 Episodic Other connective tissue disease (5 sources) Tendonitis of left shoulder; Translations: [Other enthesopathies, not elsewhere classified] 09-17-2022 Episodic Other nervous system disorders (6 sources) Carpal tunnel syndrome; Translations: [Carpal tunnel syndrome, right upper limb] 05-01-2019 Chronic Other nervous system disorders (3 sources) Carpal tunnel syndrome of right wrist; Translations: [Carpal tunnel syndrome, right upper limb] 05-01-2019 Chronic Other non-traumatic joint disorders (9 sources) Pain in wrist; Translations: [Pain in right wrist] 04-16-2019 Episodic Other non-traumatic joint disorders (8 sources) Ankle pain; Translations: [Pain in right ankle and joints of right foot] 03-02-2022 Episodic Other non-traumatic joint disorders (3 sources) Pain in right ankle and joints of right foot; Translations: [Pain in joint, ankle and foot] Episodic Other non-traumatic joint disorders (1 source) Shoulder pain; Translations: [Pain in left shoulder] 11-09-2022 Episodic Other non-traumatic joint disorders (5 sources) Disorder of shoulder; Translations: [Other specified joint disorders, left shoulder] 12-22-2022 Episodic Other non-traumatic joint disorders (5 sources) Pain in left shoulder; Translations: [Left shoulder pain] 11-09-2022 Episodic Retinal detachments; defects; vascular occlusion; and retinopathy (1 source) Partial retinal artery occlusion, right eye; Translations: [Partial retinal artery occlusion, right eye] Onset: 11-21-2024 Chronic Rheumatoid arthritis and related disease (20 sources) Rheumatoid arthritis; Translations: [Rheumatoid arthritis, unspecified] Onset: 01-03-2023 Chronic Skin and subcutaneous tissue infections (9 sources) Cellulitis of left ankle; Translations: [Cellulitis of left lower limb] 12-02-2020 Episodic Spondylosis; intervertebral disc disorders; other back problems (5 sources) Degeneration of cervical intervertebral disc; Translations: [Other cervical disc degeneration, unspecified cervical region] 12-22-2022 Chronic Past or Other Problems Problem Classification Problem Date Documented Da te Episodic/Chronic Other screening for suspected conditions (not mental disorders or infectious disease) (1 source) Encounter for screening for malignant neoplasm of prostate; Translations: [Encounter for screening for malignant neoplasm of prostate] Onset: 07-30-2024 Episodic Residual codes; unclassified (1 source) Tobacco user; Translations: [Tobacco use] Onset: 09-27-2017 09-27-2017 Episodic Spondylosis; intervertebral disc disorders; other back problems (3 sources) Lumbar radiculopathy; Translations: [Radiculopathy, lumbar region] Onset: 11-30-2023 11-30-2023 Episodic Unclassified (9 sources) Acute alcoholic pancreatitis 04-05-2022 Results Test Name Value Interpretation Reference Range Facility Internal Medicine Office Vis pavithra 11-26-2024 Internal Medicine Office Visit [facility] [address] [place] [address] OFFICE VISIT Date of Service: 11/26/24 MR#: [id number] Acct: [id number] Name: LLUVIASHEA Pramod Rep #: [id number] : 1950 Provider: Dr. Zully martínez MD Age/Sex: 74/M [place] [facility] Status: Signed Intake Vital Signs 07/30/24 10:02 11/26/24 10:22 Height 5 ft 8 in 5 ft 8 in Weight: 171 lb BMI 25.9 BP 124/68 H Blood Pressure Location Lt brachial Position Sitting Respiration 18 Pulse 92 Pulse Source Monitor Temp 97.8 F Temp Source Temporal Pulse Oximetry (%) 93 Oxygen Delivery Method room air Intake Visit Reasons: 4 M FU Chief Complaint: 4 M FU Is patient in pain?: No Allergies No Known Allergies Allergy (Verified 11/26/24 10:22) Medications ???Medication ???Instructions ???Recorded ???Confirmed ???Type blood pressure monitor #1 ea 04/16/19 11/26/24 Rx blood-glucose meter (FreeStyle #1 ea 01/08/20 11/26/24 Rx Lite Meter kit) lancets 28 gauge (FreeStyle #200 ea 01/08/20 11/26/24 Rx Lancets) blood sugar diagnostic (FreeStyle #100 ea 04/22/21 11/26/24 Rx Lite Strips) albuterol sulfate 90 mcg/actuation 2 puff inhalation Q6H PRN 11/26/24 Rx aerosol inhaler shortness of breath or wheezing #8.5 grams rosuvastatin 10 mg tablet 10 mg PO DAILY CHOLESTEROL #90 tab s 10/09/24 11/26/24 Rx metformin 500 mg tablet 500 mg PO BID #180 tabs 10/12/24 0 11/26/24 Rx amlodipine 10 mg tablet 10 mg PO DAILY heart #90 tabs 11/1511/26/24 Rx fluticasone propionate 115 2 puff inhalation Q12H #12 grams 0 11/26/24 11/26/24 Rx mcg-salmeterol 21 mcg/actuation HFA inhaler (Advair HFA) losartan 100 mg tablet 100 mg PO DAILY BP #90 tabs 11/26/24 Rx methotrexate sodium 2.5 mg tablet 15 mg (6 x 2.5 mg) PO QWEEK #90 0 11/26/24 11/26/24 Rx tabs Have you fallen in the past year?: No PFSH Medical History Lumbar radiculopathy Flu vaccine need Osteoarthritis, shoulder Left shoulder pain Tendinitis of left shoulder COPD (chronic obstructive pulmonary disease) Right ankle pain Dermatitis of foot Diabetes Rheumatoid arthritis Smoker Hypertension Acute alcoholic pancreatitis Hyperlipemia Left inguinal hernia Arthritis Surgical History History of intraocular lens implant History of splenectomy Family History Father Diabetes Social History Smoking Status: Current every day smoker tobacco type: cigarettes Tobacco: How many years used: 52 Electronic Cigarette Use: not used second hand exposure: Yes (dad smoked) quit status: has quit before alcohol intake: current alcohol intake frequency: 3 or more drinks per day Alcohol type: beer substance use type: does not use what type of physical activity do you participate in: none do you feel safe at home: Yes HPI HPI Chief Complaint: 4 M FU Details: SHEA TEIXEIRA, is a 74 M who presents to the office today for follow-up of his chronic medical conditions. No acute concerns at this time. History of hypertension, blood pressure today is at 124/68 mmHg. He states that he is taking prescribed medications as recommended. No syncopal or near syncopal episodes. Also history of diabetes on metformin and A1c today is at 6.1 up slightly from 6. No concerns for hypoglycemia. History of rheumatoid arthritis currently only on methotrexate. Had been on Plaquenil however this was discontinued. 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 ROS Const Constitutional: No body ache, chills, excessive sweating, fatigue, fever(s), frequent falls, headache(s), snoring, weight change, sleep problems, abnormal sleep pattern or change in appetite Eyes Eyes: No blurry vision, change in vision, bulging eyes, floaters, visual disturbances, eye pain or Light sensitivity ENT ENT: No abnormal hearing, ear or mastoid pain, tinnitus, balance problems, nosebleed/epistaxis, nasal congestion, headache(s), neck pain or sore throat Resp Respiratory: No cough, excessive phlegm production, pain on inspiration, shortness of breath, snoring or wheezing Cardio Cardiology: No chest pain at rest, chest pain with exertion, excessive sweating, shortness of breath, dyspnea on exertion, lightheadedness, orthopnea or palpitations Gastro GI: No abdominal pain, change in bowel habits, constipation, cramping, diarrhea, nausea/dyspepsia or vomiting Genitourinary Male: No burning urination, painful urination, urinary incontinence or urinary frequency Musc Musculoskeletal: No abnormal gait, joint pain, back pain, limited range of motion, (more content not included)... Normal [facility] Carotid Duplex Ultrasoundon 11-14-2024 Carotid Duplex Ultrasound [facility] [address] [place] [address] Carotid Duplex Ultrasound 11/14/24 1012 MR#: [id number] Acct: [id number] Name: SHEA TEIXEIRA Rep #: [id number] : 1950 74 From: Bienvenido Alvarez MD Attending Dr: Dr. Kevin Long MD Status: REG CLI Ordering Dr: Kevin Long MD Date: 11/14/24 Location: [facility] Sex: M C Admitted: Reason For Study Reason For Study: Partial Retinal Artery Occlusion Rt. Velocities/BP Lt. Velocities/BP Prox CCA 76.9/11.8 cm/sec. Prox CCA 85.5/13.0 cm/sec. Mid CCA 75.6/11.8 cm/sec. Mid CCA 69.4/14.5 cm/sec. Dist CCA 75.6/16.7 cm/sec. Dist CCA 68.6/11.9 cm/sec. Prox ICA 108.8/13.0 cm/sec. Prox ICA 53.7/11.0 cm/sec. Mid ICA 95.3/16.7 cm/sec. Mid ICA 56.0/15.5 cm/sec. Dist ICA 102.7/17.9 cm/sec. Dist ICA 86.7/20.4 cm/sec. Rt. ICA/CCA = 1.4. Lt. ICA/CCA = 1.2. Prox ECA 56.0/7.3 cm/sec. Prox ECA 202.4/31.0 cm/sec. Rt. Vert. 38.8/8.1 cm/sec. Lt. Vert. 42.5/9.3 cm/sec. Right Extracranial There is homogeneous, smooth atherosclerotic plaque noted in the right common carotid artery. There is heterogeneous, irregular atherosclerotic plaque noted in the right internal carotid artery. There is heterogeneous, irregular atherosclerotic plaque noted in the right external carotid artery. Antegrade flow is noted in the right vertebral artery. Left Extracranial There is heterogeneous, irregular atherosclerotic plaque noted in the left common carotid artery. There is heterogeneous, irregular atherosclerotic plaque noted in the left internal carotid artery. There is heterogeneous, irregular atherosclerotic plaque noted in the left external carotid artery. Antegrade flow is noted in the left vertebral artery. Procedure Carotid Duplex 18820. This is a Carotid Duplex examination using B-mode, color flow and specral Doppler. The exam was diagnostic. Exam performed in department. VL/Carotid Duplex Ultrasound Interpretation Summary Mild (<50%) stenosis right extracranial internal carotid. Mild (<50%) stenosis left extracranial internal carotid. Patent and antegrade vertebrals bilaterally. Ordering Physician: Kevin Long Referring Physician: Zully Montoya Performed By: Alex Stewart, Mitchell 11/14/24 1429 Date Bienvenido Alvarez MD CC: Dr. Kevin Long MD; Dr. Zully Montoya MD Date Dictated: 11/14/24 1012 Date Transcribed: 11/14/241428 [employer]: Signed Normal [facility] Duplex ultrasound of carotid artery reportOrdered By: Bienvenido Alvarez on 11-14-2024 Study report [facility] [address] [place] [address] Carotid Duplex Ultrasound 11/14/24 1012 MR#: [id number] Acct: [id number] Name: SHEA TEIXEIRA Rep #:[id number] : 1950 74 From: Bienvenido Sweeney Attending Dr: Dr. Kevin Long MD Status: REG CLI Ordering Dr: Kevin Long MD Date: Location: [facility] Sex: M C Admitted: Reason For Study Reason For Study: Partial Retinal Artery Occlusion Rt. Velocities/BP Lt. Velocities/BP Prox CCA 76.9/11.8 cm/sec. Prox CCA 85.5/13.0 cm/sec. Mid CCA 75.6/11.8 cm/sec. Mid CCA 69.4/14.5 cm/sec. Dist CCA 75.6/16.7 cm/sec. Dist CCA 68.6/11.9 cm/sec. Prox ICA 108.8/13.0 cm/sec. Prox ICA 53.7/11.0 cm/sec. Mid ICA 95.3/16.7 cm/sec. Mid ICA 56.0/15.5 cm/sec. Dist ICA 102.7/17.9 cm/sec. Dist ICA 86.7/20.4 cm/sec. Rt. ICA/CCA = 1.4. Lt. ICA/CCA = 1.2. Prox ECA 56.0/7.3 cm/sec. Prox ECA 202.4/31.0 cm/sec. Rt. Vert. 38.8/8.1 cm/sec. Lt. Vert. 42.5/9.3 cm/sec. Right Extracranial There is homogeneous, smooth atherosclerotic plaque noted in the right common carotid artery. There is heterogeneous, irregular atherosclerotic plaque noted in the right internal carotid artery. There is heterogeneous, irregular atherosclerotic plaque noted in the right external carotid artery. Antegrade flow is noted in the right vertebral artery. Left Extracranial There is heterogeneous, irregular atherosclerotic plaque noted in the left common carotid artery. There is heterogeneous, irregular atherosclerotic plaque noted in the left internal carotid artery. There is heterogeneous, irregular atherosclerotic plaque noted in the left external carotid artery. Antegrade flow is noted in the left vertebral artery. Procedure Carotid Duplex 03966. This is a Carotid Duplex examination using B-mode, color flow and specral Doppler. The exam was diagnostic. Exam performed in department. VL/Carotid Duplex Ultrasound Interpretation Summary Mild (<50%) stenosis right extracranial internal carotid. Mild (<50%) stenosis left extracranial internal carotid. Patent and antegrade vertebrals bilaterally. Ordering Physician: Kevin Long Referring Physician: Zully Montoya Performed By: Alex Stewart Mitchell 11/14/24 1429 Date _ Bienvenido Alvarez MD CC: Dr. Kevin Long MD; Dr. Zully Montoya MD ~ Date Dictated: 11/14/24 1012 Date Transcribed: 11/14/241428 [employer]: Signed [facility] Work Phone: Absolute lymphocyte countOrd ered By: Heidy Ma on 09-19-2024 Lymphocytes Auto (Unsp spec) [#/Vol] 1.89 10*3/uL 0.83-4.51 [facility] Absolute neutrophil countOrd ered By: Heidy Ma on 09-19-2024 Neutrophils (Bld) [#/Vol] 4.6 10*3/uL 2.0-7.7 [facility] Anion gap in Serum or Plasma Ordered By: Heidy Ma on 09-19-2024 Anion gap [Moles/Vol] 16 mmol/L High 5-15 [facility] Automated lymphocyte count a s percentage of total leukocytesOrdered By: Heidy Ma on 09-19-2024 Lymphocytes/100 WBC Auto (Unsp spec) 22.1 % 19-41 [facility] BUN/creatinine ratioOrdered By: Heidy Ma on 09-19-2024 Urea nitrogen/Creatinine [Mass ratio] 14.4 mg/mg 10-20 [facility] Basophil percentageOrdered B y: Heidy Ma on 09-19-2024 Basophils/100 WBC (Bld) 1.8 % High 0-1 [facility] Bilirubin, totalOrdered By: Heidy Ma on 09-19-2024 Bilirubin [Mass/Vol] 0.49 mg/dL 0.00-1.30 [facility] CBC W/Diff, Automatedon 03-0 5-2024 Absolute Lymph 1.89 X10 3/uL Normal 0.83-4.51 [facility] Comment on above: Performed By: #### L 100.0100, L500.4050 #### [facility] [address] [place], [address] Absolute Neut 4.6 X10 3/uL Normal 2.0-7.7 [facility] Comment on above: Performed By: #### L 100.0100, L500.4050 #### [facility] [address] [place], [address] Basophils/100 WBC (Bld) 1.8 % High 0-1 [facility] Comment on above: Performed By: #### L 100.0100, L500.4050 #### [facility] [address] [place], [address] Eosinophils/100 WBC (Bld) 10.8 % High 0-5 [facility] Comment on above: Performed By: #### L 100.0100, L500.4050 #### [facility] [address] [place], [address] Erythrocyte distribution width (RBC) [Ratio] 14.1 % Normal 11.6-14.6 [facility] Comment on above: Performed By: #### L 100.0100, L500.4050 #### [facility] [address] [place], [address] Hematocrit (Bld) [Volume fraction] 46.7 % Normal 40-54 [facility] Comment on above: Performed By: #### L 100.0100, L500.4050 #### [facility] [address] [place], [address] Hemoglobin (Bld) [Mass/Vol] 16.4 g/dL Normal 13.0-16.5 [facility] Comment on above: Performed By: #### L 100.0100, L500.4050 #### [facility] [address] [place], [address] IG% 0.600 Normal 0.0-0.9 [facility] Comment on above: Result Comment: IG% - Immature Granulocytes (promyelocytes, myelocytes and metamyelocytes) > 1% indicates that a LEFT SHIFT is Present. Performed By: #### L 100.0100, L500.4050 #### [facility] [address] [place], [address] Lymphocytes/100 WBC (Bld) 22.1 % Normal 19-41 [facility] Comment on above: Performed By: #### L 100.0100, L500.4050 #### [facility] [address] [place], [address] MCH (RBC) [Entitic mass] 34.2 pg High 27.0-32.0 [facility] Comment on above: Performed By: #### L 100.0100, L500.4050 #### [facility] [address] [place], [address] MCHC (RBC) [Mass/Vol] 35.1 g/dL Normal 32-36 [facility] Comment on above: Performed By: #### L 100.0100, L500.4050 #### [facility] [address] [place], [address] MCV (RBC) [Entitic vol] 97.5 fL High 80-94 [facility] Comment on above: Performed By: #### L 100.0100, L500.4050 #### [facility] [address] [place], [address] Monocytes/100 WBC (Bld) 10.8 % High 0-10 [facility] Comment on above: Performed By: #### L 100.0100, L500.4050 #### [facility] [address] [place], [address] Neutrophils/100 WBC (Bld) 53.9 % Normal 47-70 [facility] Comment on above: Performed By: #### L 100.0100, L500.4050 #### [facility] [address] [place], [address] Nucleated RBC (Bld) [#/Vol] 0.2 10*3/uL Normal 0-5 [facility] Comment on above: Performed By: #### L 100.0100, L500.4050 #### [facility] [address] [place], [address] Platelet mean volume (Bld) [Entitic vol] 11.2 fL Normal 6.2-12.0 [facility] Comment on above: Performed By: #### L 100.0100, L500.4050 #### [facility] [address] [place], [address] Platelets (Bld) [#/Vol] 329 10*3/uL Normal 150-450 [facility] Comment on above: Performed By: #### L 100.0100, L500.4050 #### [facility] [address] [place], [address] RBC (Bld) [#/Vol] 4.79 10*6/uL Normal 4.6-6.2 [facility] Comment on above: Performed By: #### L 100.0100, L500.4050 #### [facility] [address] [place], [address] RDW SD 50.3 fl High 35.1-43.9 [facility] Comment on above: Performed By: #### L 100.0100, L500.4050 #### [facility] [address] [place], [address] WBC (Bld) [#/Vol] 8.6 10*3/uL Normal 4.4-11.0 [facility] Comment on above: Performed By: #### L 100.0100, L500.4050 #### [facility] [address] [place], [address] Carbon dioxide, total [Moles /volume] in Central venous bloodOrdered By: Heidy Ma on 09-19-2024 CO2 [Moles/Vol] 19.8 mmol/L Low 21.0-32.0 [facility] Chloride assayOrdered By: Je Ma on 09-19-2024 Chloride [Moles/Vol] 99 mmol/L 98-108 [facility] Comprehensive Metabolic Prof ilon 09-19-2024 Albumin [Mass/Vol] 4.3 g/dL Normal 3.4-4.8 [facility] Comment on above: Performed By: #### L 100.0100, L500.4050 #### [facility] [address] [place], [address] Albumin/Globulin [Mass ratio] 1.3 {ratio} Normal 0.9-2.4 [facility] Comment on above: Performed By: #### L 100.0100, L500.4050 #### [facility] [address] [place], [address] ALK PHOS 71 U/L Normal 40-129 [facility] Comment on above: Performed By: #### L 100.0100, L500.4050 #### [facility] [address] [place], [address] ALT [Catalytic activity/Vol] 27 U/L Normal <=46 [facility] Comment on above: Performed By: #### L 100.0100, L500.4050 #### [facility] [address] [place], [address] AST [Catalytic activity/Vol] 24 U/L Normal <=37 [facility] Comment on above: Performed By: #### L 100.0100, L500.4050 #### [facility] [address] [place], [address] Bilirubin [Mass/Vol] 0.49 mg/dL Normal 0.00-1.30 [facility] Comment on above: Performed By: #### L 100.0100, L500.4050 #### [facility] [address] [place], [address] BUN/CRE 14.4 RATIO Normal 10-20 [facility] Comment on above: Performed By: #### L 100.0100, L500.4050 #### [facility] [address] [place], [address] Calcium [Mass/Vol] 9.6 mg/dL Normal 7.6-11.0 [facility] Comment on above: Performed By: #### L 100.0100, L500.4050 #### [facility] [address] [place], [address] Chloride [Moles/Vol] 99 mmol/L Normal 98-108 [facility] Comment on above: Performed By: #### L 100.0100, L500.4050 #### [facility] [address] [place], [address] CO2 [Moles/Vol] 19.8 mmol/L Low 21.0-32.0 [facility] Comment on above: Performed By: #### L 100.0100, L500.4050 #### [facility] [address] [place], [address] Creatinine [Mass/Vol] 1.03 mg/dL Normal 0.70-1.20 [facility] Comment on above: Performed By: #### L 100.0100, L500.4050 #### [facility] [address] [place], [address] GAP 16 High 5-15 [facility] Comment on above: Performed By: #### L 100.0100, L500.4050 #### [facility] [address] [place], [address] GFR/1.73 sq M.predicted among non-blacks MDRD (S/P/Bld) [Vol rate/Area] 76 mL/min/{1.73_m2} Normal >60 [facility] Comment on above: Result Comment: mL/m in/1.73m2 CKD-EPI Creatinine Equation (2020) Performed By: #### L 100.0100, L500.4050 #### [facility] [address] [place], [address] Globulin (S) [Mass/Vol] 3.2 g/dL Normal 2.2-4.2 [facility] Comment on above: Performed By: #### L 100.0100, L500.4050 #### [facility] [address] [place], [address] Glucose [Mass/Vol] 137 mg/dL High 70-99 [facility] Comment on above: Performed By: #### L 100.0100, L500.4050 #### [facility] [address] [place], [address] Potassium [Moles/Vol] 4.3 mmol/L Normal 3.3-5.1 [facility] Comment on above: Performed By: #### L 100.0100, L500.4050 #### [facility] [address] [place], [address] Sodium [Moles/Vol] 135 mmol/L Normal 133-145 [facility] Comment on above: Performed By: #### L 100.0100, L500.4050 #### [facility] [address] [place], [address] T PROT 7.5 g/dL Normal 5.9-8.4 [facility] Comment on above: Performed By: #### L 100.0100, L500.4050 #### [facility] [address] [place], [place], [address] Urea nitrogen [Mass/Vol] 15 mg/dL Normal 4-19 [facility] Comment on above: Performed By: #### L 100.0100, L500.4050 #### [facility] [address] [place], [address] Eosinophil percentageOrdered By: Heidy Ma on 09-19-2024 Eosinophils/100 WBC (Bld) 10.8 % High 0-5 [facility] Erythrocyte distribution wid th ratioOrdered By: Heidy Ma on 09-19-2024 Erythrocyte distribution width (RBC) [Ratio] 14.1 % 11.6-14.6 [facility] Erythrocyte distribution wid th standard deviationOrdered By: Heidy Ma on 09-19-2024 Erythrocyte distribution width (RBC) [Entitic vol] 50.3 fL High 35.1-43.9 [facility] Erythrocyte distribution width (RBC) [Ratio] 50.3 fl High 35.1-43.9 [facility] GFR/1.73 sq M.predicted shaheed g non-blacks MDRD (S/P/Bld) [Vol rate/Area]Ordered By: Heidy Ma on 09-19-2024 Estimated GFR (MDRD) Non-Af Amer 76 >60 [facility] Comment on above: mL/min/1.73m2 CKD-EP I Creatinine Equation (2020) Glomerular filtration rate ( GFR) estimation/1.73 sq m using serum, plasma, or whole bOrdered By: Heidy Ma on 09-19-2024 GFR/1.73 sq M.predicted among non-blacks MDRD (S/P/Bld) [Vol rate/Area] 76 mL/min/{1.73_m2} >60 [facility] Comment on above: mL/min/1.73m2 CKD-EP I Creatinine Equation (2020) Hematocrit Auto (Bld) [Volum e fraction]Ordered By: Heidy Ma on 09-19-2024 Hematocrit (Bld) [Volume fraction] 46.7 % 40-54 [facility] Hemoglobin measurementOrdere d By: Heidy Ma on 09-19-2024 Hemoglobin (Bld) [Mass/Vol] 16.4 g/dL 13.0-16.5 [facility] Immature granulocytes/100 WB C Auto (Bld)Ordered By: Heidy Ma on 09-19-2024 Immature granulocytes/100 WBC (Bld) 0.600 % 0.0-0.9 [facility] Comment on above: IG% - Immature Granu locytes (promyelocytes, myelocytes and metamyelocytes) > 1% indicates that a LEFT SHIFT is Present. Laboratory - Chemistry and C hemistry - challengeOrdered By: Heidy Ma on 09-19-2024 AST [Catalytic activity/Vol] 24 U/L <38 [facility] Lymphocytes Auto (Unsp spec) [#/Vol]Ordered By: Heidy Ma on 09-19-2024 Lymphocytes (Bld) [#/Vol] 1.89 10*3/uL 0.83-4.51 [facility] Lymphocytes/100 WBC Auto (Un sp spec)Ordered By: Heidy Ma on 09-19-2024 Lymphocytes/100 WBC (Bld) 22.1 % 19-41 [facility] MCV (mean corpuscular volume ) determinationOrdered By: Heidy Ma on 09-19-2024 MCV (RBC) [Entitic vol] 97.5 fL High 80-94 [facility] Mean corpuscular hemoglobin (MCH) determinationOrdered By: Heidy Ma on 09-19-2024 MCH (RBC) [Entitic mass] 34.2 pg High 27.0-32.0 [facility] Mean corpuscular hemoglobin concentration (MCHC) determinationOrdered By: Heidy Ma on 09-19-2024 MCHC (RBC) [Mass/Vol] 35.1 g/dL 32-36 [facility] Mean platelet volume determi nationOrdered By: Heidy Ma on 09-19-2024 Platelet mean volume (Bld) [Entitic vol] 11.2 fL 6.2-12.0 [facility] Monocyte percentageOrdered B y: Heidy Ma on 09-19-2024 Monocytes/100 WBC (Bld) 10.8 % High 0-10 [facility] Neutrophil percentageOrdered By: Heidy Ma on 09-19-2024 Neutrophils/100 WBC (Bld) 53.9 % 47-70 [facility] Nucleated red blood cell per centageOrdered By: Heidy Ma on 09-19-2024 Nucleated RBC/100 WBC (Bld) [Ratio] 0.2 % 0-5 [facility] Platelet countOrdered By: Je Ma on 09-19-2024 Platelets (Bld) [#/Vol] 329 10*3/uL 150-450 [facility] Potassium (Unsp spec) [Mass/ Vol]Ordered By: Heidy Ma on 09-19-2024 Potassium [Moles/Vol] 4.3 mmol/L 3.3-5.1 [facility] Potassium measurement (mass/ volume)Ordered By: Heidy Ma on 09-19-2024 Potassium (Unsp spec) [Mass/Vol] 4.3 mmol/L 3.3-5.1 [facility] RBC Auto (Bld) [#/Vol]Ordere d By: Heidy Ma on 09-19-2024 RBC (Bld) [#/Vol] 4.79 10*6/uL 4.6-6.2 [facility] Serum creatinine measurement (mass/volume)Ordered By: Heidy Ma on 09-19-2024 Creatinine [Mass/Vol] 1.03 mg/dL 0.70-1.20 [facility] Serum globulin measurementOr dered By: Heidy Ma on 09-19-2024 Globulin (S) [Mass/Vol] 3.2 g/dL 2.2-4.2 [facility] Serum glucose measurement (m ass/volume)Ordered By: Heidy Ma on 09-19-2024 Glucose [Mass/Vol] 137 mg/dL High 70-99 [facility] Serum or plasma alanine mak otransferase (ALT) measurementOrdered By: Heidy Ma on 09-19-2024 ALT [Catalytic activity/Vol] 27 U/L <47 [facility] Serum or plasma albumin yassine urement (mass/volume)Ordered By: Heidy Ma on 09-19-2024 Albumin [Mass/Vol] 4.3 g/dL 3.4-4.8 [facility] Serum or plasma albumin/glob ulin mass ratioOrdered By: Heidy Ma on 09-19-2024 Albumin/Globulin [Mass ratio] 1.3 {ratio} 0.9-2.4 [facility] Serum or plasma alkaline surinder sphatase measurementOrdered By: Heidy Ma on 09-19-2024 ALP [Catalytic activity/Vol] 71 U/L 40-129 [facility] Serum or plasma calcium yassine urement (mass/volume)Ordered By: Heidy Ma on 09-19-2024 Calcium [Mass/Vol] 9.6 mg/dL 7.6-11.0 [facility] Serum or plasma urea nitroge n measurement (mass/volume)Ordered By: Heidy Ma on 09-19-2024 Urea nitrogen [Mass/Vol] 15 mg/dL 4-19 [facility] Sodium levelOrdered By: Rima Ma on 09-19-2024 Sodium [Moles/Vol] 135 mmol/L 133-145 [facility] Total proteinOrdered By: Katrina Ma on 09-19-2024 Protein [Mass/Vol] 7.5 g/dL 5.9-8.4 [facility] White blood cell (WBC) count Ordered By: Heidy Ma on 09-19-2024 WBC (Bld) [#/Vol] 8.6 10*3/uL 4.4-11.0 [facility] Internal Medicine Office Vis pavithra 07-30-2024 Internal Medicine Office Visit [facility] [address] [place], [place] [address] OFFICE VISIT Date of Service: 07/30/24 MR#: [id number] Acct: [id number] Name: JESUSSHEA MENCHACA Pramod Rep #: [id number] : 1950 Provider: Dr. 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: No Accompanied by: Self Is patient in pain?: No Allergies No Known Allergies Allergy (Verified 07/30/24 10:01) Medications ???Medication ???Instructions ???Recorded ???Confirmed ???Type blood pressure monitor #1 ea 04/16/19 07/30/24 Rx blood-glucose meter (FreeStyle #1 ea 01/08/20 07/30/24 Rx Lite Meter kit) lancets 28 gauge (FreeStyle #200 ea 01/08/20 07/30/24 Rx Lancets) blood sugar diagnostic (FreeStyle #100 ea 04/22/21 07/30/24 Rx Lite Strips) prednisone 10 mg tablet 10 mg PO DAILY PRN Joint Pain #90 03/02/22 07/30/24 Rx tabs hydroxychloroquine 200 mg tablet 200 mg PO BID #180 tabs 04/20/22 07/30/24 Rx (Plaquenil) albuterol sulfate 90 mcg/actuation 2 puff inhalation Q6H PRN 06/02/22 07/30/24 Rx aerosol inhaler shortness of breath or wheezing #8.5 grams methotrexate sodium 2.5 mg tablet mg PO 04/11/23 07/30/24 History amlodipine 10 mg tablet 10 mg PO DAILY heart #90 tabs 06/01/23 07/30/24 Rx losartan 100 mg tablet 100 mg PO DAILY BP #90 tabs 10/19/23 07/30/24 Rx metformin 500 mg tablet 500 mg PO BID #180 tabs 03/03/24 07/30/24 Rx budesonide-formotero l HFA 160 2 puff inhalation Q12H #10.2 grams 05/03/24 07/30/24 Rx mcg-4.5 mcg/actuation aerosol inhaler (Symbicort) rosuvastatin 10 mg tablet 10 mg PO DAILY CHOLESTEROL #90 tabs 07/30/24 07/30/24 Rx Have you fallen in the past year?: No PFSH Medical History Lumbar radiculopathy Flu vaccine need Osteoarthritis, shoulder Left shoulder pain Tendinitis of left shoulder COPD (chronic obstructive pulmonary disease) Right ankle pain Dermatitis of foot Diabetes Rheumatoid arthritis Smoker Hypertension Acute alcoholic pancreatitis Hyperlipemia Left inguinal hernia Arthritis Surgical History History of intraocular lens implant History of splenectomy Family History Father Diabetes Social History Smoking Status: Current every day smoker tobacco type: cigarettes Tobacco: How many years used: 52 Electronic Cigarette Use: not used second hand exposure: Yes (dad smoked) quit status: has quit before alcohol intake: current alcohol intake frequency: 3 or more drinks per day Alcohol type: beer substance use type: does not use what type of physical activity do you participate in: none do you feel safe at home: Yes HPI HPI Chief Complaint: 4m f/u Details: SHEA TEIXEIRA, is a 73 M who presents to the office today for follow-up of his chronic medical conditions. No acute concerns at this time. A1c today is at 6 down from 6.1. Currently on metformin which is taking as prescribed. No concerns for hypoglycemia. Also history of hypertension, blood pressure today is at 130/64 mmHg. No chest pain, palpitation or shortness of breath. Other chronic conditions are stable. ROS Const Constitutional: No body ache, excessive sweating, fatigue, fever(s), frequent falls, headache(s), snoring, weakness, weight change, sleep problems or change in appetite Eyes Eyes: No blurry vision, change in vision, bulging eyes, floaters, visual disturbances, eye pain or Light sensitivity ENT ENT: No abnormal hearing, ear or mastoid pain, tinnitus, balance problems, nosebleed/epistaxis, nasal congestion, headache(s), neck pain or sore throat Resp Respiratory: No cough, excessive phlegm production, pain on inspiration, shortness of breath, snoring or wheezing Cardio Cardiology: No chest pain at rest, chest pain with exertion, excessive sweating, shortness of breath, dyspnea on exertion, lightheadedness, orthopnea or palpitations Gastro GI: No abdominal pain, change in bowel habits, constipation, cramping, diarrhea, nausea/dyspepsia or vomiting Genitourinary Male: No burning urination, painful urination, urinary incontinence, urinary frequency or blood in urine Musc Musculoskeletal: No abnormal gait, joint pain, back pain, limited range of motion, loss (more content not included)... Normal [facility] - Hematology and Cell countson 07-30-2024 HbA1c (Bld) [Mass fraction] 6.0 % 4.2-6.3 [facility] Absolute neutrophil countOrd ered By: Heidy Ma on 06-26-2024 Neutrophils (Bld) [#/Vol] 6.6 10*3/uL 2.0-7.7 [facility] Albumin to globulin ratioOrd ered By: Heidy Ma on 06-26-2024 Albumin/Globulin [Mass ratio] 1.1 {ratio} 0.9-2.4 [facility] Basophil percentageOrdered B y: Heidy Ma on 06-26-2024 Basophils/100 WBC (Bld) 1.7 % High 0-1 [facility] Bilirubin, totalOrdered By: Heidy Ma on 06-26-2024 Bilirubin [Mass/Vol] 0.70 mg/dL 0.20-1.00 [facility] Comment on above: For patients on eltr ombopag therapy, use of Dimension [place] TBIL is not recommended. Blood urea nitrogen (BUN)/cr eatinine ratioOrdered By: Heidy Ma on 06-26-2024 Urea nitrogen/Creatinine [Mass ratio] 9.0 mg/mg Low 10-20 [facility] CBC W/Diff, Automatedon 06-17 Absolute Lymph 1.51 X10 3/uL Normal 0.83-4.51 [facility] Comment on above: Performed By: #### L 100.0100, L500.4050 #### [facility] [place], [address] Absolute Neut 6.6 X10 3/uL Normal 2.0-7.7 [facility] Comment on above: Performed By: #### L 100.0100, L500.4050 #### [facility] [address] [place], [address] Basophils/100 WBC (Bld) 1.7 % High 0-1 [facility] Comment on above: Performed By: #### L 100.0100, L500.4050 #### [facility] [address] [place], [address] Eosinophils/100 WBC (Bld) 7.0 % High 0-5 [facility] Comment on above: Performed By: #### L 100.0100, L500.4050 #### [facility] [address] [place], [address] Erythrocyte distribution width (RBC) [Ratio] 14.0 % Normal 11.6-14.6 [facility] Comment on above: Performed By: #### L 100.0100, L500.4050 #### [facility] [address] [place], [address] Hematocrit (Bld) [Volume fraction] 44.2 % Normal 40-54 [facility] Comment on above: Performed By: #### L 100.0100, L500.4050 #### [facility] [address] [place], [address] Hemoglobin (Bld) [Mass/Vol] 15.3 g/dL Normal 13.0-16.5 [facility] Comment on above: Performed By: #### L 100.0100, L500.4050 #### [facility] [address] [place], [address] IG% 0.400 Normal 0.0-0.9 [facility] Comment on above: Result Comment: IG% - Immature Granulocytes (promyelocytes, myelocytes and metamyelocytes) > 1% indicates that a LEFT SHIFT is Present. Performed By: #### L 100.0100, L500.4050 #### [facility] [address] [place], [address] Lymphocytes/100 WBC (Bld) 14.5 % Low 19-41 [facility] Comment on above: Performed By: #### L 100.0100, L500.4050 #### [facility] [address] [place], [address] MCH (RBC) [Entitic mass] 33.3 pg High 27.0-32.0 [facility] Comment on above: Performed By: #### L 100.0100, L500.4050 #### [facility] [address] [place], [address] MCHC (RBC) [Mass/Vol] 34.6 g/dL Normal 32-36 [facility] Comment on above: Performed By: #### L 100.0100, L500.4050 #### [facility] [address] [place], [address] MCV (RBC) [Entitic vol] 96.1 fL High 80-94 [facility] Comment on above: Performed By: #### L 100.0100, L500.4050 #### [facility] [address] [place], [address] Monocytes/100 WBC (Bld) 12.9 % High 0-10 [facility] Comment on above: Performed By: #### L 100.0100, L500.4050 #### [facility] [address] [place], [address] Neutrophils/100 WBC (Bld) 63.5 % Normal 47-70 [facility] Comment on above: Performed By: #### L 100.0100, L500.4050 #### [facility] [address] [place], [address] Nucleated RBC (Bld) [#/Vol] 0 10*3/uL Normal 0-5 [facility] Comment on above: Performed By: #### L 100.0100, L500.4050 #### [facility] [address] [place], [address] Platelet mean volume (Bld) [Entitic vol] 10.1 fL Normal 6.2-12.0 [facility] Comment on above: Performed By: #### L 100.0100, L500.4050 #### [facility] [address] [place], [address] Platelets (Bld) [#/Vol] 359 10*3/uL Normal 150-450 [facility] Comment on above: Performed By: #### L 100.0100, L500.4050 #### [facility] [address] [place], [address] RBC (Bld) [#/Vol] 4.60 10*6/uL Normal 4.6-6.2 [facility] Comment on above: Performed By: #### L 100.0100, L500.4050 #### [facility] [address] [place], [address] RDW SD 48.8 fl High 35.1-43.9 [facility] Comment on above: Performed By: #### L 100.0100, L500.4050 #### [facility] [address] [place], [address] WBC (Bld) [#/Vol] 10.4 10*3/uL Normal 4.4-11.0 [facility] Comment on above: Performed By: #### L 100.0100, L500.4050 #### [facility] [address] [place], [address] Carbon dioxide measurementOr dered By: Heidy Ma on 06-26-2024 CO2 [Moles/Vol] 22.0 mmol/L 21.0-32.0 [facility] Chloride measurementOrdered By: Heidy Ma on 06-26-2024 Chloride [Moles/Vol] 103 mmol/L 98-107 [facility] Comprehensive Metabolic Prof ilon 06-26-2024 Albumin [Mass/Vol] 3.7 g/dL Normal 3.2-5.0 [facility] Comment on above: Performed By: #### L 100.0100, L500.4050 #### [facility] [address] [place], [address] Albumin/Globulin [Mass ratio] 1.1 {ratio} Normal 0.9-2.4 [facility] Comment on above: Performed By: #### L 100.0100, L500.4050 #### [facility] [address] [place], [address] ALK P 69 U/L Normal 45-117 [facility] Comment on above: Performed By: #### L 100.0100, L500.4050 #### [facility] [address] [place], [address] ALT [Catalytic activity/Vol] 25 U/L Normal 16-61 [facility] Comment on above: Performed By: #### L 100.0100, L500.4050 #### [facility] [address] [place], [address] AST [Catalytic activity/Vol] 13 U/L Low 15-37 [facility] Comment on above: Performed By: #### L 100.0100, L500.4050 #### [facility] [address] [place], [address] Bilirubin [Mass/Vol] 0.70 mg/dL Normal 0.20-1.00 [facility] Comment on above: Result Comment: For patients on eltrombopag therapy, use of Dimension [place] TBIL is not recommended. Performed By: #### L 100.0100, L500.4050 #### [facility] [address] [place], [address] BUN/CRE 9.0 RATIO Low 10-20 [facility] Comment on above: Performed By: #### L 100.0100, L500.4050 #### [facility] [address] [place], [address] CA,Total 9.1 mg/dL Normal 8.5-10.1 [facility] Comment on above: Performed By: #### L 100.0100, L500.4050 #### [facility] [address] [place], [address] Chloride [Moles/Vol] 103 mmol/L Normal 98-107 [facility] Comment on above: Performed By: #### L 100.0100, L500.4050 #### [facility] [address] [place], [address] CO2 [Moles/Vol] 22.0 mmol/L Normal 21.0-32.0 [facility] Comment on above: Performed By: #### L 100.0100, L500.4050 #### [facility] [address] [place], [address] Creatinine [Mass/Vol] 0.89 mg/dL Normal 0.70-1.30 [facility] Comment on above: Result Comment: The validity of the calculated GFR GFRAA in patients over 70 years has not been determined. Clinical correlation is essential. Performed By: #### L 100.0100, L500.4050 #### [facility] [address] [place], [address] EST GFR - AA 107 mL/min Normal >60 [facility] Comment on above: Result Comment: Afri can [place] Citizen GFR Calc Performed By: #### L 100.0100, L500.4050 #### [facility] [address] [place], [address] GAP 8 Normal 5-15 [facility] Comment on above: Performed By: #### L 100.0100, L500.4050 #### [facility] [address] [place], [address] GFR/1.73 sq M.predicted among non-blacks MDRD (S/P/Bld) [Vol rate/Area] 88 mL/min/{1.73_m2} Normal >60 [facility] Comment on above: Result Comment: Non- GFR Calc Performed By: #### L 100.0100, L500.4050 #### [facility] [address] [place], [address] Globulin (S) [Mass/Vol] 3.4 g/dL Normal 2.2-4.2 [facility] Comment on above: Performed By: #### L 100.0100, L500.4050 #### [facility] [address] [place], [address] Glucose [Mass/Vol] 141 mg/dL High 74-106 [facility] Comment on above: Result Comment: Fast ing Glucose result greater than or equal to 126 mg/dL suggests DIABETES MELLITUS per A.D.A. criteria. Performed By: #### L 100.0100, L500.4050 #### [facility] [address] [place], [address] Potassium [Moles/Vol] 3.8 mmol/L Normal 3.5-5.1 [facility] Comment on above: Performed By: #### L 100.0100, L500.4050 #### [facility] [address] [place], [address] Sodium [Moles/Vol] 133 mmol/L Low 136-145 [facility] Comment on above: Performed By: #### L 100.0100, L500.4050 #### [facility] [address] [place], [address] T PROT 7.1 g/dL Normal 6.4-8.2 [facility] Comment on above: Performed By: #### L 100.0100, L500.4050 #### [facility] [address] [place], [address] Urea nitrogen [Mass/Vol] 8 mg/dL Normal 7-18 [facility] Comment on above: Performed By: #### L 100.0100, L500.4050 #### [facility] [address] [place], [address] Eosinophil percentageOrdered By: Heidy Ma on 06-26-2024 Eosinophils/100 WBC (Bld) 7.0 % High 0-5 [facility] Erythrocyte distribution wid th ratioOrdered By: Heidy Ma on 06-26-2024 Erythrocyte distribution width (RBC) [Ratio] 14.0 % 11.6-14.6 [facility] Erythrocyte distribution wid th standard deviationOrdered By: Heidy Ma on 06-26-2024 Erythrocyte distribution width (RBC) [Entitic vol] 48.8 fL High 35.1-43.9 [facility] Estimated glomerular filtrat ion rate (GFR) AmericanOrdered By: Heidy Ma on 06-26-2024 Estimated GFR (MDRD) Amer 107 mL/min >60 [facility] Comment on above: GFR Calc Glomerular filtration rate ( GFR) estimationOrdered By: Heidy Ma on 06-26-2024 Estimated GFR (MDRD) Non-Af Amer 88 mL/min >60 [facility] Comment on above: Non- GFR Calc Glucose measurementOrdered B y: Heidy Ma on 06-26-2024 Glucose [Mass/Vol] 141 mg/dL High 74-106 [facility] Comment on above: Fasting Glucose resu lt greater than or equal to 126 mg/dL suggests DIABETES MELLITUS per A.D.A. criteria. Hematocrit Auto (Bld) [Volum e fraction]Ordered By: Heidy Ma on 06-26-2024 Hematocrit (Bld) [Volume fraction] 44.2 % 40-54 [facility] Hemoglobin measurementOrdere d By: Heidy Ma on 06-26-2024 Hemoglobin (Bld) [Mass/Vol] 15.3 g/dL 13.0-16.5 [facility] Immature granulocytes/100 WB C Auto (Bld)Ordered By: Heidy Ma on 06-26-2024 Immature granulocytes/100 WBC (Bld) 0.400 % 0.0-0.9 [facility] Comment on above: IG% - Immature Granu locytes (promyelocytes, myelocytes and metamyelocytes) > 1% indicates that a LEFT SHIFT is Present. Laboratory - Chemistry and C hemistry - challengeOrdered By: Heidy Ma on 06-26-2024 AST [Catalytic activity/Vol] 13 U/L Low 15-37 [facility] Lymphocytes Auto (Unsp spec) [#/Vol]Ordered By: Heidy Ma on 06-26-2024 Lymphocytes (Bld) [#/Vol] 1.51 10*3/uL 0.83-4.51 [facility] Lymphocytes/100 WBC Auto (Un sp spec)Ordered By: Heidy Ma on 06-26-2024 Lymphocytes/100 WBC (Bld) 14.5 % Low 19-41 [facility] MCV (mean corpuscular volume ) determinationOrdered By: Heidy Ma on 06-26-2024 MCV (RBC) [Entitic vol] 96.1 fL High 80-94 [facility] Mean corpuscular hemoglobin (MCH) determinationOrdered By: Heidy Ma on 06-26-2024 MCH (RBC) [Entitic mass] 33.3 pg High 27.0-32.0 [facility] Mean corpuscular hemoglobin concentration (MCHC) determinationOrdered By: Heidy Ma on 06-26-2024 MCHC (RBC) [Mass/Vol] 34.6 g/dL 32-36 [facility] Mean platelet volume determi nationOrdered By: Heidy Ma on 06-26-2024 Platelet mean volume (Bld) [Entitic vol] 10.1 fL 6.2-12.0 [facility] Monocyte percentageOrdered B y: Heidy Ma on 06-26-2024 Monocytes/100 WBC (Bld) 12.9 % High 0-10 [facility] Neutrophil percentageOrdered By: Heidy Ma on 06-26-2024 Neutrophils/100 WBC (Bld) 63.5 % 47-70 [facility] Nucleated red blood cell per centageOrdered By: Heidy Ma on 06-26-2024 Nucleated RBC/100 WBC (Bld) [Ratio] 0 % 0-5 [facility] Platelet countOrdered By: Je Ma on 06-26-2024 Platelets (Bld) [#/Vol] 359 10*3/uL 150-450 [facility] Potassium measurementOrdered By: Heidy Ma on 06-26-2024 Potassium [Moles/Vol] 3.8 mmol/L 3.5-5.1 [facility] RBC Auto (Bld) [#/Vol]Ordere d By: Heidy Ma on 06-26-2024 RBC (Bld) [#/Vol] 4.60 10*6/uL 4.6-6.2 [facility] Serum anion gap measurementO rdered By: Heidy Ma on 06-26-2024 Anion gap [Moles/Vol] 8 mmol/L 5-15 [facility] Serum globulin measurementOr dered By: Heidy Ma on 06-26-2024 Globulin (S) [Mass/Vol] 3.4 g/dL 2.2-4.2 [facility] Serum or plasma alanine mak otransferase (ALT) measurementOrdered By: Heidy Ma on 06-26-2024 ALT [Catalytic activity/Vol] 25 U/L 16-61 [facility] Serum or plasma albumin yassine urement (mass/volume)Ordered By: Heidy Ma on 06-26-2024 Albumin [Mass/Vol] 3.7 g/dL 3.2-5.0 [facility] Serum or plasma alkaline surinder sphatase measurementOrdered By: Heidy Ma on 06-26-2024 ALP [Catalytic activity/Vol] 69 U/L 45-117 [facility] Serum or plasma calcium yassine urement (mass/volume)Ordered By: Heidy Ma on 06-26-2024 Calcium [Mass/Vol] 9.1 mg/dL 8.5-10.1 [facility] Serum or plasma creatinine m easurement (mass/volume)Ordered By: Heidy Ma on 06-26-2024 Creatinine [Mass/Vol] 0.89 mg/dL 0.70-1.30 [facility] Comment on above: The validity of the calculated GFR & GFRAA in patients over 70 years has not been determined. Clinical correlation is essential. Serum or plasma urea nitroge n measurement (mass/volume)Ordered By: Heidy Ma on 06-26-2024 Urea nitrogen [Mass/Vol] 8 mg/dL 7- [facility] Sodium levelOrdered By: Rima Ma on 06-26-2024 Sodium [Moles/Vol] 133 mmol/L Low 136-145 [facility] Total proteinOrdered By: Katrina Ma on 06-26-2024 Protein [Mass/Vol] 7.1 g/dL 6.4-8.2 [facility] White blood cell (WBC) count Ordered By: Heidy Ma on 06-26-2024 WBC (Bld) [#/Vol] 10.4 10*3/uL 4.4-11.0 [facility] Internal Medicine Office Vis itochema 04-04-2024 Internal Medicine Office Visit [facility] [address] [place] [address] [place] [address] OFFICE VISIT Date of Service: 04/04/24 MR#: [id number] Acct: [id number] Name: SHEA TEIXEIRA Rep #: [id number] : 1950 Provider: Dr. 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 Is patient in pain?: No Allergies No Known Allergies Allergy (Verified 04/04/24 10:01) Medications ???Medication ???Instructions ???Recorded ???Confirmed ???Type blood pressure monitor #1 ea 04/16/19 04/04/24 Rx blood-glucose meter (FreeStyle #1 ea 01/08/20 04/04/24 Rx Lite Meter kit) lancets 28 gauge (FreeStyle #200 ea 01/08/20 04/04/24 Rx Lancets) blood sugar diagnostic (FreeStyle #100 ea 04/22/21 04/04/24 Rx Lite Strips) prednisone 10 mg tablet 10 mg PO DAILY PRN Joint Pain #90 03/02/22 04/04/24 Rx tabs hydroxychloroquine 200 mg tablet 200 mg PO BID #180 tabs 04/20/22 04/04/24 Rx (Plaquenil) albuterol sulfate 90 mcg/actuation 2 puff inhalation Q6H PRN 06/02/22 04/04/24 Rx aerosol inhaler shortness of breath or wheezing #8.5 grams methotrexate sodium 2.5 mg tablet mg PO 04/11/23 04/04/24 History amlodipine 10 mg tablet 10 mg PO DAILY heart #90 tabs 06/01/23 04/04/24 Rx rosuvastatin 10 mg tablet 10 mg PO DAILY CHOLESTEROL #90 tabs 06/01/23 04/04/24 Rx losartan 100 mg tablet 100 mg PO DAILY BP #90 tabs 10/19/23 04/04/24 Rx budesonide-formotero l HFA 160 2 puff inhalation Q12H #10.2 grams 11/30/23 04/04/24 Rx mcg-4.5 mcg/actuation aerosol inhaler (Symbicort) metformin 500 mg tablet 500 mg PO BID #180 tabs 03/03/24 04/04/24 Rx Have you fallen in the past year?: No PFSH Medical History (Updated 11/30/23 @ 13:[address] Zully Montoya MD) Lumbar radiculopathy Flu vaccine need Osteoarthritis, shoulder Left shoulder pain Tendinitis of left shoulder COPD (chronic obstructive pulmonary disease) Right ankle pain Dermatitis of foot Diabetes Rheumatoid arthritis Smoker Hypertension Acute alcoholic pancreatitis Hyperlipemia Left inguinal hernia Arthritis Surgical History History of intraocular lens implant History of splenectomy Family History Father Diabetes Social History Smoking Status: Current every day smoker tobacco type: cigarettes Tobacco: How many years used: 52 Electronic Cigarette Use: not used second hand exposure: Yes (dad smoked) quit status: has quit before alcohol intake: current alcohol intake frequency: 3 or more drinks per day Alcohol type: beer substance use type: does not use what type of physical activity do you participate in: none do you feel safe at home: Yes HPI HPI Chief Complaint: 4m f/u Details: SHEA TEIXEIRA, is a 73 M who presents to the office today for follow-up of his chronic medical conditions. No acute concerns at this time. History of diabetes mellitus type 2 currently on metformin. A1c today is at 6.1 up from his last visit. He admits that he has been eating more sweets over the summer. Taking medication as prescribed. No concerns for hypoglycemia. Also history of hypertension, blood pressure today is at 110/66 mmHg. No chest pain, palpitation or worsening shortness of breath reported. Other chronic medical conditions are stable. ROS Const Constitutional: No body ache, chills, excessive sweating, fatigue, fever(s), frequent falls, headache(s), snoring, weakness, sleep problems or change in appetite Eyes Eyes: No blurry vision, change in vision, dry eyes, bulging eyes, floaters, eye pain or Light sensitivity ENT ENT: No abnormal hearing, ear or mastoid pain, tinnitus, balance problems, nosebleed/epistaxis, nasal congestion, headache(s), neck pain or sore throat Resp Respiratory: No cough, excessive phlegm production, pain on inspiration, shortness of breath, snoring or wheezing Cardio Cardiology: No chest pain at rest, chest pain with exertion, excessive sweating, shortness of breath, dyspnea on exertion, lightheadedness, orthopnea or palpitations Gastro GI: No abdominal pain, change in bowel habits, constipation, cramping, diarrhea, nausea/dyspepsia or vomiting Genitourinary Male: No burning urination, painful urination, urinary incontinence, urina (more content not included)... Normal [facility] CBC W/Diff, Automatedon 09-1 Absolute Lymph 1.87 X10 3/uL Normal 0.83-4.51 [facility] Comment on above: Performed By: #### L 500.4050, L100.0100 #### [facility] [address] [place], [address] Absolute Neut 6.2 X10 3/uL Normal 2.0-7.7 [facility] Comment on above: Performed By: #### L 500.4050, L100.0100 #### [facility] [address] [place], [address] Basophils/100 WBC (Bld) 1.6 % High 0-1 [facility] Comment on above: Performed By: #### L 500.4050, L100.0100 #### [facility] [address] [place], [address] Eosinophils/100 WBC (Bld) 9.5 % High 0-5 [facility] Comment on above: Performed By: #### L 500.4050, L100.0100 #### [facility] [address] [place], [address] Erythrocyte distribution width (RBC) [Ratio] 13.2 % Normal 11.6-14.6 [facility] Comment on above: Performed By: #### L 500.4050, L100.0100 #### [facility] [address] [place], [address] Hematocrit (Bld) [Volume fraction] 46.5 % Normal 40-54 [facility] Comment on above: Performed By: #### L 500.4050, L100.0100 #### [facility] [address] [place], [address] Hemoglobin (Bld) [Mass/Vol] 16.1 g/dL Normal 13.0-16.5 [facility] Comment on above: Performed By: #### L 500.4050, L100.0100 #### [facility] [address] [place], [address] IG% 0.400 Normal 0.0-0.9 [facility] Comment on above: Result Comment: IG% - Immature Granulocytes (promyelocytes, myelocytes and metamyelocytes) > 1% indicates that a LEFT SHIFT is Present. Performed By: #### L 500.4050, L100.0100 #### [facility] [address] [place], [address] Lymphocytes/100 WBC (Bld) 17.5 % Low 19-41 [facility] Comment on above: Performed By: #### L 500.4050, L100.0100 #### [facility] [address] [place], [address] MCH (RBC) [Entitic mass] 33.4 pg High 27.0-32.0 [facility] Comment on above: Performed By: #### L 500.4050, L100.0100 #### [facility] [address] [place], [address] MCHC (RBC) [Mass/Vol] 34.6 g/dL Normal 32-36 [facility] Comment on above: Performed By: #### L 500.4050, L100.0100 #### [facility] [address] [place], [address] MCV (RBC) [Entitic vol] 96.5 fL High 80-94 [facility] Comment on above: Performed By: #### L 500.4050, L100.0100 #### [facility] [address] [place], [address] Monocytes/100 WBC (Bld) 12.7 % High 0-10 [facility] Comment on above: Performed By: #### L 500.4050, L100.0100 #### [facility] [address] [place], [address] Neutrophils/100 WBC (Bld) 58.3 % Normal 47-70 [facility] Comment on above: Performed By: #### L 500.4050, L100.0100 #### [facility] [address] [place], [address] Nucleated RBC (Bld) [#/Vol] 0 10*3/uL Normal 0-5 [facility] Comment on above: Performed By: #### L 500.4050, L100.0100 #### [facility] [address] [place], [address] Platelet mean volume (Bld) [Entitic vol] 10.6 fL Normal 6.2-12.0 [facility] Comment on above: Performed By: #### L 500.4050, L100.0100 #### [facility] [address] [place], [address] Platelets (Bld) [#/Vol] 340 10*3/uL Normal 150-450 [facility] Comment on above: Performed By: #### L 500.4050, L100.0100 #### [facility] [address] [place], [address] RBC (Bld) [#/Vol] 4.82 10*6/uL Normal 4.6-6.2 [facility] Comment on above: Performed By: #### L 500.4050, L100.0100 #### [facility] [address] [place], [address] RDW SD 46.8 fl High 35.1-43.9 [facility] Comment on above: Performed By: #### L 500.4050, L100.0100 #### [facility] [address] [place], [address] WBC (Bld) [#/Vol] 10.7 10*3/uL Normal 4.4-11.0 [facility] Comment on above: Performed By: #### L 500.4050, L100.0100 #### [facility] [address] [place], [address] Comprehensive Metabolic Prof ilon 04-02-2024 Albumin [Mass/Vol] 3.7 g/dL Normal 3.2-5.0 [facility] Comment on above: Performed By: #### L 500.4050, L100.0100 #### [facility] [address] [place], [address] Albumin/Globulin [Mass ratio] 0.9 {ratio} Normal 0.9-2.4 [facility] Comment on above: Performed By: #### L 500.4050, L100.0100 #### [facility] [address] [place], [address] ALK P 69 U/L Normal 45-117 [facility] Comment on above: Performed By: #### L 500.4050, L100.0100 #### [facility] [address] [place], [address] ALT [Catalytic activity/Vol] 35 U/L Normal 16-61 [facility] Comment on above: Performed By: #### L 500.4050, L100.0100 #### [facility] [address] [place], [address] AST [Catalytic activity/Vol] 17 U/L Normal 15-37 [facility] Comment on above: Performed By: #### L 500.4050, L100.0100 #### [facility] [address] [place], [address] Bilirubin [Mass/Vol] 0.70 mg/dL Normal 0.20-1.00 [facility] Comment on above: Result Comment: For patients on eltrombopag therapy, use of Dimension [place] TBIL is not recommended. Performed By: #### L 500.4050, L100.0100 #### [facility] [address] [place], [address] BUN/CRE 12.7 RATIO Normal 10-20 [facility] Comment on above: Performed By: #### L 500.4050, L100.0100 #### [facility] [address] [place], [address] CA,Total 9.2 mg/dL Normal 8.5-10.1 [facility] Comment on above: Performed By: #### L 500.4050, L100.0100 #### [facility] [address] [place], [address] Chloride [Moles/Vol] 100 mmol/L Normal 98-107 [facility] Comment on above: Performed By: #### L 500.4050, L100.0100 #### [facility] [address] [place], [address] CO2 [Moles/Vol] 23.0 mmol/L Normal 21.0-32.0 [facility] Comment on above: Performed By: #### L 500.4050, L100.0100 #### [facility] [address] [place], [address] Creatinine [Mass/Vol] 0.95 mg/dL Normal 0.70-1.30 [facility] Comment on above: Result Comment: The validity of the calculated GFR GFRAA in patients over 70 years has not been determined. Clinical correlation is essential. Performed By: #### L 500.4050, L100.0100 #### [facility] [address] [place], [address] EST GFR - AA 100 mL/min Normal >60 [facility] Comment on above: Result Comment: Afri can [place] Citizen GFR Calc Performed By: #### L 500.4050, L100.0100 #### [facility] [address] [place], [address] GAP 9 Normal 5-15 [facility] Comment on above: Performed By: #### L 500.4050, L100.0100 #### [facility] [address] [place], [address] GFR/1.73 sq M.predicted among non-blacks MDRD (S/P/Bld) [Vol rate/Area] 82 mL/min/{1.73_m2} Normal >60 [facility] Comment on above: Result Comment: Non- GFR Calc Performed By: #### L 500.4050, L100.0100 #### [facility] [address] [place], [address] Globulin (S) [Mass/Vol] 3.9 g/dL Normal 2.2-4.2 [facility] Comment on above: Performed By: #### L 500.4050, L100.0100 #### [facility] [address] [place], [address] Glucose [Mass/Vol] 147 mg/dL High 74-106 [facility] Comment on above: Result Comment: Fast ing Glucose result greater than or equal to 126 mg/dL suggests DIABETES MELLITUS per A.D.A. criteria. Performed By: #### L 500.4050, L100.0100 #### [facility] [address] [place], [address] Potassium [Moles/Vol] 4.0 mmol/L Normal 3.5-5.1 [facility] Comment on above: Performed By: #### L 500.4050, L100.0100 #### [facility] [address] [place], [address] Sodium [Moles/Vol] 132 mmol/L Low 136-145 [facility] Comment on above: Performed By: #### L 500.4050, L100.0100 #### [facility] [address] [place], [address] T PROT 7.6 g/dL Normal 6.4-8.2 [facility] Comment on above: Performed By: #### L 500.4050, L100.0100 #### [facility] [address] [place], [address] Urea nitrogen [Mass/Vol] 12 mg/dL Normal 7-18 [facility] Comment on above: Performed By: #### L 500.4050, L100.0100 #### [facility] [address] [place], [address] CBC W/Diff, Automatedon 12-16 Absolute Lymph 2.02 X10 3/uL Normal 0.83-4.51 [facility] Comment on above: Performed By: #### L 100.0100, L500.4050 #### [facility] [address] [place], [address] Absolute Neut 6.2 X10 3/uL Normal 2.0-7.7 [facility] Comment on above: Performed By: #### L 100.0100, L500.4050 #### [facility] [address] [place], [address] Basophils/100 WBC (Bld) 1.7 % High 0-1 [facility] Comment on above: Performed By: #### L 100.0100, L500.4050 #### [facility] [address] [place], [address] Eosinophils/100 WBC (Bld) 11.6 % High 0-5 [facility] Comment on above: Performed By: #### L 100.0100, L500.4050 #### [facility] [address] [place], [address] Erythrocyte distribution width (RBC) [Ratio] 14.7 % High 11.6-14.6 [facility] Comment on above: Performed By: #### L 100.0100, L500.4050 #### [facility] [address] [place], [address] Hematocrit (Bld) [Volume fraction] 45.7 % Normal 40-54 [facility] Comment on above: Performed By: #### L 100.0100, L500.4050 #### [facility] [address] [place], [address] Hemoglobin (Bld) [Mass/Vol] 15.8 g/dL Normal 13.0-16.5 [facility] Comment on above: Performed By: #### L 100.0100, L500.4050 #### [facility] [address] [place], [address] IG% 0.500 Normal 0.0-0.9 [facility] Comment on above: Result Comment: IG% - Immature Granulocytes (promyelocytes, myelocytes and metamyelocytes) > 1% indicates that a LEFT SHIFT is Present. Performed By: #### L 100.0100, L500.4050 #### [facility] [address] [place], [address] Lymphocytes/100 WBC (Bld) 18.2 % Low 19-41 [facility] Comment on above: Performed By: #### L 100.0100, L500.4050 #### [facility] [address] [place], [address] MCH (RBC) [Entitic mass] 33.5 pg High 27.0-32.0 [facility] Comment on above: Performed By: #### L 100.0100, L500.4050 #### [facility] [address] [place], [address] MCHC (RBC) [Mass/Vol] 34.6 g/dL Normal 32-36 [facility] Comment on above: Performed By: #### L 100.0100, L500.4050 #### [facility] [address] [place], [address] MCV (RBC) [Entitic vol] 97.0 fL High 80-94 [facility] Comment on above: Performed By: #### L 100.0100, L500.4050 #### [facility] [address] [place], [address] Monocytes/100 WBC (Bld) 12.4 % High 0-10 [facility] Comment on above: Performed By: #### L 100.0100, L500.4050 #### [facility] [address] [place], [address] Neutrophils/100 WBC (Bld) 55.6 % Normal 47-70 [facility] Comment on above: Performed By: #### L 100.0100, L500.4050 #### [facility] [address] [place], [address] Nucleated RBC (Bld) [#/Vol] 0 10*3/uL Normal 0-5 [facility] Comment on above: Performed By: #### L 100.0100, L500.4050 #### [facility] [address] [place], [address] Platelet mean volume (Bld) [Entitic vol] 10.5 fL Normal 6.2-12.0 [facility] Comment on above: Performed By: #### L 100.0100, L500.4050 #### [facility] [address] [place], [address] Platelets (Bld) [#/Vol] 398 10*3/uL Normal 150-450 [facility] Comment on above: Performed By: #### L 100.0100, L500.4050 #### [facility] [address] [place], [address] RBC (Bld) [#/Vol] 4.71 10*6/uL Normal 4.6-6.2 [facility] Comment on above: Performed By: #### L 100.0100, L500.4050 #### [facility] [address] [place], [address] RDW SD 51.8 fl High 35.1-43.9 [facility] Comment on above: Performed By: #### L 100.0100, L500.4050 #### [facility] [address] [place], [address] WBC (Bld) [#/Vol] 11.1 10*3/uL High 4.4-11.0 [facility] Comment on above: Performed By: #### L 100.0100, L500.4050 #### [facility] [address] [place], [address] Comprehensive Metabolic Prof vton 01-03-2024 Albumin [Mass/Vol] 3.8 g/dL Normal 3.2-5.0 [facility] Comment on above: Performed By: #### L 100.0100, L500.4050 ####[facility] [address] [place], [address] Albumin/Globulin [Mass ratio] 1.0 {ratio} Normal 0.9-2.4 [facility] Comment on above: Performed By: #### L 100.0100, L500.4050 ####[facility] [address] [place], [address] ALK P 69 U/L Normal 45-117 [facility] Comment on above: Performed By: #### L 100.0100, L500.4050 ####[facility] [address] [place], [address] ALT [Catalytic activity/Vol] 30 U/L Normal 16-61 [facility] Comment on above: Performed By: #### L 100.0100, L500.4050 ####[facility] [address] [place], [address] AST [Catalytic activity/Vol] 22 U/L Normal 15-37 [facility] Comment on above: Performed By: #### L 100.0100, L500.4050 ####[facility] [address] [place], [address] Bilirubin [Mass/Vol] 0.60 mg/dL Normal 0.20-1.00 [facility] Comment on above: Result Comment: For patients on eltrombopag therapy, use of Dimension [place] TBIL is not recommended. Performed By: #### L 100.0100, L500.4050 ####[facility] [address] [place], [address] BUN/CRE 13.3 RATIO Normal 10-20 [facility] Comment on above: Performed By: #### L 100.0100, L500.4050 ####[facility] [address] [place], [address] CA,Total 9.1 mg/dL Normal 8.5-10.1 [facility] Comment on above: Performed By: #### L 100.0100, L500.4050 ####[facility] [address] [place], [address] Chloride [Moles/Vol] 105 mmol/L Normal 98-107 [facility] Comment on above: Performed By: #### L 100.0100, L500.4050 ####[facility] [address] [place], [address] CO2 [Moles/Vol] 21.0 mmol/L Normal 21.0-32.0 [facility] Comment on above: Performed By: #### L 100.0100, L500.4050 ####[facility] [address] [place], [address] Creatinine [Mass/Vol] 0.98 mg/dL Normal 0.70-1.30 [facility] Comment on above: Result Comment: The validity of the calculated GFR GFRAA in patients over 70 years has not been determined. Clinical correlation is essential. Performed By: #### L 100.0100, L500.4050 ####[facility] [address] [place], [address] EST GFR - AA 96 mL/min Normal >60 [facility] Comment on above: Result Comment: Afri can [place] Citizen GFR Calc Performed By: #### L 100.0100, L500.4050 ####[facility] [address] [place], [address] GAP 8 Normal 5-15 [facility] Comment on above: Performed By: #### L 100.0100, L500.4050 ####[facility] [address] [place], [address] GFR/1.73 sq M.predicted among non-blacks MDRD (S/P/Bld) [Vol rate/Area] 79 mL/min/{1.73_m2} Normal >60 [facility] Comment on above: Result Comment: Non- GFR Calc Performed By: #### L 100.0100, L500.4050 ####[facility] [address] [place], [address] Globulin (S) [Mass/Vol] 3.8 g/dL Normal 2.2-4.2 [facility] Comment on above: Performed By: #### L 100.0100, L500.4050 ####[facility] [address] [place], [address] Glucose [Mass/Vol] 154 mg/dL High 74-106 [facility] Comment on above: Result Comment: Fast ing Glucose result greater than or equal to 126 mg/dL suggests DIABETES MELLITUS per A.D.A. criteria. Performed By: #### L 100.0100, L500.4050 ####[facility] [address] [place], [address] Potassium [Moles/Vol] 4.3 mmol/L Normal 3.5-5.1 [facility] Comment on above: Performed By: #### L 100.0100, L500.4050 ####[facility] [address] [place], [address] Sodium [Moles/Vol] 134 mmol/L Low 136-145 [facility] Comment on above: Performed By: #### L 100.0100, L500.4050 ####[facility] [address] [place], [address] T PROT 7.6 g/dL Normal 6.4-8.2 [facility] Comment on above: Performed By: #### L 100.0100, L500.4050 ####[facility] [address] [place], [address] Urea nitrogen [Mass/Vol] 13 mg/dL Normal 7-18 [facility] Comment on above: Performed By: #### L 100.0100, L500.4050 ####[facility] [address] [place], [address] Internal Medicine Office Vis itochema 11-30-2023 Internal Medicine Office Visit [facility] [address] [place] [address] [place] [address] OFFICE VISIT Date of Service: 11/30/23 MR#: [id number] Acct: [id number] Name: SHEA TEIXEIRA Rep #: [id number] : 1950 Provider: Dr. 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 Accompanied by: Self Is patient in pain?: No Allergies No Known Allergies Allergy (Verified 11/30/23 10:01) Medications ???Medication ???Instructions ???Recorded ???Confirmed ???Type blood pressure monitor #1 ea 04/16/19 11/30/23 Rx blood-glucose meter (FreeStyle #1 ea 01/08/20 11/30/23 Rx Lite Meter kit) lancets 28 gauge (FreeStyle #200 ea 01/08/20 11/30/23 Rx Lancets) blood sugar diagnostic (FreeStyle #100 ea 04/22/21 11/30/23 Rx Lite Strips) prednisone 10 mg tablet 10 mg PO DAILY PRN Joint Pain #90 03/02/22 11/30/23 Rx tabs hydroxychloroquine 200 mg tablet 200 mg PO BID #180 tabs 04/20/22 11/30/23 Rx (Plaquenil) albuterol sulfate 90 mcg/actuation 2 puff inhalation Q6H PRN 06/02/22 11/30/23 Rx aerosol inhaler shortness of breath or wheezing #8.5 grams metformin 500 mg tablet 500 mg PO BID #180 tabs 11/08/22 11/30/23 Rx methotrexate sodium 2.5 mg tablet mg PO 04/11/23 11/30/23 History amlodipine 10 mg tablet 10 mg PO DAILY heart #90 tabs 06/01/23 11/30/23 Rx rosuvastatin 10 mg tablet 10 mg PO DAILY CHOLESTEROL #90 tabs 06/01/23 11/30/23 Rx losartan 100 mg tablet 100 mg PO DAILY BP #90 tabs 10/19/23 11/30/23 Rx budesonide-formotero l HFA 160 2 puff inhalation Q12H #10.2 grams 11/30/23 11/30/23 Rx mcg-4.5 mcg/actuation aerosol inhaler (Symbicort) [facility] Medical History (Updated 11/30/23 @ 13:[address] Zully Montoya MD) Lumbar radiculopathy Flu vaccine need Osteoarthritis, shoulder Left shoulder pain Tendinitis of left shoulder COPD (chronic obstructive pulmonary disease) Right ankle pain Dermatitis of foot Diabetes Rheumatoid arthritis Smoker Hypertension Acute alcoholic pancreatitis Hyperlipemia Left inguinal hernia Arthritis Surgical History History of intraocular lens implant History of splenectomy Family History Father Diabetes Social History Smoking Status: Current every day smoker tobacco type: cigarettes Tobacco: How many years used: 52 Electronic Cigarette Use: not used second hand exposure: Yes (dad smoked) quit status: has quit before alcohol intake: current alcohol intake frequency: 3 or more drinks per day Alcohol type: beer substance use type: does not use what type of physical activity do you participate in: none do you feel safe at home: Yes HPI HPI Chief Complaint: 4m f/u Details: SHEA TEIXEIRA, is a 73 M who presents to the office today for follow-up of his chronic medical conditions. History of diabetes mellitus, A1c today is at 6.1 up from 5.7. Currently on metformin which he states that he is taking as prescribed. No concerns for hypoglycemia. Also history of COPD, no recent exacerbations. Had been on Symbicort but now on Advair discussed that he would like to go back on Symbicort. Continues to smoke. Not open to smoking cessation. Blood pressure today is at 130/62. On amlodipine and losartan which she is taking as prescribed. Recent labs with stable renal function. No chest pain, palpitation or shortness of breath reported. Other chronic medical conditions are stable. ROS Const Constitutional: No body ache, chills, excessive sweating, fatigue, fever(s), frequent falls, headache(s), snoring, weakness or change in appetite Eyes Eyes: No blurry vision, change in vision, vision loss, bulging eyes, visual disturbances, eye pain or Light sensitivity ENT ENT: No abnormal hearing, ear or mastoid pain, tinnitus, nosebleed/epistaxis, nasal congestion, headache(s), neck pain or sore throat Resp Respiratory: No cough, excessive phlegm production, pain on inspiration, shortness of breath, snoring or wheezing Cardio Cardiology: No chest pain at rest, chest pain with exertion, excessive sweating, dyspnea on exertion, lightheadedness, orthopnea or palpitations Gastro GI: No abdominal pain, change in bowel habits, constipation, cramping, diarrhea, nausea/dyspepsia or vomiting Genitourinary M (more content not included)... Normal [facility] Absolute lymphocyte countOrd ered By: Heidycolt Ma on 10-07-2023 Lymphocytes Auto (Unsp spec) [#/Vol] 2.15 10*3/uL 0.83-4.51 [facility] Automated lymphocyte count a s percentage of total leukocytesOrdered By: Heidy Ma on 10-07-2023 Lymphocytes/100 WBC Auto (Unsp spec) 19.1 % 19-41 [facility] Basophil percentageOrdered B y: Heidy Ma on 10-07-2023 Basophils/100 WBC (Bld) 2.0 % 0-1 [facility] Bilirubin [Mass/Vol] 0.50 mg/dL 0.20-1.00 [facility] Comment on above: For patients on eltr ombopag therapy, use of Dimension [place] TBIL is not recommended. Chloride [Moles/Vol] 104 mmol/L 98-107 [facility] Eosinophils/100 WBC (Bld) 13.4 % 0-5 [facility] Glucose [Mass/Vol] 155 mg/dL 74-106 [facility] Comment on above: Fasting Glucose resu lt greater than or equal to 126 mg/dL suggests DIABETES MELLITUS per A.D.A. criteria. Hemoglobin (Bld) [Mass/Vol] 15.3 g/dL 13.0-16.5 [facility] Monocytes/100 WBC (Bld) 11.2 % 0-10 [facility] Neutrophils (Bld) [#/Vol] 6.0 10*3/uL 2.0-7.7 [facility] Neutrophils/100 WBC (Bld) 53.8 % 47-70 [facility] Potassium [Moles/Vol] 4.1 mmol/L 3.5-5.1 [facility] Protein [Mass/Vol] 7.4 g/dL 6.4-8.2 [facility] Sodium [Moles/Vol] 137 mmol/L 136-145 [facility] WBC (Bld) [#/Vol] 11.2 10*3/uL 4.4-11.0 [facility] Determination of erythrocyte mean corpuscular volume (MCV)Ordered By: Heidy Ma on 10-07-2023 MCV (RBC) [Entitic vol] 98.5 fL 80-94 [facility] Erythrocyte distribution wid th ratioOrdered By: [facility] Anil on 10-07-2023 Erythrocyte distribution width (RBC) [Ratio] 14.2 % 11.6-14.6 [facility] Erythrocyte distribution wid th standard deviationOrdered By: [facility] An[facility] on 10-07-2023 Erythrocyte distribution width (RBC) [Entitic vol] 51.1 fL 35.1-43.9 [facility] Hematocrit Auto (Bld) [Volum e fraction]Ordered By: Heidy Ma on 10-07-2023 Hematocrit (Bld) [Volume fraction] 45.5 % 40-54 [facility] Immature granulocytes/100 WB C Auto (Bld)Ordered By: Heidycolt Ma on 10-07-2023 Immature granulocytes/100 WBC (Bld) 0.500 % 0.0-0.9 [facility] Comment on above: IG% - Immature Granu locytes (promyelocytes, myelocytes and metamyelocytes) > 1% indicates that a LEFT SHIFT is Present. Laboratory - Chemistry and C hemistry - challengeOrdered By: Heidy Ma on 10-07-2023 Albumin/Globulin [Mass ratio] 0.9 {ratio} 0.9-2.4 [facility] ALP [Catalytic activity/Vol] 67 U/L 45-117 [facility] ALT [Catalytic activity/Vol] 34 U/L 16-61 [facility] CO2 [Moles/Vol] 24.0 mmol/L 21.0-32.0 [facility] Globulin (S) [Mass/Vol] 3.8 g/dL 2.2-4.2 [facility] Urea nitrogen/Creatinine [Mass ratio] 13.3 mg/mg 10-20 [facility] - Hematology and Cell countsOrdered By: Heidy Ma on 10-07-2023 MCH (RBC) [Entitic mass] 33.1 pg 27.0-32.0 [facility] MCHC (RBC) [Mass/Vol] 33.6 g/dL 32-36 [facility] Nucleated RBC/100 WBC (Bld) [Ratio] 0.2 % 0-5 [facility] Platelet mean volume (Bld) [Entitic vol] 10.0 fL 6.2-12.0 [facility] Platelets (Bld) [#/Vol] 395 10*3/uL 150-450 [facility] No Panel InformationOrdered By: Heidy Ma on 10-07-2023 Estimated GFR (MDRD) Amer 89 mL/min >60 [facility] Comment on above: GFR Calc Estimated GFR (MDRD) Non-Af Amer 73 mL/min >60 [facility] Comment on above: Non- GFR Calc RBC Auto (Bld) [#/Vol]Ordere d By: Heidy Ma on 10-07-2023 RBC (Bld) [#/Vol] 4.62 10*6/uL 4.6-6.2 [facility] Serum or plasma calcium yassine urement (mass/volume)Ordered By: Heidy Ma on 10-07-2023 Calcium [Mass/Vol] 9.1 mg/dL 8.5-10.1 [facility] Serum or plasma creatinine m easurement (mass/volume)Ordered By: Heidy Ma on 10-07-2023 Creatinine [Mass/Vol] 1.05 mg/dL 0.70-1.30 [facility] Comment on above: The validity of the calculated GFR & GFRAA in patients over 70 years has not been determined. Clinical correlation is essential. Serum or plasma urea nitroge n measurement (mass/volume)Ordered By: Heidy Ma on 10-07-2023 Urea nitrogen [Mass/Vol] 14 mg/dL 7-18 [facility] Thin prep Papanicolaou smear with manual screeningOrdered By: Heidy Ma on 10-07-2023 Thin prep Papanicolaou smear with manual screening 3.6 g/dL 3.2-5.0 [facility] Thin prep Papanicolaou smear with manual screening 19 U/L 15-37 [facility] Thin prep Papanicolaou smear with manual screening 9 5-15 [facility] Absolute lymphocyte countOrd ered By: Zully Montoya on 08-10-2023 Lymphocytes Auto (Unsp spec) [#/Vol] 1.66 10*3/uL 0.83-4.51 [facility] Automated lymphocyte count a s percentage of total leukocytesOrdered By: Zully Montoya on 08-10-2023 Lymphocytes/100 WBC Auto (Unsp spec) 17.0 % 19-41 [facility] Basophil percentageOrdered B y: Zully Montoya on 08-10-2023 Basophils/100 WBC (Bld) 1.5 % 0-1 [facility] Bilirubin [Mass/Vol] 0.80 mg/dL 0.20-1.00 [facility] Comment on above: For patients on eltr ombopag therapy, use of Dimension [employer] TBIL is not recommended. Chloride [Moles/Vol] 103 mmol/L 98-107 [facility] Cholesterol [Mass/Vol] 150 mg/dL <200 [facility] Comment on above: <200 mg/dL Desirable 200-240 mg/dL Borderline >240 mg/dL High Risk Eosinophils/100 WBC (Bld) 12.5 % 0-5 [facility] Glucose [Mass/Vol] 213 mg/dL 74-106 [facility] Comment on above: Glucose result great er than or equal to 200 mg/dLsuggests DIABETES MELLITUS per A.D.A. criteria. Hemoglobin (Bld) [Mass/Vol] 15.4 g/dL 13.0-16.5 [facility] Monocytes/100 WBC (Bld) 7.3 % 0-10 [facility] Neutrophils (Bld) [#/Vol] 6.0 10*3/uL 2.0-7.7 [facility] Neutrophils/100 WBC (Bld) 61.2 % 47-70 [facility] Potassium [Moles/Vol] 4.0 mmol/L 3.5-5.1 [facility] Protein [Mass/Vol] 7.4 g/dL 6.4-8.2 [facility] Sodium [Moles/Vol] 130 mmol/L 136-145 [facility] Triglyceride [Mass/Vol] 61 mg/dL <199 [facility] Comment on above: The drugs N-Acetylcy steine and Metamizole may falsely depress this assay.Serum Triglycerides Reference Interval Normal <150 mg/dL Borderline high 150 - 199 mg/dL High 200 - 499 mg/dL Very High > or = 500 mg/dL WBC (Bld) [#/Vol] 9.7 10*3/uL 4.4-11.0 [facility] Determination of erythrocyte mean corpuscular volume (MCV)Ordered By: Zully Montoya on 08-10-2023 MCV (RBC) [Entitic vol] 98.4 fL 80-94 [facility] Erythrocyte distribution wid th ratioOrdered By: Zully Montoya on 08-10-2023 Erythrocyte distribution width (RBC) [Ratio] 13.8 % 11.6-14.6 [facility] Erythrocyte distribution wid th standard deviationOrdered By: Zully Montoya on 08-10-2023 Erythrocyte distribution width (RBC) [Entitic vol] 49.2 fL 35.1-43.9 [facility] Hematocrit Auto (Bld) [Volum e fraction]Ordered By: Zully Montoya on 08-10-2023 Hematocrit (Bld) [Volume fraction] 44.4 % 40-54 [facility] High density lipoprotein (HD L) measurementOrdered By: Zully Montoya on 08-10-2023 Cholesterol in HDL (Body fld) [Mass/Vol] 58 mg/dL >40 [facility] Comment on above: The drugs N-Acetylcy steine and Metamizole may falsely depress this assay. Reference Range HDL <40 mg/dL Low HDL Cholesterol HDL >or= 60 mg/dL High HDL Cholesterol Immature granulocytes/100 WB C Auto (Bld)Ordered By: Zully Montoya on 08-10-2023 Immature granulocytes/100 WBC (Bld) 0.500 % 0.0-0.9 [facility] Comment on above: IG% - Immature Granu locytes (promyelocytes, myelocytes and metamyelocytes) > 1% indicates that a LEFT SHIFT is Present. Laboratory - Chemistry and C hemistry - challengeOrdered By: Zully Montoya on 08-10-2023 Albumin/Globulin [Mass ratio] 1.0 {ratio} 0.9-2.4 [facility] ALP [Catalytic activity/Vol] 71 U/L 45-117 [facility] ALT [Catalytic activity/Vol] 63 U/L 16-61 [facility] CO2 [Moles/Vol] 21.0 mmol/L 21.0-32.0 [facility] Globulin (S) [Mass/Vol] 3.7 g/dL 2.2-4.2 [facility] Urea nitrogen/Creatinine [Mass ratio] 18.6 mg/mg 10-20 [facility] Laboratory - Hematology and Cell countsOrdered By: Zully Montoya on 08-10-2023 MCH (RBC) [Entitic mass] 34.1 pg 27.0-32.0 [facility] MCHC (RBC) [Mass/Vol] 34.7 g/dL 32-36 [facility] Nucleated RBC/100 WBC (Bld) [Ratio] 0.2 % 0-5 [facility] Platelets (Bld) [#/Vol] 315 10*3/uL 150-450 [facility] Low density lipoprotein (LDL ) cholesterol measurementOrdered By: Zully Montoya on 08-10-2023 Cholesterol in LDL (Body fld) [Moles/Vol] 80 mg/dL 0-130 [facility] No Panel InformationOrdered By: Zully Montoya on 08-10-2023 Estimated GFR (MDRD) Amer 81 mL/min >60 [facility] Comment on above: GFR Calc Estimated GFR (MDRD) Non-Af Amer 67 mL/min >60 [facility] Comment on above: Non- GFR Calc Platelet mean volume Miki-Ec ker (Bld) [Entitic vol]Ordered By: Zully Montoya on 08-10-2023 Platelet mean volume (Bld) [Entitic vol] 10.8 fL 6.2-12.0 [facility] RBC Auto (Bld) [#/Vol]Ordere d By: Zully Montoya on 08-10-2023 RBC (Bld) [#/Vol] 4.51 10*6/uL 4.6-6.2 [facility] Serum or plasma calcium yassine urement (mass/volume)Ordered By: Zully Montoya on 08-10-2023 Calcium [Mass/Vol] 9.0 mg/dL 8.5-10.1 [facility] Serum or plasma creatinine m easurement (mass/volume)Ordered By: Zully Montoya on 08-10-2023 Creatinine [Mass/Vol] 1.13 mg/dL 0.70-1.30 [facility] Comment on above: The validity of the calculated GFR & GFRAA in patients over 70 years has not been determined. Clinical correlation is essential. Serum or plasma urea nitroge n measurement (mass/volume)Ordered By: Zully Montoya on 08-10-2023 Urea nitrogen [Mass/Vol] 21 mg/dL 7-18 [facility] Thin prep Papanicolaou smear with manual screeningOrdered By: Zully Montoya on 08-10-2023 Thin prep Papanicolaou smear with manual screening 3.7 g/dL 3.2-5.0 [facility] Thin prep Papanicolaou smear with manual screening 31 U/L 15-37 [facility] Thin prep Papanicolaou smear with manual screening 6 5-15 [facility] Very low density lipoprotein (VLDL) cholesterol measurementOrdered By: Zully Montoya on 08-10-2023 Cholesterol in VLDL Calc [Moles/Vol] 12 mg/dL 5-40 [facility] Laboratory - Hematology and Cell countson 07-27-2023 HbA1c (Bld) [Mass fraction] 5.7 % 4.2-6.3 [facility] Absolute lymphocyte countOrd ered By: Heidy Ma on 05-13-2023 Lymphocytes Auto (Unsp spec) [#/Vol] 1.65 10*3/uL 0.83-4.51 [facility] Basophil percentageOrdered B y: Heidy Ma on 05-13-2023 Basophils/100 WBC (Bld) 1.7 % 0-1 [facility] Bilirubin [Mass/Vol] 0.50 mg/dL 0.20-1.00 [facility] Comment on above: For patients on eltr ombopag therapy, use of Dim[employer] TBIL is not recommended. Chloride [Moles/Vol] 104 mmol/L 98-107 [facility] Eosinophils/100 WBC (Bld) 9.4 % 0-5 [facility] Glucose [Mass/Vol] 147 mg/dL 74-106 [facility] Comment on above: Fasting Glucose resu lt greater than or equal to 126 mg/dL suggests DIABETES MELLITUS per A.D.A. criteria. Neutrophils (Bld) [#/Vol] 6.3 10*3/uL 2.0-7.7 [facility] Neutrophils/100 WBC (Bld) 61.1 % 47-70 [facility] Potassium [Moles/Vol] 4.2 mmol/L 3.5-5.1 [facility] Comment on above: Slight Hemolysis, Re sult may be falsely increased. Protein [Mass/Vol] 7.9 g/dL 6.4-8.2 [facility] Sodium [Moles/Vol] 132 mmol/L 136-145 [facility] WBC (Bld) [#/Vol] 10.3 10*3/uL 4.4-11.0 [facility] Blood erythrocytes count (nu mber/volume)Ordered By: Heidy Ma on 05-13-2023 RBC (Bld) [#/Vol] 4.64 10*6/uL 4.6-6.2 [facility] Blood hemoglobin measurement (mass/volume)Ordered By: Heidy Ma on 05-13-2023 Hemoglobin (Bld) [Mass/Vol] 15.9 g/dL 13.0-16.5 [facility] Blood lymphocytes/100 leukoc ytesOrdered By: Heidy Ma on 05-13-2023 Lymphocytes/100 WBC (Bld) 16.0 % 19-41 [facility] Blood monocytes/100 leukocyt esOrdered By: Heidy Ma on 05-13-2023 Monocytes/100 WBC (Bld) 11.3 % 0-10 [facility] Blood platelet mean volumeOr dered By: Heidy Ma on 05-13-2023 Platelet mean volume (Bld) [Entitic vol] 11.4 fL 6.2-12.0 [facility] Determination of erythrocyte mean corpuscular volume (MCV)Ordered By: Heidy Ma on 05-13-2023 MCV (RBC) [Entitic vol] 99.1 fL 80-94 [facility] Hematocrit Auto (Bld) [Volum e fraction]Ordered By: Heidy Ma on 05-13-2023 Hematocrit (Bld) [Volume fraction] 46.0 % 40-54 [facility] Laboratory - Chemistry and C hemistry - challengeOrdered By: [facility] Anil on 05-13-2023 ALP [Catalytic activity/Vol] 62 U/L 45-117 [facility] ALT [Catalytic activity/Vol] 41 U/L 16-61 [facility] CO2 [Moles/Vol] 22.0 mmol/L 21.0-32.0 [facility] Globulin (S) [Mass/Vol] 3.9 g/dL 2.2-4.2 [facility] Urea nitrogen/Creatinine [Mass ratio] 13.7 mg/mg 10-20 [facility] Laboratory - Hematology and Cell countsOrdered By: Heidy Ma on 05-13-2023 Erythrocyte distribution width (RBC) [Entitic vol] 52.3 fL 35.1-43.9 [facility] Erythrocyte distribution width (RBC) [Ratio] 14.5 % 11.6-14.6 [facility] Immature granulocytes/100 WBC (Bld) 0.500 % 0.0-0.9 [facility] Comment on above: IG% - Immature Granu locytes (promyelocytes, myelocytes and metamyelocytes) > 1% indicates that a LEFT SHIFT is Present. MCH (RBC) [Entitic mass] 34.3 pg 27.0-32.0 [facility] Nucleated RBC/100 WBC (Bld) [Ratio] 0.2 % 0-5 [facility] MCHC Auto (RBC) [Mass/Vol]Or dered By: Heidy Ma on 05-13-2023 MCHC (RBC) [Mass/Vol] 34.6 g/dL 32-36 [facility] No Panel InformationOrdered By: Heidy Ma on 05-13-2023 Estimated GFR (MDRD) Amer 92 mL/min >60 [facility] Comment on above: GFR Calc Estimated GFR (MDRD) Non-Af Amer 76 mL/min >60 [facility] Comment on above: Non- GFR Calc Platelets bldOrdered By: Katrina Ma on 05-13-2023 Platelets (Bld) [#/Vol] 304 10*3/uL 150-450 [facility] Serum or plasma albumin yassine urement (mass/volume)Ordered By: Heidy Ma on 05-13-2023 Albumin [Mass/Vol] 4.0 g/dL 3.2-5.0 [facility] Serum or plasma albumin/glob ulin mass ratioOrdered By: Heidy Ma on 05-13-2023 Albumin/Globulin [Mass ratio] 1.0 {ratio} 0.9-2.4 [facility] Serum or plasma calcium yassine urement (mass/volume)Ordered By: Heidy Ma on 05-13-2023 Calcium [Mass/Vol] 9.0 mg/dL 8.5-10.1 [facility] Serum or plasma creatinine m easurement (mass/volume)Ordered By: Heidy Ma on 05-13-2023 Creatinine [Mass/Vol] 1.02 mg/dL 0.70-1.30 [facility] Comment on above: The validity of the calculated GFR & GFRAA in patients over 70 years has not been determined. Clinical correlation is essential. Serum or plasma urea nitroge n measurement (mass/volume)Ordered By: Heidy Ma on 05-13-2023 Urea nitrogen [Mass/Vol] 14 mg/dL 7-18 [facility] Thin prep Papanicolaou smear with manual screeningOrdered By: Heidy Ma on 05-13-2023 Thin prep Papanicolaou smear with manual screening 32 U/L 15-37 [facility] Comment on above: Slight Hemolysis, Re sult may be falsely increased. Thin prep Papanicolaou smear with manual screening 6 5-15 [facility] Laboratory - Hematology and Cell countson 04-11-2023 HbA1c (Bld) [Mass fraction] 5.7 % 4.2-6.3 [facility] Absolute lymphocyte countOrd ered By: Heidy Ma on 03-22-2023 Lymphocytes Auto (Unsp spec) [#/Vol] 2.68 10*3/uL 0.83-4.51 [facility] Basophil percentageOrdered B y: Heidy Ma on 03-22-2023 Basophils/100 WBC (Bld) 1.7 % 0-1 [facility] Bilirubin [Mass/Vol] 0.80 mg/dL 0.20-1.00 [facility] Comment on above: For patients on eltr ombopag therapy, use of [employer] TBIL is not recommended. Chloride [Moles/Vol] 105 mmol/L 98-107 [facility] Eosinophils/100 WBC (Bld) 14.4 % 0-5 [facility] Glucose [Mass/Vol] 142 mg/dL 74-106 [facility] Comment on above: Fasting Glucose resu lt greater than or equal to 126 mg/dL suggests DIABETES MELLITUS per A.D.A. criteria. Neutrophils (Bld) [#/Vol] 5.8 10*3/uL 2.0-7.7 [facility] Neutrophils/100 WBC (Bld) 48.4 % 47-70 [facility] Potassium [Moles/Vol] 4.1 mmol/L 3.5-5.1 [facility] Protein [Mass/Vol] 7.7 g/dL 6.4-8.2 [facility] Sodium [Moles/Vol] 136 mmol/L 136-145 [facility] WBC (Bld) [#/Vol] 12.0 10*3/uL 4.4-11.0 [facility] Blood erythrocytes count (nu mber/volume)Ordered By: Heidy Ma on 03-22-2023 RBC (Bld) [#/Vol] 4.96 10*6/uL 4.6-6.2 [facility] Blood hemoglobin measurement (mass/volume)Ordered By: Heidy Ma on 03-22-2023 Hemoglobin (Bld) [Mass/Vol] 16.3 g/dL 13.0-16.5 [facility] Blood lymphocytes/100 leukoc ytesOrdered By: Heidy Ma on 03-22-2023 Lymphocytes/100 WBC (Bld) 22.3 % 19-41 [facility] Blood manual differential co mment interpretation (narrative result)Ordered By: Heidy Ma on 03-22-2023 Manual differential comment Nabil (Bld) [Interp] COMMENT [facility] Comment on above: MONOCYTOSIS. Blood monocytes/100 leukocyt esOrdered By: Heidy Ma on 03-22-2023 Monocytes/100 WBC (Bld) 12.8 % 0-10 [facility] Blood platelet mean volumeOr dered By: Heidy Ma on 03-22-2023 Platelet mean volume (Bld) [Entitic vol] 11.0 fL 6.2-12.0 [facility] Determination of erythrocyte mean corpuscular volume (MCV)Ordered By: Heidy Ma on 03-22-2023 MCV (RBC) [Entitic vol] 95.2 fL 80-94 [facility] Hematocrit Auto (Bld) [Volum e fraction]Ordered By: Heidy Ma on 03-22-2023 Hematocrit (Bld) [Volume fraction] 47.2 % 40-54 [facility] Laboratory - Chemistry and C hemistry - challengeOrdered By: Heidy Ma on 03-22-2023 ALP [Catalytic activity/Vol] 63 U/L 45-117 [facility] ALT [Catalytic activity/Vol] 30 U/L 16-61 [facility] CO2 [Moles/Vol] 25.0 mmol/L 21.0-32.0 [facility] Globulin (S) [Mass/Vol] 3.8 g/dL 2.2-4.2 [facility] Urea nitrogen/Creatinine [Mass ratio] 14.8 mg/mg 10-20 [facility] Laboratory - Hematology and Cell countsOrdered By: Heidy Ma on 03-22-2023 Erythrocyte distribution width (RBC) [Entitic vol] 57.1 fL 35.1-43.9 [facility] Erythrocyte distribution width (RBC) [Ratio] 16.5 % 11.6-14.6 [facility] Immature granulocytes/100 WBC (Bld) 0.400 % 0.0-0.9 [facility] Comment on above: IG% - Immature Granu locytes (promyelocytes, myelocytes and metamyelocytes) > 1% indicates that a LEFT SHIFT is Present. MCH (RBC) [Entitic mass] 32.9 pg 27.0-32.0 [facility] Nucleated RBC/100 WBC (Bld) [Ratio] 0 % 0-5 [facility] MCHC Auto (RBC) [Mass/Vol]Or dered By: Heidy Ma on 03-22-2023 MCHC (RBC) [Mass/Vol] 34.5 g/dL 32-36 [facility] No Panel InformationOrdered By: Heidy Ma on 03-22-2023 Estimated GFR (MDRD) Amer 120 mL/min >60 [facility] Comment on above: GFR Calc Estimated GFR (MDRD) Non-Af Amer 99 mL/min >60 [facility] Comment on above: Non- GFR Calc Platelets bldOrdered By: Katrina Ma on 03-22-2023 Platelets (Bld) [#/Vol] 360 10*3/uL 150-450 [facility] Review by pathologistOrdered By: Heidy Ma on 03-22-2023 Pathologist review Nabil (Unsp spec) [Interp] Reviewed [facility] Comment on above: Previous reported re sult: Ivette graves Edited by: GERMAIN on 03/24/23:0951Leukocytosis and absolute eosinophilia.Macrocytosis.Clinical correlation necessary.Fabiano Garza M.D. 03/24/23 AMENDED REPORT 03/24/23 0951 PATH REV previously reported as: Ivette graves Serum or plasma albumin yassine urement (mass/volume)Ordered By: Heidy Ma on 03-22-2023 Albumin [Mass/Vol] 3.9 g/dL 3.2-5.0 [facility] Serum or plasma albumin/glob ulin mass ratioOrdered By: Heidy Ma on 03-22-2023 Albumin/Globulin [Mass ratio] 1.0 {ratio} 0.9-2.4 [facility] Serum or plasma calcium yassine urement (mass/volume)Ordered By: Heidy Ma on 03-22-2023 Calcium [Mass/Vol] 9.1 mg/dL 8.5-10.1 [facility] Serum or plasma creatinine m easurement (mass/volume)Ordered By: Heidy Ma on 03-22-2023 Creatinine [Mass/Vol] 0.81 mg/dL 0.70-1.30 [facility] Comment on above: The validity of the calculated GFR & GFRAA in patients over 70 years has not been determined. Clinical correlation is essential. Serum or plasma urea nitroge n measurement (mass/volume)Ordered By: Heidy Ma on 03-22-2023 Urea nitrogen [Mass/Vol] 12 mg/dL 7-18 [facility] Thin prep Papanicolaou smear with manual screeningOrdered By: Heidy Ma on 03-22-2023 Thin prep Papanicolaou smear with manual screening 27 U/L 15 [facility] Thin prep Papanicolaou smear with manual screening 6 5-15 [facility] CBC W Auto Differential pane l (Bld)on 01-03-2023 Basophils (Bld) [#/Vol] 0.16 10*3/uL High <0.11 [facility] Comment on above: Order Comment: Speci men Type: BLOOD SPECIMEN Ordering Facility: [facility] Address: [address] [place] [address] Performed By: #### 5 7021-8 #### [facility] CLIA [id number] [address] [place] [address] [place] Basophils/100 WBC (Bld) 1.3 % Normal C [facility] Comment on above: Order Comment: Speci men Type: BLOOD SPECIMEN Ordering Facility: [facility] Address: [address] [place] [address] Performed By: #### 5 7021-8 #### [facility] CLIA [id number] [address] [place] [address] [place] Differential cell count method Nom (Bld) Auto Normal [facility] Comment on above: Order Comment: Speci men Type: BLOOD SPECIMEN Ordering Facility: [facility] Address: [address] [place] [address] Performed By: #### 5 7021-8 #### [facility] CLIA [id number] [address] [place] [address] [place] Eosinophils (Bld) [#/Vol] 0.31 10*3/uL Normal <0.46 [facility] Comment on above: Order Comment: Speci men Type: BLOOD SPECIMEN Ordering Facility: [facility] Address: [address] [place] [address] Performed By: #### 5 7021-8 #### [facility] CLIA [id number] [address] [place] [address] [place] Eosinophils/100 WBC (Bld) 2.5 % Normal [facility] Comment on above: Order Comment: Speci men Type: BLOOD SPECIMEN Ordering Facility: [facility] Address: [address] [place] [address] Performed By: #### 5 7021-8 #### [facility] CLIA [id number] [address] [place] [address] [place] Erythrocyte distribution width (RBC) [Ratio] 14.1 % Normal 11.5-15.0 [facility] Comment on above: Order Comment: Speci men Type: BLOOD SPECIMEN Ordering Facility: [facility] Address: [address] [place] [address] Performed By: #### 5 7021-8 #### [facility] CLIA [id number] [address] [place] [address] [place] Hematocrit (Bld) [Volume fraction] 47.0 % Normal 39.0-51.0 [facility] Comment on above: Order Comment: Speci men Type: BLOOD SPECIMEN Ordering Facility: [facility] Address: [address] [place] [address] Performed By: #### 5 7021-8 #### [facility] CLIA [id number] [address] [place] [address] [place] Hemoglobin (Bld) [Mass/Vol] 16.7 g/dL Normal 13.0-17.0 [facility] Comment on above: Order Comment: Speci men Type: BLOOD SPECIMEN Ordering Facility: [facility] Address: [address] [place] [address] Performed By: #### 5 7021-8 #### [facility] CLIA [id number] [address] [place] [address] [place] Immature granulocytes (Bld) [#/Vol] 0.05 10*3/uL Normal <0.10 [facility] Comment on above: Order Comment: Speci men Type: BLOOD SPECIMEN Ordering Facility: [facility] Address: [address] [place] [address] Performed By: #### 5 7021-8 #### [facility] CLIA [id number] [address] [place] [address] [place] Immature granulocytes/100 WBC (Bld) 0.4 % Normal [facility] Comment on above: Order Comment: Speci men Type: BLOOD SPECIMEN Ordering Facility: [facility] Address: [address] [place] [address] Performed By: #### 5 7021-8 #### [facility] CLIA [id number] [address] [place] [address] [place] Lymphocytes (Bld) [#/Vol] 1.36 10*3/uL Normal 1.00-4.00 [facility] Comment on above: Order Comment: Speci men Type: BLOOD SPECIMEN Ordering Facility: [facility] Address: [address] [place] [address] Performed By: #### 5 7021-8 #### [facility] CLIA [id number] [address] [place] [address] [place] Lymphocytes/100 WBC (Bld) 11.1 % Normal [facility] Comment on above: Order Comment: Speci men Type: BLOOD SPECIMEN Ordering Facility: [facility] Address: [address] [place] [address] Performed By: #### 5 7021-8 #### [facility] CLIA [id number] [address] [place] [address] [place] MCH (RBC) [Entitic mass] 32.5 pg Normal 26.0-34.0 [facility] Comment on above: Order Comment: Speci men Type: BLOOD SPECIMEN Ordering Facility: [facility] Address: [address] [place] [address] Performed By: #### 5 7021-8 #### [facility] CLIA [id number] [address] [place] [address] [place] MCHC (RBC) [Mass/Vol] 35.5 g/dL Normal 30.5-36.0 [facility] Comment on above: Order Comment: Speci men Type: BLOOD SPECIMEN [facility] [facility] Address: [address] [place] [address] Performed By: #### 5 7021-8 #### [id number] [address] [place] [address] [place] MCV (RBC) [Entitic vol] 91.4 fL Normal 80.0-100.0 C [facility] Comment on above: Order Comment: Speci men Type: BLOOD SPECIMEN Ordering Facility: [facility] Address: [address] [place] [address] Performed By: #### 5 7021-8 #### [facility] CLIA [id number] [address] [place] [address] [place] Monocytes (Bld) [#/Vol] 1.31 10*3/uL High <0.87 [facility] Comment on above: Order Comment: Speci men Type: BLOOD SPECIMEN Ordering Facility: [facility] Address: [address] [place] [address] Performed By: #### 5 7021-8 #### [facility] [id number] [address] [place], [place] [id number] [place] Monocytes/100 WBC (Bld) 10.7 % Normal [facility] Comment on above: Order Comment: Speci men Type: BLOOD SPECIMEN Ordering Facility: [facility] Address: [address] [place] [address] Performed By: #### 5 7021-8 #### [facility] CLIA [id number] [address] [place] [address] [place] Neutrophils (Bld) [#/Vol] 9.03 10*3/uL High 1.45-7.50 [facility] Comment on above: Order Comment: Bettyei men Type: BLOOD SPECIMEN Ordering Facility: [facility] Address: [address] [place] [address] Performed By: #### 5 7021-8 #### [facility] CLIA [id number] [address] [place] [address] [place] Neutrophils/100 WBC (Bld) 74.0 % Normal [facility] Comment on above: Order Comment: Bettyei men Type: BLOOD SPECIMEN Ordering Facility: [facility] Address: [address] [place] [address] Performed By: #### 5 7021-8 #### [facility] CLIA [id number] [address] [place] [address] [place] Nucleated RBC (Bld) [#/Vol] 10*3/uL Normal <0.01 [facility] Comment on above: Order Comment: Speci men Type: BLOOD SPECIMEN Ordering Facility: [facility] Address: [address] [place] [address] Performed By: #### 5 7021-8 #### [facility] CLIA [id number] [address] [place] [address] [place] Nucleated RBC/100 WBC (Bld) [Ratio] 0.0 /100 WBC Normal [facility] Comment on above: Order Comment: Speci men Type: BLOOD SPECIMEN Ordering Facility: [facility] Address: [address] [place] [address] Performed By: #### 5 7021-8 #### [facility] CLIA [id number] [address] [place] [address] [place] Platelet mean volume (Bld) [Entitic vol] 9.7 fL Normal 9.0-12.7 [facility] Comment on above: Order Comment: Speci men Type: BLOOD SPECIMEN Ordering Facility: [facility] Address: [address] [place] [address] Performed By: #### 5 7021-8 #### [facility] CLIA [id number] [address] [place] [address] [place] Platelets (Bld) [#/Vol] 437 10*3/uL High 150-400 [facility] Comment on above: Order Comment: Speci men Type: BLOOD SPECIMEN Ordering Facility: [facility] Address: [address] [place] [address] Performed By: #### 5 7021-8 #### [facility] CLIA [id number] [address] [place] [address] [place] RBC (Bld) [#/Vol] 5.14 10*6/uL Normal 4.20-6.00 [facility] Comment on above: Order Comment: Speci men Type: BLOOD SPECIMEN Ordering Facility: [facility] Address: [address] [place] [address] Performed By: #### 5 7021-8 #### [facility] CLIA [id number] [address] [place] [address] [place] WBC (Bld) [#/Vol] 12.22 10*3/uL High 3.70-11.00 [facility] Comment on above: Order Comment: Speci men Type: BLOOD SPECIMEN Ordering Facility: [facility] Address: [address] [place] [address] Performed By: #### 5 7021-8 #### [facility] CLIA [id number] [address] [place] [address] [place] CRP SerPl-mCncon 01-03-2023 CRP [Mass/Vol] 0.4 mg/dL Normal <0.9 [facility] Comment on above: Order Comment: Speci men Type: BLOOD SPECIMENOrdering Facility: [facility] Address: [address] [place] [address] Performed By: #### 1 988-5 ####[facility] [id number] [place] [address] [place] Comprehensive metabolic 2000 panelon 01-03-2023 Albumin [Mass/Vol] 4.7 g/dL Normal 3.9-4.9 [facility] Comment on above: Order Comment: Speci men Type: BLOOD SPECIMEN Ordering Facility: [facility] Address: [address] [place] [address] Performed By: #### 2 4323-8 #### [facility] CLIA [id number] [address] [place] [address] [place] ALP [Catalytic activity/Vol] 84 U/L Normal 38-113 [facility] Comment on above: Order Comment: Speci men Type: BLOOD SPECIMEN Ordering Facility: [facility] Address: [address] [place] [address] Performed By: #### 2 4323-8 #### [facility] CLIA [id number] [address] [place] [address] [place] ALT [Catalytic activity/Vol] 16 U/L Normal 10-54 [facility] Comment on above: Order Comment: Speci men Type: BLOOD SPECIMEN Ordering Facility: [facility] Address: [address] [place] [address] Performed By: #### 2 4323-8 #### [facility] CLIA [id number] [address] [place] [address] [place] Anion gap [Moles/Vol] 13 mmol/L Normal 9-18 [facility] Comment on above: Order Comment: Speci men Type: BLOOD SPECIMEN Ordering Facility: [facility] Address: [address] [place] [address] Performed By: #### 2 4323-8 #### [facility] CLIA [id number] [address] [place] [address] [place] AST [Catalytic activity/Vol] 16 U/L Normal 14-40 [facility] Comment on above: Order Comment: Speci men Type: BLOOD SPECIMEN Ordering Facility: [facility] Address: [address] [place] [address] Performed By: #### 2 4323-8 #### [facility] CLIA [id number] [address] [place] [address] [place] Bilirubin [Mass/Vol] 0.5 mg/dL Normal 0.2-1.3 [facility] Comment on above: Order Comment: Speci men Type: BLOOD SPECIMEN Ordering Facility: [facility] Address: [address] [place] [address] Performed By: #### 2 4323-8 #### [facility] CLIA [id number] [address] [place] [address] [place] Calcium [Mass/Vol] 9.6 mg/dL Normal 8.5-10.2 [facility] Comment on above: Order Comment: Speci men Type: BLOOD SPECIMEN Ordering Facility: [facility] Address: [address] [place] [address] Performed By: #### 2 4323-8 #### [facility] CLIA [id number] [address] [place] [address] [place] Chloride [Moles/Vol] 99 mmol/L Normal 97-105 [facility] Comment on above: Order Comment: Speci men Type: BLOOD SPECIMEN Ordering Facility: [facility] Address: [address] [place] [address] Performed By: #### 2 4323-8 #### [facility] CLIA [id number] [address] [place] [address] [place] CO2 [Moles/Vol] 21 mmol/L Low 22-30 [facility] Comment on above: Order Comment: Speci rashaun Type: BLOOD SPECIMEN Ordering Facility: [facility] Address: [address] [place] [address] Performed By: #### 2 4323-8 #### [facility] CLIA [id number] [address] [place] [address] [place] Creatinine [Mass/Vol] 0.75 mg/dL Normal 0.73-1.22 [facility] Comment on above: Order Comment: Speci men Type: BLOOD SPECIMEN Ordering Facility: [facility] Address: [address] [place] [address] Performed By: #### 2 4323-8 #### [facility] [id number] [address] [place] [address] [place] ESTIMATED GLOMERULAR FILTRATION RATE 95 mL/min/1.73m??? Normal >=60 [facility] Comment on above: Order Comment: Bettyei men Type: BLOOD SPECIMEN Ordering Facility: [facility] Address: [address] [place] [address] Result Comment: Carisa mated Glomerular Filtration Rate (eGFR) is calculated using the 2020 CKD-EPI creatinine equation. This equation utilizes serum creatinine, sex, and age as parameters. The creatinine assay has traceable calibration to isotope dilution-mass spectrometry. Refer to KDIGO guidelines for clinical interpretation. In patients with unstable renal function, e.g. those with acute kidney injury, the eGFR may not accurately reflect actual GFR. Performed By: #### 2 4323-8 #### [facility] CLIA [id number] [address] [place] [address] [place] Glucose [Mass/Vol] 138 mg/dL High 74-99 [facility] Comment on above: Order Comment: Speci men Type: BLOOD SPECIMEN Ordering Facility: [facility] Address: [address] [place] [address] Result Comment: The [place] Diabetes Association (ADA) provides guidance for cutoff values for fasting glucose and random glucose. The ADA defines fasting as no caloric intake for at least 8 hours. Fasting plasma glucose results between 100 to 125 mg/dL indicate increased risk for diabetes (prediabetes). Fasting plasma glucose results greater than or equal to 126 mg/dL meet the criteria for diagnosis of diabetes. In the absence of unequivocal hyperglycemia, results should be confirmed by repeat testing. In a patient with classic symptoms of hyperglycemia or hyperglycemic crisis, random plasma glucose results greater than or equal to 200 mg/dL meet the criteria for diagnosis of diabetes. Reference: Standards of Medical Care in Diabetes 2016, [place] [employer] Association. Diabetes Care. 2016.39(Suppl 1). Performed By: #### 2 4323-8 #### [facility] [id number] [address] [place] [address] [place] Potassium [Moles/Vol] 4.1 mmol/L Normal 3.7-5.1 [facility] Comment on above: Order Comment: Bettyei arshaun Type: BLOOD SPECIMEN Ordering Facility: [facility] Address: [address] [place] [address] Performed By: #### 2 4323-8 #### [facility] [id number] [address] [place] [address] [place] Protein [Mass/Vol] 7.7 g/dL Normal 6.3-8.0 [facility] Comment on above: Order Comment: Bettyei men Type: BLOOD SPECIMEN Ordering Facility: [facility] Address: [address] [place] [address] Performed By: #### 2 4323-8 #### [facility] CLIA [id number] [address] [place] [address] [place] Sodium [Moles/Vol] 133 mmol/L Low 136-144 [facility] Comment on above: Order Comment: Speci men Type: BLOOD SPECIMEN Ordering Facility: [facility] Address: [address] [place] [address] Performed By: #### 2 4323-8 #### [facility] CLIA [id number] [address] [place] [address] [place] Urea nitrogen [Mass/Vol] 15 mg/dL Normal 9-24 [facility] Comment on above: Order Comment: Speci men Type: BLOOD SPECIMEN Ordering Facility: [facility] Address: [address] [place] [address] Performed By: #### 2 4323-8 #### [facility] CLIA [id number] [address] [place] [address] [place] Cyclic citrullinated peptide IgG Qnon 01-03-2023 CCP ANTIBODY IGG QUALITATIVE Positive Abnormal Negative [facility] Comment on above: Order Comment: Speci men Type: BLOOD SPECIMEN Ordering Facility: [facility] Address: [address] [place] [address] Performed By: #### 3 3935-8 #### [facility] CLIA [id number] [address] [place] [address] [place] ESR Westergren method (Bld) [Velocity]on 01-03-2023 ESR (Bld) [Velocity] 2 mm/h Normal 0-15 [facility] Comment on above: Order Comment: Speci men Type: BLOOD SPECIMENOrdering Facility: [facility] Address: [address] [place] [address] Performed By: #### 4 537-7 ####[facility] [id number] [place] [address] [place] HBV surface Ab Ql (S)on 12-16 HBV surface Ab Qn (S) <8.00 Low >=12.00 [facility] Comment on above: Order Comment: Speci men Type: BLOOD SPECIMEN Ordering Facility: [facility] Address: [address] [place] [address] Performed By: #### 5 195-3, 08018-6 #### [facility] CLIA [id number] [facility] [address] [address] [place] HBV surface Ab Ser Qlon 12-16 HBV surface Ab Ql (S) Negative Abnormal Positive [facility] Comment on above: Order Comment: Speci men Type: BLOOD SPECIMEN Ordering Facility: [facility] Address: [address] [place] [address] Result Comment: No e vidence of antibodies to Hepatitis B surface antigen. Performed By: #### 5 195-3, 05282-6 #### [facility] CLIA [id number] [address] [place] [address] [place] HBV surface Ag Ser Qlon 12-16 HBV surface Ag Ql (S) Negative Normal Negative [facility] Comment on above: Order Comment: Speci rashaun Type: BLOOD SPECIMEN Ordering Facility: [facility] Address: [address] [place] [address] Performed By: #### 5 195-3, 47944-9 #### [facility] CLIA [id number] [address] [place] [address] [place] HCV Ab Ser Qlon 01-03-2023 HCV Ab Ql (S) Negative Normal Negative [facility] Comment on above: Order Comment: Jay rodney Type: BLOOD SPECIMEN Ordering Facility: [facility] Address: [address] [place] [address] Result Comment: The result suggests no evidence of active infection with Hepatitis C virus. Should recent infection be suspected, repeat testing may be considered 4-6 weeks after this draw. Performed By: #### 1 6128-1 #### [facility] CLIA [id number] [address] [place] [address] [place] Nuclear Ab IA Ql (S)on 01-03 KAELYN BY EIA, QUAL Negative Normal Negative [facility] Comment on above: Order Comment: Speci men Type: BLOOD SPECIMEN Ordering Facility: [facility] Address: [address] [place] [address] Result Comment: The qualitative antinuclear antibody screen test performed using the following antigens: dsDNA, Chromatin, Ribosomal P, SS-A 60, SS-A 52, SS-B, Sm, SmRNP, BOARD CERTIFIED MUSIC THERAPIST A, BOARD CERTIFIED MUSIC THERAPIST 68, Scl-70, Nivia-1, and Centromere B. Methodology: Multiplex flow immunoassay. Performed By: #### 4 7383-5 #### [facility] CLIA [id number] [address] [place] [address] [place] RHEUMATOID FACTOR MGAon - RHEUMATOID FACTOR, IGA >100 High <=6 [facility] Comment on above: Order Comment: Speci men Type: BLOOD SPECIMEN Ordering Facility: [facility] Address: [address] [place] [address] Result Comment: INTE RPRETIVE INFORMATION: Rheumatoid Factor, IgA by ASHOK The presence of all three rheumatoid factor (RF) isotypes at abnormal levels has high specificity for a diagnosis of rheumatoid arthritis (RA). However, the presence of RF isotypes in any combination may be found in a variety of conditions, including Sjogren syndrome and hepatitis infections. Performed By: #### R ADAMUMA #### [employer] [place] [id number] [address] [place] [address] RHEUMATOID FACTOR, IGG 18 Units High <=6 [facility] Comment on above: Order Comment: Speci men Type: BLOOD SPECIMEN Ordering Facility: [facility] Address: [address] [place] [address] Result Comment: INTE RPRETIVE INFORMATION: Rheumatoid Factor, IgG by ASHOK The presence of all three rheumatoid factor (RF) isotypes at abnormal levels has high specificity for a diagnosis of rheumatoid arthritis (RA). However, the presence of RF isotypes in any combination may be found in a variety of conditions, including Sjogren syndrome and hepatitis infections. Performed By: [place] [address] [place] [address] [employer] Applier: Chon Ramirez MD, PhD Performed By: #### R HEUMA #### [employer] CLIA [id number] [address] [place] [address] RHEUMATOID FACTOR, IGM >100 High <=6 [facility] Comment on above: Order Comment: Speci men Type: BLOOD SPECIMEN Ordering Facility: [facility] Address: [address] [place] [address] Result Comment: INTE RPRETIVE INFORMATION: Rheumatoid Factor, IgM by ASHOK The presence of all three rheumatoid factor (RF) isotypes at abnormal levels has high specificity for a diagnosis of rheumatoid arthritis (RA). However, the presence of RF isotypes in any combination may be found in a variety of conditions, including Sjogren syndrome and hepatitis infections. Performed By: #### R HEEDUCE #### [facility] [employer] [place] [id number] [address] [place] [address] XR HAND 3V PA/LAT/OBL BILon 01-03-2023 XR HAND 3V PA/LAT/OBL SISI * * *Final Report* * * DATE OF EXAM: Jan 03 2023 11:02AM WRX [id number] - XR HAND 3V PA/LAT/OBL SISI / PROCEDURE REASON: rheumatoid arthritis * * * * Physician Interpretation * * * * TECHNIQUE: XR HAND 3V PA/LAT/OBL SISI EXAM DATE: 01/03/2023 11:02 AM COMPARISON STUDIES: 09/02/2017 right hand x-rays CLINICAL HISTORY: Pain rheumatoid arthritis RESULT: Suboptimal positioning on the lateral films. Radiocarpal joint space narrowing with degenerative change bilaterally. Soft tissue swelling distal left forearm with high density soft tissue focus at the radial aspect, possible foreign body. Curvilinear mineralization at the webspace between the left 1st and 2nd metacarpals. Severe left and mild right 1st CMC joint degenerative changes. Mild degenerative changes 1st and 5th MCP joints bilaterally. Mild to moderate degenerative changes at DIP joints bilaterally. No erosions identified. Soft tissue swelling by the dorsal 5th metacarpal on the right. No acute fracture or dislocation. IMPRESSION: Degenerative changes and areas of soft tissue swelling bilaterally. No erosions. Possible soft tissue foreign body distal left forearm. [employer]: PSC[employer] Transcribe Date/Time: Jan 07 2023 8:14A Dictated by : DORENE CASTILLO MD This examination was interpreted and the report reviewed and electronically signed by: DORENE CASTILLO MD on Jan 07 2023 8:28AM EST [id number] CN Normal [facility] XR HAND GENERAL 3V PA/LAT/OB L BILATon 01-03-2023 [facility] cCP IgG SerPl-aCncon 023 Cyclic citrullinated peptide IgG Qn 221 Units High <20 [facility] Comment on above: Order Comment: Speci men Type: BLOOD SPECIMEN Ordering Facility: [facility] Address: [address] [place] [address] Performed By: #### 3 3935-8 #### [facility] CLIA [id number] [address] [place] [address] [place] [facility] Absolute lymphocyte countOrd ered By: Dr. Montoya on 09-17-2022 Lymphocytes Auto (Unsp spec) [#/Vol] 1.69 10*3/uL 0.83-4.51 [facility] Basophil percentageOrdered B y: Dr. Montoya on 09-17-2022 Basophils/100 WBC (Bld) 1.7 % 0-1 [facility] Bilirubin [Mass/Vol] 0.60 mg/dL 0.20-1.00 [facility] Comment on above: For patients on eltr ombopag therapy, use of Dimension [employer] TBIL is not recommended. Chloride [Moles/Vol] 104 mmol/L 98-107 [facility] Cholesterol [Mass/Vol] 198 mg/dL <200 [facility] Comment on above: <200 mg/dL Desirable 200-240 mg/dL Borderline >240 mg/dL High Risk Eosinophils/100 WBC (Bld) 12.3 % 0-5 [facility] Glucose [Mass/Vol] 128 mg/dL 74-106 [facility] Comment on above: Fasting Glucose resu lt greater than or equal to 126 mg/dL suggests DIABETES MELLITUS per A.D.A. criteria. Neutrophils (Bld) [#/Vol] 6.3 10*3/uL 2.0-7.7 [facility] Neutrophils/100 WBC (Bld) 57.7 % 47-70 [facility] Potassium [Moles/Vol] 4.1 mmol/L 3.5-5.1 [facility] Protein [Mass/Vol] 7.8 g/dL 6.4-8.2 [facility] Sodium [Moles/Vol] 136 mmol/L 136-145 [facility] Triglyceride [Mass/Vol] 97 mg/dL <199 [facility] Comment on above: The drugs N-Acetylcy steine and Metamizole may falsely depress this assay.Serum Triglycerides Reference Interval Normal <150 mg/dL Borderline high 150 - 199 mg/dL High 200 - 499 mg/dL Very High > or = 500 mg/dL WBC (Bld) [#/Vol] 10.9 10*3/uL 4.4-11.0 [facility] Blood erythrocytes count (nu mber/volume)Ordered By: Dr. Montoya on 09-17-2022 RBC (Bld) [#/Vol] 5.03 10*6/uL 4.6-6.2 [facility] Blood hemoglobin measurement (mass/volume)Ordered By: Dr. Montoya on 09-17-2022 Hemoglobin (Bld) [Mass/Vol] 16.2 g/dL 13.0-16.5 [facility] Blood lymphocytes/100 leukoc ytesOrdered By: Dr. Montoya on 09-17-2022 Lymphocytes/100 WBC (Bld) 15.5 % 19-41 [facility] Blood monocytes/100 leukocyt esOrdered By: Dr. Montoya on 09-17-2022 Monocytes/100 WBC (Bld) 12.2 % 0-10 [facility] Blood platelet mean volumeOr dered By: Dr. Montoya on 09-17-2022 Platelet mean volume (Bld) [Entitic vol] 11.3 fL 6.2-12.0 [facility] Determination of erythrocyte mean corpuscular volume (MCV)Ordered By: Dr. Montoya on 09-17-2022 MCV (RBC) [Entitic vol] 96.0 fL 80-94 [facility] Hematocrit Auto (Bld) [Volum e fraction]Ordered By: Dr. Montoya on 09-17-2022 Hematocrit (Bld) [Volume fraction] 48.3 % 40-54 [facility] - Chemistry and C hemistry - challengeOrdered By: Dr. Montoya on 09-17-2022 ALP [Catalytic activity/Vol] 72 U/L 45-117 [facility] ALT [Catalytic activity/Vol] 24 U/L 16-61 [facility] CO2 [Moles/Vol] 23.0 mmol/L 21.0-32.0 [facility] Globulin (S) [Mass/Vol] 4.1 g/dL 2.2-4.2 [facility] [facility] Urea nitrogen/Creatinine [Mass ratio] 9.3 mg/mg 10-20 [facility] - Hematology and Cell countsOrdered By: Dr. Montoya on 09-17-2022 Erythrocyte distribution width (RBC) [Entitic vol] 49.1 fL 35.1-43.9 [facility] Erythrocyte distribution width (RBC) [Ratio] 13.9 % 11.6-14.6 [facility] Immature granulocytes/100 WBC (Bld) 0.600 % 0.0-0.9 [facility] Comment on above: IG% - Immature Granu locytes (promyelocytes, myelocytes and metamyelocytes) > 1% indicates that a LEFT SHIFT is Present. MCH (RBC) [Entitic mass] 32.2 pg 27.0-32.0 [facility] Nucleated RBC/100 WBC (Bld) [Ratio] 0 % 0-5 [facility] - Hematology and Cell countson 09-17-2022 HbA1c (Bld) [Mass fraction] 5.8 % 4.2-6.3 [facility] MCHC Auto (RBC) [Mass/Vol]Or dered By: Dr. Montoya on 09-17-2022 MCHC (RBC) [Mass/Vol] 33.5 g/dL 32-36 [facility] No Panel InformationOrdered By: Dr. Montoya on 09-17-2022 Estimated GFR (MDRD) Amer 97 mL/min >60 [facility] Comment on above: GFR Calc Estimated GFR (MDRD) Non-Af Amer 80 mL/min >60 [facility] Comment on above: Non- GFR Calc Platelets bldOrdered By: Dr. Montoya on 09-17-2022 Platelets (Bld) [#/Vol] 407 10*3/uL 150-450 [facility] Serum or plasma albumin yassine urement (mass/volume)Ordered By: Dr. Montoya on 09-17-2022 Albumin [Mass/Vol] 3.7 g/dL 3.2-5.0 [facility] Serum or plasma albumin/glob ulin mass ratioOrdered By: Dr. Montoya on 09-17-2022 Albumin/Globulin [Mass ratio] 0.9 {ratio} 0.9-2.4 [facility] Serum or plasma calcium yassine urement (mass/volume)Ordered By: Dr. Montoya on 09-17-2022 Calcium [Mass/Vol] 9.2 mg/dL 8.5-10.1 [facility] Serum or plasma cholesterol in HDL measurement (mass/volume)Ordered By: Dr. Montoya on 09-17-2022 Cholesterol in HDL [Mass/Vol] 44 mg/dL >40 [facility] Comment on above: The drugs N-Acetylcy steine and Metamizole may falsely depress this assay. Reference Range HDL <40 mg/dL Low HDL Cholesterol HDL >or= 60 mg/dL High HDL Cholesterol Serum or plasma cholesterol in VLDL measurement (mass/volume)Ordered By: Dr. Montoya on 09-17-2022 Cholesterol in VLDL [Mass/Vol] 19 mg/dL 5-40 [facility] Serum or plasma creatinine m easurement (mass/volume)Ordered By: Dr. Montoya on 09-17-2022 Creatinine [Mass/Vol] 0.97 mg/dL 0.70-1.30 [facility] Comment on above: The validity of the calculated GFR & GFRAA in patients over 70 years has not been determined. Clinical correlation is essential. Serum or plasma low density lipoprotein (LDL) cholesterol measurement (mass/volume)Ordered By: Dr. Montoya on 09-17-2022 Cholesterol in LDL [Mass/Vol] 135 mg/dL 0-130 [facility] Serum or plasma urea nitroge n measurement (mass/volume)Ordered By: Dr. Montoya on 09-17-2022 Urea nitrogen [Mass/Vol] 9 mg/dL 7-18 [facility] Thin prep Papanicolaou smear with manual screeningOrdered By: Dr. Montoya on 09-17-2022 Thin prep Papanicolaou smear with manual screening 15 U/L 15-37 [facility] Thin prep Papanicolaou smear with manual screening 9 5-15 [facility] - Hematology and Cell countson 06-02-2022 HbA1c (Bld) [Mass fraction] 5.9 % 4.2-6.3 [facility] Absolute lymphocyte counton 03-02-2022 Lymphocytes Auto (Unsp spec) [#/Vol] 1.48 10*3/uL 0.83-4.51 [facility] Work Phone: [phone] Basophil percentageon 2021 Basophils/100 WBC (Bld) 1.4 % 0-1 [facility] Work Phone: [phone] Bilirubin [Mass/Vol] 0.80 mg/dL 0.20-1.00 [facility] Work Phone: [phone] Comment on above: For patients on eltr ombopag therapy, use of Dimension [employer] TBIL is not recommended. Chloride [Moles/Vol] 102 mmol/L 98-107 [facility] Work Phone: [phone] Eosinophils/100 WBC (Bld) 5.1 % 0-5 [facility] Work Phone: [phone] Glucose [Mass/Vol] 137 mg/dL 74-106 [facility] Work Phone: [phone] Comment on above: Fasting Glucose resu lt greater than or equal to 126 mg/dL suggests DIABETES MELLITUS per A.D.A. criteria. Neutrophils (Bld) [#/Vol] 9.8 10*3/uL 2.0-7.7 [facility] Work Phone: [phone] Neutrophils/100 WBC (Bld) 73.1 % 47-70 [facility] Work Phone: [phone] Potassium [Moles/Vol] 4.3 mmol/L 3.5-5.1 [facility] Work Phone: [phone] Comment on above: Slight Hemolysis, Re sult may be falsely increased. Protein [Mass/Vol] 7.8 g/dL 6.4-8.2 [facility] Work Phone: [phone] Sodium [Moles/Vol] 133 mmol/L 136-145 [facility] Work Phone: [phone] WBC (Bld) [#/Vol] 13.5 10*3/uL 4.4-11.0 [facility] Work Phone: Blood erythrocytes count (nu mber/volume)on 03-02-2022 RBC (Bld) [#/Vol] 5.01 10*6/uL 4.6-6.2 [facility] Work Phone: Blood hemoglobin measurement (mass/volume)on 03-02-2022 Hemoglobin (Bld) [Mass/Vol] 16.5 g/dL 13.0-16.5 [facility] Work Phone: Blood lymphocytes/100 leukoc yteson 03-02-2022 Lymphocytes/100 WBC (Bld) 11.0 % 19-41 [facility] Work Phone: Blood monocytes/100 leukocyt eson 03-02-2022 Monocytes/100 WBC (Bld) 8.7 % 0-10 [facility] Work Phone: Blood platelet mean volumeon 03-02-2022 Platelet mean volume (Bld) [Entitic vol] 10.6 fL 6.2-12.0 [facility] Work Phone: Determination of erythrocyte mean corpuscular volume (MCV)on 03-02-2022 MCV (RBC) [Entitic vol] 93.6 fL 80-94 [facility] Work Phone: Hematocrit Auto (Bld) [Volum e fraction]on 03-02-2022 Hematocrit (Bld) [Volume fraction] 46.9 % 40-54 [facility] Work Phone: Laboratory - Chemistry and C hemistry - challengeon 03-02-2022 ALP [Catalytic activity/Vol] 74 U/L 45-117 [facility] Work Phone: ALT [Catalytic activity/Vol] 33 U/L 16-61 [facility] Work Phone: CO2 [Moles/Vol] 23.0 mmol/L 21.0-32.0 [facility] Work Phone: Globulin (S) [Mass/Vol] 3.9 g/dL 2.2-4.2 [facility] Work Phone: Urea nitrogen/Creatinine [Mass ratio] 12.9 mg/mg 10-20 [facility] Work Phone: Laboratory - Hematology and Cell countson 03-02-2022 Erythrocyte distribution width (RBC) [Entitic vol] 45.5 fL 35.1-43.9 [facility] Work Phone: Erythrocyte distribution width (RBC) [Ratio] 13.5 % 11.6-14.6 [facility] Work Phone: Immature granulocytes/100 WBC (Bld) 0.700 % 0.0-0.9 [facility] Work Phone: Comment on above: IG% - Immature Granu locytes (promyelocytes, myelocytes and metamyelocytes) > 1% indicates that a LEFT SHIFT is Present. MCH (RBC) [Entitic mass] 32.9 pg 27.0-32.0 [facility] Work Phone: Nucleated RBC/100 WBC (Bld) [Ratio] 0 % 0-5 [facility] Work Phone: HbA1c (Bld) [Mass fraction] 6.3 % 4.2-6.3 [facility] Work Phone: MCHC Auto (RBC) [Mass/Vol]on 03-02-2022 MCHC (RBC) [Mass/Vol] 35.2 g/dL 32-36 [facility] Work Phone: No Panel Informationon 03-02 Estimated GFR (MDRD) Amer 102 mL/min >60 [facility] Work Phone: Comment on above: GFR Calc Estimated GFR (MDRD) Non-Af Amer 85 mL/min >60 [facility] Work Phone: Comment on above: Non- GFR Calc Platelets bldon 03-02-2022 Platelets (Bld) [#/Vol] 434 10*3/uL 150-450 [facility] Work Phone: Serum or plasma albumin yassine urement (mass/volume)on 03-02-2022 Albumin [Mass/Vol] 3.9 g/dL 3.2-5.0 [facility] Work Phone: Serum or plasma albumin/glob ulin mass ratioon 03-02-2022 Albumin/Globulin [Mass ratio] 1.0 {ratio} 0.9-2.4 [facility] Work Phone: Serum or plasma calcium yassine urement (mass/volume)on 03-02-2022 Calcium [Mass/Vol] 9.7 mg/dL 8.5-10.1 [facility] Work Phone: Serum or plasma creatinine m easurement (mass/volume)on 03-02-2022 Creatinine [Mass/Vol] 0.93 mg/dL 0.70-1.30 [facility] Work Phone: Comment on above: The validity of the calculated GFR & GFRAA in patients over 70 years has not been determined. Clinical correlation is essential. Serum or plasma urea nitroge n measurement (mass/volume)on 03-02-2022 Urea nitrogen [Mass/Vol] 12 mg/dL 7-18 [facility] Work Phone: Thin prep Papanicolaou smear with manual screeningon 03-02-2022 Thin prep Papanicolaou smear with manual screening 18 U/L 15-37 [facility] Work Phone: Comment on above: Slight Hemolysis, Re sult may be falsely increased. Thin prep Papanicolaou smear with manual screening 8 5-15 [facility] Work Phone: Absolute lymphocyte counton 10-26-2021 Lymphocytes Auto (Unsp spec) [#/Vol] 2.16 10*3/uL 0.83-4.51 [facility] Work Phone: Basophil percentageon 2021 Basophils/100 WBC (Bld) 0.8 % 0-1 [facility] Work Phone: Bilirubin [Mass/Vol] 0.60 mg/dL 0.20-1.00 [facility] Work Phone: Comment on above: For patients on eltr ombopag therapy, use of [employer] TBIL is not recommended. Chloride [Moles/Vol] 103 mmol/L 98-107 [facility] Work Phone: Cholesterol [Mass/Vol] 150 mg/dL <200 [facility] Work Phone: Comment on above: <200 mg/dL Desirable 200-240 mg/dL Borderline >240 mg/dL High Risk Eosinophils/100 WBC (Bld) 1.2 % 0-5 [facility] Work Phone: Glucose [Mass/Vol] 141 mg/dL 74-106 [facility] Work Phone: Comment on above: Fasting Glucose resu lt greater than or equal to 126 mg/dL suggests DIABETES MELLITUS per A.D.A. criteria. Neutrophils (Bld) [#/Vol] 9.1 10*3/uL 2.0-7.7 [facility] Work Phone: Neutrophils/100 WBC (Bld) 70.1 % 47-70 [facility] Work Phone: Potassium [Moles/Vol] 4.3 mmol/L 3.5-5.1 [facility] Work Phone: Comment on above: Slight Hemolysis, Re sult may be falsely increased. Protein [Mass/Vol] 7.9 g/dL 6.4-8.2 [facility] Work Phone: Sodium [Moles/Vol] 134 mmol/L 136-145 [facility] Work Phone: Triglyceride [Mass/Vol] 62 mg/dL <199 [facility] Work Phone: Comment on above: The drugs N-Acetylcy steine and Metamizole may falsely depress this assay.Serum Triglycerides Reference Interval Normal <150 mg/dL Borderline high 150 - 199 mg/dL High 200 - 499 mg/dL Very High > or = 500 mg/dL WBC (Bld) [#/Vol] 12.9 10*3/uL 4.4-11.0 [facility] Work Phone: Blood erythrocytes count (nu mber/volume)on 10-26-2021 RBC (Bld) [#/Vol] 5.07 10*6/uL 4.6-6.2 [facility] Work Phone: Blood hemoglobin measurement (mass/volume)on 10-26-2021 Hemoglobin (Bld) [Mass/Vol] 16.6 g/dL 13.0-16.5 [facility] Work Phone: Blood lymphocytes/100 leukoc yteson 10-26-2021 Lymphocytes/100 WBC (Bld) 16.7 % 19-41 [facility] Work Phone: Blood monocytes/100 leukocyt eson 10-26-2021 Monocytes/100 WBC (Bld) 10.4 % 0-10 [facility] Work Phone: Blood platelet mean volumeon 10-26-2021 Platelet mean volume (Bld) [Entitic vol] 11.7 fL 6.2-12.0 [facility] Work Phone: Determination of erythrocyte mean corpuscular volume (MCV)on 10-26-2021 MCV (RBC) [Entitic vol] 95.3 fL 80-94 [facility] Work Phone: Hematocrit Auto (Bld) [Volum e fraction]on 10-26-2021 Hematocrit (Bld) [Volume fraction] 48.3 % 40-54 [facility] Work Phone: Laboratory - Chemistry and C hemistry - challengeon 10-26-2021 ALP [Catalytic activity/Vol] 71 U/L 45-117 [facility] Work Phone: ALT [Catalytic activity/Vol] 36 U/L 16-61 [facility] Work Phone: CO2 [Moles/Vol] 26.0 mmol/L 21.0-32.0 [facility] Work Phone: Globulin (S) [Mass/Vol] 4.0 g/dL 2.2-4.2 [facility] Work Phone: Urea nitrogen/Creatinine [Mass ratio] 16.0 mg/mg 10-20 [facility] Work Phone: Laboratory - Hematology and Cell countson 10-26-2021 Erythrocyte distribution width (RBC) [Entitic vol] 48.7 fL 35.1-43.9 [facility] Work Phone: Erythrocyte distribution width (RBC) [Ratio] 13.9 % 11.6-14.6 [facility] Work Phone: Immature granulocytes/100 WBC (Bld) 0.800 % 0.0-0.9 [facility] Work Phone: Comment on above: IG% - Immature Granu locytes (promyelocytes, myelocytes and metamyelocytes) > 1% indicates that a LEFT SHIFT is Present. MCH (RBC) [Entitic mass] 32.7 pg 27.0-32.0 [facility] Work Phone: Nucleated RBC/100 WBC (Bld) [Ratio] 0 % 0-5 [facility] Work Phone: MCHC Auto (RBC) [Mass/Vol]on 10-26-2021 MCHC (RBC) [Mass/Vol] 34.4 g/dL 32-36 [facility] Work Phone: No Panel Informationon 10-26 Estimated GFR (MDRD) Amer 94 mL/min >60 [facility] Work Phone: Comment on above: GFR Calc Estimated GFR (MDRD) Non-Af Amer 78 mL/min >60 [facility] Work Phone: Comment on above: Non- GFR Calc Platelets bldon 10-26-2021 Platelets (Bld) [#/Vol] 296 10*3/uL 150-450 [facility] Work Phone: Serum or plasma albumin yassine urement (mass/volume)on 10-26-2021 Albumin [Mass/Vol] 3.9 g/dL 3.2-5.0 [facility] Work Phone: Serum or plasma albumin/glob ulin mass ratioon 10-26-2021 Albumin/Globulin [Mass ratio] 1.0 {ratio} 0.9-2.4 [facility] Work Phone: Serum or plasma calcium yassine urement (mass/volume)on 10-26-2021 Calcium [Mass/Vol] 9.0 mg/dL 8.5-10.1 [facility] Work Phone: Serum or plasma cholesterol in HDL measurement (mass/volume)on 10-26-2021 Cholesterol in HDL [Mass/Vol] 61 mg/dL >40 [facility] Work Phone: Comment on above: The drugs N-Acetylcy steine and Metamizole may falsely depress this assay. Reference Range HDL <40 mg/dL Low HDL Cholesterol HDL >or= 60 mg/dL High HDL Cholesterol Serum or plasma cholesterol in VLDL measurement (mass/volume)on 10-26-2021 Cholesterol in VLDL [Mass/Vol] 12 mg/dL 5-40 [facility] Work Phone: Serum or plasma creatinine m easurement (mass/volume)on 10-26-2021 Creatinine [Mass/Vol] 1.00 mg/dL 0.70-1.30 [facility] Work Phone: Comment on above: The validity of the calculated GFR & GFRAA in patients over 70 years has not been determined. Clinical correlation is essential. Serum or plasma low density lipoprotein (LDL) cholesterol measurement (mass/volume)on 10-26-2021 Cholesterol in LDL [Mass/Vol] 77 mg/dL 0-130 [facility] Work Phone: Serum or plasma urea nitroge n measurement (mass/volume)on 10-26-2021 Urea nitrogen [Mass/Vol] 16 mg/dL 7-18 [facility] Work Phone: Thin prep Papanicolaou smear with manual screeningon 10-26-2021 Thin prep Papanicolaou smear with manual screening 14 U/L 15-37 [facility] Work Phone: Comment on above: Slight Hemolysis, Re sult may be falsely increased. Thin prep Papanicolaou smear with manual screening 5 5-15 [facility] Work Phone: Whole blood hemoglobin A1c/t otal hemoglobin ratio (mass fraction)on 10-26-2021 HbA1c (Bld) [Mass fraction] 7.0 % 3.8-5.6 [facility] Work Phone: Comment on above: Normal < 5.7 % Predi abetic 5.7 - 6.4 % Diabetic >or= 6.5 % Please note range changes. Vital Signs Date Time Vital Sign Value Performing Clinician Faci dimasy 07-30-2024 10:02-0500 Body height 172.[address] Zully Montoya MD Work Phone: [facility] 07-30-2024 10:02-0500 Body mass index (BMI) [Ratio] 26.6 kg/m2 Dr. Zully Montoya MD Work Phone: [facility] 07-30-2024 10:02-0500 Body temperature 97.9 [degF] Dr. Zully Montoya MD Work Phone: [facility] 07-30-2024 10:02-0500 Body weight 79.[address] Zully Montoya MD Work Phone: [facility] 07-30-2024 10:02-0500 Diastolic blood pressure 64 mm[Hg] Dr. Zully Montoya MD Work Phone: [facility] 07-30-2024 10:02-0500 Heart rate 86 /min Dr. Zully Montoya MD Work Phone: [facility] 07-30-2024 10:02-0500 Respiratory rate 14 /min Dr. Zully Montoya MD Work Phone: [facility] 07-30-2024 10:02-0500 SaO2% (BldA) [Mass fraction] 97 % Dr. Zully Montoya MD Work Phone: [facility] 07-30-2024 10:02-0500 Systolic blood pressure 130 mm[Hg] Dr. Zully Montoya MD Work Phone: [facility] 07-27-2023 09:37-0500 Body height 172.[address] Zully Montoya Work Phone: [facility] 07-27-2023 09:37-0500 Body mass index (BMI) [Ratio] 26.1 kg/m2 Dr. Zully Montoya Work Phone: [facility] 07-27-2023 09:37-0500 Body temperature 97 [degF] Dr. Zully Montoya Work Phone: [facility] 07-27-2023 09:37-0500 Body weight 78.[address] Zully Montoay Work Phone: [facility] 07-27-2023 09:37-0500 Diastolic blood pressure 76 mm[Hg] Dr. Zully Montoya Work Phone: [facility] 07-27-2023 09:37-0500 Heart rate 86 /min Dr. Zully Montoya Work Phone: [facility] 07-27-2023 09:37-0500 Respiratory rate 18 /min Dr. Zully Montoya Work Phone: [facility] 07-27-2023 09:37-0500 SaO2% (BldA) [Mass fraction] 94 % Dr. Zully Montoya Work Phone: [facility] 07-27-2023 09:37-0500 Systolic blood pressure 122 mm[Hg] Dr. Zully Montoya Work Phone: [facility] 04-11-2023 09:27-0400 Body height 172.[address] Zully Montoya Work Phone: [facility] 04-11-2023 09:27-0400 Body mass index (BMI) [Ratio] 26.2 kg/m2 Dr. Zully Montoya Work Phone: [facility] 04-11-2023 09:27-0400 Body temperature 97.9 [degF] Dr. Zully Montoya Work Phone: [facility] 04-11-2023 09:27-0400 Body weight 78.[address] Zully Montoya Work Phone: [facility] 04-11-2023 09:27-0400 Diastolic blood pressure 56 mm[Hg] Dr. Zully Montoya Work Phone: [facility] 04-11-2023 09:27-0400 Heart rate 82 /min Dr. Zully Montoya Work Phone: [facility] 04-11-2023 09:27-0400 Respiratory rate 18 /min Dr. Zully Montoya Work Phone: [facility] 04-11-2023 09:27-0400 SaO2% (BldA) [Mass fraction] 97 % Dr. Zully Montoya Work Phone: [facility] 04-11-2023 09:27-0400 Systolic blood pressure 128 mm[Hg] Dr. Zully Montoya Work Phone: [facility] 09-17-2022 09:45-0500 Body height 172.[address] Zulyl Montoya Work Phone: [facility] 09-17-2022 09:45-0500 Body mass index (BMI) [Ratio] 26.3 kg/m2 Dr. Zully Montoya Work Phone: [facility] 09-17-2022 09:45-0500 Body temperature 97.2 [degF] Dr. Zully Montoya Work Phone: [facility] 09-17-2022 09:45-0500 Body weight 78.[address] Zully Montoya Work Phone: [facility] 09-17-2022 09:45-0500 Diastolic blood pressure 80 mm[Hg] Dr. Zully Montoya Work Phone: [facility] 09-17-2022 09:45-0500 Heart rate 89 /min Dr. Zully Montoya Work Phone: [facility] 09-17-2022 09:45-0500 Respiratory rate 18 /min Dr. Zully Montoya Work Phone: [facility] 09-17-2022 09:45-0500 SaO2% (BldA) [Mass fraction] 98 % Dr. Zully Montoya Work Phone: [facility] 09-17-2022 09:45-0500 Systolic blood pressure 134 mm[Hg] Dr. Zully Montoya Work Phone: [facility] 06-02-2022 10:16-0500 Body temperature 97.5 [degF] Dr. Zully Montoya Work Phone: [facility] 06-02-2022 10:16-0500 Body weight 75.[address] Zully Montoya Work Phone: [facility] 06-02-2022 10:16-0500 Diastolic blood pressure 64 mm[Hg] Dr. Zully Montoya Work Phone: [facility] 06-02-2022 10:16-0500 Heart rate 93 /min Dr. Zully Montoya Work Phone: [facility] 06-02-2022 10:16-0500 Respiratory rate 18 /min Dr. Zully Montoya Work Phone: [facility] 06-02-2022 10:16-0500 SaO2% (BldA) [Mass fraction] 95 % Dr. Zully Montoya Work Phone: [facility] 06-02-2022 10:16-0500 Systolic blood pressure 134 mm[Hg] Dr. Zully Montoya Work Phone: [facility] 03-02-2022 09:45-0400 Body height 172.[address] Zully Montoya Work Phone: [facility] Work Phone: 03-02-2022 09:45-0400 Body mass index (BMI) [Ratio] 25.7 kg/m2 Dr. Zully Montoya Work Phone: [facility] Work Phone: 03-02-2022 09:45-0400 Body temperature 97.2 [degF] Dr. Zully Montoya Work Phone: [facility] Work Phone: 03-02-2022 09:45-0400 Body weight 76.[address] Zully Montoya Work Phone: [facility] Work Phone: 03-02-2022 09:45-0400 Diastolic blood pressure 70 mm[Hg] Dr. Zully Montoya Work Phone: [facility] Work Phone: 03-02-2022 09:45-0400 Heart rate 95 /min Dr. Zully Montoya Work Phone: [facility] Work Phone: 03-02-2022 09:45-0400 Respiratory rate 16 /min Dr. Zully Montoya Work Phone: [facility] Work Phone: 03-02-2022 09:45-0400 SaO2% (BldA) [Mass fraction] 95 % Dr. Zully Montoya Work Phone: [facility] Work Phone: 03-02-2022 09:45-0400 Systolic blood pressure 110 mm[Hg] Dr. Zully Montoya Work Phone: [facility] Work Phone: 01-22-2022 10:22-0400 Body mass index (BMI) [Ratio] 25.8 kg/m2 Dr. Zully Montoya Work Phone: [facility] Work Phone: 01-22-2022 10:22-0400 Body temperature 97.5 [degF] Dr. Zully Montoya Work Phone: [facility] Work Phone: 01-22-2022 10:22-0400 Body weight 77.[address] Zully Montoya Work Phone: [facility] Work Phone: 01-22-2022 10:22-0400 Diastolic blood pressure 78 mm[Hg] Dr. Zully Montoya Work Phone: [facility] Work Phone: 01-22-2022 10:22-0400 Heart rate 99 /min Dr. Zully Montoya Work Phone: [facility] Work Phone: 01-22-2022 10:22-0400 Respiratory rate 18 /min Dr. Zully Montoya Work Phone: [facility] Work Phone: 01-22-2022 10:22-0400 SaO2% (BldA) [Mass fraction] 95 % Dr. Zully Montoya Work Phone: [facility] Work Phone: 01-22-2022 10:22-0400 Systolic blood pressure 134 mm[Hg] Dr. Zully Montoya Work Phone: [facility] Work Phone: 01-19-2022 10:01-0400 Body height 172.[address] Zully Montoya Work Phone: [facility] Work Phone: 01-19-2022 10:01-0400 Body mass index (BMI) [Ratio] 25.9 kg/m2 Dr. Zully Montoya Work Phone: [facility] Work Phone: 01-19-2022 10:01-0400 Body temperature 97.5 [degF] Dr. Zully Montoya Work Phone: [facility] Work Phone: 01-19-2022 10:01-0400 Body weight 77.[address] Zully Montoya Work Phone: [facility] Work Phone: 01-19-2022 10:01-0400 Diastolic blood pressure 81 mm[Hg] Dr. Zully Montoya Work Phone: [facility] Work Phone: 01-19-2022 10:01-0400 Heart rate 95 /min Dr. Zully Montoya Work Phone: [facility] Work Phone: 01-19-2022 10:01-0400 Respiratory rate 16 /min Dr. Zully Montoya Work Phone: [facility] Work Phone: 01-19-2022 10:01-0400 SaO2% (BldA) [Mass fraction] 97 % Dr. Zully Montoya Work Phone: [facility] Work Phone: 01-19-2022 10:01-0400 Systolic blood pressure 160 mm[Hg] Dr. Zully Montoya Work Phone: [facility] Work Phone: 10-26-2021 09:37-0400 Body mass index (BMI) [Ratio] 26.6 kg/m2 Dr. Zully Montoya Work Phone: [facility] Work Phone: 10-26-2021 09:37-0400 Body temperature 98.4 [degF] Dr. Zully Montoya Work Phone: [facility] Work Phone: 10-26-2021 09:37-0400 Body weight 79.[address] Zully Montoya Work Phone: [facility] Work Phone: 10-26-2021 09:37-0400 Diastolic blood pressure 68 mm[Hg] Dr. Zully Montoya Work Phone: [facility] Work Phone: 10-26-2021 09:37-0400 Heart rate 99 /min Dr. Zully Montoya Work Phone: [facility] Work Phone: 10-26-2021 09:37-0400 Respiratory rate 22 /min Dr. Zully Montoya Work Phone: [facility] Work Phone: 10-26-2021 09:37-0400 SaO2% (BldA) [Mass fraction] 97 % Dr. Zully Montoya Work Phone: [facility] Work Phone: 10-26-2021 09:37-0400 Systolic blood pressure 130 mm[Hg] Dr. Zully Montoya Work Phone: [facility] Work Phone: Encounters Encounter Date Encounter Type Care Provider Facility Start: 11-26-2024 End: [facility] Start: 11-14-2024 Non-patient / Non-visit Dr. Bienvenido harry MD -[facility] Start: 11-14-2024 End: 11-14-[address] Zully Montoya MD Work Phone: [facility] Work Phone: Start: 11-14-2024 End: 11-14-2024 Patient encounter procedure Dr. Kevin Long MD -Cardiovascular Services Work Phone: Start: 11-14-2024 End: 11-14-2024 ambulatory Kevin Long Facility:[facility] Start: 09-19-2024 End: 09-19-[address] Zully Montoya MD Work Phone: [facility] Work Phone: Start: 09-19-2024 End: 09-19-[address] [facility] Start: 09-19-2024 End: 09-19-2024 ambulatory [facility] Facility:[facility] Start: 07-30-2024 End: 07-30-[address] Zully Montoya MD -[facility] Work Phone: Start: 07-30-2024 End: 07-30-2024 ambulatory [facility] Facility:[facility] Start: 06-26-2024 End: 06-26-[address] Heidy Ma MD -Laboratory, [place] Work Phone: Start: 06-26-2024 End: 06-26-2024 ambulatory [facility] Facility:[facility] Start: 04-04-2024 End: 04-04-2024 ambulatory [facility] Start: 04-02-2024 End: 04-02-2024 ambulatory [facility] Facility:[facility] Start: 01-03-2024 End: 01-03-2024 ambulatory [facility] Facility:[facility] Start: 11-30-2023 End: 11-30-2023 ambulatory [facility] Start: 10-07-2023 End: 10-07-[address] Zully Montoya Work Phone: [facility] Work Phone: Start: 10-07-2023 End: 10-07-[address] Zully Montoya Work Phone: [facility] Work Phone: Start: 08-10-2023 End: 08-10-[address] Zully Montoya Work Phone: [facility] Work Phone: Start: 08-10-2023 End: 08-10-[address] Zully Montoya Work Phone: [facility] Work Phone: Start: 07-27-2023 End: 07-27-[address] Zully Montoya Work Phone: [facility] Internal Medicine Work Phone: Start: 05-13-2023 End: 05-13-[address] Zully Montoya Work Phone: [facility] Work Phone: Start: 05-13-2023 End: 05-13-[address] Zully Montoya Work Phone: [facility] Work Phone: Start: 04-11-2023 End: 04-11-[address] Zully Montoya Work Phone: [facility] Internal Medicine Work Phone: Start: 03-22-2023 End: 03-22-[address] Zully Montoya Work Phone: [facility] Work Phone: Start: 01-03-2023 End: 01-04-2023 [facility] Start: 01-03-2023 End: 01-03-2023 Subsequent hospital visit by physician [facility] Work Phone: Radiology Start: 11-12-2022 End: 11-12-[address] Zully Montoya Work Phone: [facility] Work Phone: Start: 11-12-2022 End: 11-12-[address] [facility] Start: 09-17-2022 End: 09-17-[address] Zully Montoya Work Phone: [facility] Work Phone: Start: 09-17-2022 End: 09-17-[address] Zully Montoya Work Phone: [facility] Start: 06-07-2022 Non-patient / Non-visit Dr. Rangel Montoya Work Phone: [facility] Start: 06-07-2022 End: 06-07-[address] Zully Montoya Work Phone: [facility]-Pulmonary Services/Neurology Start: 06-02-2022 End: 06-02-[address] Zully Montoya Work Phone: [facility] Internal Medicine Start: 03-02-2022 End: 03-02-[address] Zully Montoya Work Phone: [facility] Internal Medicine Start: 01-22-2022 End: 01-22-[address] Zully Montoya Work Phone: [facility] Internal Medicine Start: 01-19-2022 Non-patient / Non-visit Dr. Rangel Montoya Work Phone: [facility] Start: 01-19-2022 End: 01-19-2022 Emergency department patient visit Dr. Zully Montoya Work Phone: [facility]-Emergency Department Start: 10-26-2021 End: 10-26-[address] Zully Montoya Work Phone: [facility]-Laboratory, [facility] Procedures Date Procedure Procedure Detail Performing Clinician Start: 01-03-2023 Radex hand minimum 3 views [facility] Provider Start: 11-12-2022 Plain X-ray of shoulder Dr. Zully Montoya Work Phone: Start: 01-19-2022 Plain X-ray of tibia and fibula Dr. Zully Montoya Work Phone: Start: 01-19-2022 X-ray of both feet Dr. Zully Montoya Work Phone: Start: 08-30-2017 Lipid 1996 panel - S pipo or Plasma [facility] Work Phone: Plan of Treatment Date Care Activity Detail Author Start: 01-03-2026 Diabetes Screening Diabetes Screening [facility] Start: 03-18-2023 [facility]enza [facility] Start: 08-30-2022 Lipid 1996 panel - Serum or Plasma Lipid Screening [facility] Start: 07-18-2022 Advance Directive Discussion Advance Directive Discussion [facility] Start: 07-18-2022 Depression Assessment Depression Assessment [facility] Start: 01-22-2022 Patient referral [facility] Work Phone: Start: 10-26-2021 Patient referral [facility] Work Phone: Start: 2008 RSV Vaccine (1 - 1-dose 60+ series) RSV Vaccine (1 - 1-dose 60+ series) [facility] Start: 1998 Shingrix Vaccine (1 of 2) Shingrix Vaccine (1 of 2) [facility] Start: 1993 Cologuard (FIT-DNA) Cologuard (FIT-DNA) [facility] Start: 1993 Colonoscopy Colonoscopy [facility] Start: 1993 Colorectal Cancer Screening Colorectal Cancer Screening [facility] Start: [address] Colonography [facility] Start: 1993 Fecal Occult Blood Fecal Occult Blood [facility] Start: 1993 Sigmoidoscopy Sigmoidoscopy [facility] Start: 10-10-1967 Urine microalbumin profile DTaP,Tdap,Td Vaccine (1 - Tdap) [facility] Start: 1966 Annual PCP Team Chronic Disease Visit Annual PCP Team Chronic Disease Visit [facility] Start: 1966 BP Controlled (<130/80) BP Controlled (<130/80) [facility] Start: 1954 Pneumococcal Vaccine: 65+ (1 - PCV) Pneumococcal Vaccine: 65+ (1 - PCV) [facility] Start: 04-11-1949 Covid-19 Vaccine (#1) Covid-19 Vaccine (#1) [facility] Start: 1948 Abdominal Aortic Aneurysm Screening Abdominal Aortic Aneurysm Screening [facility] Hemoglobin A1c/Hemoglobin.total in Blood [facility] Work Phone: Lipid 1996 panel - S pipo or Plasma [facility] MR Lower Extremity [facility] Work Phone: Patient Education ED Pain, Acute , Uncertain Cause [facility] Work Phone: Patient referral [facility] Work Phone: Prostate specific an tigen measurement [facility] Immunizations Immunization Date Immunization Notes Care Provider Rickey stearns 08-30-2017 influenza virus vacc ine, unspecified formulation [facility] Work Phone: [facility] Payers Date Payer Category Payer Self-pay [id number] 2015 Medicare [id number] 2015 Medicare HUMANA MEDICARE HUMANA MEDICARE PPO [id number] 2015-Present [id number] [place] [address] PPO [id number] Medicare [id number] Private Health Insurance [id number] Unknown [id number] Unknown [id number] Unknown [id number] Unknown [id number] Unknown [id number] Unknown [id number] Unknown [id number] Unknown [id number] Unknown [id number] Unknown [id number] Social History Date Type Detail Facility Start: 01-19-2022 End: 07-27-2023 Tobacco smoking status ORIS Unknown if ever smoked [facility] Start: 11-23-2020 Cigarettes [facility] Start: 1950 Sex Assigned At Male [facility] Start: 12-12-2019 End: 07-27-2023 Tobacco smoking status NHIS Smokes tobacco daily [facility] Work Phone: History of tobacco use Cigarette Smoker [facility] Work Phone: Start: 12-12-2019 End: 06-25-2020 Cigarettes smoked current (pack per day) - Reported 0.5 [facility] Start: 12-12-2019 Tobacco use and exposure Smokeless tobacco non-user [facility] Work Phone: Start: 09-07-2021 Alcohol intake Current drinke r of alcohol (finding) [facility] Start: 06-25-2020 End: 09-07-2021 Tobacco use panel [facility] National Score (1-10 0), lower number is lower risk Not on file [facility] Start: 09-27-2017 Alcohol Comment drinks 6-8 beers wee rl [facility] Start: 1950 Sex Assigned At Not on file [facility] Start: 10-02-2024 Sex Male (finding) [facility] Medical Equipment Procedure Code Equipment Code Equipment Origin al Text Equipment Identifier Dates Blood Sugar Diagnostic (Freestyle Lite Strips) strip Start: 04-22-2021 Lancets (Freesty le Lancets) 28 gauge [facility] Start: 01-08-2020 Blood Sugar Diagnostic (Freestyle Lite Strips) strip Start: 01-08-2020 End: 02-14-2020 Blood Sugar Diagnostic (Freestyle Lite Strips) strip Start: 02-14-2020 End: 04-22-2021 Blood Sugar Diagnostic (Freestyle Lite Strips) strip Start: 04-22-2021 Lancets (Freesty le Lancets) 28 gauge [facility] Start: 01-08-2020 Blood Sugar Diagnostic (Freestyle Lite Strips) strip Start: 01-08-2020 End: 02-14-2020 Blood Sugar Diagnostic (Freestyle Lite Strips) strip Start: 02-14-2020 End: 04-22-2021 Blood Sugar Diagnostic (Freestyle Lite Strips) strip Start: 04-22-2021 Lancets (Freesty le Lancets) 28 gauge misc Start: 01-08-2020 Blood Sugar Diagnostic (Freestyle Lite Strips) strip Start: 01-08-2020 End: 02-14-2020 Blood Sugar Diagnostic (Freestyle Lite Strips) strip Start: 02-14-2020 End: 04-22-2021 Blood Sugar Diagnostic (Freestyle Lite Strips) strip Start: 04-22-2021 Lancets (Freesty le Lancets) 28 gauge misc Start: 01-08-2020 Blood Sugar Diagnostic (Freestyle Lite Strips) strip Start: 01-08-2020 End: 02-14-2020 Blood Sugar Diagnostic (Freestyle Lite Strips) strip Start: 02-14-2020 End: 04-22-2021 Blood Sugar Diagnostic (Freestyle Lite Strips) strip Start: 04-22-2021 Lancets (Freesty le Lancets) 28 gauge misc Start: 01-08-2020 Blood Sugar Diagnostic (Freestyle Lite Strips) strip Start: 01-08-2020 End: 02-14-2020 Blood Sugar Diagnostic (Freestyle Lite Strips) strip Start: 02-14-2020 End: 04-22-2021 Blood Sugar Diagnostic (Freestyle Lite Strips) strip Start: 04-22-2021 Lancets (Freesty le Lancets) 28 gauge misc Start: 01-08-2020 Blood Sugar Diagnostic (Freestyle Lite Strips) strip Start: 01-08-2020 End: 02-14-2020 Blood Sugar Diagnostic (Freestyle Lite Strips) strip Start: 02-14-2020 End: 04-22-2021 Blood Sugar Diagnostic (Freestyle Lite Strips) strip Start: 04-22-2021 Lancets (Freesty le Lancets) 28 gauge misc Start: 01-08-2020 Blood Sugar Diagnostic (Freestyle Lite Strips) strip Start: 01-08-2020 End: 02-14-2020 Blood Sugar Diagnostic (Freestyle Lite Strips) strip Start: 02-14-2020 End: 04-22-2021 Blood Sugar Diagnostic (Freestyle Lite Strips) strip Start: 04-22-2021 Lancets (Freesty le Lancets) 28 gauge misc Start: 01-08-2020 Blood Sugar Diagnostic (Freestyle Lite Strips) strip Start: 01-08-2020 End: 02-14-2020 Blood Sugar Diagnostic (Freestyle Lite Strips) strip Start: 02-14-2020 End: 04-22-2021 Blood Sugar Diagnostic (Freestyle Lite Strips) strip Start: 04-22-2021 Lancets (Freesty le Lancets) 28 gauge misc Start: 01-08-2020 Blood Sugar Diagnostic (Freestyle Lite Strips) strip Start: 01-08-2020 End: 02-14-2020 Blood Sugar Diagnostic (Freestyle Lite Strips) strip Start: 02-14-2020 End: 04-22-2021 Clinical Notes 01-03-2023 to 07-30-2024 Note Date & Type Note Facility 07-30-2024 Evaluation note Diagnosis Onset Date Resolution Hyperlipidemia chronic July 302024 9:57am Hypertension chronic July 9:57am Rheumatoid arthritis chronic Leonard harjeet2024 9:57am Type 2 diabetes mellitus chronic July 30, 2024 9:57am [facility] Work Phone: 1(986) 418-200506-19-2023 NoteHNO ID: [id number] Author: RT Madelin(Curly) Service: ? Author Type: Technologist Type: Progress [...] BY: RT Madelin(R) January 03, 2023 11:08 [facility]06-19-2023 History of Present illness Narrative* Dee Goldsmith RT(R) - 01/03/2023 10:30 AM EDT Radiology Service Progress Note PATIENT NAME: Shea Teixeira DATE OF SERVICE: January 03, 2023 TIME: 11:08 AM PATIENT IDENTITY VERIFICATION COMPLETED USING TWO (2) IDENTIFIERS: Name and Date of confirmedby patient verbally. FALL SCREENING: Has the patient had 2 falls in the last year or 1 fall with injury or currently using an Ambulatory Assistive Device (Walker, Cane, Wheelchair, Crutches, etc.)? No PATIENT GENDER DATA: Male PATIENT RELEVANT IMPLANT DATA REVIEWED: Not Applicable RADIOLOGY DEPARTMENT: General X-ray: Exam(s) Completed: Upper Extremity X- Ray(s): Hand, bilateral PERIPHERAL IV DATA: Not applicable SIGNED BY: RT Madelin(R) January 03, 2023 11:08 AM documented [facility] System[facility]* Diagnosis Onset Date Resolution Status Hypertension chronic Rheumatoid arthritis chronic Type 2 diabetes mellitus [facility] Work Phone: Evaluation note* Diagnosis Onset Date Resolution Status Rheumatoid arthritis chronic Right ankle pain chronic Type 2 diabetes mellitus chr onic Hypertension chronic Rheumatoid arthritis chronic Right ankle pain chronic Type 2 diabetes mellitus [facility] Work Phone: Evaluation note* Diagnosis Onset Date Resolution Status COPD (chronic obstructive pulmonary disease) chronic Hypertension chronic Rheumatoid arthritis chronic Right ankle pain chronic Type 2 diabetes mellitus chr onic Tendinitis of left shoulder acute COPD (chronic obstructive pulmonary disease) chronic Hypertension chronic Rheumatoid arthritis chronic Type 2 diabetes mellitus [facility] Work Phone: Evaluation note* Diagnosis Onset Date Resolution Status Tendinitis of left shoulder acute COPD (chronic obstructive pulmonary disease) chronic Hypertension chronic Rheumatoid arthritis chronic Type 2 diabetes mellitus [facility] Work Phone: Evaluation note* Diagnosis Onset Date Resolution Status Flu vaccine need acute Hypertension chronic Rheumatoid arthritis chronic Type 2 diabetes mellitus [facility] Work Phone: Evaluation note* Diagnosis Onset Date Resolution Status COPD (chronic obstructive pulmonary disease) chronic Hyperlipidemia chronic Hypertension chronic Rheumatoid arthritis chronic Type 2 diabetes mellitus [facility] Work Phone: [facility] Work Phone: Reason for referral (narrative)No reason for [facility] Work Phone: Chief Complaint and Reason for Visit Chief Complaint 3 M FU LOWER EXTREMITY Reason for Visit Hypertension Rheumatoid arthritis Type 2 diabetes mellitus Chief Complaint LOWER EXTREMITY [facility] ER FU/RT LEG 4 M FU Reason for Visit Rheumatoid arthritis Right ankle pain Type 2 diabetes mellitus Hypertension Rheumatoid arthritis Right ankle pain Type 2 diabetes mellitus Chief Complaint 3 m fu COPD COPD 3 M FU Reason for Visit COPD (chronic obstru ctive pulmonary disease) Hypertension Rheumatoid arthritis Right ankle pain Type 2 diabetes mellitus Tendinitis of left shoulder COPD (chronic obstructive pulmonary disease) Hypertension Rheumatoid arthritis Type 2 diabetes mellitus Chief Complaint 3 M FU SHOULDER Reason for Visit Tendinitis of left s houlder COPD (chronic obstructive pulmonary disease) Hypertension Rheumatoid arthritis Type 2 diabetes mellitus Chief Complaint PAIN- COPY PCP 3 m fu PAIN- COPY PCP Reason for Visit Flu vaccine need Hypertension Rheumatoid arthritis Type 2 diabetes mellitus Chief Complaint PAIN- COPY PCP 4 M FU Reason for Visit COPD (chronic obstru ctive pulmonary disease) Hyperlipidemia Hypertension Rheumatoid arthritis Type 2 diabetes mellitus Chief Complaint 4 M FU PAIN- COPY PCP Reason for Visit COPD (chronic obstru ctive pulmonary disease) Hyperlipidemia Hypertension Rheumatoid arthritis Type 2 diabetes mellitus Chief Complaint Admit Date PAIN- COPY PCP June 26, 2024 10:46am 4 M FU July 30, 2024 9 :57am PAIN- COPY PCP September 19, 2024 10:0 1am Reason for Visit Admit Date Hyperlipidemia July 30, 2024 9 :57am Hypertension July 30, 2024 9 :57am Rheumatoid arthritis July 30, 2024 9:57am Type 2 diabetes mellitus July 30, 025 9:57am Chief Complaint Admit Date 4 M FU July 30, 2024 9 :57am PAIN- COPY PCP September 19, 2024 10:0 1am H34.211 Partial retinal artery occlusion , right ey November 14, 2024 9:53am Family History No Family History Records Found Relationship Condition Age at Onset Recorded Date/T woodrow Unknown Family History?No pertinent history Unkno wn September 29, 2019 1:02pm Relationship Condition Age at Onset Recorded Date/T woodrow Unknown Family History?No pe rtinent history Unknown September 29, 2019 12:02pm Relationship Condition Age at Onset Recorded Date/T woodrow father Diabetes mellitus Unknown Advance Directives No Advanced Directives Records Found Advance Directive Response Recorded Date/ Time Living Will No January 19, 2022 1 0:25am Power of Highway Patrol Officer No January 19, 2022 10:25am Advance Directive Response Recorded Date/ Time Living Will No January 19, 2022 9 :25am Power of Highway Patrol Officer No January 19, 2022 9:25am Advance Directive Response Recorded Date/ Time Living Will No January 19, 2022 1 0:25am Do you have a Healthcare Power of Highway Patrol Officer? No January 19, 2022 10:25am Summary Purpose Additional Source Comments Goals (unrecognized section and content) Goals may be documented in a n alternate sectionGoals may be documented in an alternate sectionGoals may be documented in an alternate sectionGoals may be documented in an alternate sectionGoals may be documented in an alternate sectionGoals may be documented in an alternate sectionGoals may be documented in an alternate sectionGoals may be documented in an alternate sectionGoals may be documented in an alternate section Care Teams (unrecognized sec tion and content) Team Status: Active Member Role Status Dates Dr. Zully Montoya MD Family Provider Active Dr. Zully Montoya MD Primary Care Provider Active Team Status: Inactive Member Role Status Dates Dr. Zully Montoya MD Primary Care P rojennifer, Attending Provider, Referring Provider Active Team Status: Active Member Role Status Dates Dr. Zully Montoya MD Primary Care P rovipeterson, Referring Provider, Other Provider Active Dr. Dao Park MD Attending Provider Active Team Status: Inactive Member Role Status Dates Dr. Zully Montoya MD Primary Care Provider Active Dr. Heidy Ma MD Attending Provider, Referring Provider Active Team Status: Inactive Member Role Status Dates Dr. Zully Montoya MD Primary Care Provider Active Start: June 26, 2024 End: June 26, 2024 Dr. Heidy Ma MD Attending Provider Active Start: June 26, 2024 End: June 26, 2024 Dr. Heidy Ma MD Referring Provider Active Start: June 26, 2024 End: June 26, 2024 Team Status: Inactive Member Role Status Dates Dr. Zully Montoya MD Primary Care Provider Active Start: July 30, 2024 End: July 30, 2024 Dr. Zully Montoya MD Attending Provider Active Start: July 30, 2024 End: July 30, 2024 Dr. Zully Montoya MD Referring Provider Active Start: July 30, 2024 End: July 30, 2024 Team Status: Inactive Member Role Status Dates Dr. Zully Montoya MD Primary Care Provider Active Start: September 19, 2024 End: September 19, 2024 Dr. Heidy Ma MD Attending Provider Active Start: September 19, 2024 End: September 19, 2024 Dr. Heidy Ma MD Referring Provider Active Start: September 19, 2024 End: September 19, 2024 Team Status: Active Member Role Status Dates Dr. Zully Montoya MD Primary Care Provider Active Team Status: Inactive Member Role Status Dates Dr. Zully Montoya MD Primary Care Provider Active Start: November 14, 2024 End: November 14, 2024 Dr. Kevin Long MD Attending Provider Active Start: November 14, 2024 End: November 14, 2024 Dr. Kevin Long MD Referring Provider Active Start: November 14, 2024 End: November 14, 2024 Team Status: Active Member Role Status Dates Dr. Zully Montoya MD Primary Care Provider Active Start: November 14, 2024 Dr. Bienvenido Alvarez MD Attending Provider Active S tart: November 14, 2024 Dr. Kevin Long MD Referring Provider Active Start: November 14, 2024 (unrecognized sect ion and content) No Status Records FoundNo Status Records Found INFORMATION SOURCE (unrecogn ized section and content) DATE CREATED AUTHOR 01/08/2023 [facility] DATE CREATED AUTHOR AUTHOR'S ORGANIZ ATION 11/26/2024 [facility] Source Comments (unrecognize d section and content) In the event this informatio n is protected by the Federal Confidentiality of Alcohol and Drug Abuse Patient Records regulations: The Federal rules restrict any use of the information to criminally investigate or prosecute any alcohol or drug abuse patient.[facility] FOR RECORDS PERTAINING TO PATIENTS WHO ARE [...] BE BASED ON THE PRIMARY CLINICAL RECORDS. [facility] [employer] [facility]. provides no warranty or guarantee of the accuracy or completeness of information in this document.
[2024-12-20 13:40] LABS: Cholesterol 150 mg/dL (<=200); High Density Lipoprotein 52 mg/dL; Low Density Lipoprotein Calc. 81 mg/dL; Triglycerides 85 mg/dL; Very Low Density Lipoprotein 17 mg/dL (5-40); cholesterol:hdl ratio screen 2.87
[2024-12-21 10:07] LABS: ALB/GLOB Ratio 1.5 RATIO (0.9-2.4); AST(SGOT) 24 U/L (<=37); Alanine Aminotransfer ALT/SGPT 24 U/L (<=46); Albumin, Serum 4.3 g/dL (3.4-4.8); Alkaline Phosphatase 77 U/L (40-129); Anion Gap 15 (5-15); BUN 10 mg/dL (4-19); BUN/Creat Ratio 12.3 RATIO (10-20); Calcium,Total 9.6 mg/dL (7.6-11.0); Carbon Dioxide 19.4 mmol/L (21.0-32.0); Chloride 97 mmol/L (98-108); Creatinine, Serum 0.81 mg/dL (0.70-1.20); EST Glomerular Filtration Rate 91 (>60); Globulin 2.9 g/dL (2.2-4.2); Glucose 128 mg/dL (70-99); Potassium 4.5 mmol/L (3.3-5.1); Protein, Total 7.3 g/dL (5.9-8.4); Sodium Level 132 mmol/L (133-145); Total Bilirubin 0.53 mg/dL (0.00-1.30)
== END | disposition home or self-care (01) ==
LOC: MTLAB 09:28
PROVIDERS: PCP Internal Medicine; Referring Provider Internal Medicine Rheumatology; Visit Provider Internal Medicine Rheumatology
DX: M06.00 Rheumatoid arthritis without rheumatoid factor, unspecified site (principal); E11.9 Type 2 diabetes mellitus without complications; Z12.5 Encounter for screening for malignant neoplasm of prostate; Z79.899 Other long term (current) drug therapy
CPT/HCPCS: 36415; 80053; 80061; 84153; G0103

== ENCOUNTER → 2024-12-24 | Outpatient (CLI) | payer MEDICARE, SELFPAY ==
[2024-12-24 12:16] LABS: Absolute Lymphocyte Count 2.76 X10^3/uL (0.83-4.51); Absolute Neutrophil Count 6.4 X10^3/uL (2.0-7.7); Basophil# 0.19 X10^3/uL; Basophil% 1.6 % (0-1); Eosinophil# 1.09 X10^3/uL; Hematocrit 46.8 % (40-54); Hemoglobin 16.7 g/dL (13.0-16.5); Lymphocyte # 2.76 X10^3/ul (0.83-4.51); Lymphocyte % 22.9 % (19-41); Mean Corp Hgb Conc 35.7 g/dL (32-36); Mean Corpuscular Hgb 34.3 pg (27.0-32.0); Mean Corpuscular Volume 96.1 fL (80-94); Mean Platelet Vol. 10.3 fl (6.2-12.0); Monocyte# 1.55 X10^3/uL; Monocyte% 12.9 % (0-10); NRBC Flagged by Analyzer 0 % (0-5); Neutrophil # 6.42 X10^3/uL (2.7-7.7); Neutrophil % 53.2 % (47-70); POSITIVE DIFFERENTIAL YES; Platelet Count 430 K/mm3 (150-450); RBC Distribution Width CV 13.8 % (11.6-14.6); RBC Distribution Width SD 48.5 fl (35.1-43.9); Red Blood Count 4.87 M/mm3 (4.6-6.2); White Blood Count 12.1 K/mm3 (4.4-11.0)
[2024-12-24 12:20] LABS: Differential Indicated SCAN CRITERIA MET
== END | disposition home or self-care (01) ==
LOC: MTLAB 09:44
PROVIDERS: PCP Internal Medicine; Referring Provider Internal Medicine Rheumatology; Visit Provider Internal Medicine Rheumatology
DX: M06.00 Rheumatoid arthritis without rheumatoid factor, unspecified site (principal); Z79.899 Other long term (current) drug therapy
CPT/HCPCS: 85025

== ENCOUNTER → 2025-03-11 | Outpatient (CLI) | payer MEDICARE, SELFPAY ==
[2025-03-11 12:04] LABS: Hematocrit 44.9 % (40-54); Hemoglobin 16.1 g/dL (13.0-16.5); Immature Granulocytes Count 0.030 X10^3/uL (0.0-0.0); Mean Corp Hgb Conc 35.9 g/dL (32-36); Mean Corpuscular Volume 95.1 fL (80-94); Mean Platelet Vol. 10.6 fl (6.2-12.0); NRBC Flagged by Analyzer 0 % (0-5); Platelet Count 393 K/mm3 (150-450); RBC Distribution Width CV 13.9 % (11.6-14.6); RBC Distribution Width SD 48.9 fl (35.1-43.9); Red Blood Count 4.72 M/mm3 (4.6-6.2); White Blood Count 10.1 K/mm3 (4.4-11.0)
[2025-03-11 12:44] LABS: AST(SGOT) 28 U/L (<=37); Alanine Aminotransfer ALT/SGPT 27 U/L (<=46); Albumin, Serum 4.3 g/dL (3.4-4.8); Alkaline Phosphatase 74 U/L (40-129); Anion Gap 15 (5-15); BUN 13 mg/dL (4-19); BUN/Creat Ratio 14.9 RATIO (10-20); Calcium,Total 9.2 mg/dL (7.6-11.0); Carbon Dioxide 20.4 mmol/L (21.0-32.0); Chloride 99 mmol/L (98-108); Globulin 3.3 g/dL (2.2-4.2); Glucose 140 mg/dL (70-99); Potassium 4.1 mmol/L (3.3-5.1)
== END | disposition home or self-care (01) ==
LOC: MTLAB 10:36
PROVIDERS: PCP Internal Medicine; Referring Provider Internal Medicine Rheumatology; Visit Provider Internal Medicine Rheumatology
DX: M06.00 Rheumatoid arthritis without rheumatoid factor, unspecified site (principal); Z79.899 Other long term (current) drug therapy
CPT/HCPCS: 36415; 80053; 85025

== ENCOUNTER → 2025-06-07 | Outpatient (CLI) | payer MEDICARE, SELFPAY ==
[2025-06-07 10:26] LABS: Hematocrit 46.4 % (40-54); Hemoglobin 16.5 g/dL (13.0-16.5); Immature Granulocytes Count 0.030 X10^3/uL (0.0-0.0); Mean Corp Hgb Conc 35.6 g/dL (32-36); Mean Corpuscular Volume 95.7 fL (80-94); Mean Platelet Vol. 10.6 fl (6.2-12.0); NRBC Flagged by Analyzer 0 % (0-5); Platelet Count 371 K/mm3 (150-450); RBC Distribution Width CV 13.6 % (11.6-14.6); RBC Distribution Width SD 47.8 fl (35.1-43.9); Red Blood Count 4.85 M/mm3 (4.6-6.2); White Blood Count 10.1 K/mm3 (4.4-11.0)
[2025-06-07 11:06] LABS: AST(SGOT) 24 U/L (<=37); Alanine Aminotransfer ALT/SGPT 23 U/L (<=46); Albumin, Serum 4.5 g/dL (3.4-4.8); Alkaline Phosphatase 67 U/L (40-129); Anion Gap 14 (5-15); BUN 12 mg/dL (4-19); BUN/Creat Ratio 15.1 RATIO (10-20); Calcium,Total 9.8 mg/dL (7.6-11.0); Carbon Dioxide 22.2 mmol/L (21.0-32.0); Chloride 100 mmol/L (98-108); Globulin 3.4 g/dL (2.2-4.2); Glucose 130 mg/dL (70-99); Potassium 4.0 mmol/L (3.3-5.1)
== END | disposition home or self-care (01) ==
LOC: MTLAB 09:42
PROVIDERS: PCP Internal Medicine; Referring Provider Internal Medicine Rheumatology; Visit Provider Internal Medicine Rheumatology
DX: M06.00 Rheumatoid arthritis without rheumatoid factor, unspecified site (principal); Z79.899 Other long term (current) drug therapy
CPT/HCPCS: 36415; 80053; 85025